=== PATIENT | male | born 1950 | race Caucasian/White ===

== ENCOUNTER 2018-07-10 08:52 | Day surgery (SDC) | payer MEDICARE ==
[~2018-07-10 08:52] MED LIST: ALPRAZolam 0.25 MG TAB PO PRN; ALPRAZolam 0.5 MG TAB PO PRN; ASPIRIN 325 MG TAB PO STA; ATORVASTATIN 80 MG TAB PO STA; NITROGLYCERIN SL TABS 0.4 MG TAB SUBLINGUAL PRN; SODIUM CHLORIDE 0.9% 1,000 ML in EMPTY BAG 1 BAG IV ONE
[2018-07-10] MEDS ORDERED: SODIUM CHLORIDE 0.9% 1,000 ML IV ONE (09:35)
[2018-07-10] MEDS ORDERED: fentaNYL (PF) 50 MCG/ML 2 ML AMP ONE (11:33)
[2018-07-10] MEDS ORDERED: MIDAZOLAM 2 MG/2 ML VIAL IV ONE (11:42)
[2018-07-10] MEDS ORDERED: fentaNYL (PF) 50 MCG/ML 2 ML AMP IV ONE (11:42)
[2018-07-10 12:27] LABS: O2 Sat Blood Gas 78.5 %
[2018-07-10 12:30] LABS: O2 Sat Blood Gas 76.2 %
[2018-07-10] MEDS ORDERED: IOPAMIDOL-370 100ML BTL INJ ONE (12:30)
[2018-07-10] MEDS ORDERED: IOPAMIDOL-370 150ML BTL INJ ONE (12:30)
[2018-07-10 12:32] LABS: O2 Sat Blood Gas 97.5 %
[2018-07-10] MEDS ORDERED: RX INFO: IV CONTRAST WAS GIVEN 1 EACH MISC MISCELLANE PRN (12:47)
--- NOTE | 2018-07-10 14:58 | P.GSCN ---
History of Present Illness Consult date: 07/10/18 Reason for Consult: Triple-vessel coronary artery disease, surgical recommendations Requesting physician: Tom Parrish History of present illness: This is a 68-year-old gentleman who recently began following with Dr. Padilla Perera on an outpatient basis. He has a previous medical history of newly diagnosed end-stage renal disease currently receiving hemodialysis, hypertension, hyperlipidemia, pulmonary embolism in April 2018 on chronic Eliquis, and previous tobacco dependence, quit smoking in January 2018, prior to that smoked 1 pack per day for 40+ years. He also states he has significant family history of coronary artery disease on his mother's side with several uncles diagnosed at less than 60 years old. Apparently he began seeing Dr. Padilla Perera and was told during office appointment that his blood pressure was very high and he should report to the emergency room. He was admitted in April 2018 to [facility] and treated for hypertension. While there he was diagnosed with end-stage renal disease and hemodialysis was initiated. Transthoracic echocardiogram was completed at that time demonstrating normal LV size with global hypokinesis of the left ventricle, moderate concentric left ventricular hypertrophy, decreased LV systolic function with EF 30-35%, mildly dilated right ventricle, mildly dilated atria, trace aortic regurgitation, moderate mitral regurgitation, moderate tricuspid regurgitation, and pulmonary hypertension with RVSP 69 mmHg. The patient was diagnosed with congestive heart failure, NYHA class III, AHA stage C by Dr. Parrish. He was in [facility] for approximately 1 week and discharged home on multiple new medications. He did remain compliant with follow-up with Dr. Parrish in the office, a stress test was completed 06/04/2018 demonstrating possible prior myocardial infarction raising the question of ischemic cardiomyopathy. He was recommended to undergo heart catheterization as an outpatient which was completed today and which demonstrated left main stenosis 40%, RCA stenosis 99%, circumflex stenosis 80%, mid LAD stenosis 100%, and diagonal branch 90% stenosis. Upon further inspection patient denies any symptoms of chest pain, shortness of breath, nausea, diaphoresis, syncope, PND, BOATENG, or any stroke like symptoms. Due to the nature of his disease Dr. Lopez from cardiothoracic surgery was consulted for myocardial revascularization recommendations. Review of Systems Review of systems was completed and was negative except as noted in the HPI. Past Medical History Past Medical History: Hypertension, Pulmonary Embolus (PE), Renal Disease, Thyroid Disorder Additional Past Medical History / Comment(s): HEMODIALYSIS MON-MON-MON AT [facility] # [phone]. HEMODIALYSIS CATHETER RIGHT CHEST., PATIENT STATES POSSIBLE PE APR 2018., SEE CARDIOLOGY H & P. History of Any Multi-Drug Resistant Organisms: None Reported Additional Past Surgical History / Comment(s): TEMPORARTY HEMODIALYSIS CATHETER (APR 2018) Past Anesthesia/Blood Transfusion Reactions: No Reported Reaction Past Psychological History: No Psychological Hx Reported Smoking Status: Former smoker Past Alcohol Use History: Occasional Additional Past Alcohol Use History / Comment(s): QUIT SMOKING 5 MONTHS AGO (FEB 2018), SMOKED 1 PPD, SMOKED 45 YEARS. Past Drug Use History: None Reported - Past Family History Mother Family Medical History: Coronary Artery Disease (CAD) Additional Family Medical History / Comment(s): Multiple family members on his mother's side with coronary artery disease including uncles diagnosed before the age of 60 Medications and Allergies Home Medications Medication Instructions Recorded Confirmed Type Apixaban [Eliquis] 1.25 mg PO BID 07/03/18 07/10/18 History Furosemide [Lasix] 80 mg PO BID 07/03/18 07/10/18 History Isosorbide Mononitrate ER [Imdur] 60 mg PO DAILY 07/03/18 07/10/18 History Levothyroxine Sodium [Synthroid] 50 mcg PO DAILY 07/03/18 07/10/18 History Metoprolol Tartrate [Lopressor] 12.5 mg PO BID 07/03/18 07/10/18 History Pravastatin Sodium [Pravachol] 20 mg PO HS 07/03/18 07/10/18 History Dara-Yandy (Supplement) 1 tab PO DAILY 07/03/18 History hydrALAZINE HCL [Apresoline] 50 mg PO BID 07/03/18 07/10/18 History Allergies Allergy/AdvReac Type Severity Reaction Status Date / Time No Known Allergies Allergy Verified 07/10/18 09:19 Surgical - Exam Vital Signs Pulse Resp BP Pulse Ox 57 L 18 154/78 100 07/10/18 09:22 07/10/18 09:22 07/10/18 09:22 07/10/18 09:22 - General well developed, well nourished, no distress, no pain - Eyes PERRL, normal ocular movement - ENT no hearing loss, poor snf - Neck no masses, no bruits, trachea midline - Respiratory Lungs sounds clear but diminished bilaterally. Respirations even, nonlabored. Currently on room air with oxygen saturation 100%. No chest wall deformities. - Cardiovascular S1, S2 present. Regular rate and rhythm, sinus rhythm on telemetry. Palpable peripheral pulses bilaterally. No edema present. No calf pain or tenderness noted. No varicosities noted to bilateral lower extremities. Negative Erasmo's test to left radial artery. Right anterior chest wall temporary hemodialysis cath present. - Abdomen Abdomen: soft, non tender, bowel sounds - Genitourinary Deferred - Rectum Deferred - Integumentary Skin appears slightly jaundiced. no rash, no growths - Neurologic normal coordination, normal sensation - Musculoskeletal normal posture - Psychiatric oriented to time, oriented to person, oriented to place, speech is normal, memory intact Results - Imaging Additional studies: Heart catheterization films reviewed. Assessment and Plan Assessment: 1. Severe triple-vessel coronary artery disease 2. Cardiomyopathy, chronic systolic heart failure, NYHA class III, AHA stage C with ejection fraction 30-35% 3. End-stage renal disease currently receiving hemodialysis 4. Hypertension 5. Hyperlipidemia 6. Previous tobacco dependence 7. Pulmonary embolism in April 2018, on Eliquis for anticoagulation Plan: The patient was seen and examined at the bedside in the extended stay unit. Charts as diagnostics reviewed. The case will be discussed in detail with Dr. Lopez. The usual perioperative course for open heart surgery was reviewed in detail with the patient and his , risks and benefits were discussed, all questions were answered. The patient was agreeable at this time to preoperative testing which has been ordered. We recommend maximizing medical therapy with aspirin, statin, beta gallo therapy. STS risk score will be computed once preoperative testing has been completed and discussed with the patient and his . Will continue to reinforce preoperative teaching. Medical management per cardiology. More recommendations to follow. Thank you Dr. Parrish for this consult. We look forward to working with you in the care of your patient. Time with Patient: Greater than 30
[2018-07-10 16:32] LABS: Anisocytosis Slight; Basophils % (A) 1 %; Eosinophils # (A) 0.3 k/uL (0-0.7); Eosinophils % (A) 5 %; HCT 36.4 % (39.0-53.0); HGB 11.4 gm/dL (13.0-17.5); Hypochromasia Slight; Lymphocytes # (A) 0.9 k/uL (1.0-4.8); Lymphocytes % (A) 18 %; MCH 30.5 pg (25.0-35.0); MCHC 31.4 g/dL (31.0-37.0); Macrocytosis Slight; Mean Platelet Volume 7.5; Monocytes # (A) 0.4 k/uL (0-1.0); Monocytes % (A) 8 %; Neutrophils # (A) 3.4 k/uL (1.3-7.7); Neutrophils % (A) 66 %; Platelet Count 214 k/uL (150-450); RBC 3.75 m/uL (4.30-5.90); RDW 16.6 % (11.5-15.5); WBC 5.1 k/uL (3.8-10.6)
--- NOTE | 2018-07-10 16:32 | CC ---
CARDIAC CATHETERIZATION REPORT This patient recently was admitted in the hospital with renal failure and cardiomyopathy and congestive cardiac failure. The patient subsequently was started on dialysis. Patient had a kidney biopsy done. The stress test was performed which showed evidence suggestive of ischemic cardiomyopathy with predominantly fixed perfusion defect in the anterior apical segment. In view of that, the patient was recommended to have a cardiac catheterization for definitive diagnosis. The patient had a evidence of some pulmonary hypertension prior to dialysis and so the right and left heart catheterization was performed. DESCRIPTION OF THE PROCEDURE: The right and left heart catheterization was . The right groin was prepped and draped in the usual manner and the right femoral artery was entered under ultrasound guidance and using micropuncture needle, subsequently right femoral vein was entered using ultrasound guidance and a #8 Ni[place] sheath was placed in. Initially right heart catheterization was performed and subsequently coronary angiography and left ventriculography was performed. Sheath was removed and good hemostasis was achieved with manual compression and Angio-Seal. HEMODYNAMICS: The mean right atrial pressure is 2 mmHg. Right ventricular systolic pressure is 60 and end-diastolic pressure is 4 mmHg. Pulmonary artery systolic pressure is 16 and end- diastolic pressure is 4-6 mmHg. Mean pulmonary capillary wedge pressure was only 4-6 mmHg. Cardiac output by thermodilution was 7.7. The saturation in the right atrium was 78. The pulmonary artery saturation was 76%. Femoral artery saturation was 97%. Cardiac output by Aime was 5.98 L. SELECTIVE CORONARY ANGIOGRAPHY: Left main coronary artery shows the distal 40% stenosis. LAD is totally occluded after the origin of the good-sized diagonal branch. The diagonal branch has ostial stenosis of 80-90 percent. Circumflex coronary artery is a good caliber blood vessel. There is an intermediate branch which has a 70% stenosis. The circumflex coronary artery then has a 70% stenosis and subsequently distally it is occluded with a faint filling of the distal branches is noted. The right coronary artery, mid right coronary artery has a 90% stenosis and it gives collaterals. There is a good filling of the LAD as well as the PLV branch of the circumflex coronary artery. Left ventriculography reveals mild anterior apical hypokinesia with ejection fraction of 45 to 50% FINAL IMPRESSION: This study reveals severe triple-vessel disease with a 40% stenosis of the distal left main. The LAD is totally occluded. First diagonal branch has 80 to 90% stenosis. Intermediate branch has 70% stenosis. Circumflex coronary artery has a 80% stenosis with subtotal occlusion in its distal portion. Right coronary artery is 90% stenosis. There is a good filling of the LAD as well as obtuse marginal branch. Left ventriculography reveals ejection fraction of 45-50 percent with anterior apical hypokinesia. RECOMMENDATIONS: We will obtain surgical consultation for coronary artery bypass surgery. BENJI / MAYRA: [id number] /
[2018-07-10 16:37] LABS: Prothrombin Time 10.4 sec (9.0-12.0)
[2018-07-10 16:38] LABS: Partial Thromboplastin Time 27.9 sec (22.0-30.0)
[2018-07-10 16:41] LABS: Albumin 3.4 g/dL (3.5-5.0); Potassium 5.4 mmol/L (3.5-5.1); Total Bilirubin 0.6 mg/dL (0.2-1.3); Total Protein 5.9 g/dL (6.3-8.2)
[2018-07-10] MEDS: FUROSEMIDE 80 MG TAB PO SCH (17:26)
[2018-07-10 17:33] VITALS: BMI 20.6
--- NOTE | 2018-07-10 18:57 | XR ---
EXAMINATION TYPE: XR chest 2V DATE OF EXAM: 07/10/2018 COMPARISON: NONE HISTORY: Hypertension TECHNIQUE: Frontal and lateral views of the chest are obtained. FINDINGS: Heart and mediastinum are normal. Lungs are clear. Diaphragm is normal. Bony thorax appear s normal. There is right central venous catheter with the tip in the superior vena cava. There is no pleural effusion. IMPRESSION: Normal chest. Normal heart.
[2018-07-10] MEDS ORDERED: PRAVASTATIN SODIUM 20 MG TAB PO SCH (21:00)
[2018-07-10] MEDS: hydrALAZINE HCL 50 MG TAB PO SCH (21:32)
[2018-07-10] MEDS: METOPROLOL TARTRATE 12.5 MG TAB PO SCH (21:32)
--- NOTE | 2018-07-10 21:38 | US ---
EXAMINATION TYPE: US carotid duplex BILAT DATE OF EXAM: 07/10/2018 COMPARISON: NONE CLINICAL HISTORY: Pre-Op Cardiac Surgery. Pre Op cardiac surgery EXAM MEASUREMENTS: RIGHT: Peak Systolic Velocity (PSV) cm/sec ----- Right CCA: 78.4 ----- Right ICA: 122.9 ----- Right ECA: 96.4 ICA/CCA ratio: 1.6 RIGHT: End Diastole cm/sec ----- Right CCA: 18.8 ----- Right ICA: 50.9 ----- Right ECA: 13.6 LEFT: Peak Systolic Velocity (PSV) cm/sec ----- Left CCA: 98.3 ----- Left ICA: 88.5 ----- Left ECA: 98.3 ICA/CCA ratio: 0.9 LEFT: End Diastole cm/sec ----- Left CCA: 27.4 ----- Left ICA: 29.4 ----- Left ECA: 19.5 VERTEBRALS (direction of flow): Right Vertebral: Antegrade Left Vertebral: Antegrade Rhythm: Normal No significant stenosis seen IMPRESSION: There is antegrade flow in the vertebral arteries. The images and measurements suggest c lose to 0% stenosis in both internal carotid arteries. Criteria for Assigning % of Stenosis / Diameter reduction (Estimation based on the indirect measurements of the internal carotid artery velocities (ICA PSV). 1. Normal (no stenosis)=ICA PSV < 125 cm/s: ratio < 2.0: ICA EDV<40 cm/s. 2. Less than 50% stenosis=ICA PSV < 125 cm/s: ratio < 2.0: ICA EDV<40 cm/s. 3. 50 to 69% stenosis=ICA PSV of 125 to 230 cm/s: ration 2.0 ? 4.0: ICA EDV 40-100 cm/s. 4. Greater than 70% stenosis to near occlusion= ICA PSV > 230 cm/s: ratio > 4.0: ICA EDV > 100 cm/s. 5. Near occlusion= ICA PSV velocities may be low or undetectable: variable ratio and ICA EDV. 6. Total occlusion=unable to detect flow.
[2018-07-11 01:16] LABS: Hepatitis A Antibody IgM Non-Reactive (Non-Reactive); Hepatitis B Core IgM Non-Reactive (Non-Reactive)
[2018-07-11] MEDS ORDERED: LEVOTHYROXINE 50 MCG TAB PO SCH (06:30)
[2018-07-11] MEDS: hydrALAZINE HCL 50 MG TAB PO SCH (08:58)
[2018-07-11] MEDS: FUROSEMIDE 80 MG TAB PO SCH ×2 (08:58→15:20)
[2018-07-11] MEDS: METOPROLOL TARTRATE 12.5 MG TAB PO SCH (08:58)
[2018-07-11] MEDS ORDERED: ISOSORBIDE MONONITRATE ER 60 MG TAB.ER.24H PO SCH (09:00)
[2018-07-11] MEDS ORDERED: APIXABAN 2.5 MG TABLET PO SCH ×2 (09:00→10:00)
[2018-07-11 09:07] VITALS: RESP 18
--- NOTE | 2018-07-11 11:27 | P.NPCON ---
History of Present Illness - Reason for Consult end stage renal disease - History of Present Illness Reason for consultation: End-stage renal disease History of present illness: Patient is a 68-year-old male seen in renal consultation for end-stage renal disease. He is maintained on hemodialysis on a Monday schedule. Permacath. Patient had a stress test done as an outpatient which was abnormal. He had a cardiac catheterization done yesterday which revealed triple-vessel disease. He is being followed now by cardiac thoracic surgery. Last hemodialysis was on Monday. He denies any chest pain or shortness of breath. No vomiting or diarrhea. Hemodynamically stable. No cough. No abdominal pain. No fever or chills. No active complaints at this time. 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 No treatment was warranted due to severe chronicity. Vital signs are stable. General: The patient appeared well nourished and normally developed. HEENT: Head exam is unremarkable. Neck is without jugular venous distension. LUNGS: Lungs are clear to auscultation and percussion. Breath sounds decreased. HEART: Rate and Rhythm are regular. First and second heart sounds normal. No murmurs, rubs or gallops. ABDOMEN: Abdominal exam reveals normal bowel sounds. Non-tender and non- distended. No evidence of peritonitis. EXTREMITITES: No clubbing, cyanosis, or edema. Past Medical History Past Medical History: Hypertension, Pulmonary Embolus (PE), Renal Disease, Thyroid Disorder Additional Past Medical History / Comment(s): HEMODIALYSIS MON-MON-MON AT [facility] # [phone]. HEMODIALYSIS CATHETER RIGHT CHEST., PATIENT STATES POSSIBLE PE APR 2018., SEE CARDIOLOGY H & P. History of Any Multi-Drug Resistant Organisms: None Reported Additional Past Surgical History / Comment(s): TEMPORARTY HEMODIALYSIS CATHETER (APR 2018) Past Anesthesia/Blood Transfusion Reactions: No Reported Reaction Past Psychological History: No Psychological Hx Reported Smoking Status: Former smoker Past Alcohol Use History: Occasional Additional Past Alcohol Use History / Comment(s): QUIT SMOKING 5 MONTHS AGO (FEB 2018), SMOKED 1 PPD, SMOKED 45 YEARS. Past Drug Use History: None Reported - Past Family History Mother Family Medical History: Coronary Artery Disease (CAD) Additional Family Medical History / Comment(s): Multiple family members on his mother's side with coronary artery disease including uncles diagnosed before the age of 60 Medications and Allergies Home Medications Medication Instructions Recorded Confirmed Type Isosorbide Mononitrate ER [Imdur] 60 mg PO DAILY 07/03/18 07/10/18 History Levothyroxine Sodium [Synthroid] 50 mcg PO DAILY 07/03/18 07/10/18 History Metoprolol Tartrate [Lopressor] 12.5 mg PO BID 07/03/18 07/10/18 History Dara-Yandy (Supplement) 1 tab PO DAILY 07/03/18 History hydrALAZINE HCL [Apresoline] 50 mg PO BID 07/03/18 07/10/18 History Apixaban [Eliquis] 2.5 mg PO BID #60 tab 07/11/18 Rx Nitroglycerin Sl Tabs [Nitrostat] 0.4 mg SUBLINGUAL Q5M PRN #25 tab 07/11/18 Rx Rosuvastatin Calcium [Crestor] 20 mg PO DAILY #30 tab 07/11/18 Rx Allergies Allergy/AdvReac Type Severity Reaction Status Date / Time No Known Allergies Allergy Verified 07/10/18 09:19 Physical Exam Vitals: Vital Signs Temp Pulse Resp BP BP Pulse Ox 07/11/18 09:07 98.2 F 65 18 160/85 98 07/11/18 04:00 98.0 F 69 16 132/82 96 07/11/18 00:00 98.1 F 65 16 140/78 97 07/10/18 19:56 97.1 F L 65 16 140/79 96 07/10/18 16:32 68 14 155/86 98 07/10/18 16:00 68 14 07/10/18 15:22 64 18 155/83 99 07/10/18 14:30 60 18 138/82 100 07/10/18 14:00 61 18 147/82 100 07/10/18 13:45 64 18 149/83 100 07/10/18 13:30 62 18 157/83 100 07/10/18 13:15 62 18 140/82 100 07/10/18 13:00 54 L 18 162/84 100 Intake and Output 07/10/18 07/11/18 07/11/18 22:59 06:59 14:59 Intake Total 240 800 Output Total 250 Balance -10 800 Intake: Intake, IV Titration 800 Amount Sodium Chloride 0.9% 1, 800 000 ml In Empty Bag 1 bag @ 100 mls/hr IV .Q10H ONE Rx#:[id number] Oral 240 Output: Urine 250 Other: Voiding Method Toilet Urinal Weight 66 kg Results - Lab Results Most recent lab results Calcium 9.0 mg/dL (8.4-10.2) 07/10/18 16:16 Magnesium 2.0 mg/dL (1.6-2.3) 07/10/18 16:16 07/10/18 16:20 07/10/18 16:16 Assessment and Plan Plan: Assessment: 1. End-stage renal disease maintained on hemodialysis on a Monday schedule via permacath. 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 He was also noted to have severe chronicity and kidney biopsy therefore no tr eatment was warranted. 2. Coronary artery disease status post cardiac catheterization which revealed severe triple-vessel disease. Being followed by cardial thoracic surgery. Potential CABG next Monday. 3. Mild hyperkalemia secondary to chronic kidney disease. 4. Hypertension with chronic kidney disease. Plan: Hemodialysis today. Stable to be discharged home from nephrology standpoint after dialysis today. He is to also follow-up with vascular surgery as an outpatient for AV fistula creation. Thank you for the consultation. I will continue to follow the patient with you during his hospital stay.
--- NOTE | 2018-07-11 11:41 | ECHOF ---
Referral Reason:assess LV, valves MEASUREMENTS -------- HEIGHT: 172.7 cm WEIGHT: 63.5 kg BP: RVIDd: 2.9 cm (< 3.3) IVSd: 1.0 cm (0.6 - 1.1) LVIDd: 5.6 cm (3.9 - 5.3) LVPWd: 1.0 cm (0.6 - 1.1) IVSs: 1.3 cm LVIDs: 4.7 cm LVPWs: 1.1 cm LAESV Index (A-L): 28.52 ml/m Ao Diam: 3.0 cm (2.0 - 3.7) AV Cusp: 2.0 cm (1.5 - 2.6) LA Diam: 3.6 cm (2.7 - 3.8) MV EXCURSION: 20.130 mm (> 18.000) MV EF SLOPE: 93 mm/s (70 - 150) EPSS: 0.5 cm MV E Alton: 0.60 m/s MV DecT: 291 ms MV A [place]: 0.78 m/s MV E/A Ratio: 0.78 RAP: 5.00 mmHg RVSP: 41.26 mmHg FINDINGS -------- Sinus rhythm. This was a technically good study. The left ventricular size is normal. Left ventricular wall thickness is normal. Overall left vent ricular systolic function is moderately impaired with, an EF between 35 - 40 %. The diastolic filli ng pattern is normal for the age of the patient 8.72. Anterior is hypokinetic Basal inferolateral hypokinesis. Distal Septal Hypokinesis. The right ventricle is normal in size and function. Normal LA size by volume 22+/-6 ml/m2. RA appears enlarged. Aortic valve is trileaflet and is mildly thickened. There is no evidence of aortic regurgitation. There is no evidence of aortic stenosis. The mitral valve leaflets are mildly thickened. Mild mitral regurgitation is present. Mild tricuspid regurgitation present. There is mild pulmonary hypertension. The right ventricular systolic pressure, as measured by Doppler, is 41.26mmHg. Trace/mild (physiologic) pulmonic regurgitation. The aortic root size is normal. Normal inferior vena cava with normal inspiratory collapse consistent with estimated right atrial pre ssure of 5 mmHg. There is no pericardial effusion. CONCLUSIONS -------- 1. Sinus rhythm. 2. This was a technically good study. 3. The left ventricular size is normal. 4. Left ventricular wall thickness is normal. 5. Overall left ventricular systolic function is moderately impaired with, an EF between 35 - 40 %. 6. The diastolic filling pattern is normal for the age of the patient 8.72 7. Anterior is hypokinetic 8. Basal inferolateral hypokinesis. 9. Distal Septal Hypokinesis. 10. Normal LA size by volume 22+/-6 ml/m2. 11. RA appears enlarged. 12. Aortic valve is trileaflet and is mildly thickened. 13. The mitral valve leaflets are mildly thickened. 14. Mild mitral regurgitation is present. 15. Mild tricuspid regurgitation present. 16. There is mild pulmonary hypertension. 17. The right ventricular systolic pressure, as measured by Doppler, is 41.26mmHg. 18. Trace/mild (physiologic) pulmonic regurgitation. 19. The aortic root size is normal. 20. There is no pericardial effusion. PRINTING MACHINE OPERATOR: Nelson Fay RDCS
--- NOTE | 2018-07-11 13:20 | P.PN ---
Subjective Progress Note Date: 07/11/18 Principal diagnosis: Severe triple-vessel coronary artery disease. Cardiomyopathy, chronic systolic heart failure, NYHA class III, AHA stage C with ejection fraction 30-35%. Prev ious medical history of end-stage renal disease currently receiving hemodialysis Monday/Monday/Monday, hypertension as well as pulmonary hypertension, hyperlipidemia, pulmonary embolism in April 2018 on chronic Eliquis, previous tobacco dependence, hypothyroid, family history of early coronary artery disease, and questionable history of atrial fibrillation by documentation from [facility] however patient denies history. Patient was seen and examined with Dr. Lopez, currently ambulating in the room in no acute distress. Denies any pain or shortness of breath. Remains in normal sinus rhythm, hemodynamically stable. All questions answered. Objective - Vital Signs Vital signs: Vital Signs Temp 98.1 F 07/11/18 11:28 Pulse 65 07/11/18 11:30 Resp 18 07/11/18 11:30 BP 133/79 07/11/18 11:28 Pulse Ox 98 07/11/18 11:28 Intake & Output 07/10/18 07/11/18 07/11/18 18:59 06:59 18:59 Intake Total 590 800 640 Output Total 250 325 Balance 590 550 315 Weight 66 kg 61.462 kg Intake: IV 350 400 Sodium Chloride 0.9% 1, 0 400 000 ml In Empty Bag 1 bag @ 100 mls/hr IV .Q10H ONE Rx#:[id number] Intake, IV Titration 800 Amount Sodium Chloride 0.9% 1, 800 000 ml In Empty Bag 1 bag @ 100 mls/hr IV .Q10H ONE Rx#:[id number] Oral 240 240 Output: Urine 250 325 Other: Voiding Method Toilet Urinal # Voids 1 - Constitutional General appearance: Present: cooperative, no acute distress - Respiratory Details: Lungs sounds diminished bilaterally. Respirations even, nonlabored. Currently on room air with oxygen saturation 98%. Able to achieve 2000 mL on his incentive spirometry. - Cardiovascular Details: S1, S2 present. Regular rate and rhythm, sinus rhythm on telemetry. Palpable peripheral pulses bilaterally. No edema present. No calf pain or tenderness noted. Right anterior chest wall temporary hemodialysis catheter present. - Gastrointestinal Gastrointestinal Comment(s): Abdomen soft, nontender, nondistended. Active bowel sounds present 4 quadrants. Tolerating diet. - Genitourinary Genitourinary Comment(s): Continues to void clear, yellow urine. - Integumentary Integumentary Comment(s): Skin is warm and dry with evidence of good perfusion. - Neurologic Neurologic: Present: CNII-XII intact - Musculoskeletal Musculoskeletal: Present: gait normal, strength equal bilaterally - Psychiatric Psychiatric: Present: A&O x's 3, appropriate affect, intact judgment & insight - Allied health notes Allied health notes reviewed: nursing - Labs CBC & Chem 7: 07/10/18 16:20 07/10/18 16:16 Labs: Abnormal Lab Results - Last 24 Hours (Table) 07/10/18 07/10/18 Range/Units 16:16 16:20 RBC 3.75 L (4.30-5.90) m/uL Hgb 11.4 L (13.0-17.5) gm/dL Hct 36.4 L (39.0-53.0) % RDW 16.6 H (11.5-15.5) % Lymphocytes # 0.9 L (1.0-4.8) k/uL Potassium 5.4 H (3.5-5.1) mmol/L BUN 42 H (9-20) mg/dL Creatinine 6.99 H (0.66-1.25) mg/dL Total Protein 5.9 L (6.3-8.2) g/dL Albumin 3.4 L (3.5-5.0) g/dL HDL Cholesterol 38 L (40-60) mg/dL Microbiology - Last 24 Hours (Table) 07/10/18 14:20 Nasal Screen MRSA/MSSA - Preliminary Nasal Swab - Imaging and Cardiology Chest x-ray: report reviewed, image reviewed Carotid Dopplers reviewed, no significant stenosis. Lower extremity vein mapping reviewed. Assessment and Plan Assessment: 1. Severe triple-vessel coronary artery disease 2. Cardiomyopathy, chronic systolic heart failure, NYHA class III, AHA stage C with ejection fraction 30-35% 3. End-stage renal disease currently receiving hemodialysis 4. Hypertension 5. Pulmonary hypertension 6. Hyperlipidemia 7. Previous tobacco dependence , awaiting pulmonary function test from Dr. Hong office 8. Pulmonary embolism in April 2018, on Eliquis for anticoagulation 9. Hypothyroid 10. Family history of premature coronary artery disease 11. Questionable history of atrial fibrillation by [facility], patient denies history Plan: 1. Continue statin, beta gallo therapy , Eliquis for anticoagulation. 2. We will obtain pulmonary function test from Dr. Hong office. 3. Continue to reinforce preoperative teaching. 4. We recommend coronary artery bypass graft surgery with bilateral mammary harvest and pulmonary vein isolation soon. Patient wishes to wait for 1-2 weeks until he knows if he will have insurance coverage. We discussed with the patient and his that this is not something that should wait for a long period of time. They stated they will call next Monday07/16/18 after talking with their insurance company, and we can schedule surgery. We instructed patient to come back to the ER if he has any chest pain or shortness of breath, or any other symptoms. He will need Eliquis stopped for 3 days prior to surgery and will need dialysis prior to surgery. 5. Encourage continued smoking cessation, encourage incentive spirometry use. 6. Continued medical management of other comorbid diagnoses per primary care services. 7. The patient may be discharged to home from our standpoint to return as an outpatient for surgery. Time with Patient: Greater than 30
--- NOTE | 2018-07-11 13:39 | PN ---
PROGRESS NOTE This patient underwent right and left heart catheterization yesterday. Patient was found to have a severe triple-vessel disease. Surgical consultation was obtained. Right heart catheterization showed normal pulmonary artery pressures. Patient is doing well. Patient's vital signs remains stable. First and second heart sounds are heard. Lungs are clear to auscultation and percussion. There is a small hematoma at the venous puncture site. Otherwise there is no evidence of . Right groin appears normal. The patient is going to get dialysis today and Surgery is going to re-evaluate the patient today. After that the patient will be discharged home. We will continue the patient on Eliquis 2.5 mg b.i.d., which he has been taking for possibility of pulmonary embolism. MMODL / IJN: [id number] /
[2018-07-11 15:24] VITALS: BP 100/62; PULSE 63; TEMP 98
[2018-07-11] MEDS ORDERED: ATORVASTATIN 20 MG TAB PO SCH (21:00)
== END 2018-07-11 15:30 | disposition home or self-care (01) ==
LOC: CATHCVL 08:52 → 3SCARD 12:31 → CATHCVL 07-11 15:30
PROVIDERS: ATTEND Internal Medicine Cardiovascular Disease
DX: I25.10 Atherosclerotic heart disease of native coronary artery without angina pectoris (principal); I13.2 Hypertensive heart and chronic kidney disease with heart failure and with stage 5 chronic kidney disease, or end stage renal disease; N18.6 End stage renal disease; I50.22 Chronic systolic (congestive) heart failure; I25.82 Chronic total occlusion of coronary artery; Z99.2 Dependence on renal dialysis; I42.0 Dilated cardiomyopathy; I08.1 Rheumatic disorders of both mitral and tricuspid valves; E87.5 Hyperkalemia; Z82.49 Family history of ischemic heart disease and other diseases of the circulatory system; I27.20 Pulmonary hypertension, unspecified; E07.9 Disorder of thyroid, unspecified; E78.5 Hyperlipidemia, unspecified; Z87.891 Personal history of nicotine dependence; Z86.711 Personal history of pulmonary embolism; Z79.01 Long term (current) use of anticoagulants; Z79.890 Hormone replacement therapy; Z79.899 Other long term (current) drug therapy
CPT/HCPCS: 93306; 93460; 76937; 80061; 80053; 80074; 85018; 84443; 82810; 83735; 85025; 85610; 85730; 87070; 83036; 71046; 93970; 93922; 93880; C1760; C1894 ×2; C1769 ×2; J2250; J3010; Q9967 ×2; 90935

== ENCOUNTER → 2018-08-21 | Outpatient (CLI) | payer MEDICARE, BC ==
[2018-08-21 09:39] LABS: Anisocytosis Slight; HCT 39.5 % (39.0-53.0); HGB 12.5 gm/dL (13.0-17.5); Hypochromasia Slight; MCH 31.8 pg (25.0-35.0); MCHC 31.7 g/dL (31.0-37.0); MCV 100.3 fL (80.0-100.0); Macrocytosis Slight; Mean Platelet Volume 6.7; Platelet Count 197 k/uL (150-450); RBC 3.94 m/uL (4.30-5.90); RDW 17.5 % (11.5-15.5); WBC 6.7 k/uL (3.8-10.6)
[2018-08-21 09:42] LABS: INR 0.9 (<1.2); Partial Thromboplastin Time 26.1 sec (22.0-30.0); Prothrombin Time 10.2 sec (9.0-12.0)
[2018-08-21 09:52] LABS: Appearance,Urine Clear (Clear); Bilirubin,Urine Negative (Negative); Blood,Urine Moderate (Negative); Color,Urine Yellow; Glucose,Urine (UA) Negative (Negative); Ketones,Urine Negative (Negative); Leukocyte Esterase,Urine Small (Negative); Mucus,Urine Rare /hpf; Nitrite,Urine Negative (Negative); Protein,Urine 3+ (Negative); RBC,Urine 21 /hpf (0-5); Specific Gravity,Urine 1.009 (1.001-1.035); Urobilinogen,Urine <2.0 mg/dL (<2.0); WBC,Urine 13 /hpf (0-5)
[2018-08-21 11:03] LABS: Calcium 9.2 mg/dL (8.4-10.2); Potassium 4.7 mmol/L (3.5-5.1); Total Bilirubin 0.6 mg/dL (0.2-1.3); Total Protein 6.8 g/dL (6.3-8.2)
== END | disposition home or self-care (01) ==
LOC: LABWHC1 08:39
PROVIDERS: ATTEND Surgery
DX: I25.10 Atherosclerotic heart disease of native coronary artery without angina pectoris (principal)
CPT/HCPCS: 36415; 80053; 81001; 85027; 85610; 85730; 87086

== ENCOUNTER 2018-08-23 08:00 | Inpatient (IN) | payer MEDICARE, BC ==
[2018-08-28] MEDS ORDERED: CLEVIDIPINE BUTYRATE 25 MG in EMPTY BAG 1 BAG IV ONE (05:00)
[2018-08-28] MEDS ORDERED: DEXTROSE 5% IN WATER 1,000 ML with POTASSIUM CHLORIDE 25 MEQ, SODIUM CHLORIDE 2.5MEQ/ML... IRRIGATION ONE ×6 (05:00)
[2018-08-28] MEDS ORDERED: PHENYLEPHRINE 10 MG/ML VIAL IV ONE (05:00)
[2018-08-28] MEDS ORDERED: HEPARIN SODIUM,PORCINE 5,000 UNIT in SODIUM CHLORIDE 0.9% 500 ML 500 ML IV ONE (05:00)
[2018-08-28] MEDS ORDERED: ceFAZolin 1,000 MG in SODIUM CHLORIDE 0.9% IRRIGATIO 1,000 ML IRRIGATION ONE (05:00)
[2018-08-28] MEDS ORDERED: NITROGLYCERIN-D5W PMX 25 MG/250 ML BTL IV ONE (05:00)
[2018-08-28] MEDS ORDERED: PROTAMINE SULFATE 10 MG/ML 25 ML VIAL IV ONE ×2 (05:00→08:04)
[2018-08-28] MEDS ORDERED: ATORVASTATIN 10 MG TAB PO ONE (05:00)
[2018-08-28] MEDS ORDERED: TRANEXAMIC ACID 2,000 MG in SODIUM CHLORIDE 0.9% 80 ML IV ONE (05:00)
[2018-08-28] MEDS ORDERED: INSULIN REGULAR 100 UNIT in SODIUM CHLORIDE 0.9% 100 ML IV ONE (05:00)
[2018-08-28] MEDS ORDERED: CHLORHEXIDINE GLUCONATE 15 ML CUP MUCOUS MEM ONE (05:00)
[2018-08-28] MEDS ORDERED: ceFAZolin IN SWFI 2 GM/20 ML SYRINGE IVP ONE (05:00)
[2018-08-28] MEDS ORDERED: ASPIRIN 325 MG TAB PO ONE (05:00)
[2018-08-28] MEDS ORDERED: VANCOMYCIN 1,000 MG VIAL MISCELLANE ONE (05:00)
[2018-08-28] MEDS ORDERED: MAGNESIUM SULFATE MG 500 MG/ML IV ONE (05:00)
[2018-08-28] MEDS ORDERED: HEPARIN SODIUM 1,000 UN/ML (10ML VL) IV ONE (05:00)
[2018-08-28] MEDS ORDERED: NOREPINEPHRINE 4 MG in SODIUM CHLORIDE 0.9% 250 ML IV ONE (05:00)
[2018-08-28] MEDS ORDERED: METOPROLOL TARTRATE 12.5 MG TAB PO ONE (05:00)
[2018-08-28] MEDS ORDERED: SODIUM CHLORIDE 0.9% 1,000 ML IV ONE (05:00)
[2018-08-28] MEDS ORDERED: SODIUM BICARB 8.4% 50 ML SYR (1 MEQ/ML) IV ONE (05:00)
[2018-08-28] MEDS ORDERED: NITROGLYCERIN-D5W PMX 50 MG in DEXTROSE/WATER 1 250ML.BAG IV ONE (05:00)
[2018-08-28] MEDS ORDERED: DEXTROSE 5% IN WATER 1,000 ML with POTASSIUM CHLORIDE 110 MEQ, MAGNESIUM SULFATE 16 MEQ... IV ONE ×5 (05:00)
[2018-08-28] MEDS ORDERED: PAPAVERINE 360 MG in SODIUM CHLORIDE 0.9% 90 ML IV ONE (05:00)
[2018-08-28] MEDS ORDERED: CALCIUM CHLORIDE 100 MG/ML 10 ML SYRINGE IV ONE (05:00)
[2018-08-28] MEDS ORDERED: ALBUMIN HUMAN 25% 50 ML IV ONE (05:00)
[2018-08-28] MEDS ORDERED: PROPOFOL 1,000 MG/100 ML VIAL IV ONE (05:00)
[2018-08-28] MEDS ORDERED: LACTATED RINGERS 1,000 ML IV ONE (05:00)
[2018-08-28] MEDS ORDERED: ceFAZolin 2,000 MG in SODIUM CHLORIDE 0.9% 30 ML IVPB ONE ×4 (05:00)
[2018-08-28] MEDS ORDERED: PROTAMINE SULFATE 250 MG in EMPTY BAG 1 BAG IV ONE (05:00)
[2018-08-28] MEDS ORDERED: PHENYLEPHRINE 40 MG in SODIUM CHLORIDE 0.9% 250 ML IV ONE (05:00)
[2018-08-28] MEDS ORDERED: LACTATED RINGERS 1,000 ML IV SCH (05:43)
[2018-08-28] MEDS ORDERED: MIDAZOLAM 2 MG/2 ML VIAL IV PRN (05:43)
[2018-08-28] MEDS ORDERED: SODIUM CHLORIDE 0.9% 500 ML 500 ML IV ONE (06:07)
[2018-08-28 06:18] LABS: Anisocytosis Slight; HCT 40.7 % (39.0-53.0); HGB 13.4 gm/dL (13.0-17.5); MCH 32.4 pg (25.0-35.0); MCHC 32.9 g/dL (31.0-37.0); MCV 98.3 fL (80.0-100.0); Macrocytosis Slight; Mean Platelet Volume 7.1; Platelet Count 224 k/uL (150-450); RBC 4.14 m/uL (4.30-5.90); RDW 18.6 % (11.5-15.5); WBC 7.5 k/uL (3.8-10.6)
[2018-08-28 06:25] LABS: Potassium 4.3 mmol/L (3.5-5.1)
[2018-08-28] MEDS ORDERED: ePHEDrine SULFATE/0.9% NACL/PF 50 MG/5 ML SYRINGE IV ONE (08:04)
[2018-08-28] MEDS ORDERED: SODIUM CHLORIDE 0.9% IRRIG 1,000 ML BTL IRRIGATION ONE (08:04)
[2018-08-28] MEDS ORDERED: SODIUM CHLORIDE 0.9% 250 ML BAG ONE (08:04)
[2018-08-28] MEDS ORDERED: HEPARIN SODIUM,PORCINE 10,000 UNIT/ML 1 ML VIAL ONE (08:04)
[2018-08-28] MEDS ORDERED: fentaNYL (PF) 50 MCG/ML 2 ML AMP ONE (08:04)
[2018-08-28] MEDS ORDERED: PROPOFOL 10 MG/ML 20 ML VIAL IV ONE (08:04)
[2018-08-28] MEDS ORDERED: GLYCOPYRROLATE 0.2 MG/ML 2 ML VIAL ONE (08:04)
[2018-08-28] MEDS ORDERED: VECURONIUM 10 MG VIAL IV ONE (08:04)
[2018-08-28] MEDS ORDERED: ceFAZolin 1,000 MG VIAL ONE (08:04)
[2018-08-28] MEDS ORDERED: ELECTROLYTE-R (PH 7.4) 1,000 ML IV.SOLN IV ONE (08:04)
[2018-08-28] MEDS ORDERED: PHENYLEPHRINE-0.9% NACL SYG 1 MG/10 ML SYRINGE ONE (08:04)
[2018-08-28] MEDS ORDERED: LIDOCAINE 2% SYG (PF) 100 MG/5 ML ONE (08:04)
[2018-08-28] MEDS ORDERED: MIDAZOLAM 2 MG/2 ML VIAL ONE (08:04)
[2018-08-28] MEDS ORDERED: CALCIUM CHLORIDE 100 MG/ML 10 ML SYRINGE ONE (08:04)
[2018-08-28] MEDS ORDERED: TRANEXAMIC ACID 1,000 MG/10 ML VIAL ONE (08:04)
[2018-08-28] MEDS ORDERED: fentaNYL (PF) 50 MCG/ML 50 ML VIAL ONE (08:04)
[2018-08-28] MEDS ORDERED: ESMOLOL 100 MG/10 ML VIAL ONE (08:04)
[2018-08-28] MEDS ORDERED: VASOPRESSIN 20 UNIT/ML 1 ML VIAL ONE (08:04)
[2018-08-28 09:19] LABS: ABG Base Excess 2.5 mmol/L; ABG HCO3 27 mmol/L (21-25); ABG Oxygen Saturation 97.6 % (94-97); ABG PCO2 40 mmHg (35-45); ABG PH 7.44 (7.35-7.45); ABG PO2 244 mmHg (83-108); ABG TCO2 28 mmol/L (19-24)
[2018-08-28] MEDS ORDERED: DESMOPRESSIN ACETATE 18 MCG in SODIUM CHLORIDE 0.9% 50 ML IVPB ONE (09:41)
[2018-08-28 11:13] LABS: ABG Base Excess 0.2 mmol/L; ABG HCO3 26 mmol/L (21-25); ABG Oxygen Saturation 97.8 % (94-97); ABG PCO2 44 mmHg (35-45); ABG PH 7.37 (7.35-7.45); ABG PO2 250 mmHg (83-108); ABG Sodium Whole Blood 137 mmol/L (135-146); ABG TCO2 27 mmol/L (19-24)
[2018-08-28 11:34] LABS: ABG Base Excess -1.7 mmol/L; ABG HCO3 23 mmol/L (21-25); ABG Oxygen Saturation 98.4 % (94-97); ABG PCO2 40 mmHg (35-45); ABG PH 7.37 (7.35-7.45); ABG PO2 390 mmHg (83-108); ABG Potassium Whole Blood 3.7 mmol/L (3.4-4.5); ABG Sodium Whole Blood 133 mmol/L (135-146); ABG TCO2 25 mmol/L (19-24)
[2018-08-28 12:09] LABS: ABG Base Excess -1.9 mmol/L; ABG HCO3 23 mmol/L (21-25); ABG PCO2 39 mmHg (35-45); ABG PH 7.38 (7.35-7.45); ABG PO2 310 mmHg (83-108); ABG Potassium Whole Blood 5.1 mmol/L (3.4-4.5); ABG Sodium Whole Blood 132 mmol/L (135-146); ABG TCO2 24 mmol/L (19-24)
[2018-08-28 12:34] LABS: ABG Base Excess -2.8 mmol/L; ABG HCO3 23 mmol/L (21-25); ABG PCO2 46 mmHg (35-45); ABG PH 7.31 (7.35-7.45); ABG PO2 295 mmHg (83-108); ABG Potassium Whole Blood 4.6 mmol/L (3.4-4.5); ABG Sodium Whole Blood 133 mmol/L (135-146); ABG TCO2 25 mmol/L (19-24)
[2018-08-28 13:22] LABS: ABG HCO3 21 mmol/L (21-25); ABG Oxygen Saturation 99.8 % (94-97); ABG PCO2 40 mmHg (35-45); ABG PH 7.32 (7.35-7.45); ABG PO2 327 mmHg (83-108); ABG Potassium Whole Blood 4.2 mmol/L (3.4-4.5); ABG Sodium Whole Blood 133 mmol/L (135-146); ABG TCO2 22 mmol/L (19-24)
[2018-08-28] MEDS ORDERED: ONDANSETRON 4 MG/2 ML VIAL IVP PRN (14:12)
[2018-08-28] MEDS ORDERED: DEXTROSE 5% IN WATER 100 ML with AMIODARONE 150 MG IV PRN (14:12)
[2018-08-28] MEDS ORDERED: CALCIUM GLUCONATE 2 GM in SODIUM CHLORIDE 0.9% 100 ML IVPB PRN (14:12)
[2018-08-28] MEDS ORDERED: NITROGLYCERIN-D5W PMX 50 MG in DEXTROSE/WATER 1 250ML.BAG IV SCH (14:12)
[2018-08-28] MEDS ORDERED: BENZOCAINE/MENTHOL LOZENG 1 EACH LOZENGE MUCOUS MEM PRN (14:12)
[2018-08-28] MEDS ORDERED: IPRATROPIUM-ALBUTEROL 3 ML NEB INHALATION PRN (14:12)
[2018-08-28] MEDS ORDERED: AMIODARONE 360 MG in DEXTROSE 5% IN WATER 200 ML IV PRN ×2 (14:12)
[2018-08-28] MEDS ORDERED: AMIODARONE 300 MG in DEXTROSE 5% IN WATER 250 ML IV PRN ×2 (14:12)
[2018-08-28] MEDS ORDERED: PROPOFOL 1,000 MG in EMPTY BAG 1 BAG IV SCH (14:12)
[2018-08-28 15:01] LABS: ABG Sodium Whole Blood 137 mmol/L (135-146)
[2018-08-28] MEDS: NOREPINEPHRINE 4 MG in SODIUM CHLORIDE 0.9% 250 ML IV SCH (15:35)
[2018-08-28] MEDS: SODIUM CHLORIDE 0.9% 150 ML with VASOPRESSIN 60 UNIT IV SCH ×2 (15:35)
[2018-08-28] MEDS: LACTATED RINGERS 1,000 ML IV SCH (15:35)
[2018-08-28] MEDS ORDERED: DEXTROSE 50% SYRINGE 50 ML IVP ONE (15:50)
[2018-08-28 16:08] LABS: Glucose,Whole Blood 67 mg/dL (75-99)
--- NOTE | 2018-08-28 16:11 | XR ---
EXAMINATION TYPE: XR chest 1V portable DATE OF EXAM: 08/28/2018 COMPARISON: Prior chest x-ray 07/10/2018 HISTORY: Postop cardiac surgery TECHNIQUE: Single frontal view of the chest is obtained. FINDINGS: Patient is post median sternotomy and atrial appendage clipping. Left jugular central veno us sheath and coaxial Dover-Kojo catheter are present, distal tip in the pulmonary artery. Right jugul ar central venous catheter shows the distal tip of the right atrium. Left-sided chest tube is in plac e. Endotracheal tube overlies the tracheal air column, gastric tube courses to the inferior extent of the exam and is not included is likely coiled in the stomach. Median sternal drain is in place. Righ t-sided chest tube is in place. No sizable pneumothorax. There is overlying artifact. Patchy basilar density likely reflects atelectasis. IMPRESSION: Satisfactory postoperative chest x-ray
[2018-08-28 16:12] LABS: Ionized Calcium 4.7 mg/dL (4.5-5.3)
[2018-08-28 16:19] LABS: ABG Base Excess -0.3 mmol/L; ABG HCO3 24 mmol/L (21-25); ABG Oxygen Saturation 98.9 % (94-97); ABG PCO2 42 mmHg (35-45); ABG PH 7.38 (7.35-7.45)
[2018-08-28 16:22] LABS: Albumin 2.1 g/dL (3.5-5.0); Calcium 8.8 mg/dL (8.4-10.2); Magnesium 2.3 mg/dL (1.6-2.3); Potassium 4.2 mmol/L (3.5-5.1); Total Bilirubin 0.4 mg/dL (0.2-1.3); Total Protein 3.8 g/dL (6.3-8.2)
[2018-08-28 16:28] LABS: ABG PO2 >420 mmHg (83-108)
[2018-08-28 16:30] LABS: Glucose,Whole Blood 135 mg/dL (75-99)
[2018-08-28 16:34] LABS: Anisocytosis Slight; Basophils % (A) 0 %; Eosinophils # (A) 0.1 k/uL (0-0.7); Eosinophils % (A) 1 %; HCT 25.8 % (39.0-53.0); Lymphocytes # (A) 0.8 k/uL (1.0-4.8); Lymphocytes % (A) 10 %; MCH 31.2 pg (25.0-35.0); MCHC 31.4 g/dL (31.0-37.0); MCV 99.4 fL (80.0-100.0); Macrocytosis Slight; Mean Platelet Volume 7.8; Monocytes # (A) 0.5 k/uL (0-1.0); Monocytes % (A) 6 %; Neutrophils # (A) 6.8 k/uL (1.3-7.7); Neutrophils % (A) 83 %; Platelet Count 142 k/uL (150-450); RDW 18.8 % (11.5-15.5); WBC 8.1 k/uL (3.8-10.6)
[2018-08-28 16:39] LABS: HGB 8.1 gm/dL (13.0-17.5); INR 1.2 (<1.2); Partial Thromboplastin Time 27.7 sec (22.0-30.0); Prothrombin Time 12.8 sec (9.0-12.0)
[2018-08-28] MEDS: ALBUMIN HUMAN 5% 250 ML in EMPTY BAG 1 BAG IVPB PRN ×3 (16:45→21:32)
[2018-08-28] MEDS: IPRATROPIUM-ALBUTEROL 3 ML NEB INHALATION SCH ×2 (17:14→19:54)
[2018-08-28 17:26] LABS: Glucose,Whole Blood 104 mg/dL (75-99)
[2018-08-28] MEDS: ceFAZolin IN SWFI 2 GM/20 ML SYRINGE IVP SCH ×2 (17:52→22:56)
[2018-08-28] MEDS: ACETAMINOPHEN IV (For NPO) 1,000 MG in EMPTY BAG 1 BAG IVPB SCH ×2 (18:15→22:56)
--- NOTE | 2018-08-28 18:18 | P.CNPUL ---
History of Present Illness Consult date: 08/28/18 Requesting physician: Ryley Lopez Reason for consult: other Chief complaint: Severe triple-vessel coronary artery disease History of present illness: This is a 68-year-old white male patient of Dr. Padilla Perera past medical history of hypertension, hyperlipidemia, previous history of pulmonary embolism on chronic anticoagulation, end-stage renal disease on hemodialysis, hypothyroidism, previous history of nicotine dependence, and patient carries a 10-snry-pyzk smoking history. Also positive for significant family history of coronary artery disease on his mother's side. Patient was recently hospitalized at [facility] acute exacerbation of congestive heart failure with systolic dysfunction, he had a stress test in May 2018 showing possible prior myocardial infarction and the possibility of ischemic cardiomyopathy. Cardiac catheterization showed left main stenosis of 40%, RCA of 99%, circumflex of 80% and mid LAD stenosis of 100% and diagonal branch of 90 % stenosis. This esophageal echocardiogram showed severely impaired LV systolic function with an EF of 30-35%, trace aortic regurgitation, moderate mitral regurgitation, moderate tricuspid regurgitation and pulmonary hypertension with a right-sided pressures of 69 mmHg. Patient was recommended myocardial revascularization, and today on 08/28/2018 patient underwent four-vessel coronary artery bypass grafting, with LAROSE to LAD, SVG to the OM1, PDA, and RCA. Patient is seen in the intensive care unit following her surgical procedure, sedated, intubated, currently on assist control mode of ventilation with a rate of 14, tidal vitamin 500, FiO2 of 100, and PEEP of 5, postop blood gases were ob tained, and showed pO2 of greater than 420, pCO2 of 42, and pH of 7.38, and FiO2 was dropped down to 40%. Current IV fluids include lactated Ringer's at a rate of 50, norepinephrine at 2 mics per minute, vasopressin at 0.03 units/min, nitroglycerin drip is at 5 mics/min, and propofol is currently at 10 mics per kilo per minute. Postop blood work showed a white blood cell count of 8.1, hemoglobin of 8.1, platelet count of 142, INR is 1.2, sodium of 138, potassium is 4.2, chloride is 105, CO2 is 25, BUN of 30, creatinine of 6.40. 2 mediastinal chest tubes connected to 1 pleural VAC, with 300 mL of sanguinous output, left chest tube with 250 mL of sanguinous output and right pleural chest tube with 400 mL of output. And his anuria, patient has a right upper chest subclavian hemodialysis catheter in place, his usual hemodialysis days are Monday and Monday. Patient has slightly hypothermic, he is rewarmed. Review of Systems All systems: negative Constitutional: Denies chills, Denies fever Eyes: denies blurred vision, denies pain Ears, nose, mouth and throat: Denies headache, Denies sore throat Cardiovascular: Reports chest pain, Denies shortness of breath Respiratory: Denies cough Gastrointestinal: Denies abdominal pain, Denies diarrhea, Denies nausea, Denies vomiting Musculoskeletal: Denies myalgias Integumentary: Denies pruritus, Denies rash Neurological: Denies numbness, Denies weakness Psychiatric: Denies anxiety, Denies depression Endocrine: Denies fatigue, Denies weight change Past Medical History Past Medical History: Hypertension, Pulmonary Embolus (PE), Renal Disease, Thyroid Disorder Additional Past Medical History / Comment(s): HEMODIALYSIS MON-MON-MON AT [facility] # [phone]. HEMODIALYSIS CATHETER RIGHT CHEST., PATIENT STATES POSSIBLE PE APR 2018. History of Any Multi-Drug Resistant Organisms: None Reported Past Surgical History: Heart Catheterization Additional Past Surgical History / Comment(s): TEMPORARY HEMODIALYSIS CATHETER (APR 2018) Past Anesthesia/Blood Transfusion Reactions: No Reported Reaction Past Psychological History: No Psychological Hx Reported Smoking Status: Former smoker Past Alcohol Use History: Occasional Additional Past Alcohol Use History / Comment(s): QUIT SMOKING 5 MONTHS AGO (DEC 2017), SMOKED 1 PPD, SMOKED 45 YEARS. Past Drug Use History: None Reported - Past Family History Mother Family Medical History: Coronary Artery Disease (CAD) Additional Family Medical History / Comment(s): Multiple family members on his mother's side with coronary artery disease including uncles diagnosed before the age of 60 Medications and Allergies Home Medications Medication Instructions Recorded Confirmed Type Isosorbide Mononitrate ER [Imdur] 60 mg PO DAILY 07/03/18 08/21/18 History Levothyroxine Sodium [Synthroid] 50 mcg PO DAILY 07/03/18 08/21/18 History Metoprolol Tartrate [Lopressor] 12.5 mg PO BID 07/03/18 08/21/18 History Dara-Yandy (Supplement) 1 tab PO DAILY 07/03/18 08/21/18 History hydrALAZINE HCL [Apresoline] 50 mg PO BID 07/03/18 08/21/18 History Apixaban [Eliquis] 2.5 mg PO BID #60 tab 07/11/18 08/27/18 Rx Nitroglycerin Sl Tabs [Nitrostat] 0.4 mg SUBLINGUAL Q5M PRN #25 tab 07/11/18 08/21/18 Rx Pravastatin Sodium [Pravachol] 20 mg PO DAILY 08/21/18 08/21/18 History Mupirocin 2% Oint [Bactroban 2% 1 applic NASAL BID 08/27/18 08/27/18 History Oint] Allergies Allergy/AdvReac Type Severity Reaction Status Date / Time atorvastatin [From Lipitor] AdvReac Unknown Verified 08/28/18 16:41 Physical Exam Vitals: Vital Signs Temp Pulse Pulse Resp BP BP Pulse Ox 08/28/18 17:23 68 08/28/18 17:16 71 08/28/18 17:00 71 14 86/56 100 08/28/18 16:45 73 14 100 08/28/18 16:30 67 14 100 08/28/18 16:15 75 14 100 08/28/18 16:00 63 14 99 08/28/18 15:45 65 14 100 08/28/18 15:37 18 100 08/28/18 06:07 97.9 F 59 L 17 139/62 98 Intake and Output 08/28/18 08/28/18 08/28/18 06:59 14:59 22:59 Intake Total 0 666 656.092 Output Total 2806 Balance 0 666 -2149.908 Intake: IV 0 33 654.5 Albumin Human 5% 250 ml 500 In Empty Bag 1 bag @ 250 mls/hr IVPB Q1HR PRN Rx#: [id number] Lactated Ringers 1,000 ml 150 @ 50 mls/hr IV .Q20H NICO Rx#:[id number] Nitroglycerin-D5w Pmx 50 4.5 mg In Dextrose/Water 1 250ml.bag @ 5 MCG/MIN 1.5 mls/hr IV .Q24H NICO Rx#: [id number] Intake, IV Titration 1.592 Amount Propofol 1,000 mg In 1.592 Empty Bag 1 bag @ Titrate IV .Q0M [facility] Rx#: [id number] Blood Product 633 Platelet Irr Pheresis 633 Acda Unit [id number] Output: Chest Tube Drainage 962 Chest Tube Left Lateral 240 Chest Chest Tube Mediastinal 270 Chest Tube Right Lateral 452 Chest Urine 44 Estimated Blood Loss 1800 Other: Weight 61.235 kg ABP, PAP, CO, CI - Last 8 Hours Arterial Blood Pressure 91/50 Arterial Blood Pressure 81/46 Arterial Blood Pressure 96/62 Arterial Blood Pressure 114/66 Arterial Blood Pressure 126/69 Arterial Blood Pressure 140/78 Pulmonary Artery Pressure 35/18 Pulmonary Artery Pressure 30/16 Pulmonary Artery Pressure 31/15 Pulmonary Artery Pressure 23/13 Pulmonary Artery Pressure 29/15 Pulmonary Artery Pressure 35/20 Cardiac Output 3.9 Cardiac Output 3.9 Cardiac Index 2.2 GENERAL EXAM: Sedated, intubated 68-year-old white male comfortable in no apparent distress. HEAD: Normocephalic/atraumatic. EYES: Normal reaction of pupils, equal size. Conjunctiva pink, sclera white. NOSE: Clear with pink turbinates. THROAT: No erythema or exudates. NECK: No masses, no JVD, no thyroid enlargement, no adenopathy. CHEST: No chest wall deformity. Symmetrical expansion. Mr. incisions clean dry and intact, 2 mediastinal 1 right pleural, 1 left pleural chest tubes with mo derate amount of sanguinous output in the Pleur-evac's, and no evidence of air leak, AV wires connected to an external pacemaker with AAI mode of 50 BPM, and intrinsic rhythm is sinus rhythm with a rate of 71 BPM LUNGS: Equal air entry with no crackles, wheeze, rhonchi or dullness. CVS: Regular rate and rhythm, normal S1 and S2, no gallops, no murmurs, no rubs ABDOMEN: Soft, nontender. No hepatosplenomegaly, normal bowel sounds, no guarding or rigidity. EXTREMITIES: No clubbing, no edema, no cyanosis, 2+ pulses and upper and lower extremities. Right leg ALEXEY drain with the small amount of serosanguineous output, ALEXEY drain is compressed and draining both legs are Rizwan wrapped MUSCULOSKELETAL: Muscle strength and tone normal. SPINE: No scoliosis or deformity SKIN: No rashes CENTRAL NERVOUS SYSTEM: Sedated. No focal deficits, tone is normal in all 4 extremities. Results - Laboratory Findings CBC and BMP: 08/28/18 15:45 08/28/18 15:45 ABG ABG pH 7.38 (7.35-7.45) 08/28/18 16:12 ABG pCO2 42 mmHg (35-45) 08/28/18 16:12 ABG pO2 >420 mmHg (83-108) H 08/28/18 16:12 ABG O2 Saturation 98.9 % (94-97) H 08/28/18 16:12 PT/INR, D-dimer PT 12.8 sec (9.0-12.0) H 08/28/18 15:45 INR 1.2 (<1.2) H 08/28/18 15:45 Abnormal lab findings: Abnormal Labs 08/21/18 08/28/18 08/28/18 08:55 06:05 06:05 RBC 4.14 L Hgb Hct RDW 18.6 H Plt Count Lymphocytes # PT INR ABG pH ABG pCO2 ABG pO2 ABG HCO3 ABG Total CO2 ABG O2 Saturation ABG Hematocrit ABG Sodium ABG Potassium ABG Ionized Calcium ABG Glucose ABG Lactic Acid Hemoglobin BUN 31 H Creatinine 7.53 H* Glucose POC Glucose (mg/dL) Alkaline Phosphatase Total Protein Albumin Arterial Blood Potassium Arterial Blood Glucose Crossmatch See Detail 08/28/18 08/28/18 08/28/18 09:20 11:13 11:35 RBC Hgb Hct RDW Plt Count Lymphocytes # PT INR ABG pH ABG pCO2 ABG pO2 244 H 250 H 390 H ABG HCO3 27 H 26 H ABG Total CO2 28 H 27 H 25 H ABG O2 Saturation 97.6 H 97.8 H 98.4 H ABG Hematocrit 27 L ABG Sodium 133 L ABG Potassium ABG Ionized Calcium 4.3 L 4.3 L 3.8 L ABG Glucose 139 H 137 H ABG Lactic Acid Hemoglobin 11.6 L 11.0 L 8.7 L BUN Creatinine Glucose POC Glucose (mg/dL) Alkaline Phosphatase Total Protein Albumin Arterial Blood Potassium Arterial Blood Glucose 139 H 137 H Crossmatch 08/28/18 08/28/18 08/28/18 12:09 12:34 13:48 RBC Hgb Hct RDW Plt Count Lymphocytes # PT INR ABG pH 7.31 L 7.32 L ABG pCO2 46 H ABG pO2 310 H 295 H 327 H ABG HCO3 ABG Total CO2 25 H ABG O2 Saturation 100.0 H 100.0 H 99.8 H ABG Hematocrit 25 L 25 L 24 L ABG Sodium 132 L 133 L 133 L ABG Potassium 5.1 H 4.6 H ABG Ionized Calcium 3.8 L 4.0 L 3.9 L ABG Glucose 212 H 225 H 205 H ABG Lactic Acid 2.3 H* 4.0 H* Hemoglobin 8.0 L 8.0 L 7.8 L BUN Creatinine Glucose POC Glucose (mg/dL) Alkaline Phosphatase Total Protein Albumin Arterial Blood Potassium 5.1 H 4.6 H Arterial Blood Glucose 212 H 225 H 205 H Crossmatch 08/28/18 08/28/18 08/28/18 15:45 15:45 15:45 RBC 2.60 L Hgb 8.1 L D Hct 25.8 L RDW 18.8 H Plt Count 142 L Lymphocytes # 0.8 L PT 12.8 H INR 1.2 H ABG pH ABG pCO2 ABG pO2 ABG HCO3 ABG Total CO2 ABG O2 Saturation ABG Hematocrit ABG Sodium ABG Potassium ABG Ionized Calcium ABG Glucose ABG Lactic Acid Hemoglobin BUN 30 H Creatinine 6.40 H Glucose 61 L POC Glucose (mg/dL) Alkaline Phosphatase 35 L Total Protein 3.8 L Albumin 2.1 L Arterial Blood Potassium Arterial Blood Glucose Crossmatch 08/28/18 08/28/18 08/28/18 15:48 16:12 16:18 RBC Hgb Hct RDW Plt Count Lymphocytes # PT INR ABG pH ABG pCO2 ABG pO2 >420 H ABG HCO3 ABG Total CO2 ABG O2 Saturation 98.9 H ABG Hematocrit ABG Sodium ABG Potassium ABG Ionized Calcium ABG Glucose ABG Lactic Acid Hemoglobin BUN Creatinine Glucose POC Glucose (mg/dL) 67 L 135 H Alkaline Phosphatase Total Protein Albumin Arterial Blood Potassium Arterial Blood Glucose Crossmatch 08/28/18 17:25 RBC Hgb Hct RDW Plt Count Lymphocytes # PT INR ABG pH ABG pCO2 ABG pO2 ABG HCO3 ABG Total CO2 ABG O2 Saturation ABG Hematocrit ABG Sodium ABG Potassium ABG Ionized Calcium ABG Glucose ABG Lactic Acid Hemoglobin BUN Creatinine Glucose POC Glucose (mg/dL) 104 H Alkaline Phosphatase Total Protein Albumin Arterial Blood Potassium Arterial Blood Glucose Crossmatch - Diagnostic Findings Chest x-ray: report reviewed, image reviewed Assessment and Plan Plan: Assessment: #1. Severe triple-vessel coronary artery disease, status post four-vessel coronary artery bypass grafting, with LAROSE to LAD, SVG to the OM1, and PDA and RCA, postop day 0 #2. Postop blood loss anemia, expected outcome of myocardial revascularization surgery #3. Routine ventilator management #4. End-stage renal disease on hemodialysis on Monday schedule #5. Ischemic cardiomyopathy with an EF of 30-35%, severe pulmonary hypertension with RSVP of 69 mmHg, moderate mitral and tricuspid regurgitation #6. Chronic congestive heart failure with systolic dysfunction #7. Recent history of a pulmonary embolism in April 2018 on Eliquis #8. Hypothyroidism #9. Hypertention #10. Hyperlipidemia #11. Former smoker, carries a 40+-pack-year smoking history #12. Family history of premature heart disease Plan: Close hemodynamic monitoring, vent adjustments have been made, FiO2 was decreased down to 40, blood gases and postop blood work as well as chest x-ray have been reviewed by Dr. Canas, patient was seen and examined by Dr. Canas. Remains on small amount of Levophed, and vasopressin. Cardiac output and index of 4.8 and 2.8 respectively. Nephrology is consulted. We'll proceed with weaning and possible extubation once the patient is awake, and passed a spontaneous breathing trials. Continue with nebulized bronchodilators, incentive spirometry to the bedside. The chest x-rays, daily blood work. We'll continue to closely follow with CT surgery. I performed a history & physical examination of the patient and discussed their management with my nurse practitioner, Rosi Blum. I reviewed the nurse practitioner's note and agree with the documented findings and plan of care. Lung sounds are positive for clear breaths sounds. The findings and the impression was discussed with the patient. I attest to the documentation by the nurse practitioner. Time with Patient: Greater than 30
[2018-08-28 18:22] LABS: Glucose,Whole Blood 122 mg/dL (75-99)
[2018-08-28 19:21] LABS: Anisocytosis Slight; Basophils % (A) 0 %; Eosinophils % (A) 0 %; HCT 21.7 % (39.0-53.0); Lymphocytes # (A) 0.6 k/uL (1.0-4.8); Lymphocytes % (A) 7 %; MCH 32.2 pg (25.0-35.0); MCHC 32.5 g/dL (31.0-37.0); MCV 99.3 fL (80.0-100.0); Macrocytosis Slight; Mean Platelet Volume 7.3; Monocytes # (A) 0.6 k/uL (0-1.0); Monocytes % (A) 6 %; Neutrophils # (A) 7.7 k/uL (1.3-7.7); Neutrophils % (A) 85 %; Platelet Count 141 k/uL (150-450); RBC 2.18 m/uL (4.30-5.90); RDW 18.8 % (11.5-15.5); WBC 9.1 k/uL (3.8-10.6)
[2018-08-28 19:32] LABS: Glucose,Whole Blood 159 mg/dL (75-99)
[2018-08-28 20:22] LABS: Glucose,Whole Blood 160 mg/dL (75-99)
[2018-08-28 20:25] LABS: ABG Base Excess -3.3 mmol/L; ABG HCO3 23 mmol/L (21-25); ABG Oxygen Saturation 98.4 % (94-97); ABG PCO2 43 mmHg (35-45); ABG PH 7.33 (7.35-7.45); ABG PO2 156 mmHg (83-108); ABG TCO2 24 mmol/L (19-24)
[2018-08-28] MEDS: HEPARIN SODIUM,PORCINE 5,000 UNIT/ML 1 ML VIAL SQ SCH ×2 (20:26→22:57)
[2018-08-28] MEDS ORDERED: INSULIN REGULAR 100 UNIT/ML VIAL IV ONE (20:53)
[2018-08-28] MEDS ORDERED: INSULIN REGULAR BOLUS (FROM DRIP BAG) IV PRN (21:00)
[2018-08-28] MEDS ORDERED: INSULIN REGULAR 100 UNIT in SODIUM CHLORIDE 0.9% 100 ML IV SCH (21:00)
[2018-08-28 21:10] LABS: Glucose,Whole Blood 165 mg/dL (75-99)
[2018-08-28 21:16] LABS: Anisocytosis Slight; Basophils % (A) 0 %; Eosinophils % (A) 0 %; HCT 23.1 % (39.0-53.0); HGB 7.1 gm/dL (13.0-17.5); Hypochromasia Slight; Lymphocytes # (A) 0.7 k/uL (1.0-4.8); Lymphocytes % (A) 7 %; MCH 30.8 pg (25.0-35.0); MCHC 30.8 g/dL (31.0-37.0); MCV 100.2 fL (80.0-100.0); Macrocytosis Moderate; Mean Platelet Volume 8.3; Monocytes # (A) 0.3 k/uL (0-1.0); Monocytes % (A) 3 %; Neutrophils # (A) 8.9 k/uL (1.3-7.7); Neutrophils % (A) 89 %; Platelet Count 179 k/uL (150-450); RDW 18.3 % (11.5-15.5); WBC 10.1 k/uL (3.8-10.6)
[2018-08-28 21:20] LABS: Ionized Calcium 4.6 mg/dL (4.5-5.3)
[2018-08-28] MEDS: CLEVIDIPINE BUTYRATE 25 MG in EMPTY BAG 1 BAG IV SCH (21:22)
[2018-08-28 21:26] LABS: Calcium 8.6 mg/dL (8.4-10.2); Potassium 4.3 mmol/L (3.5-5.1)
[2018-08-28 22:02] LABS: Glucose,Whole Blood 144 mg/dL (75-99)
[2018-08-29 04:09] LABS: Glucose,Whole Blood 129 mg/dL (75-99)
[2018-08-29 04:09] LABS: Glucose,Whole Blood 111 mg/dL (75-99)
[2018-08-29 04:09] LABS: Glucose,Whole Blood 116 mg/dL (75-99)
[2018-08-29 04:09] LABS: Glucose,Whole Blood 121 mg/dL (75-99)
[2018-08-29 04:10] LABS: Glucose,Whole Blood 127 mg/dL (75-99)
[2018-08-29 04:10] LABS: Glucose,Whole Blood 120 mg/dL (75-99)
[2018-08-29 04:55] LABS: Anisocytosis Slight; Basophils % (A) 0 %; Eosinophils % (A) 1 %; HCT 21.1 % (39.0-53.0); Hypochromasia Slight; Lymphocytes # (A) 0.8 k/uL (1.0-4.8); Lymphocytes % (A) 9 %; MCH 30.2 pg (25.0-35.0); MCHC 31.1 g/dL (31.0-37.0); MCV 96.9 fL (80.0-100.0); Macrocytosis Slight; Mean Platelet Volume 7.1; Monocytes # (A) 0.4 k/uL (0-1.0); Monocytes % (A) 5 %; Neutrophils # (A) 6.9 k/uL (1.3-7.7); Neutrophils % (A) 85 %; Platelet Count 133 k/uL (150-450); RBC 2.18 m/uL (4.30-5.90); RDW 18.7 % (11.5-15.5); WBC 8.1 k/uL (3.8-10.6)
[2018-08-29 05:18] LABS: Glucose,Whole Blood 114 mg/dL (75-99)
[2018-08-29 05:27] LABS: Ionized Calcium 4.4 mg/dL (4.5-5.3)
[2018-08-29 05:39] LABS: Albumin 2.9 g/dL (3.5-5.0); Calcium 8.3 mg/dL (8.4-10.2); Total Bilirubin 0.3 mg/dL (0.2-1.3); Total Protein 4.3 g/dL (6.3-8.2)
[2018-08-29] MEDS: LEVOTHYROXINE 50 MCG TAB PO SCH (06:22)
[2018-08-29 07:11] LABS: Glucose,Whole Blood 149 mg/dL (75-99)
--- NOTE | 2018-08-29 07:50 | OP ---
OPERATIVE REPORT DATE OF THE SURGERY: 08/28/2018. SURGEON: Dr. Ryley Lopez. DEGREASING SOLUTION RECLAIMER: 1. Brian Gutierrez. 2. Meche Sabillon. PREOPERATIVE DIAGNOSES: 1. Triple-vessel coronary artery disease with a totally occluded left anterior descending artery. 2. Moderate left ventricular dysfunction. 3. End-stage renal disease, on hemodialysis. 4. Hypertension. 5. Hyperlipidemia. 6. Paroxysmal atrial fibrillation. 7. History of recent pulmonary embolism. 8. Chronic obstructive pulmonary disease. POSTOPERATIVE DIAGNOSES: 1. Triple-vessel coronary artery disease with a totally occluded left anterior descending artery. 2. Moderate left ventricular dysfunction. 3. End-stage renal disease, on hemodialysis. 4. Hypertension. 5. Hyperlipidemia. 6. Paroxysmal atrial fibrillation. 7. History of recent pulmonary embolism. 8. Chronic obstructive pulmonary disease. PROCEDURE: 1. Quadruple coronary artery bypass grafting using the left internal mammary artery to the left anterior descending artery, reverse saphenous vein graft from the aorta to the first diagonal artery, reverse saphenous vein graft from the aorta to the obtuse marginal artery, reverse saphenous vein graft from the aorta to the right coronary artery. 2. Bilateral pulmonary vein isolation using the radiofrequency bipolar clamp. 3. Exclusion of the left atrial appendage with a 35 mm AtriClip. 4. Right-sided endoscopic vein harvesting. 5. Intraoperative transesophageal echocardiogram and epiaortic scanning. 6. Intraoperative graft flow measurements using the [employer] system. INDICATION FOR SURGERY: Patient is a 68-year-old gentleman who was found on screening to have moderate left ventricular dysfunction with mild mitral valve regurgitation. His stress test performed on 06/07/2018 shows a severe intensity defect in the inferoapical apical septal and interseptal area with no reperfusion. Patient underwent cardiac catheterization that showed a totally occluded collateralized left anterior descending artery, severe disease in the right coronary artery, proximal disease in the diagonal artery, moderate disease in the obtuse marginal artery and severe disease with recanalization of also smaller distal obtuse marginal artery. The patient is on hemodialysis via PermCath in his right IJ. Had a history of recent pulmonary embolism in April 2018 and has been on Eliquis. There was a notion of paroxysmal atrial fibrillation on one of his admissions. Patient will be brought in for coronary artery bypass grafting as well as modified pulmonary vein isolation and exclusion of his left atrial appendage. Eliquis has been held for 4 days at this point. The STS risk was discussed with him. He understood it and agreed to proceed. DESCRIPTION OF THE PROCEDURE: The patient in supine position. The left internal jugular Confluence-Kojo catheter was inserted as well as a right radial arterial line. The patient had normal PA pressure and a cardiac index of 3. Subsequently was brought to the operating room where general endotracheal anesthesia was induced uneventfully. He received 2 g of cefazolin intravenously. Hathaway catheter was inserted. The chest, abdomen, and both lower extremities were prepped and draped using ChloraPrep. Ioban was used to cover the skin. Transesophageal echocardiogram confirmed the preoperative finding of moderate left ventricular dysfunction with mild mitral valve regurgitation. Midline sternotomy was performed and the bone was relatively dense. The left hemisternum was elevated and left internal mammary artery was harvested in a somewhat skeletonized fashion. The patient was given 5000 units of heparin and the mammary artery was clipped distally and transected had excellent pulsatile flow in it and was around 2 mm in diameter. In the same setting, the right greater saphenous vein was harvested endoscopically from groin to above ankle level. The vein branches were tied. The vein appeared to be of good quality, slightly on the large side around 5 mm. The leg incisions were closed over a drain. Both lungs were hyperinflated and the right pleura also was opened. Both pleural cavity were drained with 19-[place] Eduardo drain. Mediastinal fat was transected between 2 ties and epiaortic scanning revealed some wall disease, but no protruding atheroma in the ascending aorta. Pericardium was opened in everted T-fashion. Pericardial cradle was created. Findings included an elongated aorta portion of the heart inferiorly and to the left side and soft. After systemic heparinization, after placement of respective pledgeted pursestring, aortic cannulation with a 21-[place] soft flow cannula, venous cannulation via the right atrial appendage was performed. Antegrade as well as retrograde cardioplegia catheter were placed. Cardioplegia bypass was initiated and with the heart empty and warm, we looked at the target, appeared that the LAD, the first diagonal artery, the inferior branching of the first obtuse marginal artery and the right coronary artery would be the site for bypass. The distal circumflex area was infarcted and there was a small obtuse marginal artery not deemed worth bypassing. The right coronary artery at the takeoff of the posterior descending artery was very soft with no disease whatsoever. We at this point, also proceeded at encircling the right-sided pulmonary vein and proceeded at 3 ablation using the AtriCure radiofrequency bipolar clamp on that side. The aorta was clamped and during aortic clamping myocardial protection was achieved. An initial dose of 800 mL of antegrade cold blood cardioplegia followed by 500 mL of retrograde cold blood cardioplegia. All subsequent doses were given retrograde at 15 minute interval. We completed the modified maze procedure by encircling the left-sided pulmonary vein and proceeded at radiofrequency ablation with a bipolar clamp of the left-sided vein x3. The left atrial appendage was excluded with a 35 mm AtriClip at this point. Attention was moved at performing the distal anastomosis. The first distal anastomosis was seen. Reverse saphenous vein graft and the inferior branching of the first obtuse marginal artery which was around 1.5 mm in diameter, thin-walled using Prolene 7-0 in continuous fashion. A second anastomosis was to the 1.5 mm thin-walled first diagonal artery, also using another segment of reverse saphenous vein graft. The third distal anastomosis was another segment of reverse saphenous vein graft and the 2 mm right coronary artery at the takeoff of the posterior descending artery using Prolene 7-0 in continuous fashion. The fourth and last distal anastomosis was seen. Left internal mammary artery and the mid aspect of the left anterior descending artery which was around 1.5 mm in diameter, mildly thickened, using Prolene 7-0 in continuous fashion. Rewarming was started as we punched out 3 buttons of the ascending aorta and performed the 3 proximal anastomosis of the 3 vein graft using Prolene 6.0 in a continuous fashion. Patient was given lidocaine. De-airing maneuver was done as we unclamped the aorta. All veins were de-aired before establishing flow in them. FloSeal was applied to all distal anastomosis. After period of reperfusion and with a preliminary graft measurement showing patent graft, we proceeded at weaning off cardioplegia bypass which did take place. However, with the use of vasopressors in view of vasodilatation expected in this hemodialysis patient. The cardiac index was 2.4. The echo had showed improved left ventricular function and trivial mitral valve regurgitation. Test was then full dose protamine was given. We had to give 6 units of platelets to help hemostasis. Decannulation followed. The arterial cannulation site required reinforcement with 2 pledgeted Prolene. The venous cannulation site was closed also with a running 4-0 Prolene. Two monopolar atrial pacing wires were affixed to the respective pursing of the right atrium. Two 19-[place] Eduardo drain were placed, one substernally, one in the posterior pericardium. Pericardial fat was approximated over the heart and the graft. Graft flow measurement was performed at this point. The flow into the vein graft to the RCA was 168 mL/minute, pulsatility index 1.4, diastolic filling of 74%. The flow into the vein going to the first obtuse marginal artery was 70 mL/minute, pulsatility index 1.5, diastolic filling of 61%. The flow into the vein going to the diagonal artery was 78 mL/minute, pulsatility index of 2,and diastolic filling of 83%. The flow into the mammary artery to the left anterior descending artery was also 80 mL/minute, pulsatility index of 1.7, diastolic filling of 80% all showing excellent functioning graft. After ensuring adequate hemostasis and hemodynamic and after correct sponge, instrument, and needle count, we proceeded at closing the sternum with 5 [id number] pionneer cable. The rest of the sutures were closed in layers. Skin glue was applied. The patient did not receive blood but received the 5 units of platelets as mentioned above. He received 800 mL of Cell Saver blood. He was transferred to the ICU on low-dose vasopressin and Levophed with a cardiac index of 2.4, heart rate of 72, PA pressure of 38/17. MMODL / IJN: [id number] / KUSH
[2018-08-29 07:59] LABS: HGB 6.6 gm/dL (13.0-17.5)
[2018-08-29 08:00] LABS: Glucose,Whole Blood 155 mg/dL (75-99)
--- NOTE | 2018-08-29 08:03 | XR ---
EXAMINATION TYPE: XR chest 1V portable DATE OF EXAM: 08/29/2018 CLINICAL HISTORY: Difficulty breathing progress study. Post open cardiac surgery. TECHNIQUE: Single AP portable upright view of the chest is obtained. COMPARISON: Chest x-ray from one day earlier FINDINGS: There is interval extubation with removal of endotracheal and orogastric tubes. There is s table right internal jugular large bore central venous catheter. There is stable left internal jugula r Fowler-Kojo catheter. There are persistent bilateral chest tubes and mediastinal drainage catheter. S ternal wires and mediastinal clips as well as cardiac closure device are all redemonstrated. Increasing bibasilar opacities are felt present. Findings more prominent in the right lung base. No p neumothorax is evident bilaterally. Cardiac silhouette size is stable and within normal limits. [place] us structures are intact. IMPRESSION: Interval extubation. Developing or worsening right greater than left bibasilar acute infi ltrate and/or atelectasis with probable small to tiny bilateral pleural effusions.
--- NOTE | 2018-08-29 08:04 | CONS ---
CONSULTATION CHIEF COMPLAINT: A 68-year-old white male, status post CABG surgery x4 with history of poor ejection fraction, 35%, 30% ejection fraction, status post bypass surgery, resting comfortably on the vent. Labs reviewed. Medications were reviewed. Consults reviewed. PAST MEDICAL HISTORY: Hypertension, pulmonary embolism, renal disease, thyroid disorder, end-stage renal disease, systolic heart failure. REVIEW OF SYSTEMS: He is on the vent. Unable to obtain. Medicines reviewed. ALLERGIES: LIPITOR. PHYSICAL EXAMINATION: VITAL SIGNS: Stable, afebrile. CARDIOVASCULAR: S1, S2. LUNGS: Clear. GI: Soft. HEMATOLOGY: Negative Homans. VASCULAR: Normal dorsalis pedis, posterior tibial and radial pulses. Hemoglobin 8.1, hematocrit 25.8, BUN 30, creatinine 6.4. ASSESSMENT: 1. Status post coronary artery bypass grafting surgery for triple-vessel disease. 2. Postoperative blood-loss anemia. 3. End-stage renal disease. 4. Ischemic cardiomyopathy. 5. Pulmonary hypertension, moderate. 6. Mitral and tricuspid regurgitation. 7. History of pulmonary embolism. 8. Hypothyroidism. 9. Hypertension. 10.Dyslipidemia. Continue home medications as tolerated once the patient wakes up. Continue with IV medicines as needed. Wean off vasopressors. Cardiac medicines as mentioned. Follow up as an outpatient. MMODL / IJN: [id number] /
[2018-08-29] MEDS: IPRATROPIUM-ALBUTEROL 3 ML NEB INHALATION SCH ×4 (08:05→20:25)
[2018-08-29 08:09] LABS: Anisocytosis Slight; Basophils % (A) 0 %; Eosinophils % (A) 0 %; Hypochromasia Slight; Lymphocytes # (A) 0.5 k/uL (1.0-4.8); Lymphocytes % (A) 5 %; MCH 31.4 pg (25.0-35.0); MCV 101.4 fL (80.0-100.0); Macrocytosis Moderate; Mean Platelet Volume 8.1; Monocytes # (A) 0.6 k/uL (0-1.0); Monocytes % (A) 6 %; Neutrophils # (A) 7.8 k/uL (1.3-7.7); Neutrophils % (A) 87 %; Platelet Count 135 k/uL (150-450); RBC 1.87 m/uL (4.30-5.90); RDW 18.8 % (11.5-15.5)
[2018-08-29 08:11] LABS: HCT 18.9 % (39.0-53.0); HGB 5.9 gm/dL (13.0-17.5)
[2018-08-29] MEDS: HEPARIN SODIUM,PORCINE 5,000 UNIT/ML 1 ML VIAL SQ SCH ×2 (08:14→16:08)
[2018-08-29] MEDS: HYDROcodone/APAP 5-325MG 1 EACH TAB PO PRN ×2 (08:15→12:43)
[2018-08-29] MEDS: ASPIRIN 325 MG TAB PO SCH (08:15)
[2018-08-29 08:33] LABS: Anisocytosis Slight; HCT 24.2 % (39.0-53.0); HGB 7.6 gm/dL (13.0-17.5); MCHC 31.5 g/dL (31.0-37.0); MCV 95.4 fL (80.0-100.0); Macrocytosis Slight; Mean Platelet Volume 7.2; Platelet Count 132 k/uL (150-450); RBC 2.54 m/uL (4.30-5.90); RDW 18.2 % (11.5-15.5); WBC 9.8 k/uL (3.8-10.6)
[2018-08-29] MEDS ORDERED: BISACODYL 10 MG SUPP RECTAL PRN (09:00)
[2018-08-29] MEDS ORDERED: PANTOPRAZOLE 40 MG/10 ML VIAL IVP SCH (09:00)
[2018-08-29] MEDS ORDERED: PRAVASTATIN SODIUM 20 MG TAB PO SCH (09:00)
[2018-08-29 09:02] LABS: Glucose,Whole Blood 141 mg/dL (75-99)
[2018-08-29] MEDS: ceFAZolin IN SWFI 2 GM/20 ML SYRINGE IVP SCH (09:02)
--- NOTE | 2018-08-29 09:20 | CONS ---
CONSULTATION Mr. Coppola is a 68-year-old male who underwent coronary bypass grafting yesterday. He is followed by Dr. Bert Parrish and in June underwent cardiac catheterization because of evidence of cardiomyopathy and abnormal myocardial perfusion imaging and was found to have severe triple-vessel coronary artery disease. He has history of end-stage renal disease on hemodialysis since May. He has a prior history of smoking. He is awake, alert, extubated, has some chest soreness. His breathing is stable. He is in sinus mechanism. He is on a low dose of Levophed. He has no malignant arrhythmia. His urine is scheduled to be evaluated for dialysis today. Hemodynamically; otherwise, he has been stable. His echocardiogram post catheterization showed ejection fraction of 40% to 45%. His coronary risk factors are remarkable for the history of hypertension and prior history of smoking and hyperlipidemia. He is non diabetic. MEDICATION: Prior to admission included Eliquis 2.5 mg twice a day, pravastatin 20 mg daily, hydralazine 50 mg twice a day, metoprolol tartrate 12.5 mg twice a day, levothyroxine, isosorbide mononitrate 60 mg daily. REVIEW OF SYSTEMS: RESPIRATORY SYSTEM: He had dyspnea on exertion, history of chronic obstructive lung disease. GI SYSTEM: No recent GI bleeding. No peptic ulcer disease. SYSTEM: He has a history of end-stage renal disease, on hemodialysis. NERVOUS SYSTEM: No history of seizure or stroke. PHYSICAL EXAMINATION: A 68-year-old male, alert, oriented, in no apparent distress. Blood pressure 101/40 with a heart rate in 70s. His PA pressure systolic is 45. HEAD: Normocephalic. EYES: Sclerae nonicteric. NECK: Good upstroke. No bruit. [place] noted in the left IJ. LUNGS: With mild decreased breath sounds at the bases. HEART: Regular rate and rhythm, S1, S2. No S3. No rub or gallop. ABDOMEN: Soft, nontender. Positive bowel sounds, no organomegaly. EXTREMITIES: No edema. LAB DATA: Revealed a potassium of 6.0, BUN and creatinine 35 and 7.28. Chest x-ray showed small effusion with no evidence of infiltrate. IMPRESSION: 1. Status post coronary artery bypass grafting, extubated, on low-dose vasopressors. 2. History of ischemic cardiomyopathy. 3. End-stage renal disease, on hemodialysis. 4. Prior history of hypertension. 5. History of hyperlipidemia. RECOMMENDATION: From the cardiac standpoint, I am hoping they will wean his pressors and be able to re- initiate treatment with the hydralazine and his beta gallo. Will continue on the statin at this point . He will undergo dialysis today and depending on his progress, further recommendation will be made. MMODL / IJN: [id number] /
[2018-08-29] MEDS ORDERED: DESMOPRESSIN ACETATE 18 MCG in SODIUM CHLORIDE 0.9% 50 ML IVPB ONE (09:30)
[2018-08-29] MEDS: METOPROLOL TARTRATE 12.5 MG TAB PO SCH ×2 (09:47→21:00)
[2018-08-29 10:00] LABS: INR 1.1 (<1.2); Partial Thromboplastin Time 29.5 sec (22.0-30.0); Prothrombin Time 11.6 sec (9.0-12.0)
[2018-08-29 10:07] LABS: Glucose,Whole Blood 116 mg/dL (75-99)
--- NOTE | 2018-08-29 10:28 | P.PN ---
Subjective Progress Note Date: 08/29/18 Principal diagnosis: triple-vessel coronary artery disease, status post four-vessel bypass surgery This is a 68-year-old white male patient of Dr. Padilla Perera past medical histo ry of hypertension, hyperlipidemia, previous history of pulmonary embolism on chronic anticoagulation, end-stage renal disease on hemodialysis, hypothyroidism, previous history of nicotine dependence, and patient carries a [id number] smoking history. Also positive for significant family history of coronary artery disease on his mother's side. Patient was recently hospitalized at the [facility] acute exacerbation of congestive heart failure with systolic dysfunction, he had a stress test in May 2018 showing possible prior myocardial infarction and the possibility of ischemic cardiomyopathy. Cardiac catheterization showed left main stenosis of 40%, RCA of 99%, circumflex of 80% and mid LAD stenosis of 100% and diagonal branch of 90% stenosis. This esophageal echocardiogram showed severely impaired LV systolic function with an EF of 30-35%, trace aortic regurgitation, moderate mitral regurgitation, moderate tricuspid regurgitation and pulmonary hypertension with a right-sided pressures of 69 mmHg. Patient was recommended myocardial revascularization, and today on 08/28/2018 patient underwent four- vessel coronary artery bypass grafting, with LAROSE to LAD, SVG to the OM1, PDA, and RCA. Patient is seen in the intensive care unit following her surgical procedure, sedated, intubated, currently on assist control mode of ventilation with a rate of 14, tidal vitamin 500, FiO2 of 100, and PEEP of 5, postop blood gases were obtained, and showed pO2 of greater than 420, pCO2 of 42, and pH of 7.38, and FiO2 was dropped down to 40%. Current IV fluids include lactated Ringer's at a rate of 50, norepinephrine at 2 mics per minute, vasopressin at 0.03 units/min, nitroglycerin drip is at 5 mics/min, and propofol is currently at 10 mics per kilo per minute. Postop blood work showed a white blood cell count of 8.1, hemoglobin of 8.1, platelet count of 142, INR is 1.2, sodium of 138, potassium is 4.2, chloride is 105, CO2 is 25, BUN of 30, creatinine of 6.40. 2 mediastinal chest tubes connected to 1 pleural VAC, with 300 mL of sanguinous output, left chest tube with 250 mL of sanguinous output and right pleural chest tube with 400 mL of output. And his anuria, patient has a right upper chest subclavian hemodialysis catheter in place, his usual hemodialysis days are Monday and Monday. Patient has slightly hypothermic, he is rewarmed. On 08/29/2016 patient seen in follow-up in intensive care unit, he is awake and alert, patient was extubated last night within 5 hours of OR exit time, at 2030 p.m. This morning he is awake and alert, currently on 4 L per nasal cannula, and his pulse ox is 96%, he is afebrile, hemodynamically patient is stable, BP is 105/48, PA pressure is 32/10, with CVP of 8, cardiac output and index are 6.5 and 3.7 respectively, patient is currently on lactated Ringer's at a rate of 50, levo fed is at 2 mics per minute, vasopressin at 0.03 units per minute, and insulin is at 3 units per hour. Patient has received 2 units of packed red blood cells overnight for postoperative anemia, he did receive 5 units of platelets Intra-Op, this morning his blood work has been reviewed, showed white blood cell count of 9.8, hemoglobin of 7.6, platelet count is 132, serum sodium is 136, potassium is 6.0, repeat potassium was 5.7, BUN is 35, creatinine is 7.28. Today's chest x-ray showed interval extubation, and developing or worsening right greater than left bibasilar acute infiltrate and/or atelectasis with probable small to tiny bilateral pleural effusions. Patient has a 2 mediastinal chest tubes, right and left pleural chest tubes in place, and there is still some increased drainage from the right pleural chest tube, there has been on a total of 900 mL of drainage in the right chest tube in the last 24 hours, 430 out of the mediastinal, and left chest tube is 330 mL of sanguinous output. Patient is anuria, he is on maintenance hemodialysis on an outpatient basis, nephrology has been consulted, and anticipate hemodialysis treatment today. Otherwise he is in no acute distress, he is awake and alert, he is following command, lung sounds are clear, diminished at the bases, his incentive spirometry effort is about 500 mL. Objective - Vital Signs Vital signs: Vital Signs Temp 35.2 F L 08/28/18 15:37 Pulse 70 08/29/18 10:00 Resp 10 L 08/29/18 10:00 BP 108/70 08/28/18 22:30 Pulse Ox 98 08/29/18 10:00 Intake & Output 08/28/18 08/29/18 08/29/18 18:59 06:59 18:59 Intake Total 1489.496 666.805 429.128 Output Total 2876 659 645 Balance -1386.504 7.805 -215.872 Weight 61.235 kg 64.4 kg Intake: IV 839.0 663.5 250.5 ACETAMINOPHEN IV (For NPO 100 ) 1,000 mg In Empty Bag 1 bag @ 400 mls/hr IVPB Q6HR NICO Rx#:[id number] Albumin Human 5% 250 ml 500 250 In Empty Bag 1 bag @ 250 mls/hr IVPB Q1HR PRN Rx#: [id number] CO/CI+Pressure Bag 156 49 Lactated Ringers 1,000 ml 200 250 200 @ 50 mls/hr IV .Q20H NICO Rx#:[id number] Nitroglycerin-D5w Pmx 50 6.0 7.5 1.5 mg In Dextrose/Water 1 250ml.bag @ 5 MCG/MIN 1.5 mls/hr IV .Q24H NICO Rx#: [id number] Intake, IV Titration 17.496 3.305 118.628 Amount Desmopressin Acetate 18 50 mcg In Sodium Chloride 0. 9% 50 ml @ 200 mls/hr IVPB ONCE ONE Rx#: [id number] Insulin Regular 100 unit 43.303 In Sodium Chloride 0.9% 100 ml @ Per Protocol IV .Q0M NICO Rx#:[id number] Nitroglycerin-D5w Pmx 50 25.325 mg In Dextrose/Water 1 250ml.bag @ 5 MCG/MIN 1.5 mls/hr IV .Q24H NICO Rx#: [id number] Norepinephrine 4 mg In 15.904 3.305 0 Sodium Chloride 0.9% 250 ml @ 0.05 MCG/KG/MIN 11. 665 mls/hr IV .[id number] NICO Rx#:[id number] Propofol 1,000 mg In 1.592 Empty Bag 1 bag @ Titrate IV .Q0M NICO Rx#: [id number] Oral 60 Blood Product 633 Platelet Irr Pheresis 633 Acda Unit [id number] Output: Chest Tube Drainage 1032 630 640 Chest Tube Left Lateral 240 90 20 Chest Chest Tube Mediastinal 320 110 100 Chest Tube Right Lateral 472 430 520 Chest Drainage 20 Right Calf 20 Urine 44 9 5 Estimated Blood Loss 1800 Other: Voiding Method Indwelling Catheter Indwelling Catheter ABP, PAP, CO, CI - Last Documented Arterial Blood Pressure 105/48 Pulmonary Artery Pressure 32/10 Cardiac Output 6.5 Cardiac Index 3.7 - Exam GENERAL EXAM: 68-year-old white male awake and alert, on 4 L of oxygen per nasal cannula comfortable in no apparent distress. HEAD: Normocephalic/atraumatic. EYES: Normal reaction of pupils, equal size. Conjunctiva pink, sclera white. NOSE: Clear with pink turbinates. THROAT: No erythema or exudates. NECK: No masses, no JVD, no thyroid enlargement, no adenopathy. CHEST: No chest wall deformity. Symmetrical expansion. Mr. incisions clean dry and intact, 2 mediastinal 1 right pleural, 1 left pleural chest tubes with moderate amount of sanguinous output in the Pleur-evac's, and no evidence of air leak, AV wires connected to an external pacemaker with AAI mode of 50 BPM, and intrinsic rhythm is sinus rhythm with a rate of 71 BPM LUNGS: Equal air entry with no crackles, wheeze, rhonchi or dullness. CVS: Regular rate and rhythm, normal S1 and S2, no gallops, no murmurs, no rubs ABDOMEN: Soft, nontender. No hepatosplenomegaly, normal bowel sounds, no guarding or rigidity. EXTREMITIES: No clubbing, no edema, no cyanosis, 2+ pulses and upper and lower extremities. Right leg ALEXEY drain with the small amount of serosanguineous output, ALEXEY drain is compressed and draining both legs are Rizwan wrapped MUSCULOSKELETAL: Muscle strength and tone normal. SPINE: No scoliosis or deformity SKIN: No rashes CENTRAL NERVOUS SYSTEM: Awake alert, oriented 3, No focal deficits, tone is normal in all 4 extremities. - Labs CBC & Chem 7: 08/29/18 08:00 08/29/18 09:25 Labs: Abnormal Lab Results - Last 24 Hours (Table) 08/21/18 08/28/18 08/28/18 Range/Units 08:55 09:20 11:13 RBC (4.30-5.90) m/uL Hgb (13.0-17.5) gm/dL Hct (39.0-53.0) % MCV (80.0-100.0) fL MCHC (31.0-37.0) g/dL RDW (11.5-15.5) % Plt Count (150-450) k/uL Neutrophils # (1.3-7.7) k/uL Lymphocytes # (1.0-4.8) k/uL PT (9.0-12.0) sec INR (<1.2) ABG pH (7.35-7.45) ABG pCO2 (35-45) mmHg ABG pO2 244 H 250 H (83-108) mmHg ABG HCO3 27 H 26 H (21-25) mmol/L ABG Total CO2 28 H 27 H (19-24) mmol/L ABG O2 Saturation 97.6 H 97.8 H (94-97) % ABG Hematocrit (34.0-46.0) % ABG Sodium (135-146) mmol/L ABG Potassium (3.4-4.5) mmol/L ABG Ionized Calcium 4.3 L 4.3 L (4.5-5.3) mg/dL ABG Glucose 139 H (75-99) mg/dL ABG Lactic Acid (0.5-1.6) mmol/L Hemoglobin 11.6 L 11.0 L (13.0-17.5) gm/dL Sodium (137-145) mmol/L Potassium (3.5-5.1) mmol/L Carbon Dioxide (22-30) mmol/L BUN (9-20) mg/dL Creatinine (0.66-1.25) mg/dL Glucose (74-99) mg/dL POC Glucose (mg/dL) (75-99) mg/dL Calcium (8.4-10.2) mg/dL Ionized Calcium Paulette (4.5-5.3) mg/dL ALT (21-72) U/L Alkaline Phosphatase (38-126) U/L Total Protein (6.3-8.2) g/dL Albumin (3.5-5.0) g/dL Arterial Blood Potassium (3.4-4.5) mmol/L Arterial Blood Glucose 139 H (75-99) mg/dL Crossmatch See Detail 08/28/18 08/28/18 08/28/18 Range/Units 11:35 12:09 12:34 RBC (4.30-5.90) m/uL Hgb (13.0-17.5) gm/dL Hct (39.0-53.0) % MCV (80.0-100.0) fL MCHC (31.0-37.0) g/dL RDW (11.5-15.5) % Plt Count (150-450) k/uL Neutrophils # (1.3-7.7) k/uL Lymphocytes # (1.0-4.8) k/uL PT (9.0-12.0) sec INR (<1.2) ABG pH 7.31 L (7.35-7.45) ABG pCO2 46 H (35-45) mmHg ABG pO2 390 H 310 H 295 H (83-108) mmHg ABG HCO3 (21-25) mmol/L ABG Total CO2 25 H 25 H (19-24) mmol/L ABG O2 Saturation 98.4 H 100.0 H 100.0 H (94-97) % ABG Hematocrit 27 L 25 L 25 L (34.0-46.0) % ABG Sodium 133 L 132 L 133 L (135-146) mmol/L ABG Potassium 5.1 H 4.6 H (3.4-4.5) mmol/L ABG Ionized Calcium 3.8 L 3.8 L 4.0 L (4.5-5.3) mg/dL ABG Glucose 137 H 212 H 225 H (75-99) mg/dL ABG Lactic Acid 2.3 H* (0.5-1.6) mmol/L Hemoglobin 8.7 L 8.0 L 8.0 L (13.0-17.5) gm/dL Sodium (137-145) mmol/L Potassium (3.5-5.1) mmol/L Carbon Dioxide (22-30) mmol/L BUN (9-20) mg/dL Creatinine (0.66-1.25) mg/dL Glucose (74-99) mg/dL POC Glucose (mg/dL) (75-99) mg/dL Calcium (8.4-10.2) mg/dL Ionized Calcium Paulette (4.5-5.3) mg/dL ALT (21-72) U/L Alkaline Phosphatase (38-126) U/L Total Protein (6.3-8.2) g/dL Albumin (3.5-5.0) g/dL Arterial Blood Potassium 5.1 H 4.6 H (3.4-4.5) mmol/L Arterial Blood Glucose 137 H 212 H 225 H (75-99) mg/dL Crossmatch 08/28/18 08/28/18 08/28/18 Range/Units 13:48 15:45 15:45 RBC 2.60 L (4.30-5.90) m/uL Hgb 8.1 L D (13.0-17.5) gm/dL Hct 25.8 L (39.0-53.0) % MCV (80.0-100.0) fL MCHC (31.0-37.0) g/dL RDW 18.8 H (11.5-15.5) % Plt Count 142 L (150-450) k/uL Neutrophils # (1.3-7.7) k/uL Lymphocytes # 0.8 L (1.0-4.8) k/uL PT (9.0-12.0) sec INR (<1.2) ABG pH 7.32 L (7.35-7.45) ABG pCO2 (35-45) mmHg ABG pO2 327 H (83-108) mmHg ABG HCO3 (21-25) mmol/L ABG Total CO2 (19-24) mmol/L ABG O2 Saturation 99.8 H (94-97) % ABG Hematocrit 24 L (34.0-46.0) % ABG Sodium 133 L (135-146) mmol/L ABG Potassium (3.4-4.5) mmol/L ABG Ionized Calcium 3.9 L (4.5-5.3) mg/dL ABG Glucose 205 H (75-99) mg/dL ABG Lactic Acid 4.0 H* (0.5-1.6) mmol/L Hemoglobin 7.8 L (13.0-17.5) gm/dL Sodium (137-145) mmol/L Potassium (3.5-5.1) mmol/L Carbon Dioxide (22-30) mmol/L BUN 30 H (9-20) mg/dL Creatinine 6.40 H (0.66-1.25) mg/dL Glucose 61 L (74-99) mg/dL POC Glucose (mg/dL) (75-99) mg/dL Calcium (8.4-10.2) mg/dL Ionized Calcium Paulette (4.5-5.3) mg/dL ALT (21-72) U/L Alkaline Phosphatase 35 L (38-126) U/L Total Protein 3.8 L (6.3-8.2) g/dL Albumin 2.1 L (3.5-5.0) g/dL Arterial Blood Potassium (3.4-4.5) mmol/L Arterial Blood Glucose 205 H (75-99) mg/dL Crossmatch 08/28/18 08/28/18 08/28/18 Range/Units 15:45 15:48 16:12 RBC (4.30-5.90) m/uL Hgb (13.0-17.5) gm/dL Hct (39.0-53.0) % MCV (80.0-100.0) fL MCHC (31.0-37.0) g/dL RDW (11.5-15.5) % Plt Count (150-450) k/uL Neutrophils # (1.3-7.7) k/uL Lymphocytes # (1.0-4.8) k/uL PT 12.8 H (9.0-12.0) sec INR 1.2 H (<1.2) ABG pH (7.35-7.45) ABG pCO2 (35-45) mmHg ABG pO2 >420 H (83-108) mmHg ABG HCO3 (21-25) mmol/L ABG Total CO2 (19-24) mmol/L ABG O2 Saturation 98.9 H (94-97) % ABG Hematocrit (34.0-46.0) % ABG Sodium (135-146) mmol/L ABG Potassium (3.4-4.5) mmol/L ABG Ionized Calcium (4.5-5.3) mg/dL ABG Glucose (75-99) mg/dL ABG Lactic Acid (0.5-1.6) mmol/L Hemoglobin (13.0-17.5) gm/dL Sodium (137-145) mmol/L Potassium (3.5-5.1) mmol/L Carbon Dioxide (22-30) mmol/L BUN (9-20) mg/dL Creatinine (0.66-1.25) mg/dL Glucose (74-99) mg/dL POC Glucose (mg/dL) 67 L (75-99) mg/dL Calcium (8.4-10.2) mg/dL Ionized Calcium Paulette (4.5-5.3) mg/dL ALT (21-72) U/L Alkaline Phosphatase (38-126) U/L Total Protein (6.3-8.2) g/dL Albumin (3.5-5.0) g/dL Arterial Blood Potassium (3.4-4.5) mmol/L Arterial Blood Glucose (75-99) mg/dL Crossmatch 08/28/18 08/28/18 08/28/18 Range/Units 16:18 17:25 18:18 RBC (4.30-5.90) m/uL Hgb (13.0-17.5) gm/dL Hct (39.0-53.0) % MCV (80.0-100.0) fL MCHC (31.0-37.0) g/dL RDW (11.5-15.5) % Plt Count (150-450) k/uL Neutrophils # (1.3-7.7) k/uL Lymphocytes # (1.0-4.8) k/uL PT (9.0-12.0) sec INR (<1.2) ABG pH (7.35-7.45) ABG pCO2 (35-45) mmHg ABG pO2 (83-108) mmHg ABG HCO3 (21-25) mmol/L ABG Total CO2 (19-24) mmol/L ABG O2 Saturation (94-97) % ABG Hematocrit (34.0-46.0) % ABG Sodium (135-146) mmol/L ABG Potassium (3.4-4.5) mmol/L ABG Ionized Calcium (4.5-5.3) mg/dL ABG Glucose (75-99) mg/dL ABG Lactic Acid (0.5-1.6) mmol/L Hemoglobin (13.0-17.5) gm/dL Sodium (137-145) mmol/L Potassium (3.5-5.1) mmol/L Carbon Dioxide (22-30) mmol/L BUN (9-20) mg/dL Creatinine (0.66-1.25) mg/dL Glucose (74-99) mg/dL POC Glucose (mg/dL) 135 H 104 H 122 H (75-99) mg/dL Calcium (8.4-10.2) mg/dL Ionized Calcium Paulette (4.5-5.3) mg/dL ALT (21-72) U/L Alkaline Phosphatase (38-126) U/L Total Protein (6.3-8.2) g/dL Albumin (3.5-5.0) g/dL Arterial Blood Potassium (3.4-4.5) mmol/L Arterial Blood Glucose (75-99) mg/dL Crossmatch 08/28/18 08/28/18 08/28/18 Range/Units 18:50 19:29 20:17 RBC 2.18 L (4.30-5.90) m/uL Hgb 7.0 L (13.0-17.5) gm/dL Hct 21.7 L (39.0-53.0) % MCV (80.0-100.0) fL MCHC (31.0-37.0) g/dL RDW 18.8 H (11.5-15.5) % Plt Count 141 L (150-450) k/uL Neutrophils # (1.3-7.7) k/uL Lymphocytes # 0.6 L (1.0-4.8) k/uL PT (9.0-12.0) sec INR (<1.2) ABG pH (7.35-7.45) ABG pCO2 (35-45) mmHg ABG pO2 (83-108) mmHg ABG HCO3 (21-25) mmol/L ABG Total CO2 (19-24) mmol/L ABG O2 Saturation (94-97) % ABG Hematocrit (34.0-46.0) % ABG Sodium (135-146) mmol/L ABG Potassium (3.4-4.5) mmol/L ABG Ionized Calcium (4.5-5.3) mg/dL ABG Glucose (75-99) mg/dL ABG Lactic Acid (0.5-1.6) mmol/L Hemoglobin (13.0-17.5) gm/dL Sodium (137-145) mmol/L Potassium (3.5-5.1) mmol/L Carbon Dioxide (22-30) mmol/L BUN (9-20) mg/dL Creatinine (0.66-1.25) mg/dL Glucose (74-99) mg/dL POC Glucose (mg/dL) 159 H 160 H (75-99) mg/dL Calcium (8.4-10.2) mg/dL Ionized Calcium Paulette (4.5-5.3) mg/dL ALT (21-72) U/L Alkaline Phosphatase (38-126) U/L Total Protein (6.3-8.2) g/dL Albumin (3.5-5.0) g/dL Arterial Blood Potassium (3.4-4.5) mmol/L Arterial Blood Glucose (75-99) mg/dL Crossmatch 08/28/18 08/28/18 08/28/18 Range/Units 20:23 21:04 21:04 RBC 2.30 L (4.30-5.90) m/uL Hgb 7.1 L (13.0-17.5) gm/dL Hct 23.1 L (39.0-53.0) % MCV 100.2 H (80.0-100.0) fL MCHC 30.8 L (31.0-37.0) g/dL RDW 18.3 H (11.5-15.5) % Plt Count (150-450) k/uL Neutrophils # 8.9 H (1.3-7.7) k/uL Lymphocytes # 0.7 L (1.0-4.8) k/uL PT (9.0-12.0) sec INR (<1.2) ABG pH 7.33 L (7.35-7.45) ABG pCO2 (35-45) mmHg ABG pO2 156 H (83-108) mmHg ABG HCO3 (21-25) mmol/L ABG Total CO2 (19-24) mmol/L ABG O2 Saturation 98.4 H (94-97) % ABG Hematocrit (34.0-46.0) % ABG Sodium (135-146) mmol/L ABG Potassium (3.4-4.5) mmol/L ABG Ionized Calcium (4.5-5.3) mg/dL ABG Glucose (75-99) mg/dL ABG Lactic Acid (0.5-1.6) mmol/L Hemoglobin (13.0-17.5) gm/dL Sodium (137-145) mmol/L Potassium (3.5-5.1) mmol/L Carbon Dioxide (22-30) mmol/L BUN 33 H (9-20) mg/dL Creatinine 7.00 H (0.66-1.25) mg/dL Glucose 143 H (74-99) mg/dL POC Glucose (mg/dL) (75-99) mg/dL Calcium (8.4-10.2) mg/dL Ionized Calcium Paulette (4.5-5.3) mg/dL ALT (21-72) U/L Alkaline Phosphatase (38-126) U/L Total Protein (6.3-8.2) g/dL Albumin (3.5-5.0) g/dL Arterial Blood Potassium (3.4-4.5) mmol/L Arterial Blood Glucose (75-99) mg/dL Crossmatch 08/28/18 08/28/18 08/28/18 Range/Units 21:06 21:58 23:08 RBC (4.30-5.90) m/uL Hgb (13.0-17.5) gm/dL Hct (39.0-53.0) % MCV (80.0-100.0) fL MCHC (31.0-37.0) g/dL RDW (11.5-15.5) % Plt Count (150-450) k/uL Neutrophils # (1.3-7.7) k/uL Lymphocytes # (1.0-4.8) k/uL PT (9.0-12.0) sec INR (<1.2) ABG pH (7.35-7.45) ABG pCO2 (35-45) mmHg ABG pO2 (83-108) mmHg ABG HCO3 (21-25) mmol/L ABG Total CO2 (19-24) mmol/L ABG O2 Saturation (94-97) % ABG Hematocrit (34.0-46.0) % ABG Sodium (135-146) mmol/L ABG Potassium (3.4-4.5) mmol/L ABG Ionized Calcium (4.5-5.3) mg/dL ABG Glucose (75-99) mg/dL ABG Lactic Acid (0.5-1.6) mmol/L Hemoglobin (13.0-17.5) gm/dL Sodium (137-145) mmol/L Potassium (3.5-5.1) mmol/L Carbon Dioxide (22-30) mmol/L BUN (9-20) mg/dL Creatinine (0.66-1.25) mg/dL Glucose (74-99) mg/dL POC Glucose (mg/dL) 165 H 144 H 116 H (75-99) mg/dL Calcium (8.4-10.2) mg/dL Ionized Calcium Paulette (4.5-5.3) mg/dL ALT (21-72) U/L Alkaline Phosphatase (38-126) U/L Total Protein (6.3-8.2) g/dL Albumin (3.5-5.0) g/dL Arterial Blood Potassium (3.4-4.5) mmol/L Arterial Blood Glucose (75-99) mg/dL Crossmatch 08/28/18 08/29/18 08/29/18 Range/Units 23:57 01:05 01:07 RBC 1.87 L (4.30-5.90) m/uL Hgb 5.9 L* (13.0-17.5) gm/dL Hct 18.9 L* (39.0-53.0) % MCV 101.4 H (80.0-100.0) fL MCHC (31.0-37.0) g/dL RDW 18.8 H (11.5-15.5) % Plt Count 135 L (150-450) k/uL Neutrophils # 7.8 H (1.3-7.7) k/uL Lymphocytes # 0.5 L (1.0-4.8) k/uL PT (9.0-12.0) sec INR (<1.2) ABG pH (7.35-7.45) ABG pCO2 (35-45) mmHg ABG pO2 (83-108) mmHg ABG HCO3 (21-25) mmol/L ABG Total CO2 (19-24) mmol/L ABG O2 Saturation (94-97) % ABG Hematocrit (34.0-46.0) % ABG Sodium (135-146) mmol/L ABG Potassium (3.4-4.5) mmol/L ABG Ionized Calcium (4.5-5.3) mg/dL ABG Glucose (75-99) mg/dL ABG Lactic Acid (0.5-1.6) mmol/L Hemoglobin (13.0-17.5) gm/dL Sodium (137-145) mmol/L Potassium (3.5-5.1) mmol/L Carbon Dioxide (22-30) mmol/L BUN (9-20) mg/dL Creatinine (0.66-1.25) mg/dL Glucose (74-99) mg/dL POC Glucose (mg/dL) 111 H 121 H (75-99) mg/dL Calcium (8.4-10.2) mg/dL Ionized Calcium Paulette (4.5-5.3) mg/dL ALT (21-72) U/L Alkaline Phosphatase (38-126) U/L Total Protein (6.3-8.2) g/dL Albumin (3.5-5.0) g/dL Arterial Blood Potassium (3.4-4.5) mmol/L Arterial Blood Glucose (75-99) mg/dL Crossmatch 08/29/18 08/29/18 08/29/18 Range/Units 02:03 03:05 04:06 RBC (4.30-5.90) m/uL Hgb (13.0-17.5) gm/dL Hct (39.0-53.0) % MCV (80.0-100.0) fL MCHC (31.0-37.0) g/dL RDW (11.5-15.5) % Plt Count (150-450) k/uL Neutrophils # (1.3-7.7) k/uL Lymphocytes # (1.0-4.8) k/uL PT (9.0-12.0) sec INR (<1.2) ABG pH (7.35-7.45) ABG pCO2 (35-45) mmHg ABG pO2 (83-108) mmHg ABG HCO3 (21-25) mmol/L ABG Total CO2 (19-24) mmol/L ABG O2 Saturation (94-97) % ABG Hematocrit (34.0-46.0) % ABG Sodium (135-146) mmol/L ABG Potassium (3.4-4.5) mmol/L ABG Ionized Calcium (4.5-5.3) mg/dL ABG Glucose (75-99) mg/dL ABG Lactic Acid (0.5-1.6) mmol/L Hemoglobin (13.0-17.5) gm/dL Sodium (137-145) mmol/L Potassium (3.5-5.1) mmol/L Carbon Dioxide (22-30) mmol/L BUN (9-20) mg/dL Creatinine (0.66-1.25) mg/dL Glucose (74-99) mg/dL POC Glucose (mg/dL) 129 H 127 H 120 H (75-99) mg/dL Calcium (8.4-10.2) mg/dL Ionized Calcium Paulette (4.5-5.3) mg/dL ALT (21-72) U/L Alkaline Phosphatase (38-126) U/L Total Protein (6.3-8.2) g/dL Albumin (3.5-5.0) g/dL Arterial Blood Potassium (3.4-4.5) mmol/L Arterial Blood Glucose (75-99) mg/dL Crossmatch 08/29/18 08/29/18 08/29/18 Range/Units 04:09 04:09 05:15 RBC 2.18 L (4.30-5.90) m/uL Hgb 6.6 L* (13.0-17.5) gm/dL Hct 21.1 L (39.0-53.0) % MCV (80.0-100.0) fL MCHC (31.0-37.0) g/dL RDW 18.7 H (11.5-15.5) % Plt Count 133 L (150-450) k/uL Neutrophils # (1.3-7.7) k/uL Lymphocytes # 0.8 L (1.0-4.8) k/uL PT (9.0-12.0) sec INR (<1.2) ABG pH (7.35-7.45) ABG pCO2 (35-45) mmHg ABG pO2 (83-108) mmHg ABG HCO3 (21-25) mmol/L ABG Total CO2 (19-24) mmol/L ABG O2 Saturation (94-97) % ABG Hematocrit (34.0-46.0) % ABG Sodium (135-146) mmol/L ABG Potassium (3.4-4.5) mmol/L ABG Ionized Calcium (4.5-5.3) mg/dL ABG Glucose (75-99) mg/dL ABG Lactic Acid (0.5-1.6) mmol/L Hemoglobin (13.0-17.5) gm/dL Sodium 136 L (137-145) mmol/L Potassium 6.0 H (3.5-5.1) mmol/L Carbon Dioxide 20 L (22-30) mmol/L BUN 35 H (9-20) mg/dL Creatinine 7.28 H* (0.66-1.25) mg/dL Glucose 103 H (74-99) mg/dL POC Glucose (mg/dL) 114 H (75-99) mg/dL Calcium 8.3 L (8.4-10.2) mg/dL Ionized Calcium Paulette 4.4 L (4.5-5.3) mg/dL ALT 14 L (21-72) U/L Alkaline Phosphatase 32 L (38-126) U/L Total Protein 4.3 L (6.3-8.2) g/dL Albumin 2.9 L (3.5-5.0) g/dL Arterial Blood Potassium (3.4-4.5) mmol/L Arterial Blood Glucose (75-99) mg/dL Crossmatch 08/29/18 08/29/18 08/29/18 Range/Units 06:51 07:58 08:00 RBC 2.54 L (4.30-5.90) m/uL Hgb 7.6 L (13.0-17.5) gm/dL Hct 24.2 L (39.0-53.0) % MCV (80.0-100.0) fL MCHC (31.0-37.0) g/dL RDW 18.2 H (11.5-15.5) % Plt Count 132 L (150-450) k/uL Neutrophils # (1.3-7.7) k/uL Lymphocytes # (1.0-4.8) k/uL PT (9.0-12.0) sec INR (<1.2) ABG pH (7.35-7.45) ABG pCO2 (35-45) mmHg ABG pO2 (83-108) mmHg ABG HCO3 (21-25) mmol/L ABG Total CO2 (19-24) mmol/L ABG O2 Saturation (94-97) % ABG Hematocrit (34.0-46.0) % ABG Sodium (135-146) mmol/L ABG Potassium (3.4-4.5) mmol/L ABG Ionized Calcium (4.5-5.3) mg/dL ABG Glucose (75-99) mg/dL ABG Lactic Acid (0.5-1.6) mmol/L Hemoglobin (13.0-17.5) gm/dL Sodium (137-145) mmol/L Potassium (3.5-5.1) mmol/L Carbon Dioxide (22-30) mmol/L BUN (9-20) mg/dL Creatinine (0.66-1.25) mg/dL Glucose (74-99) mg/dL POC Glucose (mg/dL) 149 H 155 H (75-99) mg/dL Calcium (8.4-10.2) mg/dL Ionized Calcium Paulette (4.5-5.3) mg/dL ALT (21-72) U/L Alkaline Phosphatase (38-126) U/L Total Protein (6.3-8.2) g/dL Albumin (3.5-5.0) g/dL Arterial Blood Potassium (3.4-4.5) mmol/L Arterial Blood Glucose (75-99) mg/dL Crossmatch 08/29/18 08/29/18 08/29/18 Range/Units 09:00 09:25 10:05 RBC (4.30-5.90) m/uL Hgb (13.0-17.5) gm/dL Hct (39.0-53.0) % MCV (80.0-100.0) fL MCHC (31.0-37.0) g/dL RDW (11.5-15.5) % Plt Count (150-450) k/uL Neutrophils # (1.3-7.7) k/uL Lymphocytes # (1.0-4.8) k/uL PT (9.0-12.0) sec INR (<1.2) ABG pH (7.35-7.45) ABG pCO2 (35-45) mmHg ABG pO2 (83-108) mmHg ABG HCO3 (21-25) mmol/L ABG Total CO2 (19-24) mmol/L ABG O2 Saturation (94-97) % ABG Hematocrit (34.0-46.0) % ABG Sodium (135-146) mmol/L ABG Potassium (3.4-4.5) mmol/L ABG Ionized Calcium (4.5-5.3) mg/dL ABG Glucose (75-99) mg/dL ABG Lactic Acid (0.5-1.6) mmol/L Hemoglobin (13.0-17.5) gm/dL Sodium (137-145) mmol/L Potassium 5.7 H (3.5-5.1) mmol/L Carbon Dioxide (22-30) mmol/L BUN (9-20) mg/dL Creatinine (0.66-1.25) mg/dL Glucose (74-99) mg/dL POC Glucose (mg/dL) 141 H 116 H (75-99) mg/dL Calcium (8.4-10.2) mg/dL Ionized Calcium Paulette (4.5-5.3) mg/dL ALT (21-72) U/L Alkaline Phosphatase (38-126) U/L Total Protein (6.3-8.2) g/dL Albumin (3.5-5.0) g/dL Arterial Blood Potassium (3.4-4.5) mmol/L Arterial Blood Glucose (75-99) mg/dL Crossmatch Assessment and Plan Plan: Assessment: #1. Severe triple-vessel coronary artery disease, status post four-vessel coronary artery bypass grafting, with LAROSE to LAD, SVG to the OM1, and PDA and RCA, postop day 1 #2. Postop blood loss anemia, expected outcome of myocardial revascularization surgery, requiring transfusion with 2 units of packed red blood cells, and 5 units of platelets #3. Routine ventilator management, he was successfully extubated on postop day 0, within 5 hours of OR exit time, at 2030 p.m. #4. End-stage renal disease on hemodialysis on Monday schedule #5. Ischemic cardiomyopathy with an EF of 30-35%, severe pulmonary hypertension with RSVP of 69 mmHg, moderate mitral and tricuspid regurgitation #6. Chronic congestive heart failure with systolic dysfunction #7. Recent history of a pulmonary embolism in April 2018 on Eliquis #8. Hypothyroidism #9. Hypertention #10. Hyperlipidemia #11. Former smoker, carries a 40+-pack-year smoking history #12. Family history of premature heart disease Plan: Continue close hemodynamic monitoring, he was successfully extubated last night, he is tolerating extubation quite well, today's chest x-ray has been reviewed, there is increased density at the right days, could be related to atelectasis, and small pleural effusions present bilaterally. Encourage deep breathing and coughing, maintain pain control, incentive spirometry use. Nephrology is consulted, and we anticipate hemodialysis treatment today. GI and DVT prophylaxis per CT surgery, transfusions per CT surgery, we'll continue to closely follow along with the surgery. I performed a history & physical examination of the patient and discussed their management with my nurse practitioner, Rosi Blum. I reviewed the nurse practitioner's note and agree with the documented findings and plan of care. Lung sounds are positive for clear breaths sounds. The findings and the impression was discussed with the patient. I attest to the documentation by the nurse practitioner. Time with Patient: Greater than 30
[2018-08-29 11:21] LABS: Glucose,Whole Blood 105 mg/dL (75-99)
[2018-08-29 11:58] LABS: Glucose,Whole Blood 120 mg/dL (75-99)
--- NOTE | 2018-08-29 12:10 | P.PN ---
Subjective Progress Note Date: 08/29/18 Principal diagnosis: Severe triple-vessel coronary artery disease, moderate left ventricular dysfunction, hypertension, paroxysmal atrial fibrillation, hyperlipidemia, chronic obstructive pulmonary disease with a preoperative FEV1 of 89% of predicted value, history of pulmonary embolism on chronic anticoagulation, end- stage renal disease on hemodialysis, thyroid disorder, previous history of nicotine dependence and significant family history of coronary artery disease on his mother's side. POD #1 quadruple coronary artery bypass grafting using the left internal mammary artery to left anterior ascending coronary artery, a reverse greater saphenous vein graft from aorta to the first diagonal coronary artery, a reverse greater saphenous vein graft from the aorta to the obtuse marginal coronary artery, reverse greater saphenous vein graft from the aorta to the right coronary artery. Bilateral pulmonary vein isolation using the radiofrequency bipolar clamp, exclusion of the left atrial appendage with a 35 mm Atriclip,, right sided endoscopic vein harvesting of the right greater saphenous vein, intraoperative transesophageal echocardiogram, epi-aortic scanning and graft flow measurement using the [employer] system. Postoperative acute blood loss anemia, an expected outcome due to cardiopulmonary bypass and hemodilution. Patient is laying in bed in the intensive care unit. He is in no acute distress. He was successfully extubated last evening at 20:42 PM which was within 6 hours after his open heart surgery. Oxygen saturations are 95% on 4 L nasal cannula. Achieving 500 mL on his incentive spirometry. Currently he denies any complaints of pain or shortness of breath. He is on vasopressin 0.03 units per minute and norepinephrine drip at 2 mcg/m. Left IJ cordis and [place] Kojo catheter in place with current cardiac output 6.5, cardiac index 3.7, PA pressures 46/13, CVP 9 mmHg. He is scheduled for hemodialysis today managed by nephrology. Objective - Vital Signs Vital signs: Vital Signs Temp 36.3 F L 08/29/18 10:57 Pulse 76 08/29/18 10:57 Resp 18 08/29/18 10:57 BP 122/85 08/29/18 10:57 Pulse Ox 94 L 08/29/18 10:57 Intake & Output 08/28/18 08/29/18 08/29/18 18:59 06:59 18:59 Intake Total 1489.496 666.805 636.128 Output Total 2876 659 645 Balance -1386.504 7.805 -8.872 Weight 61.235 kg 64.4 kg Intake: IV 839.0 663.5 250.5 ACETAMINOPHEN IV (For NPO 100 ) 1,000 mg In Empty Bag 1 bag @ 400 mls/hr IVPB Q6HR [facility] Rx#:[id number] Albumin Human 5% 250 ml 500 250 In Empty Bag 1 bag @ 250 mls/hr IVPB Q1HR PRN Rx#: [id number] CO/CI+Pressure Bag 156 49 Lactated Ringers 1,000 ml 200 250 200 @ 50 mls/hr IV .Q20H [facility] Rx#:[id number] Nitroglycerin-D5w Pmx 50 6.0 7.5 1.5 mg In Dextrose/Water 1 250ml.bag @ 5 MCG/MIN 1.5 mls/hr IV .Q24H [facility] Rx#: [id number] Intake, IV Titration 17.496 3.305 118.628 Amount Desmopressin Acetate 18 50 mcg In Sodium Chloride 0. 9% 50 ml @ 200 mls/hr IVPB ONCE ONE Rx#: [id number] Insulin Regular 100 unit 43.303 In Sodium Chloride 0.9% 100 ml @ Per Protocol IV .Q0M [facility] Rx#:[id number] Nitroglycerin-D5w Pmx 50 25.325 mg In Dextrose/Water 1 250ml.bag @ 5 MCG/MIN 1.5 mls/hr IV .Q24H [facility] Rx#: [id number] Norepinephrine 4 mg In 15.904 3.305 0 Sodium Chloride 0.9% 250 ml @ 0.05 MCG/KG/MIN 11. 665 mls/hr IV .[id number] [facility] Rx#:[id number] Propofol 1,000 mg In 1.592 Empty Bag 1 bag @ Titrate IV .Q0M [facility] Rx#: [id number] Oral 60 Blood Product 633 207 Platelet Irr Pheresis 633 Acda Unit [id number] Platelet Pheresis Acda1 207 Unit [id number] Output: Chest Tube Drainage 1032 630 640 Chest Tube Left Lateral 240 90 20 Chest Chest Tube Mediastinal 320 110 100 Chest Tube Right Lateral 472 430 520 Chest Drainage 20 Right Calf 20 Urine 44 9 5 Estimated Blood Loss 1800 Other: Voiding Method Indwelling Catheter Indwelling Catheter Indwelling Catheter ABP, PAP, CO, CI - Last Documented Arterial Blood Pressure 105/48 Pulmonary Artery Pressure 32/10 Cardiac Output 6.5 Cardiac Index 3.7 - Constitutional General appearance: Present: cooperative, no acute distress, thin - Respiratory Details: Lung sounds essentially clear to his bilateral upper lobes, diminished to his right lower base. Respirations are symmetrical and nonlabored. Oxygen saturation are 95% on 4 L nasal cannula. Achieving 500 mL on his incentive spirometry. Right and left pleural and mediastinal chest tubes remained to low continuous wall suction -20 cm H2O. No air leak is present. Right pleural chest tube with 510 mL output in the last 8 hours, 1540 mL output since surgery. Mediastinal chest tube with 190 mL output last 8 hours, 600 mL output since surgery. Left pleural chest tube with 130 mL output in the last 8 hours, 390 mL output since surgery. - Cardiovascular Details: Regular rhythm and rate. S1 and S2 present, negative for S3, gallop or murmur. Sternum is stable. Bedside telemetry showing normal sinus rhythm with global ST elevation heart rate 73. Left IJ Cordis in place with [place] catheter. Current cardiac output 6.5, cardiac index 3.7, PA pressures 46/13, CVP not 9 mmHg. No edema present. Heart hugger is in place and he is demonstrating appropriate use. Knee-high NATALIE hose and sequential compression devices in place to his bilateral lower extremities. Atrial epicardial pacemaker wires in place and connected to a backup pacemaker generator. - Gastrointestinal Gastrointestinal Comment(s): Abdomen is soft, nontender and nondistended. Hypoactive bowel sounds all 4 a bdominal quadrants. No guarding or rigidity. No organomegaly. Tolerating oral intake. - Genitourinary Genitourinary Comment(s): Hathaway catheter for accurate I&O. Remains anuric. Right upper anterior chest with hemodialysis catheter in place. Scheduled for hemodialysis today. - Integumentary Integumentary Comment(s): Skin is warm and dry. No clubbing or cyanosis is present. Midline sternal incision is clean, dry and approximated. No drainage or redness is present. Gauze dressing is clean, dry and in place. Right lower extremity EVH site clean, dry and approximated. No drainage or redness is present. Right lower extremity AELXEY drain in place draining thin serosanguineous drainage with 20 mL output since surgery. - Neurologic Neurologic: Present: CNII-XII intact - Musculoskeletal Musculoskeletal: Present: generalized weakness, strength equal bilaterally - Psychiatric Psychiatric: Present: A&O x's 3, appropriate affect, intact judgment & insight - Allied health notes Allied health notes reviewed: nursing - Labs CBC & Chem 7: 08/29/18 08:00 08/29/18 09:25 Labs: Abnormal Lab Results - Last 24 Hours (Table) 08/21/18 08/28/18 08/28/18 Range/Units 08:55 09:20 11:13 RBC (4.30-5.90) m/uL Hgb (13.0-17.5) gm/dL Hct (39.0-53.0) % MCV (80.0-100.0) fL MCHC (31.0-37.0) g/dL RDW (11.5-15.5) % Plt Count (150-450) k/uL Neutrophils # (1.3-7.7) k/uL Lymphocytes # (1.0-4.8) k/uL PT (9.0-12.0) sec INR (<1.2) ABG pH (7.35-7.45) ABG pCO2 (35-45) mmHg ABG pO2 244 H 250 H (83-108) mmHg ABG HCO3 27 H 26 H (21-25) mmol/L ABG Total CO2 28 H 27 H (19-24) mmol/L ABG O2 Saturation 97.6 H 97.8 H (94-97) % ABG Hematocrit (34.0-46.0) % ABG Sodium (135-146) mmol/L ABG Potassium (3.4-4.5) mmol/L ABG Ionized Calcium 4.3 L 4.3 L (4.5-5.3) mg/dL ABG Glucose 139 H (75-99) mg/dL ABG Lactic Acid (0.5-1.6) mmol/L Hemoglobin 11.6 L 11.0 L (13.0-17.5) gm/dL Sodium (137-145) mmol/L Potassium (3.5-5.1) mmol/L Carbon Dioxide (22-30) mmol/L BUN (9-20) mg/dL Creatinine (0.66-1.25) mg/dL Glucose (74-99) mg/dL POC Glucose (mg/dL) (75-99) mg/dL Calcium (8.4-10.2) mg/dL Ionized Calcium Paulette (4.5-5.3) mg/dL ALT (21-72) U/L Alkaline Phosphatase (38-126) U/L Total Protein (6.3-8.2) g/dL Albumin (3.5-5.0) g/dL Arterial Blood Potassium (3.4-4.5) mmol/L Arterial Blood Glucose 139 H (75-99) mg/dL Crossmatch See Detail 08/28/18 08/28/18 08/28/18 Range/Units 11:35 12:09 12:34 RBC (4.30-5.90) m/uL Hgb (13.0-17.5) gm/dL Hct (39.0-53.0) % MCV (80.0-100.0) fL MCHC (31.0-37.0) g/dL RDW (11.5-15.5) % Plt Count (150-450) k/uL Neutrophils # (1.3-7.7) k/uL Lymphocytes # (1.0-4.8) k/uL PT (9.0-12.0) sec INR (<1.2) ABG pH 7.31 L (7.35-7.45) ABG pCO2 46 H (35-45) mmHg ABG pO2 390 H 310 H 295 H (83-108) mmHg ABG HCO3 (21-25) mmol/L ABG Total CO2 25 H 25 H (19-24) mmol/L ABG O2 Saturation 98.4 H 100.0 H 100.0 H (94-97) % ABG Hematocrit 27 L 25 L 25 L (34.0-46.0) % ABG Sodium 133 L 132 L 133 L (135-146) mmol/L ABG Potassium 5.1 H 4.6 H (3.4-4.5) mmol/L ABG Ionized Calcium 3.8 L 3.8 L 4.0 L (4.5-5.3) mg/dL ABG Glucose 137 H 212 H 225 H (75-99) mg/dL ABG Lactic Acid 2.3 H* (0.5-1.6) mmol/L Hemoglobin 8.7 L 8.0 L 8.0 L (13.0-17.5) gm/dL Sodium (137-145) mmol/L Potassium (3.5-5.1) mmol/L Carbon Dioxide (22-30) mmol/L BUN (9-20) mg/dL Creatinine (0.66-1.25) mg/dL Glucose (74-99) mg/dL POC Glucose (mg/dL) (75-99) mg/dL Calcium (8.4-10.2) mg/dL Ionized Calcium Paulette (4.5-5.3) mg/dL ALT (21-72) U/L Alkaline Phosphatase (38-126) U/L Total Protein (6.3-8.2) g/dL Albumin (3.5-5.0) g/dL Arterial Blood Potassium 5.1 H 4.6 H (3.4-4.5) mmol/L Arterial Blood Glucose 137 H 212 H 225 H (75-99) mg/dL Crossmatch 08/28/18 08/28/18 08/28/18 Range/Units 13:48 15:45 15:45 RBC 2.60 L (4.30-5.90) m/uL Hgb 8.1 L D (13.0-17.5) gm/dL Hct 25.8 L (39.0-53.0) % MCV (80.0-100.0) fL MCHC (31.0-37.0) g/dL RDW 18.8 H (11.5-15.5) % Plt Count 142 L (150-450) k/uL Neutrophils # (1.3-7.7) k/uL Lymphocytes # 0.8 L (1.0-4.8) k/uL PT (9.0-12.0) sec INR (<1.2) ABG pH 7.32 L (7.35-7.45) ABG pCO2 (35-45) mmHg ABG pO2 327 H (83-108) mmHg ABG HCO3 (21-25) mmol/L ABG Total CO2 (19-24) mmol/L ABG O2 Saturation 99.8 H (94-97) % ABG Hematocrit 24 L (34.0-46.0) % ABG Sodium 133 L (135-146) mmol/L ABG Potassium (3.4-4.5) mmol/L ABG Ionized Calcium 3.9 L (4.5-5.3) mg/dL ABG Glucose 205 H (75-99) mg/dL ABG Lactic Acid 4.0 H* (0.5-1.6) mmol/L Hemoglobin 7.8 L (13.0-17.5) gm/dL Sodium (137-145) mmol/L Potassium (3.5-5.1) mmol/L Carbon Dioxide (22-30) mmol/L BUN 30 H (9-20) mg/dL Creatinine 6.40 H (0.66-1.25) mg/dL Glucose 61 L (74-99) mg/dL POC Glucose (mg/dL) (75-99) mg/dL Calcium (8.4-10.2) mg/dL Ionized Calcium Paulette (4.5-5.3) mg/dL ALT (21-72) U/L Alkaline Phosphatase 35 L (38-126) U/L Total Protein 3.8 L (6.3-8.2) g/dL Albumin 2.1 L (3.5-5.0) g/dL Arterial Blood Potassium (3.4-4.5) mmol/L Arterial Blood Glucose 205 H (75-99) mg/dL Crossmatch 08/28/18 08/28/18 08/28/18 Range/Units 15:45 15:48 16:12 RBC (4.30-5.90) m/uL Hgb (13.0-17.5) gm/dL Hct (39.0-53.0) % MCV (80.0-100.0) fL MCHC (31.0-37.0) g/dL RDW (11.5-15.5) % Plt Count (150-450) k/uL Neutrophils # (1.3-7.7) k/uL Lymphocytes # (1.0-4.8) k/uL PT 12.8 H (9.0-12.0) sec INR 1.2 H (<1.2) ABG pH (7.35-7.45) ABG pCO2 (35-45) mmHg ABG pO2 >420 H (83-108) mmHg ABG HCO3 (21-25) mmol/L ABG Total CO2 (19-24) mmol/L ABG O2 Saturation 98.9 H (94-97) % ABG Hematocrit (34.0-46.0) % ABG Sodium (135-146) mmol/L ABG Potassium (3.4-4.5) mmol/L ABG Ionized Calcium (4.5-5.3) mg/dL ABG Glucose (75-99) mg/dL ABG Lactic Acid (0.5-1.6) mmol/L Hemoglobin (13.0-17.5) gm/dL Sodium (137-145) mmol/L Potassium (3.5-5.1) mmol/L Carbon Dioxide (22-30) mmol/L BUN (9-20) mg/dL Creatinine (0.66-1.25) mg/dL Glucose (74-99) mg/dL POC Glucose (mg/dL) 67 L (75-99) mg/dL Calcium (8.4-10.2) mg/dL Ionized Calcium Paulette (4.5-5.3) mg/dL ALT (21-72) U/L Alkaline Phosphatase (38-126) U/L Total Protein (6.3-8.2) g/dL Albumin (3.5-5.0) g/dL Arterial Blood Potassium (3.4-4.5) mmol/L Arterial Blood Glucose (75-99) mg/dL Crossmatch 08/28/18 08/28/18 08/28/18 Range/Units 16:18 17:25 18:18 RBC (4.30-5.90) m/uL Hgb (13.0-17.5) gm/dL Hct (39.0-53.0) % MCV (80.0-100.0) fL MCHC (31.0-37.0) g/dL RDW (11.5-15.5) % Plt Count (150-450) k/uL Neutrophils # (1.3-7.7) k/uL Lymphocytes # (1.0-4.8) k/uL PT (9.0-12.0) sec INR (<1.2) ABG pH (7.35-7.45) ABG pCO2 (35-45) mmHg ABG pO2 (83-108) mmHg ABG HCO3 (21-25) mmol/L ABG Total CO2 (19-24) mmol/L ABG O2 Saturation (94-97) % ABG Hematocrit (34.0-46.0) % ABG Sodium (135-146) mmol/L ABG Potassium (3.4-4.5) mmol/L ABG Ionized Calcium (4.5-5.3) mg/dL ABG Glucose (75-99) mg/dL ABG Lactic Acid (0.5-1.6) mmol/L Hemoglobin (13.0-17.5) gm/dL Sodium (137-145) mmol/L Potassium (3.5-5.1) mmol/L Carbon Dioxide (22-30) mmol/L BUN (9-20) mg/dL Creatinine (0.66-1.25) mg/dL Glucose (74-99) mg/dL POC Glucose (mg/dL) 135 H 104 H 122 H (75-99) mg/dL Calcium (8.4-10.2) mg/dL Ionized Calcium Paulette (4.5-5.3) mg/dL ALT (21-72) U/L Alkaline Phosphatase (38-126) U/L Total Protein (6.3-8.2) g/dL Albumin (3.5-5.0) g/dL Arterial Blood Potassium (3.4-4.5) mmol/L Arterial Blood Glucose (75-99) mg/dL Crossmatch 08/28/18 08/28/18 08/28/18 Range/Units 18:50 19:29 20:17 RBC 2.18 L (4.30-5.90) m/uL Hgb 7.0 L (13.0-17.5) gm/dL Hct 21.7 L (39.0-53.0) % MCV (80.0-100.0) fL MCHC (31.0-37.0) g/dL RDW 18.8 H (11.5-15.5) % Plt Count 141 L (150-450) k/uL Neutrophils # (1.3-7.7) k/uL Lymphocytes # 0.6 L (1.0-4.8) k/uL PT (9.0-12.0) sec INR (<1.2) ABG pH (7.35-7.45) ABG pCO2 (35-45) mmHg ABG pO2 (83-108) mmHg ABG HCO3 (21-25) mmol/L ABG Total CO2 (19-24) mmol/L ABG O2 Saturation (94-97) % ABG Hematocrit (34.0-46.0) % ABG Sodium (135-146) mmol/L ABG Potassium (3.4-4.5) mmol/L ABG Ionized Calcium (4.5-5.3) mg/dL ABG Glucose (75-99) mg/dL ABG Lactic Acid (0.5-1.6) mmol/L Hemoglobin (13.0-17.5) gm/dL Sodium (137-145) mmol/L Potassium (3.5-5.1) mmol/L Carbon Dioxide (22-30) mmol/L BUN (9-20) mg/dL Creatinine (0.66-1.25) mg/dL Glucose (74-99) mg/dL POC Glucose (mg/dL) 159 H 160 H (75-99) mg/dL Calcium (8.4-10.2) mg/dL Ionized Calcium Paulette (4.5-5.3) mg/dL ALT (21-72) U/L Alkaline Phosphatase (38-126) U/L Total Protein (6.3-8.2) g/dL Albumin (3.5-5.0) g/dL Arterial Blood Potassium (3.4-4.5) mmol/L Arterial Blood Glucose (75-99) mg/dL Crossmatch 08/28/18 08/28/18 08/28/18 Range/Units 20:23 21:04 21:04 RBC 2.30 L (4.30-5.90) m/uL Hgb 7.1 L (13.0-17.5) gm/dL Hct 23.1 L (39.0-53.0) % MCV 100.2 H (80.0-100.0) fL MCHC 30.8 L (31.0-37.0) g/dL RDW 18.3 H (11.5-15.5) % Plt Count (150-450) k/uL Neutrophils # 8.9 H (1.3-7.7) k/uL Lymphocytes # 0.7 L (1.0-4.8) k/uL PT (9.0-12.0) sec INR (<1.2) ABG pH 7.33 L (7.35-7.45) ABG pCO2 (35-45) mmHg ABG pO2 156 H (83-108) mmHg ABG HCO3 (21-25) mmol/L ABG Total CO2 (19-24) mmol/L ABG O2 Saturation 98.4 H (94-97) % ABG Hematocrit (34.0-46.0) % ABG Sodium (135-146) mmol/L ABG Potassium (3.4-4.5) mmol/L ABG Ionized Calcium (4.5-5.3) mg/dL ABG Glucose (75-99) mg/dL ABG Lactic Acid (0.5-1.6) mmol/L Hemoglobin (13.0-17.5) gm/dL Sodium (137-145) mmol/L Potassium (3.5-5.1) mmol/L Carbon Dioxide (22-30) mmol/L BUN 33 H (9-20) mg/dL Creatinine 7.00 H (0.66-1.25) mg/dL Glucose 143 H (74-99) mg/dL POC Glucose (mg/dL) (75-99) mg/dL Calcium (8.4-10.2) mg/dL Ionized Calcium Paulette (4.5-5.3) mg/dL ALT (21-72) U/L Alkaline Phosphatase (38-126) U/L Total Protein (6.3-8.2) g/dL Albumin (3.5-5.0) g/dL Arterial Blood Potassium (3.4-4.5) mmol/L Arterial Blood Glucose (75-99) mg/dL Crossmatch 08/28/18 08/28/18 08/28/18 Range/Units 21:06 21:58 23:08 RBC (4.30-5.90) m/uL Hgb (13.0-17.5) gm/dL Hct (39.0-53.0) % MCV (80.0-100.0) fL MCHC (31.0-37.0) g/dL RDW (11.5-15.5) % Plt Count (150-450) k/uL Neutrophils # (1.3-7.7) k/uL Lymphocytes # (1.0-4.8) k/uL PT (9.0-12.0) sec INR (<1.2) ABG pH (7.35-7.45) ABG pCO2 (35-45) mmHg ABG pO2 (83-108) mmHg ABG HCO3 (21-25) mmol/L ABG Total CO2 (19-24) mmol/L ABG O2 Saturation (94-97) % ABG Hematocrit (34.0-46.0) % ABG Sodium (135-146) mmol/L ABG Potassium (3.4-4.5) mmol/L ABG Ionized Calcium (4.5-5.3) mg/dL ABG Glucose (75-99) mg/dL ABG Lactic Acid (0.5-1.6) mmol/L Hemoglobin (13.0-17.5) gm/dL Sodium (137-145) mmol/L Potassium (3.5-5.1) mmol/L Carbon Dioxide (22-30) mmol/L BUN (9-20) mg/dL Creatinine (0.66-1.25) mg/dL Glucose (74-99) mg/dL POC Glucose (mg/dL) 165 H 144 H 116 H (75-99) mg/dL Calcium (8.4-10.2) mg/dL Ionized Calcium Paulette (4.5-5.3) mg/dL ALT (21-72) U/L Alkaline Phosphatase (38-126) U/L Total Protein (6.3-8.2) g/dL Albumin (3.5-5.0) g/dL Arterial Blood Potassium (3.4-4.5) mmol/L Arterial Blood Glucose (75-99) mg/dL Crossmatch 08/28/18 08/29/18 08/29/18 Range/Units 23:57 01:05 01:07 RBC 1.87 L (4.30-5.90) m/uL Hgb 5.9 L* (13.0-17.5) gm/dL Hct 18.9 L* (39.0-53.0) % MCV 101.4 H (80.0-100.0) fL MCHC (31.0-37.0) g/dL RDW 18.8 H (11.5-15.5) % Plt Count 135 L (150-450) k/uL Neutrophils # 7.8 H (1.3-7.7) k/uL Lymphocytes # 0.5 L (1.0-4.8) k/uL PT (9.0-12.0) sec INR (<1.2) ABG pH (7.35-7.45) ABG pCO2 (35-45) mmHg ABG pO2 (83-108) mmHg ABG HCO3 (21-25) mmol/L ABG Total CO2 (19-24) mmol/L ABG O2 Saturation (94-97) % ABG Hematocrit (34.0-46.0) % ABG Sodium (135-146) mmol/L ABG Potassium (3.4-4.5) mmol/L ABG Ionized Calcium (4.5-5.3) mg/dL ABG Glucose (75-99) mg/dL ABG Lactic Acid (0.5-1.6) mmol/L Hemoglobin (13.0-17.5) gm/dL Sodium (137-145) mmol/L Potassium (3.5-5.1) mmol/L Carbon Dioxide (22-30) mmol/L BUN (9-20) mg/dL Creatinine (0.66-1.25) mg/dL Glucose (74-99) mg/dL POC Glucose (mg/dL) 111 H 121 H (75-99) mg/dL Calcium (8.4-10.2) mg/dL Ionized Calcium Paulette (4.5-5.3) mg/dL ALT (21-72) U/L Alkaline Phosphatase (38-126) U/L Total Protein (6.3-8.2) g/dL Albumin (3.5-5.0) g/dL Arterial Blood Potassium (3.4-4.5) mmol/L Arterial Blood Glucose (75-99) mg/dL Crossmatch 08/29/18 08/29/18 08/29/18 Range/Units 02:03 03:05 04:06 RBC (4.30-5.90) m/uL Hgb (13.0-17.5) gm/dL Hct (39.0-53.0) % MCV (80.0-100.0) fL MCHC (31.0-37.0) g/dL RDW (11.5-15.5) % Plt Count (150-450) k/uL Neutrophils # (1.3-7.7) k/uL Lymphocytes # (1.0-4.8) k/uL PT (9.0-12.0) sec INR (<1.2) ABG pH (7.35-7.45) ABG pCO2 (35-45) mmHg ABG pO2 (83-108) mmHg ABG HCO3 (21-25) mmol/L ABG Total CO2 (19-24) mmol/L ABG O2 Saturation (94-97) % ABG Hematocrit (34.0-46.0) % ABG Sodium (135-146) mmol/L ABG Potassium (3.4-4.5) mmol/L ABG Ionized Calcium (4.5-5.3) mg/dL ABG Glucose (75-99) mg/dL ABG Lactic Acid (0.5-1.6) mmol/L Hemoglobin (13.0-17.5) gm/dL Sodium (137-145) mmol/L Potassium (3.5-5.1) mmol/L Carbon Dioxide (22-30) mmol/L BUN (9-20) mg/dL Creatinine (0.66-1.25) mg/dL Glucose (74-99) mg/dL POC Glucose (mg/dL) 129 H 127 H 120 H (75-99) mg/dL Calcium (8.4-10.2) mg/dL Ionized Calcium Paulette (4.5-5.3) mg/dL ALT (21-72) U/L Alkaline Phosphatase (38-126) U/L Total Protein (6.3-8.2) g/dL Albumin (3.5-5.0) g/dL Arterial Blood Potassium (3.4-4.5) mmol/L Arterial Blood Glucose (75-99) mg/dL Crossmatch 08/29/18 08/29/18 08/29/18 Range/Units 04:09 04:09 05:15 RBC 2.18 L (4.30-5.90) m/uL Hgb 6.6 L* (13.0-17.5) gm/dL Hct 21.1 L (39.0-53.0) % MCV (80.0-100.0) fL MCHC (31.0-37.0) g/dL RDW 18.7 H (11.5-15.5) % Plt Count 133 L (150-450) k/uL Neutrophils # (1.3-7.7) k/uL Lymphocytes # 0.8 L (1.0-4.8) k/uL PT (9.0-12.0) sec INR (<1.2) ABG pH (7.35-7.45) ABG pCO2 (35-45) mmHg ABG pO2 (83-108) mmHg ABG HCO3 (21-25) mmol/L ABG Total CO2 (19-24) mmol/L ABG O2 Saturation (94-97) % ABG Hematocrit (34.0-46.0) % ABG Sodium (135-146) mmol/L ABG Potassium (3.4-4.5) mmol/L ABG Ionized Calcium (4.5-5.3) mg/dL ABG Glucose (75-99) mg/dL ABG Lactic Acid (0.5-1.6) mmol/L Hemoglobin (13.0-17.5) gm/dL Sodium 136 L (137-145) mmol/L Potassium 6.0 H (3.5-5.1) mmol/L Carbon Dioxide 20 L (22-30) mmol/L BUN 35 H (9-20) mg/dL Creatinine 7.28 H* (0.66-1.25) mg/dL Glucose 103 H (74-99) mg/dL POC Glucose (mg/dL) 114 H (75-99) mg/dL Calcium 8.3 L (8.4-10.2) mg/dL Ionized Calcium [place] 4.4 L (4.5-5.3) mg/dL ALT 14 L (21-72) U/L Alkaline Phosphatase 32 L (38-126) U/L Total Protein 4.3 L (6.3-8.2) g/dL Albumin 2.9 L (3.5-5.0) g/dL Arterial Blood Potassium (3.4-4.5) mmol/L Arterial Blood Glucose (75-99) mg/dL Crossmatch 08/29/18 08/29/18 08/29/18 Range/Units 06:51 07:58 08:00 RBC 2.54 L (4.30-5.90) m/uL Hgb 7.6 L (13.0-17.5) gm/dL Hct 24.2 L (39.0-53.0) % MCV (80.0-100.0) fL MCHC (31.0-37.0) g/dL RDW 18.2 H (11.5-15.5) % Plt Count 132 L (150-450) k/uL Neutrophils # (1.3-7.7) k/uL Lymphocytes # (1.0-4.8) k/uL PT (9.0-12.0) sec INR (<1.2) ABG pH (7.35-7.45) ABG pCO2 (35-45) mmHg ABG pO2 (83-108) mmHg ABG HCO3 (21-25) mmol/L ABG Total CO2 (19-24) mmol/L ABG O2 Saturation (94-97) % ABG Hematocrit (34.0-46.0) % ABG Sodium (135-146) mmol/L ABG Potassium (3.4-4.5) mmol/L ABG Ionized Calcium (4.5-5.3) mg/dL ABG Glucose (75-99) mg/dL ABG Lactic Acid (0.5-1.6) mmol/L Hemoglobin (13.0-17.5) gm/dL Sodium (137-145) mmol/L Potassium (3.5-5.1) mmol/L Carbon Dioxide (22-30) mmol/L BUN (9-20) mg/dL Creatinine (0.66-1.25) mg/dL Glucose (74-99) mg/dL POC Glucose (mg/dL) 149 H 155 H (75-99) mg/dL Calcium (8.4-10.2) mg/dL Ionized Calcium [place] (4.5-5.3) mg/dL ALT (21-72) U/L Alkaline Phosphatase (38-126) U/L Total Protein (6.3-8.2) g/dL Albumin (3.5-5.0) g/dL Arterial Blood Potassium (3.4-4.5) mmol/L Arterial Blood Glucose (75-99) mg/dL Crossmatch 08/29/18 08/29/18 08/29/18 Range/Units 09:00 09:25 10:05 RBC (4.30-5.90) m/uL Hgb (13.0-17.5) gm/dL Hct (39.0-53.0) % MCV (80.0-100.0) fL MCHC (31.0-37.0) g/dL RDW (11.5-15.5) % Plt Count (150-450) k/uL Neutrophils # (1.3-7.7) k/uL Lymphocytes # (1.0-4.8) k/uL PT (9.0-12.0) sec INR (<1.2) ABG pH (7.35-7.45) ABG pCO2 (35-45) mmHg ABG pO2 (83-108) mmHg ABG HCO3 (21-25) mmol/L ABG Total CO2 (19-24) mmol/L ABG O2 Saturation (94-97) % ABG Hematocrit (34.0-46.0) % ABG Sodium (135-146) mmol/L ABG Potassium (3.4-4.5) mmol/L ABG Ionized Calcium (4.5-5.3) mg/dL ABG Glucose (75-99) mg/dL ABG Lactic Acid (0.5-1.6) mmol/L Hemoglobin (13.0-17.5) gm/dL Sodium (137-145) mmol/L Potassium 5.7 H (3.5-5.1) mmol/L Carbon Dioxide (22-30) mmol/L BUN (9-20) mg/dL Creatinine (0.66-1.25) mg/dL Glucose (74-99) mg/dL POC Glucose (mg/dL) 141 H 116 H (75-99) mg/dL Calcium (8.4-10.2) mg/dL Ionized Calcium [place] (4.5-5.3) mg/dL ALT (21-72) U/L Alkaline Phosphatase (38-126) U/L Total Protein (6.3-8.2) g/dL Albumin (3.5-5.0) g/dL Arterial Blood Potassium (3.4-4.5) mmol/L Arterial Blood Glucose (75-99) mg/dL Crossmatch - Imaging and Cardiology Chest x-ray: report reviewed, image reviewed Assessment and Plan Assessment: 1. Triple-vessel coronary artery disease with a totally occluded left anterior descending coronary artery, status post coronary artery bypass grafting surgery 2. Moderate left ventricular dysfunction 3. End-stage renal disease, on hemodialysis 4. Hypertension 5. Hyperlipidemia 6. Paroxysmal atrial fibrillation, status post bilateral pulmonary vein isolation and left atrial appendage exclusion 7. History of recent pulmonary embolism, on chronic anticoagulation 8. Chronic obstructive pulmonary disease with a preoperative FEV1 89% of predicted value 9. Thyroid disorder 10. Previous history of nicotine dependence 11. Family history of coronary artery disease on his mother's side Plan: 1. Continue aspirin, statin, and beta gallo. Will increase beta gallo therapy as tolerated. 2. Discontinue nitroglycerin drip. 3. Wean O2 as tolerated. Encourage incentive spirometry use 10 times every hour while awake. 4. Will monitor daily labs, x-rays. Electrolyte replacement per protocol. Transfuse 1 unit of platelets and 1 unit of PRBCs with hemodialysis today. 5. Pain control with current medication regimen. 6. Insulin management per primary care service 7. Increase activity, ambulate as tolerated. PT/OT/cardiac rehab consulted. 8. Bronchodilators per pulmonology. 9. Plavix this a.m. 10. GI/DVT prophylaxis. 11. Wean vasopressin as tolerated and norepinephrine. 12. Hemodialysis management per nephrology recommendations. 13. Repeat chest x-ray at 3 PM today. 14. Keep right IJ cordis, [place] catheter, arterial line and chest tubes in place today. 15. More recommendations to follow based on patient's progress. Time with Patient: Greater than 30
[2018-08-29] MEDS: MIDODRINE 5 MG TAB PO SCH ×2 (12:44→17:18)
[2018-08-29 13:05] LABS: Glucose,Whole Blood 135 mg/dL (75-99)
[2018-08-29] MEDS ORDERED: DARBEPOETIN ALFA 60 MCG/0.3 ML SYRINGE SQ SCH (14:00)
[2018-08-29 14:09] LABS: Glucose,Whole Blood 121 mg/dL (75-99)
[2018-08-29 14:32] VITALS: BMI 21.6
[2018-08-29 15:22] LABS: Anisocytosis Slight; HCT 23.9 % (39.0-53.0); HGB 7.8 gm/dL (13.0-17.5); MCHC 32.7 g/dL (31.0-37.0); MCV 91.6 fL (80.0-100.0); Mean Platelet Volume 8.2; Platelet Count 125 k/uL (150-450); RBC 2.61 m/uL (4.30-5.90); RDW 18.1 % (11.5-15.5)
--- NOTE | 2018-08-29 15:41 | XR ---
EXAMINATION TYPE: XR chest 1V portable DATE OF EXAM: 08/29/2018 CLINICAL HISTORY: Difficulty breathing progress study. Post open cardiac surgery. TECHNIQUE: Single AP portable semiupright view of the chest is obtained. COMPARISON: Chest x-ray from earlier today and older studies. FINDINGS: There is stable left internal jugular Derby-Kojo catheter. There is stable right internal j ugular large bore central venous catheter. There is persistent left basilar chest tube and mediastina l drainage catheters as well as right basilar chest tube. Cardiac closure device is redemonstrated. S ternal wires and mediastinal clips are again seen. Cardiac silhouette size is stable and felt upper limits of normal. Bibasilar opacities remain present , right greater than left. Upper lungs remain clear without pneumothorax. Osseous structures are inta ct. IMPRESSION: Overall stable findings, persistent right greater than left bibasilar acute infiltrate and/or atelectasis and suspected small right pleural effusion all redemonstrated.
[2018-08-29 15:53] LABS: Glucose,Whole Blood 104 mg/dL (75-99)
[2018-08-29] MEDS: CLEVIDIPINE BUTYRATE 25 MG in EMPTY BAG 1 BAG IV SCH (16:07)
--- NOTE | 2018-08-29 16:07 | P.PN ---
Subjective Progress Note Date: 08/29/18 This is a 68-year-old gentleman status post CABG, postop day #1. Extubated last night, maintaining O2 sats in the mid 90s on 4 L nasal cannula. Incentive spirometer up to 500. Chest x-ray reporting persistent right greater than left bibasilar acute infiltrate and/or atelectasis with suspected small right pleural effusion. Received 2 units packed RBCs last night, hemoglobin 7.8. Currently maintained on lactated Ringer's, norepinephrine, vasopressin and insulin drips. Potassium 5.7. BUN 35, creatinine 7.28, receiving hemodialysis. Objective - Vital Signs Vital signs: Vital Signs Temp 96.4 F L 08/29/18 13:59 Pulse 70 08/29/18 14:00 Resp 16 08/29/18 14:00 BP 117/47 08/29/18 13:59 Pulse Ox 99 08/29/18 13:00 Intake & Output 08/28/18 08/29/18 08/29/18 18:59 06:59 18:59 Intake Total 1489.496 940.584 3443.174 Output Total 2876 659 780 Balance -1386.504 7.805 395.174 Weight 61.235 kg 64.4 kg 64.4 kg Intake: IV 839.0 663.5 460.5 ACETAMINOPHEN IV (For NPO 100 ) 1,000 mg In Empty Bag 1 bag @ 400 mls/hr IVPB Q6HR NICO Rx#:[id number] Albumin Human 5% 250 ml 500 250 In Empty Bag 1 bag @ 250 mls/hr IVPB Q1HR PRN Rx#: [id number] CO/CI+Pressure Bag 156 59 Lactated Ringers 1,000 ml 200 250 400 @ 50 mls/hr IV .Q20H NICO Rx#:[id number] Nitroglycerin-D5w Pmx 50 6.0 7.5 1.5 mg In Dextrose/Water 1 250ml.bag @ 5 MCG/MIN 1.5 mls/hr IV .Q24H NICO Rx#: [id number] Intake, IV Titration 17.496 3.305 147.674 Amount Desmopressin Acetate 18 50 mcg In Sodium Chloride 0. 9% 50 ml @ 200 mls/hr IVPB ONCE ONE Rx#: [id number] Insulin Regular 100 unit 43.303 In Sodium Chloride 0.9% 100 ml @ Per Protocol IV .Q0M NICO Rx#:[id number] Nitroglycerin-D5w Pmx 50 25.325 mg In Dextrose/Water 1 250ml.bag @ 5 MCG/MIN 1.5 mls/hr IV .Q24H NICO Rx#: [id number] Norepinephrine 4 mg In 15.904 3.305 29.046 Sodium Chloride 0.9% 250 ml @ 0.05 MCG/KG/MIN 11. 665 mls/hr IV .[id number] NICO Rx#:[id number] Propofol 1,000 mg In 1.592 Empty Bag 1 bag @ Titrate IV .Q0M NICO Rx#: [id number] Oral 150 Blood Product 633 417 Platelet Irr Pheresis 633 Acda Unit [id number] Platelet Pheresis Acda1 207 Unit [id number] Rc As-1 Unit 0 [id number] Output: Chest Tube Drainage 1032 630 770 Chest Tube Left Lateral 240 90 20 Chest Chest Tube Mediastinal 320 110 160 Chest Tube Right Lateral 472 430 590 Chest Drainage 20 Right Calf 20 Urine 44 9 10 Hemodialysis 0 Estimated Blood Loss 1800 Other: Voiding Method Indwelling Catheter Indwelling Catheter Indwelling Catheter ABP, PAP, CO, CI - Last Documented Arterial Blood Pressure 120/49 Pulmonary Artery Pressure 44/15 Cardiac Output 5.3 Cardiac Index 3.0 - Exam PHYSICAL EXAM: VITAL SIGNS: As above GENERAL: Sitting up in bed, no acute distress HEENT: Conjunctivae normal. eyes normal. Oral mucosa moist NECK: No JVD. No thyroid enlargement. No LNs CARDIOVASCULAR: S1, S2 muffled. No murmur. Connected to external pacemaker. RESPIRATION: Breath sounds diminished in the bases. No rhonchi or crackles. No bronchial breathing. Mediastinal, right and left pleural Chest tubes present with sanguineous drainage . ABDOMEN: Soft, nontender . No guarding. no masses palpable. No hepatosplenomegaly. Bowel sounds heard. LEGS: Bilateral legs Rizwan wrapped. right ALEXEY drain with serosanguineous drainage PSYCHIATRY: Alert and oriented -3, mood and affect normal. NERVOUS SYSTEM: Cranial N 2-12 grossly normal. Moves all 4 limbs. Diffuse weakness No focal deficits. Skin: no lesions, no rash - Labs CBC & Chem 7: 08/29/18 15:10 08/29/18 09:25 Labs: Abnormal Lab Results - Last 24 Hours (Table) 08/21/18 08/28/18 08/28/18 Range/Units 08:55 15:45 15:45 RBC 2.60 L (4.30-5.90) m/uL Hgb 8.1 L D (13.0-17.5) gm/dL Hct 25.8 L (39.0-53.0) % MCV (80.0-100.0) fL MCHC (31.0-37.0) g/dL RDW 18.8 H (11.5-15.5) % Plt Count 142 L (150-450) k/uL Neutrophils # (1.3-7.7) k/uL Lymphocytes # 0.8 L (1.0-4.8) k/uL PT (9.0-12.0) sec INR (<1.2) ABG pH (7.35-7.45) ABG pO2 (83-108) mmHg ABG O2 Saturation (94-97) % Sodium (137-145) mmol/L Potassium (3.5-5.1) mmol/L Carbon Dioxide (22-30) mmol/L BUN 30 H (9-20) mg/dL Creatinine 6.40 H (0.66-1.25) mg/dL Glucose 61 L (74-99) mg/dL POC Glucose (mg/dL) (75-99) mg/dL Calcium (8.4-10.2) mg/dL Ionized Calcium Paulette (4.5-5.3) mg/dL ALT (21-72) U/L Alkaline Phosphatase 35 L (38-126) U/L Total Protein 3.8 L (6.3-8.2) g/dL Albumin 2.1 L (3.5-5.0) g/dL Crossmatch See Detail 08/28/18 08/28/18 08/28/18 Range/Units 15:45 15:48 16:12 RBC (4.30-5.90) m/uL Hgb (13.0-17.5) gm/dL Hct (39.0-53.0) % MCV (80.0-100.0) fL MCHC (31.0-37.0) g/dL RDW (11.5-15.5) % Plt Count (150-450) k/uL Neutrophils # (1.3-7.7) k/uL Lymphocytes # (1.0-4.8) k/uL PT 12.8 H (9.0-12.0) sec INR 1.2 H (<1.2) ABG pH (7.35-7.45) ABG pO2 >420 H (83-108) mmHg ABG O2 Saturation 98.9 H (94-97) % Sodium (137-145) mmol/L Potassium (3.5-5.1) mmol/L Carbon Dioxide (22-30) mmol/L BUN (9-20) mg/dL Creatinine (0.66-1.25) mg/dL Glucose (74-99) mg/dL POC Glucose (mg/dL) 67 L (75-99) mg/dL Calcium (8.4-10.2) mg/dL Ionized Calcium Paulette (4.5-5.3) mg/dL ALT (21-72) U/L Alkaline Phosphatase (38-126) U/L Total Protein (6.3-8.2) g/dL Albumin (3.5-5.0) g/dL Crossmatch 08/28/18 08/28/18 08/28/18 Range/Units 16:18 17:25 18:18 RBC (4.30-5.90) m/uL Hgb (13.0-17.5) gm/dL Hct (39.0-53.0) % MCV (80.0-100.0) fL MCHC (31.0-37.0) g/dL RDW (11.5-15.5) % Plt Count (150-450) k/uL Neutrophils # (1.3-7.7) k/uL Lymphocytes # (1.0-4.8) k/uL PT (9.0-12.0) sec INR (<1.2) ABG pH (7.35-7.45) ABG pO2 (83-108) mmHg ABG O2 Saturation (94-97) % Sodium (137-145) mmol/L Potassium (3.5-5.1) mmol/L Carbon Dioxide (22-30) mmol/L BUN (9-20) mg/dL Creatinine (0.66-1.25) mg/dL Glucose (74-99) mg/dL POC Glucose (mg/dL) 135 H 104 H 122 H (75-99) mg/dL Calcium (8.4-10.2) mg/dL Ionized Calcium Paulette (4.5-5.3) mg/dL ALT (21-72) U/L Alkaline Phosphatase (38-126) U/L Total Protein (6.3-8.2) g/dL Albumin (3.5-5.0) g/dL Crossmatch 08/28/18 08/28/18 08/28/18 Range/Units 18:50 19:29 20:17 RBC 2.18 L (4.30-5.90) m/uL Hgb 7.0 L (13.0-17.5) gm/dL Hct 21.7 L (39.0-53.0) % MCV (80.0-100.0) fL MCHC (31.0-37.0) g/dL RDW 18.8 H (11.5-15.5) % Plt Count 141 L (150-450) k/uL Neutrophils # (1.3-7.7) k/uL Lymphocytes # 0.6 L (1.0-4.8) k/uL PT (9.0-12.0) sec INR (<1.2) ABG pH (7.35-7.45) ABG pO2 (83-108) mmHg ABG O2 Saturation (94-97) % Sodium (137-145) mmol/L Potassium (3.5-5.1) mmol/L Carbon Dioxide (22-30) mmol/L BUN (9-20) mg/dL Creatinine (0.66-1.25) mg/dL Glucose (74-99) mg/dL POC Glucose (mg/dL) 159 H 160 H (75-99) mg/dL Calcium (8.4-10.2) mg/dL Ionized Calcium Paulette (4.5-5.3) mg/dL ALT (21-72) U/L Alkaline Phosphatase (38-126) U/L Total Protein (6.3-8.2) g/dL Albumin (3.5-5.0) g/dL Crossmatch 08/28/18 08/28/18 08/28/18 Range/Units 20:23 21:04 21:04 RBC 2.30 L (4.30-5.90) m/uL Hgb 7.1 L (13.0-17.5) gm/dL Hct 23.1 L (39.0-53.0) % MCV 100.2 H (80.0-100.0) fL MCHC 30.8 L (31.0-37.0) g/dL RDW 18.3 H (11.5-15.5) % Plt Count (150-450) k/uL Neutrophils # 8.9 H (1.3-7.7) k/uL Lymphocytes # 0.7 L (1.0-4.8) k/uL PT (9.0-12.0) sec INR (<1.2) ABG pH 7.33 L (7.35-7.45) ABG pO2 156 H (83-108) mmHg ABG O2 Saturation 98.4 H (94-97) % Sodium (137-145) mmol/L Potassium (3.5-5.1) mmol/L Carbon Dioxide (22-30) mmol/L BUN 33 H (9-20) mg/dL Creatinine 7.00 H (0.66-1.25) mg/dL Glucose 143 H (74-99) mg/dL POC Glucose (mg/dL) (75-99) mg/dL Calcium (8.4-10.2) mg/dL Ionized Calcium Paulette (4.5-5.3) mg/dL ALT (21-72) U/L Alkaline Phosphatase (38-126) U/L Total Protein (6.3-8.2) g/dL Albumin (3.5-5.0) g/dL Crossmatch 08/28/18 08/28/18 08/28/18 Range/Units 21:06 21:58 23:08 RBC (4.30-5.90) m/uL Hgb (13.0-17.5) gm/dL Hct (39.0-53.0) % MCV (80.0-100.0) fL MCHC (31.0-37.0) g/dL RDW (11.5-15.5) % Plt Count (150-450) k/uL Neutrophils # (1.3-7.7) k/uL Lymphocytes # (1.0-4.8) k/uL PT (9.0-12.0) sec INR (<1.2) ABG pH (7.35-7.45) ABG pO2 (83-108) mmHg ABG O2 Saturation (94-97) % Sodium (137-145) mmol/L Potassium (3.5-5.1) mmol/L Carbon Dioxide (22-30) mmol/L BUN (9-20) mg/dL Creatinine (0.66-1.25) mg/dL Glucose (74-99) mg/dL POC Glucose (mg/dL) 165 H 144 H 116 H (75-99) mg/dL Calcium (8.4-10.2) mg/dL Ionized Calcium Paulette (4.5-5.3) mg/dL ALT (21-72) U/L Alkaline Phosphatase (38-126) U/L Total Protein (6.3-8.2) g/dL Albumin (3.5-5.0) g/dL Crossmatch 08/28/18 08/29/18 08/29/18 Range/Units 23:57 01:05 01:07 RBC 1.87 L (4.30-5.90) m/uL Hgb 5.9 L* (13.0-17.5) gm/dL Hct 18.9 L* (39.0-53.0) % MCV 101.4 H (80.0-100.0) fL MCHC (31.0-37.0) g/dL RDW 18.8 H (11.5-15.5) % Plt Count 135 L (150-450) k/uL Neutrophils # 7.8 H (1.3-7.7) k/uL Lymphocytes # 0.5 L (1.0-4.8) k/uL PT (9.0-12.0) sec INR (<1.2) ABG pH (7.35-7.45) ABG pO2 (83-108) mmHg ABG O2 Saturation (94-97) % Sodium (137-145) mmol/L Potassium (3.5-5.1) mmol/L Carbon Dioxide (22-30) mmol/L BUN (9-20) mg/dL Creatinine (0.66-1.25) mg/dL Glucose (74-99) mg/dL POC Glucose (mg/dL) 111 H 121 H (75-99) mg/dL Calcium (8.4-10.2) mg/dL Ionized Calcium [place] (4.5-5.3) mg/dL ALT (21-72) U/L Alkaline Phosphatase (38-126) U/L Total Protein (6.3-8.2) g/dL Albumin (3.5-5.0) g/dL Crossmatch 08/29/18 08/29/18 08/29/18 Range/Units 02:03 03:05 04:06 RBC (4.30-5.90) m/uL Hgb (13.0-17.5) gm/dL Hct (39.0-53.0) % MCV (80.0-100.0) fL MCHC (31.0-37.0) g/dL RDW (11.5-15.5) % Plt Count (150-450) k/uL Neutrophils # (1.3-7.7) k/uL Lymphocytes # (1.0-4.8) k/uL PT (9.0-12.0) sec INR (<1.2) ABG pH (7.35-7.45) ABG pO2 (83-108) mmHg ABG O2 Saturation (94-97) % Sodium (137-145) mmol/L Potassium (3.5-5.1) mmol/L Carbon Dioxide (22-30) mmol/L BUN (9-20) mg/dL Creatinine (0.66-1.25) mg/dL Glucose (74-99) mg/dL POC Glucose (mg/dL) 129 H 127 H 120 H (75-99) mg/dL Calcium (8.4-10.2) mg/dL Ionized Calcium Paulette (4.5-5.3) mg/dL ALT (21-72) U/L Alkaline Phosphatase (38-126) U/L Total Protein (6.3-8.2) g/dL Albumin (3.5-5.0) g/dL Crossmatch 08/29/18 08/29/18 08/29/18 Range/Units 04:09 04:09 05:15 RBC 2.18 L (4.30-5.90) m/uL Hgb 6.6 L* (13.0-17.5) gm/dL Hct 21.1 L (39.0-53.0) % MCV (80.0-100.0) fL MCHC (31.0-37.0) g/dL RDW 18.7 H (11.5-15.5) % Plt Count 133 L (150-450) k/uL Neutrophils # (1.3-7.7) k/uL Lymphocytes # 0.8 L (1.0-4.8) k/uL PT (9.0-12.0) sec INR (<1.2) ABG pH (7.35-7.45) ABG pO2 (83-108) mmHg ABG O2 Saturation (94-97) % Sodium 136 L (137-145) mmol/L Potassium 6.0 H (3.5-5.1) mmol/L Carbon Dioxide 20 L (22-30) mmol/L BUN 35 H (9-20) mg/dL Creatinine 7.28 H* (0.66-1.25) mg/dL Glucose 103 H (74-99) mg/dL POC Glucose (mg/dL) 114 H (75-99) mg/dL Calcium 8.3 L (8.4-10.2) mg/dL Ionized Calcium Paulette 4.4 L (4.5-5.3) mg/dL ALT 14 L (21-72) U/L Alkaline Phosphatase 32 L (38-126) U/L Total Protein 4.3 L (6.3-8.2) g/dL Albumin 2.9 L (3.5-5.0) g/dL Crossmatch 08/29/18 08/29/18 08/29/18 Range/Units 06:51 07:58 08:00 RBC 2.54 L (4.30-5.90) m/uL Hgb 7.6 L (13.0-17.5) gm/dL Hct 24.2 L (39.0-53.0) % MCV (80.0-100.0) fL MCHC (31.0-37.0) g/dL RDW 18.2 H (11.5-15.5) % Plt Count 132 L (150-450) k/uL Neutrophils # (1.3-7.7) k/uL Lymphocytes # (1.0-4.8) k/uL PT (9.0-12.0) sec INR (<1.2) ABG pH (7.35-7.45) ABG pO2 (83-108) mmHg ABG O2 Saturation (94-97) % Sodium (137-145) mmol/L Potassium (3.5-5.1) mmol/L Carbon Dioxide (22-30) mmol/L BUN (9-20) mg/dL Creatinine (0.66-1.25) mg/dL Glucose (74-99) mg/dL POC Glucose (mg/dL) 149 H 155 H (75-99) mg/dL Calcium (8.4-10.2) mg/dL Ionized Calcium Paulette (4.5-5.3) mg/dL ALT (21-72) U/L Alkaline Phosphatase (38-126) U/L Total Protein (6.3-8.2) g/dL Albumin (3.5-5.0) g/dL Crossmatch 08/29/18 08/29/18 08/29/18 Range/Units 09:00 09:25 10:05 RBC (4.30-5.90) m/uL Hgb (13.0-17.5) gm/dL Hct (39.0-53.0) % MCV (80.0-100.0) fL MCHC (31.0-37.0) g/dL RDW (11.5-15.5) % Plt Count (150-450) k/uL Neutrophils # (1.3-7.7) k/uL Lymphocytes # (1.0-4.8) k/uL PT (9.0-12.0) sec INR (<1.2) ABG pH (7.35-7.45) ABG pO2 (83-108) mmHg ABG O2 Saturation (94-97) % Sodium (137-145) mmol/L Potassium 5.7 H (3.5-5.1) mmol/L Carbon Dioxide (22-30) mmol/L BUN (9-20) mg/dL Creatinine (0.66-1.25) mg/dL Glucose (74-99) mg/dL POC Glucose (mg/dL) 141 H 116 H (75-99) mg/dL Calcium (8.4-10.2) mg/dL Ionized Calcium Paulette (4.5-5.3) mg/dL ALT (21-72) U/L Alkaline Phosphatase (38-126) U/L Total Protein (6.3-8.2) g/dL Albumin (3.5-5.0) g/dL Crossmatch 08/29/18 08/29/18 08/29/18 Range/Units 11:01 11:56 13:04 RBC (4.30-5.90) m/uL Hgb (13.0-17.5) gm/dL Hct (39.0-53.0) % MCV (80.0-100.0) fL MCHC (31.0-37.0) g/dL RDW (11.5-15.5) % Plt Count (150-450) k/uL Neutrophils # (1.3-7.7) k/uL Lymphocytes # (1.0-4.8) k/uL PT (9.0-12.0) sec INR (<1.2) ABG pH (7.35-7.45) ABG pO2 (83-108) mmHg ABG O2 Saturation (94-97) % Sodium (137-145) mmol/L Potassium (3.5-5.1) mmol/L Carbon Dioxide (22-30) mmol/L BUN (9-20) mg/dL Creatinine (0.66-1.25) mg/dL Glucose (74-99) mg/dL POC Glucose (mg/dL) 105 H 120 H 135 H (75-99) mg/dL Calcium (8.4-10.2) mg/dL Ionized Calcium Paulette (4.5-5.3) mg/dL ALT (21-72) U/L Alkaline Phosphatase (38-126) U/L Total Protein (6.3-8.2) g/dL Albumin (3.5-5.0) g/dL Crossmatch 08/29/18 08/29/18 Range/Units 14:07 15:10 RBC 2.61 L (4.30-5.90) m/uL Hgb 7.8 L (13.0-17.5) gm/dL Hct 23.9 L (39.0-53.0) % MCV (80.0-100.0) fL MCHC (31.0-37.0) g/dL RDW 18.1 H (11.5-15.5) % Plt Count 125 L (150-450) k/uL Neutrophils # (1.3-7.7) k/uL Lymphocytes # (1.0-4.8) k/uL PT (9.0-12.0) sec INR (<1.2) ABG pH (7.35-7.45) ABG pO2 (83-108) mmHg ABG O2 Saturation (94-97) % Sodium (137-145) mmol/L Potassium (3.5-5.1) mmol/L Carbon Dioxide (22-30) mmol/L BUN (9-20) mg/dL Creatinine (0.66-1.25) mg/dL Glucose (74-99) mg/dL POC Glucose (mg/dL) 121 H (75-99) mg/dL Calcium (8.4-10.2) mg/dL Ionized Calcium Paulette (4.5-5.3) mg/dL ALT (21-72) U/L Alkaline Phosphatase (38-126) U/L Total Protein (6.3-8.2) g/dL Albumin (3.5-5.0) g/dL Crossmatch Assessment and Plan Assessment: Triple vessel disease, status post CABG -Postoperative blood loss anemia, expected- with 2 units of packed RBCs and 5 un its of platelets -End-stage kidney disease -Ischemic cardiomyopathy, EF 30-35% -Moderate pulmonary hypertension -Mitral and tricuspid regurgitation -History of PE, April 2018 -Hypothyroidism -Hypertension -Dyslipidemia -Former nicotine abuse Plan: Continue on current medication regime ,monitoring and symptomatic treatment. Aggressive pulmonary toileting with incentive spirometer reinforced. Pain management as per primary. Currently undergoing hemodialysis as per nephrology. Close monitoring of Accu-Cheks, currently on insulin drip. Further recommendations to follow. The impression and plan of care has been dictated as directed. : I performed a history and examination of this patient, discussed the same with the dictator. I agree with the dictator's note ,documented as a scribe. Any additional findings or plans will be noted.
[2018-08-29] MEDS ORDERED: CALCIUM GLUCONATE 1 GM in SODIUM CHLORIDE 0.9% 100 ML IVPB ONE (16:30)
[2018-08-29] MEDS: LACTATED RINGERS 1,000 ML IV SCH (17:18)
[2018-08-29] MEDS: SODIUM CHLORIDE 0.9% 150 ML with VASOPRESSIN 60 UNIT IV SCH ×2 (17:19)
[2018-08-29] MEDS: NOREPINEPHRINE 4 MG in SODIUM CHLORIDE 0.9% 250 ML IV SCH (17:21)
[2018-08-29 18:08] LABS: Glucose,Whole Blood 139 mg/dL (75-99)
[2018-08-29 20:17] LABS: Glucose,Whole Blood 107 mg/dL (75-99)
[2018-08-29] MEDS: CLOPIDOGREL 75 MG TAB PO SCH (21:01)
[2018-08-29] MEDS: SENNOSIDES-DOCUSATE SODIUM 1 EACH TAB PO SCH (21:01)
[2018-08-29 22:04] LABS: Glucose,Whole Blood 112 mg/dL (75-99)
[2018-08-29 22:04] LABS: Glucose,Whole Blood 127 mg/dL (75-99)
--- NOTE | 2018-08-29 22:50 | CONS ---
CONSULTATION REASON FOR CONSULT: End-stage renal disease. HISTORY OF PRESENT ILLNESS: The patient is a 68-year-old male with end-stage renal disease, currently on hemodialysis on a Monday, Monday, Monday schedule. He was admitted to the hospital for coronary artery bypass surgery. The patient underwent 4-vessel bypass surgery on 08/28/2018. He is currently extubated, doing fairly well. He is maintained on about 2 mcg of Levophed. He has had increased output from his chest tube. The patient has received DDAVP. He has Ringers lactate running at about 60 mL an hour. Yesterday, potassium was 4. However, this morning potassium was noted to be 6. The patient will be dialyzed today. PAST MEDICAL HISTORY: Cardiomyopathy, coronary artery disease, ischemic cardiomyopathy with end-stage renal disease, CKD mineral bone disorder, anemia of chronic disease, history of PE maintained on anticoagulation. SOCIAL HISTORY: Positive for smoking. No history of drug abuse or alcohol abuse. MEDICATIONS: Prior to admission included Synthroid, Imdur, Lopressor, Eliquis, Pravachol. PHYSICAL EXAMINATION: Patient is currently comfortable, awake, alert, and oriented x3, not in any acute distress. Blood pressure has been on the lower side. This morning it was 107/44, heart rate 77 per minute. He is afebrile. Examination of the heart S1, S2. Examination of the lungs bilateral breath sounds are heard. ABDOMEN: Soft. Examination of lower extremities show bilateral extremities are wrapped. LAB: Show potassium 6.0 today, hemoglobin was 6.6. Patient has received packed RBC transfusions. ASSESSMENT: 1. End-stage renal disease, on hemodialysis on a Monday, Monday, Monday schedule. 2. Status post coronary artery bypass surgery. 3. Hyperkalemia. Improvement with dialysis today. 4. Anemia status post packed RBC transfusion and DDAVP. 5. Coronary artery disease, ischemic cardiomyopathy. PLAN: Hemodialysis today and we will re-evaluate for need for dialysis tomorrow depending on the labs and volume status. Maintain patient on Aranesp as well. Thank you for this consultation. We will continue to follow the patient with you during his hospitalization. MMODL / IJN: [id number] /
[2018-08-30] MEDS: HEPARIN SODIUM,PORCINE 5,000 UNIT/ML 1 ML VIAL SQ SCH ×3 (00:22→17:02)
[2018-08-30] MEDS: HYDROcodone/APAP 5-325MG 1 EACH TAB PO PRN (00:25)
[2018-08-30 00:30] LABS: Glucose,Whole Blood 105 mg/dL (75-99)
[2018-08-30 02:22] LABS: Glucose,Whole Blood 112 mg/dL (75-99)
[2018-08-30 04:09] LABS: Glucose,Whole Blood 115 mg/dL (75-99)
[2018-08-30 04:44] LABS: Ionized Calcium 4.3 mg/dL (4.5-5.3)
[2018-08-30 04:48] LABS: Anisocytosis Moderate; Basophils % (A) 0 %; Eosinophils # (A) 0.1 k/uL (0-0.7); Eosinophils % (A) 1 %; Lymphocytes # (A) 0.8 k/uL (1.0-4.8); Lymphocytes % (A) 11 %; MCH 31.4 pg (25.0-35.0); MCHC 33.9 g/dL (31.0-37.0); MCV 92.6 fL (80.0-100.0); Macrocytosis Slight; Mean Platelet Volume 7.7; Monocytes # (A) 0.5 k/uL (0-1.0); Monocytes % (A) 7 %; Neutrophils # (A) 5.8 k/uL (1.3-7.7); Neutrophils % (A) 79 %; Poikilocytosis Slight; RBC 2.14 m/uL (4.30-5.90); RDW 20.1 % (11.5-15.5); WBC 7.3 k/uL (3.8-10.6)
[2018-08-30 04:53] LABS: HCT 19.8 % (39.0-53.0); HGB 6.7 gm/dL (13.0-17.5)
[2018-08-30 04:54] LABS: Albumin 2.6 g/dL (3.5-5.0); Potassium 5.1 mmol/L (3.5-5.1); Total Bilirubin 0.4 mg/dL (0.2-1.3); Total Protein 4.2 g/dL (6.3-8.2)
[2018-08-30 05:29] LABS: Polychromasia Present
[2018-08-30 05:30] LABS: Anisocytosis (M) Present; Platelet Count 85 k/uL (150-450)
[2018-08-30 07:50] LABS: Glucose,Whole Blood 118 mg/dL (75-99)
[2018-08-30] MEDS: IPRATROPIUM-ALBUTEROL 3 ML NEB INHALATION SCH ×4 (07:52→20:27)
--- NOTE | 2018-08-30 08:08 | XR ---
EXAMINATION TYPE: XR chest 1V portable DATE OF EXAM: 08/30/2018 Comparison: 08/29/2018 Clinical History: 68-year-old male Post Operative Cardiac Surgery Findings: Median sternotomy wires and post-CABG clips the mediastinum. Mediastinal drain and bilateral chest tu bes remain in place. No appreciable pneumothorax. Right-sided double-lumen hemodialysis catheter with tips in the upper right atrium. Left IJ Mendon-Kojo catheter with tip in the distal right main pulmona ry artery. Heart upper limits of normal in size. Persistent right basilar opacity. Impression: Persistent right basilar opacity suggesting prominent atelectasis or consolidation.
[2018-08-30] MEDS: ASPIRIN 325 MG TAB PO SCH (08:10)
[2018-08-30] MEDS: PRAVASTATIN SODIUM 20 MG TAB PO SCH (08:10)
[2018-08-30] MEDS: METOPROLOL TARTRATE 12.5 MG TAB PO SCH ×2 (08:10→19:51)
[2018-08-30] MEDS: MIDODRINE 5 MG TAB PO SCH ×3 (08:10→17:02)
[2018-08-30] MEDS: LACTATED RINGERS 1,000 ML IV SCH (08:12)
[2018-08-30] MEDS: LEVOTHYROXINE 50 MCG TAB PO SCH (08:13)
[2018-08-30] MEDS: PANTOPRAZOLE 40 MG TABLET PO SCH (08:13)
--- NOTE | 2018-08-30 08:55 | P.PN ---
Subjective Progress Note Date: 08/30/18 Principal diagnosis: triple-vessel coronary artery disease, status post four-vessel bypass surgery This is a 68-year-old white male patient of Dr. Padilla Perera past medical histo ry of hypertension, hyperlipidemia, previous history of pulmonary embolism on chronic anticoagulation, end-stage renal disease on hemodialysis, hypothyroidism, previous history of nicotine dependence, and patient carries a [id number] smoking history. Also positive for significant family history of coronary artery disease on his mother's side. Patient was recently hospitalized at the [facility] acute exacerbation of congestive heart failure with systolic dysfunction, he had a stress test in May 2018 showing possible prior myocardial infarction and the possibility of ischemic cardiomyopathy. Cardiac catheterization showed left main stenosis of 40%, RCA of 99%, circumflex of 80% and mid LAD stenosis of 100% and diagonal branch of 90% stenosis. This esophageal echocardiogram showed severely impaired LV systolic function with an EF of 30-35%, trace aortic regurgitation, moderate mitral regurgitation, moderate tricuspid regurgitation and pulmonary hypertension with a right-sided pressures of 69 mmHg. Patient was recommended myocardial revascularization, and today on 08/28/2018 patient underwent four- vessel coronary artery bypass grafting, with LAROSE to LAD, SVG to the OM1, PDA, and RCA. Patient is seen in the intensive care unit following her surgical procedure, sedated, intubated, currently on assist control mode of ventilation with a rate of 14, tidal vitamin 500, FiO2 of 100, and PEEP of 5, postop blood gases were obtained, and showed pO2 of greater than 420, pCO2 of 42, and pH of 7.38, and FiO2 was dropped down to 40%. Current IV fluids include lactated Ringer's at a rate of 50, norepinephrine at 2 mics per minute, vasopressin at 0.03 units/min, nitroglycerin drip is at 5 mics/min, and propofol is currently at 10 mics per kilo per minute. Postop blood work showed a white blood cell count of 8.1, hemoglobin of 8.1, platelet count of 142, INR is 1.2, sodium of 138, potassium is 4.2, chloride is 105, CO2 is 25, BUN of 30, creatinine of 6.40. 2 mediastinal chest tubes connected to 1 pleural VAC, with 300 mL of sanguinous output, left chest tube with 250 mL of sanguinous output and right pleural chest tube with 400 mL of output. And his anuria, patient has a right upper chest subclavian hemodialysis catheter in place, his usual hemodialysis days are Monday and Monday. Patient has slightly hypothermic, he is rewarmed. On 08/29/2016 patient seen in follow-up in intensive care unit, he is awake and alert, patient was extubated last night within 5 hours of OR exit time, at 2030 p.m. This morning he is awake and alert, currently on 4 L per nasal cannula, and his pulse ox is 96%, he is afebrile, hemodynamically patient is stable, BP is 105/48, PA pressure is 32/10, with CVP of 8, cardiac output and index are 6.5 and 3.7 respectively, patient is currently on lactated Ringer's at a rate of 50, levo fed is at 2 mics per minute, vasopressin at 0.03 units per minute, and insulin is at 3 units per hour. Patient has received 2 units of packed red blood cells overnight for postoperative anemia, he did receive 5 units of platelets Intra-Op, this morning his blood work has been reviewed, showed white blood cell count of 9.8, hemoglobin of 7.6, platelet count is 132, serum sodium is 136, potassium is 6.0, repeat potassium was 5.7, BUN is 35, creatinine is 7.28. Today's chest x-ray showed interval extubation, and developing or worsening right greater than left bibasilar acute infiltrate and/or atelectasis with probable small to tiny bilateral pleural effusions. Patient has a 2 mediastinal chest tubes, right and left pleural chest tubes in place, and there is still some increased drainage from the right pleural chest tube, there has been on a total of 900 mL of drainage in the right chest tube in the last 24 hours, 430 out of the mediastinal, and left chest tube is 330 mL of sanguinous output. Patient is anuria, he is on maintenance hemodialysis on an outpatient basis, nephrology has been consulted, and anticipate hemodialysis treatment today. Otherwise he is in no acute distress, he is awake and alert, he is following command, lung sounds are clear, diminished at the bases, his incentive spirometry effort is about 500 mL. On 08/30/2018 patient seen in follow-up in the intensive care unit. He is awake and alert, oriented 3, he sitting up in the recliner, currently on 2 L of oxygen, with pulse ox of 99%, he is afebrile, hemodynamically patient is stable, blood pressure is 98/48, with a PA pressure of 37/12, CVP of 8, cardiac output and index of 6.3 and 3.6 respectively. IV lactated Ringer's a rate of 50 ML per hour, vasopressin at 0.01 units per minute, insulin drip is on hold, and he will has been on hold for close to 24 hours. His incentive spirometry effort is about 500 mL, he does have a effective cough, at times she is able to bring up some yellowish colored sputum. Denies any difficulty breathing, his pain is reasonably controlled, lung sounds are clear, sinus rhythm on the monitor with a rate of 79 BPM. he had hemodialysis yesterday, nephrology is following. Today's chest x-ray has been reviewed with Dr. Berger, and shows persistent right basilar opacity suggesting atelectasis or consolidation. His labs have been reviewed, and showed elevated blood cell count of 7.3, hemoglobin of 6.7, serum sodium is 131, potassium is 5.1, chloride is 97, B1 is 31, creatinine is 5.36. Patient still has mediastinal, left and right pleural chest tubes in place, and mediastinal chest tube had 320 mL, left pleural chest tube 20 mL and right lateral 672 mL of serosanguineous output in the last 24 hours. Objective - Vital Signs Vital signs: Vital Signs Temp 98.2 F 08/30/18 04:00 Pulse 75 08/30/18 08:05 Resp 14 08/30/18 07:00 BP 100/54 08/29/18 17:17 Pulse Ox 99 08/30/18 07:00 Intake & Output 08/29/18 08/30/18 08/30/18 18:59 06:59 18:59 Intake Total 1926.196 696.730 59 Output Total 860 172 120 Balance 1066.196 524.730 -61 Weight 64.4 kg 67.6 kg Intake: IV 670.5 581 59 CO/CI+Pressure Bag 69 81 9 Lactated Ringers 1,000 ml 600 500 50 @ 50 mls/hr IV .Q20H [facility] Rx#:[id number] Nitroglycerin-D5w Pmx 50 1.5 mg In Dextrose/Water 1 250ml.bag @ 5 MCG/MIN 1.5 mls/hr IV .Q24H [facility] Rx#: [id number] Intake, IV Titration 288.696 115.730 Amount Calcium Gluconate 1 gm In 100 Sodium Chloride 0.9% 100 ml @ 100 mls/hr IVPB ONCE ONE Rx#:[id number] Desmopressin Acetate 18 50 mcg In Sodium Chloride 0. 9% 50 ml @ 200 mls/hr IVPB ONCE ONE Rx#: [id number] Insulin Regular 100 unit 43.303 19.594 In Sodium Chloride 0.9% 100 ml @ Per Protocol IV .Q0M [facility] Rx#:[id number] Nitroglycerin-D5w Pmx 50 25.325 mg In Dextrose/Water 1 250ml.bag @ 5 MCG/MIN 1.5 mls/hr IV .Q24H [facility] Rx#: [id number] Norepinephrine 4 mg In 70.068 Sodium Chloride 0.9% 250 ml @ 0.05 MCG/KG/MIN 11. 665 mls/hr IV .[id number] [facility] Rx#:[id number] Propofol 1,000 mg In 96.136 Empty Bag 1 bag @ Titrate IV .Q0M [facility] Rx#: [id number] Oral 240 Blood Product 727 Platelet Pheresis Acda1 207 Unit [id number] Rc As-1 Unit 310 [id number] Output: Chest Tube Drainage 840 172 120 Chest Tube Left Lateral 20 0 30 Chest Chest Tube Mediastinal 200 120 60 Chest Tube Right Lateral 620 52 30 Chest Drainage 10 Right Calf 10 Urine 10 0 0 Hemodialysis 0 Other: Voiding Method Indwelling Catheter Indwelling Catheter Indwelling Catheter ABP, PAP, CO, CI - Last Documented Arterial Blood Pressure 98/48 Pulmonary Artery Pressure 37/12 Cardiac Output 6.3 Cardiac Index 3.6 - Exam GENERAL EXAM: 68-year-old white male awake and alert In the recliner, on 2 L of oxygen per nasal cannula comfortable in no apparent distress. HEAD: Normocephalic/atraumatic. EYES: Normal reaction of pupils, equal size. Conjunctiva pink, sclera white. NOSE: Clear with pink turbinates. THROAT: No erythema or exudates. NECK: No masses, no JVD, no thyroid enlargement, no adenopathy. CHEST: No chest wall deformity. Symmetrical expansion. Mr. incisions clean dry and intact, 2 mediastinal 1 right pleural, 1 left pleural chest tubes with moderate amount of sanguinous output in the Pleur-evac's, and no evidence of air leak, AV wires connected to an external pacemaker with AAI mode of 50 BPM, and intrinsic rhythm is sinus rhythm with a rate of 71 BPM LUNGS: Equal air entry with no crackles, wheeze, rhonchi or dullness. CVS: Regular rate and rhythm, normal S1 and S2, no gallops, no murmurs, no rubs ABDOMEN: Soft, nontender. No hepatosplenomegaly, normal bowel sounds, no guarding or rigidity. EXTREMITIES: No clubbing, no edema, no cyanosis, 2+ pulses and upper and lower extremities. Right leg ALEXEY drain with the small amount of serosanguineous output, ALEXEY drain is compressed and draining both legs are Rizwan wrapped MUSCULOSKELETAL: Muscle strength and tone normal. SPINE: No scoliosis or deformity SKIN: No rashes CENTRAL NERVOUS SYSTEM: Awake alert, oriented 3, No focal deficits, tone is normal in all 4 extremities. - Labs CBC & Chem 7: 08/30/18 04:10 08/30/18 04:10 Labs: Abnormal Lab Results - Last 24 Hours (Table) 08/21/18 08/29/18 08/29/18 Range/Units 08:55 09:00 09:25 RBC (4.30-5.90) m/uL Hgb (13.0-17.5) gm/dL Hct (39.0-53.0) % RDW (11.5-15.5) % Plt Count (150-450) k/uL Lymphocytes # (1.0-4.8) k/uL Sodium (137-145) mmol/L Potassium 5.7 H (3.5-5.1) mmol/L Chloride (98-107) mmol/L BUN (9-20) mg/dL Creatinine (0.66-1.25) mg/dL Glucose (74-99) mg/dL POC Glucose (mg/dL) 141 H (75-99) mg/dL Calcium (8.4-10.2) mg/dL Ionized Calcium Paulette (4.5-5.3) mg/dL ALT (21-72) U/L Total Protein (6.3-8.2) g/dL Albumin (3.5-5.0) g/dL Crossmatch See Detail 08/29/18 08/29/18 08/29/18 Range/Units 10:05 11:01 11:56 RBC (4.30-5.90) m/uL Hgb (13.0-17.5) gm/dL Hct (39.0-53.0) % RDW (11.5-15.5) % Plt Count (150-450) k/uL Lymphocytes # (1.0-4.8) k/uL Sodium (137-145) mmol/L Potassium (3.5-5.1) mmol/L Chloride (98-107) mmol/L BUN (9-20) mg/dL Creatinine (0.66-1.25) mg/dL Glucose (74-99) mg/dL POC Glucose (mg/dL) 116 H 105 H 120 H (75-99) mg/dL Calcium (8.4-10.2) mg/dL Ionized Calcium Paulette (4.5-5.3) mg/dL ALT (21-72) U/L Total Protein (6.3-8.2) g/dL Albumin (3.5-5.0) g/dL Crossmatch 08/29/18 08/29/18 08/29/18 Range/Units 13:04 14:07 15:10 RBC 2.61 L (4.30-5.90) m/uL Hgb 7.8 L (13.0-17.5) gm/dL Hct 23.9 L (39.0-53.0) % RDW 18.1 H (11.5-15.5) % Plt Count 125 L (150-450) k/uL Lymphocytes # (1.0-4.8) k/uL Sodium (137-145) mmol/L Potassium (3.5-5.1) mmol/L Chloride (98-107) mmol/L BUN (9-20) mg/dL Creatinine (0.66-1.25) mg/dL Glucose (74-99) mg/dL POC Glucose (mg/dL) 135 H 121 H (75-99) mg/dL Calcium (8.4-10.2) mg/dL Ionized Calcium Paulette (4.5-5.3) mg/dL ALT (21-72) U/L Total Protein (6.3-8.2) g/dL Albumin (3.5-5.0) g/dL Crossmatch 08/29/18 08/29/18 08/29/18 Range/Units 15:52 18:07 20:16 RBC (4.30-5.90) m/uL Hgb (13.0-17.5) gm/dL Hct (39.0-53.0) % RDW (11.5-15.5) % Plt Count (150-450) k/uL Lymphocytes # (1.0-4.8) k/uL Sodium (137-145) mmol/L Potassium (3.5-5.1) mmol/L Chloride (98-107) mmol/L BUN (9-20) mg/dL Creatinine (0.66-1.25) mg/dL Glucose (74-99) mg/dL POC Glucose (mg/dL) 104 H 139 H 107 H (75-99) mg/dL Calcium (8.4-10.2) mg/dL Ionized Calcium Paulette (4.5-5.3) mg/dL ALT (21-72) U/L Total Protein (6.3-8.2) g/dL Albumin (3.5-5.0) g/dL Crossmatch 08/29/18 08/29/18 08/30/18 Range/Units 20:58 22:02 00:28 RBC (4.30-5.90) m/uL Hgb (13.0-17.5) gm/dL Hct (39.0-53.0) % RDW (11.5-15.5) % Plt Count (150-450) k/uL Lymphocytes # (1.0-4.8) k/uL Sodium (137-145) mmol/L Potassium (3.5-5.1) mmol/L Chloride (98-107) mmol/L BUN (9-20) mg/dL Creatinine (0.66-1.25) mg/dL Glucose (74-99) mg/dL POC Glucose (mg/dL) 112 H 127 H 105 H (75-99) mg/dL Calcium (8.4-10.2) mg/dL Ionized Calcium Paulette (4.5-5.3) mg/dL ALT (21-72) U/L Total Protein (6.3-8.2) g/dL Albumin (3.5-5.0) g/dL Crossmatch 08/30/18 08/30/18 08/30/18 Range/Units 02:20 04:05 04:10 RBC 2.14 L (4.30-5.90) m/uL Hgb 6.7 L* (13.0-17.5) gm/dL Hct 19.8 L* (39.0-53.0) % RDW 20.1 H (11.5-15.5) % Plt Count 85 L (150-450) k/uL Lymphocytes # 0.8 L (1.0-4.8) k/uL Sodium (137-145) mmol/L Potassium (3.5-5.1) mmol/L Chloride (98-107) mmol/L BUN (9-20) mg/dL Creatinine (0.66-1.25) mg/dL Glucose (74-99) mg/dL POC Glucose (mg/dL) 112 H 115 H (75-99) mg/dL Calcium (8.4-10.2) mg/dL Ionized Calcium Paulette (4.5-5.3) mg/dL ALT (21-72) U/L Total Protein (6.3-8.2) g/dL Albumin (3.5-5.0) g/dL Crossmatch 08/30/18 08/30/18 Range/Units 04:10 07:48 RBC (4.30-5.90) m/uL Hgb (13.0-17.5) gm/dL Hct (39.0-53.0) % RDW (11.5-15.5) % Plt Count (150-450) k/uL Lymphocytes # (1.0-4.8) k/uL Sodium 131 L (137-145) mmol/L Potassium (3.5-5.1) mmol/L Chloride 97 L (98-107) mmol/L BUN 31 H (9-20) mg/dL Creatinine 5.36 H (0.66-1.25) mg/dL Glucose 100 H (74-99) mg/dL POC Glucose (mg/dL) 118 H (75-99) mg/dL Calcium 8.0 L (8.4-10.2) mg/dL Ionized Calcium Paulette 4.3 L (4.5-5.3) mg/dL ALT 17 L (21-72) U/L Total Protein 4.2 L (6.3-8.2) g/dL Albumin 2.6 L (3.5-5.0) g/dL Crossmatch Assessment and Plan Plan: Assessment: #1. Severe triple-vessel coronary artery disease, status post four-vessel coronary artery bypass grafting, with LAROSE to LAD, SVG to the OM1, and PDA and RCA, postop day 2 #2. Postop blood loss anemia, expected outcome of myocardial revascularization surgery, requiring transfusion with 2 units of packed red blood cells, and 5 u nits of platelets #3. Routine ventilator management, he was successfully extubated on postop day 0, within 5 hours of OR exit time, at 2030 p.m. #4. End-stage renal disease on hemodialysis on Monday schedule #5. Ischemic cardiomyopathy with an EF of 30-35%, severe pulmonary hypertension with RSVP of 69 mmHg, moderate mitral and tricuspid regurgitation #6. Chronic congestive heart failure with systolic dysfunction #7. Recent history of a pulmonary embolism in April 2018 on Eliquis #8. Hypothyroidism #9. Hypertention #10. Hyperlipidemia #11. Former smoker, carries a 40+-pack-year smoking history #12. Family history of premature heart disease Plan: Continue encouraging deep breathing and coughing, patient otherwise is doing well, weaning FiO2, today's chest x-ray has been reviewed with Dr. Servin, and shows prominent atelectasis, right base. Hemodynamically stable, on small amount of vasopressin,levophed has been weaned off. Continue with pain control, will await further recommendations from nephrology and CT surgery, we'll continue to follow. I performed a history & physical examination of the patient and discussed their management with my nurse practitioner, Rosi Blum. I reviewed the nurse practitioner's note and agree with the documented findings and plan of care. Lung sounds are positive for clear breaths sounds. The findings and the impression was discussed with the patient. I attest to the documentation by the nurse practitioner. Time with Patient: Less than 30
--- NOTE | 2018-08-30 09:35 | P.PN ---
Subjective Patient is seen in follow-up for end-stage renal disease. He is maintained on hemodialysis on a Monday schedule. Patient underwent CABG on August 28. Currently sitting up in chair. Denies chest pain or shortness of breath. Yesterday his dialysis treatment was cut short due to pain. Hemoglobin today is 6.7. No active bleeding noted. Vital signs are stable. General: The patient appeared well nourished and normally developed. HEENT: Head exam is unremarkable. Neck is without jugular venous distension. LUNGS: Breath sounds decreased. HEART: Rate and Rhythm are regular. First and second heart sounds normal. No murmurs, rubs or gallops. Chest tubes present. ABDOMEN: Abdominal exam reveals normal bowel sounds. Non-tender and non- distended. No evidence of peritonitis. EXTREMITITES: No clubbing, cyanosis, or edema. Objective - Vital Signs Vital signs: Vital Signs Temp 98.2 F 08/30/18 04:00 Pulse 75 08/30/18 09:00 Resp 22 08/30/18 09:00 BP 100/54 08/29/18 17:17 Pulse Ox 97 08/30/18 09:00 Intake & Output 08/29/18 08/30/18 08/30/18 18:59 06:59 18:59 Intake Total 1926.196 696.730 218 Output Total 860 172 152 Balance 1066.196 524.730 66 Weight 64.4 kg 67.6 kg Intake: IV 670.5 581 118 CO/CI+Pressure Bag 69 81 18 Lactated Ringers 1,000 ml 600 500 100 @ 20 mls/hr IV .Q24H [facility] Rx#:[id number] Nitroglycerin-D5w Pmx 50 1.5 mg In Dextrose/Water 1 250ml.bag @ 5 MCG/MIN 1.5 mls/hr IV .Q24H [facility] Rx#: [id number] Intake, IV Titration 288.696 115.730 Amount Calcium Gluconate 1 gm In 100 Sodium Chloride 0.9% 100 ml @ 100 mls/hr IVPB ONCE ONE Rx#:[id number] Desmopressin Acetate 18 50 mcg In Sodium Chloride 0. 9% 50 ml @ 200 mls/hr IVPB ONCE ONE Rx#: [id number] Insulin Regular 100 unit 43.303 19.594 In Sodium Chloride 0.9% 100 ml @ Per Protocol IV .Q0M [facility] Rx#:[id number] Nitroglycerin-D5w Pmx 50 25.325 mg In Dextrose/Water 1 250ml.bag @ 5 MCG/MIN 1.5 mls/hr IV .Q24H [facility] Rx#: [id number] Norepinephrine 4 mg In 70.068 Sodium Chloride 0.9% 250 ml @ 0.05 MCG/KG/MIN 11. 665 mls/hr IV .[id number] [facility] Rx#:[id number] Propofol 1,000 mg In 96.136 Empty Bag 1 bag @ Titrate IV .Q0M [facility] Rx#: [id number] Oral 240 100 Blood Product 727 Platelet Pheresis Acda1 207 Unit [id number] Rc As-1 Unit 310 [id number] Output: Chest Tube Drainage 840 172 140 Chest Tube Left Lateral 20 0 30 Chest Chest Tube Mediastinal 200 120 80 Chest Tube Right Lateral 620 52 30 Chest Drainage 10 Right Calf 10 Urine 10 0 12 Hemodialysis 0 Other: Voiding Method Indwelling Catheter Indwelling Catheter Indwelling Catheter ABP, PAP, CO, CI - Last Documented Arterial Blood Pressure 103/47 Pulmonary Artery Pressure 37/12 Cardiac Output 6.3 Cardiac Index 3.6 - Labs CBC & Chem 7: 08/30/18 04:10 08/30/18 04:10 Labs: Abnormal Lab Results - Last 24 Hours (Table) 08/21/18 08/29/18 08/29/18 Range/Units 08:55 09:25 10:05 RBC (4.30-5.90) m/uL Hgb (13.0-17.5) gm/dL Hct (39.0-53.0) % RDW (11.5-15.5) % Plt Count (150-450) k/uL Lymphocytes # (1.0-4.8) k/uL Sodium (137-145) mmol/L Potassium 5.7 H (3.5-5.1) mmol/L Chloride (98-107) mmol/L BUN (9-20) mg/dL Creatinine (0.66-1.25) mg/dL Glucose (74-99) mg/dL POC Glucose (mg/dL) 116 H (75-99) mg/dL Calcium (8.4-10.2) mg/dL Ionized Calcium Paulette (4.5-5.3) mg/dL ALT (21-72) U/L Total Protein (6.3-8.2) g/dL Albumin (3.5-5.0) g/dL Crossmatch See Detail 08/29/18 08/29/18 08/29/18 Range/Units 11:01 11:56 13:04 RBC (4.30-5.90) m/uL Hgb (13.0-17.5) gm/dL Hct (39.0-53.0) % RDW (11.5-15.5) % Plt Count (150-450) k/uL Lymphocytes # (1.0-4.8) k/uL Sodium (137-145) mmol/L Potassium (3.5-5.1) mmol/L Chloride (98-107) mmol/L BUN (9-20) mg/dL Creatinine (0.66-1.25) mg/dL Glucose (74-99) mg/dL POC Glucose (mg/dL) 105 H 120 H 135 H (75-99) mg/dL Calcium (8.4-10.2) mg/dL Ionized Calcium Paulette (4.5-5.3) mg/dL ALT (21-72) U/L Total Protein (6.3-8.2) g/dL Albumin (3.5-5.0) g/dL Crossmatch 08/29/18 08/29/18 08/29/18 Range/Units 14:07 15:10 15:52 RBC 2.61 L (4.30-5.90) m/uL Hgb 7.8 L (13.0-17.5) gm/dL Hct 23.9 L (39.0-53.0) % RDW 18.1 H (11.5-15.5) % Plt Count 125 L (150-450) k/uL Lymphocytes # (1.0-4.8) k/uL Sodium (137-145) mmol/L Potassium (3.5-5.1) mmol/L Chloride (98-107) mmol/L BUN (9-20) mg/dL Creatinine (0.66-1.25) mg/dL Glucose (74-99) mg/dL POC Glucose (mg/dL) 121 H 104 H (75-99) mg/dL Calcium (8.4-10.2) mg/dL Ionized Calcium Paulette (4.5-5.3) mg/dL ALT (21-72) U/L Total Protein (6.3-8.2) g/dL Albumin (3.5-5.0) g/dL Crossmatch 08/29/18 08/29/18 08/29/18 Range/Units 18:07 20:16 20:58 RBC (4.30-5.90) m/uL Hgb (13.0-17.5) gm/dL Hct (39.0-53.0) % RDW (11.5-15.5) % Plt Count (150-450) k/uL Lymphocytes # (1.0-4.8) k/uL Sodium (137-145) mmol/L Potassium (3.5-5.1) mmol/L Chloride (98-107) mmol/L BUN (9-20) mg/dL Creatinine (0.66-1.25) mg/dL Glucose (74-99) mg/dL POC Glucose (mg/dL) 139 H 107 H 112 H (75-99) mg/dL Calcium (8.4-10.2) mg/dL Ionized Calcium Paulette (4.5-5.3) mg/dL ALT (21-72) U/L Total Protein (6.3-8.2) g/dL Albumin (3.5-5.0) g/dL Crossmatch 08/29/18 08/30/18 08/30/18 Range/Units 22:02 00:28 02:20 RBC (4.30-5.90) m/uL Hgb (13.0-17.5) gm/dL Hct (39.0-53.0) % RDW (11.5-15.5) % Plt Count (150-450) k/uL Lymphocytes # (1.0-4.8) k/uL Sodium (137-145) mmol/L Potassium (3.5-5.1) mmol/L Chloride (98-107) mmol/L BUN (9-20) mg/dL Creatinine (0.66-1.25) mg/dL Glucose (74-99) mg/dL POC Glucose (mg/dL) 127 H 105 H 112 H (75-99) mg/dL Calcium (8.4-10.2) mg/dL Ionized Calcium Paulette (4.5-5.3) mg/dL ALT (21-72) U/L Total Protein (6.3-8.2) g/dL Albumin (3.5-5.0) g/dL Crossmatch 08/30/18 08/30/18 08/30/18 Range/Units 04:05 04:10 04:10 RBC 2.14 L (4.30-5.90) m/uL Hgb 6.7 L* (13.0-17.5) gm/dL Hct 19.8 L* (39.0-53.0) % RDW 20.1 H (11.5-15.5) % Plt Count 85 L (150-450) k/uL Lymphocytes # 0.8 L (1.0-4.8) k/uL Sodium 131 L (137-145) mmol/L Potassium (3.5-5.1) mmol/L Chloride 97 L (98-107) mmol/L BUN 31 H (9-20) mg/dL Creatinine 5.36 H (0.66-1.25) mg/dL Glucose 100 H (74-99) mg/dL POC Glucose (mg/dL) 115 H (75-99) mg/dL Calcium 8.0 L (8.4-10.2) mg/dL Ionized Calcium Paulette 4.3 L (4.5-5.3) mg/dL ALT 17 L (21-72) U/L Total Protein 4.2 L (6.3-8.2) g/dL Albumin 2.6 L (3.5-5.0) g/dL Crossmatch 08/30/18 Range/Units 07:48 RBC (4.30-5.90) m/uL Hgb (13.0-17.5) gm/dL Hct (39.0-53.0) % RDW (11.5-15.5) % Plt Count (150-450) k/uL Lymphocytes # (1.0-4.8) k/uL Sodium (137-145) mmol/L Potassium (3.5-5.1) mmol/L Chloride (98-107) mmol/L BUN (9-20) mg/dL Creatinine (0.66-1.25) mg/dL Glucose (74-99) mg/dL POC Glucose (mg/dL) 118 H (75-99) mg/dL Calcium (8.4-10.2) mg/dL Ionized Calcium Paulette (4.5-5.3) mg/dL ALT (21-72) U/L Total Protein (6.3-8.2) g/dL Albumin (3.5-5.0) g/dL Crossmatch Assessment and Plan Plan: Assessment: 1. End-stage renal disease maintained on hemodialysis on a Monday schedule. 2. Hyponatremia secondary to chronic kidney disease. 3. Coronary artery disease status post CABG on August 28. 4. Acute blood loss anemia scheduled to receive blood transfusion today. Also on Aranesp. 5. Hyperkalemia secondary to chronic kidney disease. Improved postdialysis. Plan: 2 hour hemodialysis treatment today. Patient received 1 unit of blood transfusion with dialysis. Full dialysis treatment tomorrow per his outpatient schedule.
--- NOTE | 2018-08-30 10:03 | PN ---
PROGRESS NOTE Mr. Coppola is a 68-year-old male who underwent coronary artery bypass grafting yesterday, has a history of end-stage renal disease. He is feeling better today. He is sitting up in the chair. Hemodynamically, he is stable. He has some chest soreness, but no significant change in his breathing. He is in sinus mechanism. He denies any dizziness or palpitation. He denies any nausea. He has been evaluated by Dr. Pop regarding his end-stage renal disease and underwent dialysis yesterday. He continues to be at this time on aspirin once a day, Plavix 75 mg daily, metoprolol tartrate 12.5 mg twice a day. PHYSICAL EXAMINATION: Blood pressure 113/50 with the heart rate in the 70s. LUNGS: With mild decrease in breath sounds, no wheezes. HEART: Regular rate and rhythm. S1, S2. No S3. No rub appreciated. ABDOMEN: Soft, nontender. EXTREMITIES: Mild edema noted. Chest x-ray revealed evidence of pleural effusion on the right side. IMPRESSION: 1. Status post coronary artery bypass grafting. 2. End-stage renal disease. 3. Hyperlipidemia. 4. History of hypertension. 5. History of ischemic cardiomyopathy. RECOMMENDATION: I will re-initiate treatment with his statin. Will continue to follow his blood pressure and if it is stable, I will re-initiate hydralazine treatment. We will follow his blood pressure and depending on his progress, further recommendation will be made. MMODL / IJN: [id number] /
[2018-08-30 10:38] LABS: Glucose,Whole Blood 114 mg/dL (75-99)
--- NOTE | 2018-08-30 10:42 | P.PN ---
Subjective Progress Note Date: 08/30/18 This is a 68-year-old gentleman status post CABG, postop day #1. Extubated last night, maintaining O2 sats in the mid 90s on 4 L nasal cannula. Incentive spirometer up to 500. Chest x-ray reporting persistent right greater than left bibasilar acute infiltrate and/or atelectasis with suspected small right pleural effusion. Received 2 units packed RBCs last night, hemoglobin 7.8. Currently maintained on lactated Ringer's, norepinephrine, vasopressin and insulin drips. Potassium 5.7. BUN 35, creatinine 7.28, receiving hemodialysis. 08/30/2018 sitting up in chair, alert and oriented 3, maintaining O2 sats in the high 90s on 2 L nasal cannula. Minimal productive cough with occasional clear to yellow sputum. Incentive spirometer up to 500. Chest x-ray reporting persistent right basilar opacity , atelectasis/consolidation .Pain controlled.Hemoglobin 6.7, one unit of packed RBCs with dialysis ordered. Scheduled for hemodialysis again today, as he did not complete his full treatment yesterday secondary to pain.Telemetry sinus rhythm. Levophed weaned off yesterday. Vasopressin drip recently weaned off this morning. Maintained on insulin drip, blood sugars controlled. Objective - Vital Signs Vital signs: Vital Signs Temp 98.2 F 08/30/18 04:00 Pulse 75 08/30/18 09:00 Resp 22 08/30/18 09:00 BP 100/54 08/29/18 17:17 Pulse Ox 97 08/30/18 09:00 Intake & Output 08/29/18 08/30/18 08/30/18 18:59 06:59 18:59 Intake Total 1926.196 696.730 218 Output Total 860 172 152 Balance 1066.196 524.730 66 Weight 64.4 kg 67.6 kg Intake: IV 670.5 581 118 CO/CI+Pressure Bag 69 81 18 Lactated Ringers 1,000 ml 600 500 100 @ 20 mls/hr IV .Q24H [facility] Rx#:[id number] Nitroglycerin-D5w Pmx 50 1.5 mg In Dextrose/Water 1 250ml.bag @ 5 MCG/MIN 1.5 mls/hr IV .Q24H [facility] Rx#: [id number] Intake, IV Titration 288.696 115.730 Amount Calcium Gluconate 1 gm In 100 Sodium Chloride 0.9% 100 ml @ 100 mls/hr IVPB ONCE ONE Rx#:[id number] Desmopressin Acetate 18 50 mcg In Sodium Chloride 0. 9% 50 ml @ 200 mls/hr IVPB ONCE ONE Rx#: [id number] Insulin Regular 100 unit 43.303 19.594 In Sodium Chloride 0.9% 100 ml @ Per Protocol IV .Q0M [facility] Rx#:[id number] Nitroglycerin-D5w Pmx 50 25.325 mg In Dextrose/Water 1 250ml.bag @ 5 MCG/MIN 1.5 mls/hr IV .Q24H [facility] Rx#: [id number] Norepinephrine 4 mg In 70.068 Sodium Chloride 0.9% 250 ml @ 0.05 MCG/KG/MIN 11. 665 mls/hr IV .[id number] [facility] Rx#:[id number] Propofol 1,000 mg In 96.136 Empty Bag 1 bag @ Titrate IV .Q0M [facility] Rx#: [id number] Oral 240 100 Blood Product 727 Platelet Pheresis Acda1 207 Unit [id number] Rc As-1 Unit 310 [id number] Output: Chest Tube Drainage 840 172 140 Chest Tube Left Lateral 20 0 30 Chest Chest Tube Mediastinal 200 120 80 Chest Tube Right Lateral 620 52 30 Chest Drainage 10 Right Calf 10 Urine 10 0 12 Hemodialysis 0 Other: Voiding Method Indwelling Catheter Indwelling Catheter Indwelling Catheter ABP, PAP, CO, CI - Last Documented Arterial Blood Pressure 103/47 Pulmonary Artery Pressure 37/12 Cardiac Output 6.3 Cardiac Index 3.6 - Exam PHYSICAL EXAM: VITAL SIGNS: As above GENERAL: Sitting up in chair, no acute distress HEENT: Conjunctivae normal. eyes normal. Oral mucosa moist NECK: No JVD. No thyroid enlargement. No LNs CARDIOVASCULAR: S1, S2 muffled. No murmur. RESPIRATION: Breath sounds diminished in the bases. No rhonchi or crackles. No bronchial breathing. Chest tubes present. ABDOMEN: Soft, nontender . No guarding. no masses palpable. Bowel sounds heard. LEGS: Bilateral legs Rizwan wrapped. right ALEXEY drain with serosanguineous drainage PSYCHIATRY: Alert and oriented -3, mood and affect normal. NERVOUS SYSTEM: Cranial N 2-12 grossly normal. Moves all 4 limbs. Diffuse weakness No focal deficits. Skin: no lesions, no rash - Labs CBC & Chem 7: 08/30/18 04:10 08/30/18 04:10 Labs: Abnormal Lab Results - Last 24 Hours (Table) 08/21/18 08/29/18 08/29/18 Range/Units 08:55 11:01 11:56 RBC (4.30-5.90) m/uL Hgb (13.0-17.5) gm/dL Hct (39.0-53.0) % RDW (11.5-15.5) % Plt Count (150-450) k/uL Lymphocytes # (1.0-4.8) k/uL Sodium (137-145) mmol/L Chloride (98-107) mmol/L BUN (9-20) mg/dL Creatinine (0.66-1.25) mg/dL Glucose (74-99) mg/dL POC Glucose (mg/dL) 105 H 120 H (75-99) mg/dL Calcium (8.4-10.2) mg/dL Ionized Calcium Paulette (4.5-5.3) mg/dL ALT (21-72) U/L Total Protein (6.3-8.2) g/dL Albumin (3.5-5.0) g/dL Crossmatch See Detail 08/29/18 08/29/18 08/29/18 Range/Units 13:04 14:07 15:10 RBC 2.61 L (4.30-5.90) m/uL Hgb 7.8 L (13.0-17.5) gm/dL Hct 23.9 L (39.0-53.0) % RDW 18.1 H (11.5-15.5) % Plt Count 125 L (150-450) k/uL Lymphocytes # (1.0-4.8) k/uL Sodium (137-145) mmol/L Chloride (98-107) mmol/L BUN (9-20) mg/dL Creatinine (0.66-1.25) mg/dL Glucose (74-99) mg/dL POC Glucose (mg/dL) 135 H 121 H (75-99) mg/dL Calcium (8.4-10.2) mg/dL Ionized Calcium Paulette (4.5-5.3) mg/dL ALT (21-72) U/L Total Protein (6.3-8.2) g/dL Albumin (3.5-5.0) g/dL Crossmatch 08/29/18 08/29/18 08/29/18 Range/Units 15:52 18:07 20:16 RBC (4.30-5.90) m/uL Hgb (13.0-17.5) gm/dL Hct (39.0-53.0) % RDW (11.5-15.5) % Plt Count (150-450) k/uL Lymphocytes # (1.0-4.8) k/uL Sodium (137-145) mmol/L Chloride (98-107) mmol/L BUN (9-20) mg/dL Creatinine (0.66-1.25) mg/dL Glucose (74-99) mg/dL POC Glucose (mg/dL) 104 H 139 H 107 H (75-99) mg/dL Calcium (8.4-10.2) mg/dL Ionized Calcium Paulette (4.5-5.3) mg/dL ALT (21-72) U/L Total Protein (6.3-8.2) g/dL Albumin (3.5-5.0) g/dL Crossmatch 08/29/18 08/29/18 08/30/18 Range/Units 20:58 22:02 00:28 RBC (4.30-5.90) m/uL Hgb (13.0-17.5) gm/dL Hct (39.0-53.0) % RDW (11.5-15.5) % Plt Count (150-450) k/uL Lymphocytes # (1.0-4.8) k/uL Sodium (137-145) mmol/L Chloride (98-107) mmol/L BUN (9-20) mg/dL Creatinine (0.66-1.25) mg/dL Glucose (74-99) mg/dL POC Glucose (mg/dL) 112 H 127 H 105 H (75-99) mg/dL Calcium (8.4-10.2) mg/dL Ionized Calcium Paulette (4.5-5.3) mg/dL ALT (21-72) U/L Total Protein (6.3-8.2) g/dL Albumin (3.5-5.0) g/dL Crossmatch 08/30/18 08/30/18 08/30/18 Range/Units 02:20 04:05 04:10 RBC 2.14 L (4.30-5.90) m/uL Hgb 6.7 L* (13.0-17.5) gm/dL Hct 19.8 L* (39.0-53.0) % RDW 20.1 H (11.5-15.5) % Plt Count 85 L (150-450) k/uL Lymphocytes # 0.8 L (1.0-4.8) k/uL Sodium (137-145) mmol/L Chloride (98-107) mmol/L BUN (9-20) mg/dL Creatinine (0.66-1.25) mg/dL Glucose (74-99) mg/dL POC Glucose (mg/dL) 112 H 115 H (75-99) mg/dL Calcium (8.4-10.2) mg/dL Ionized Calcium Paulette (4.5-5.3) mg/dL ALT (21-72) U/L Total Protein (6.3-8.2) g/dL Albumin (3.5-5.0) g/dL Crossmatch 08/30/18 08/30/18 Range/Units 04:10 07:48 RBC (4.30-5.90) m/uL Hgb (13.0-17.5) gm/dL Hct (39.0-53.0) % RDW (11.5-15.5) % Plt Count (150-450) k/uL Lymphocytes # (1.0-4.8) k/uL Sodium 131 L (137-145) mmol/L Chloride 97 L (98-107) mmol/L BUN 31 H (9-20) mg/dL Creatinine 5.36 H (0.66-1.25) mg/dL Glucose 100 H (74-99) mg/dL POC Glucose (mg/dL) 118 H (75-99) mg/dL Calcium 8.0 L (8.4-10.2) mg/dL Ionized Calcium Paulette 4.3 L (4.5-5.3) mg/dL ALT 17 L (21-72) U/L Total Protein 4.2 L (6.3-8.2) g/dL Albumin 2.6 L (3.5-5.0) g/dL Crossmatch Assessment and Plan Assessment: Triple vessel coronary artery disease, status post CABG -Postoperative blood loss anemia, expected- with 2 units of packed RBCs and 5 units of platelets -End-stage kidney disease, maintained on hemodialysis,M-W-F -Ischemic cardiomyopathy, EF 30-35% -Moderate pulmonary hypertension -Mitral and tricuspid regurgitation -History of PE, April 2018 -Hypothyroidism -Hypertension -Dyslipidemia -Former nicotine abuse -Hyponatremia secondary to CKD -Hyperkalemia secondary to CKD -Right bibasilar atelectasis Plan: Continue on current medication regime ,monitoring and symptomatic treatment. Aggressive pulmonary toileting with incentive spirometer reinforced. Pain management. Hemodialysis as per nephrology. Follow closely with cardiothoracic surgery. Further recommendations to follow. The impression and plan of care has been dictated as directed. : I performed a history and examination of this patient, discussed the same with the dictator. I agree with the dictator's note ,documented as a scribe. Any additional findings or plans will be noted.
[2018-08-30 12:16] LABS: Glucose,Whole Blood 100 mg/dL (75-99)
--- NOTE | 2018-08-30 15:13 | P.PN ---
Subjective Progress Note Date: 08/30/18 Principal diagnosis: Severe triple-vessel coronary artery disease, moderate left ventricular dysfunction, hypertension, paroxysmal atrial fibrillation, hyperlipidemia, chronic obstructive pulmonary disease with a preoperative FEV1 of 89% of predicted value, history of pulmonary embolism on chronic anticoagulation, end- stage renal disease on hemodialysis, thyroid disorder, previous history of nicotine dependence and significant family history of coronary artery disease on his mother's side. POD #2 quadruple coronary artery bypass grafting using the left internal mammary artery to left anterior ascending coronary artery, a reverse greater saphenous vein graft from aorta to the first diagonal coronary artery, a reverse greater saphenous vein graft from the aorta to the obtuse marginal coronary artery, a reverse greater saphenous vein graft from the aorta to the right coronary artery. Bilateral pulmonary vein isolation using the radiofrequency bipolar clamp, exclusion of the left atrial appendage with a 35 mm Atriclip,, right sided endoscopic vein harvesting of the right greater saphenous vein, intraoperative transesophageal echocardiogram, epi-aortic scanning and graft flow measurement using the Audigence system. Postoperative acute blood loss anemia, an expected outcome due to cardiopulmonary bypass and hemodilution. The patient is sitting up to the bedside chair in the intensive care unit. He is in no acute distress. He denies any complaints of pain or shortness of breath at this time. Oxygen saturations are 95% on 2 L nasal cannula. Achieving 500 mL on his incentive spirometry. He is on vasopressin 0.01 units per minute. Left IJ cordis and [place]-Kojo catheter in place with current cardiac output 6.3, cardiac index 3.6, PA pressures 38/14, CVP 8 mmHg. He is scheduled for hemodialysis today managed by nephrology. Hemodialysis was completed yesterday with no fluid removed. Objective - Vital Signs Vital signs: Vital Signs Temp 97.6 F 08/30/18 12:39 Pulse 76 08/30/18 13:00 Resp 23 08/30/18 13:00 BP 99/55 08/30/18 12:39 Pulse Ox 95 08/30/18 13:00 Intake & Output 08/29/18 08/30/18 08/30/18 18:59 06:59 18:59 Intake Total 1926.196 696.730 732 Output Total 860 172 652 Balance 1066.196 524.730 80 Weight 64.4 kg 67.6 kg Intake: IV 670.5 581 322 CO/CI+Pressure Bag 69 81 42 Lactated Ringers 1,000 ml 600 500 280 @ 20 mls/hr IV .Q24H [facility] Rx#:[id number] Nitroglycerin-D5w Pmx 50 1.5 mg In Dextrose/Water 1 250ml.bag @ 5 MCG/MIN 1.5 mls/hr IV .Q24H [facility] Rx#: [id number] Intake, IV Titration 288.696 115.730 Amount Calcium Gluconate 1 gm In 100 Sodium Chloride 0.9% 100 ml @ 100 mls/hr IVPB ONCE ONE Rx#:[id number] Desmopressin Acetate 18 50 mcg In Sodium Chloride 0. 9% 50 ml @ 200 mls/hr IVPB ONCE ONE Rx#: [id number] Insulin Regular 100 unit 43.303 19.594 In Sodium Chloride 0.9% 100 ml @ Per Protocol IV .Q0M [facility] Rx#:[id number] Nitroglycerin-D5w Pmx 50 25.325 mg In Dextrose/Water 1 250ml.bag @ 5 MCG/MIN 1.5 mls/hr IV .Q24H [facility] Rx#: [id number] Norepinephrine 4 mg In 70.068 Sodium Chloride 0.9% 250 ml @ 0.05 MCG/KG/MIN 11. 665 mls/hr IV .[id number] [facility] Rx#:[id number] Propofol 1,000 mg In 96.136 Empty Bag 1 bag @ Titrate IV .Q0M [facility] Rx#: [id number] Oral 240 100 Blood Product 727 310 Platelet Pheresis Acda1 207 Unit [id number] Rc As-1 Unit 310 [id number] Rc As-1 Unit 310 [id number] Output: Chest Tube Drainage 840 172 140 Chest Tube Left Lateral 20 0 30 Chest Chest Tube Mediastinal 200 120 80 Chest Tube Right Lateral 620 52 30 Chest Drainage 10 Right Calf 10 Urine 10 0 12 Hemodialysis 0 500 Other: Voiding Method Indwelling Catheter Indwelling Catheter Indwelling Catheter ABP, PAP, CO, CI - Last Documented Arterial Blood Pressure 93/42 Pulmonary Artery Pressure 34/11 Cardiac Output 6.3 Cardiac Index 3.6 - Constitutional General appearance: Present: cooperative, no acute distress, thin - Respiratory Details: Lung sounds essentially clear to his bilateral upper lobes, diminished to his bilateral bases. Respirations are symmetrical and nonlabored. Oxygen saturation are 95% on 2 L nasal cannula. He is achieving 500 mL on his incentive spirometry. Right and left pleural and mediastinal chest tubes in place to low continuous wall suction -20 cm H2O. No air leaks present. Draining thin serosanguineous drainage. Left pleural chest tube with 50 mL output in the last 24 hours. Mediastinal chest tube with 70 mL output in the last 8 hours, 350 mL output in the last 24 hours. Right pleural chest tube with 35 mL output in the last 8 hours, 170 mL output in the last 24 hours. - Cardiovascular Details: Regular rhythm and rate. S1 and S2 present, negative for S3, gallop or murmur. Sternum is stable. Bedside telemetry showing normal sinus rhythm heart rate 73. Atrial epicardial pacemaker wires in place and grounded. Heart hugger is in place and he is demonstrating appropriate use. Knee-high NATALIE hose and sequential compression devices in place to his bilateral lower extremities. No edema present. Left IJ Cordis with [place]-Kojo catheter in place. Current cardiac output 6.3, cardiac index 3.6, PA pressures 38/14, CVP 8 mmHg. - Gastrointestinal Gastrointestinal Comment(s): Abdomen is soft, nontender and nondistended. Hypoactive bowel sounds all 4 abdominal quadrants. No guarding or rigidity. No organomegaly. Tolerating oral intake. - Genitourinary Genitourinary Comment(s): Anuric, hemodialysis port in place to his right anterior chest. Hemodialysis yesterday with 0 fluid removed. Hemodialysis scheduled for today. - Integumentary Integumentary Comment(s): Skin is warm and dry. No clubbing or cyanosis is present. Midline sternal incision is clean, dry and approximated. No redness or drainage is present. Exofin and dressing is clean and intact. Right lower extremity EVH site clean, dry and approximated. No drainage or redness is present. Right lower extremity ALEXEY drain in place draining thin serosanguineous drainage with 10 mL output since surgery. - Neurologic Neurologic: Present: CNII-XII intact - Musculoskeletal Musculoskeletal: Present: gait normal, generalized weakness, strength equal bilaterally - Psychiatric Psychiatric: Present: A&O x's 3, appropriate affect, intact judgment & insight - Allied health notes Allied health notes reviewed: nursing - Labs CBC & Chem 7: 08/30/18 04:10 08/30/18 04:10 Labs: Abnormal Lab Results - Last 24 Hours (Table) 08/21/18 08/29/18 08/29/18 Range/Units 08:55 15:10 15:52 RBC 2.61 L (4.30-5.90) m/uL Hgb 7.8 L (13.0-17.5) gm/dL Hct 23.9 L (39.0-53.0) % RDW 18.1 H (11.5-15.5) % Plt Count 125 L (150-450) k/uL Lymphocytes # (1.0-4.8) k/uL Sodium (137-145) mmol/L Chloride (98-107) mmol/L BUN (9-20) mg/dL Creatinine (0.66-1.25) mg/dL Glucose (74-99) mg/dL POC Glucose (mg/dL) 104 H (75-99) mg/dL Calcium (8.4-10.2) mg/dL Ionized Calcium Paulette (4.5-5.3) mg/dL ALT (21-72) U/L Total Protein (6.3-8.2) g/dL Albumin (3.5-5.0) g/dL Crossmatch See Detail 08/29/18 08/29/18 08/29/18 Range/Units 18:07 20:16 20:58 RBC (4.30-5.90) m/uL Hgb (13.0-17.5) gm/dL Hct (39.0-53.0) % RDW (11.5-15.5) % Plt Count (150-450) k/uL Lymphocytes # (1.0-4.8) k/uL Sodium (137-145) mmol/L Chloride (98-107) mmol/L BUN (9-20) mg/dL Creatinine (0.66-1.25) mg/dL Glucose (74-99) mg/dL POC Glucose (mg/dL) 139 H 107 H 112 H (75-99) mg/dL Calcium (8.4-10.2) mg/dL Ionized Calcium Paulette (4.5-5.3) mg/dL ALT (21-72) U/L Total Protein (6.3-8.2) g/dL Albumin (3.5-5.0) g/dL Crossmatch 08/29/18 08/30/18 08/30/18 Range/Units 22:02 00:28 02:20 RBC (4.30-5.90) m/uL Hgb (13.0-17.5) gm/dL Hct (39.0-53.0) % RDW (11.5-15.5) % Plt Count (150-450) k/uL Lymphocytes # (1.0-4.8) k/uL Sodium (137-145) mmol/L Chloride (98-107) mmol/L BUN (9-20) mg/dL Creatinine (0.66-1.25) mg/dL Glucose (74-99) mg/dL POC Glucose (mg/dL) 127 H 105 H 112 H (75-99) mg/dL Calcium (8.4-10.2) mg/dL Ionized Calcium Paulette (4.5-5.3) mg/dL ALT (21-72) U/L Total Protein (6.3-8.2) g/dL Albumin (3.5-5.0) g/dL Crossmatch 08/30/18 08/30/18 08/30/18 Range/Units 04:05 04:10 04:10 RBC 2.14 L (4.30-5.90) m/uL Hgb 6.7 L* (13.0-17.5) gm/dL Hct 19.8 L* (39.0-53.0) % RDW 20.1 H (11.5-15.5) % Plt Count 85 L (150-450) k/uL Lymphocytes # 0.8 L (1.0-4.8) k/uL Sodium 131 L (137-145) mmol/L Chloride 97 L (98-107) mmol/L BUN 31 H (9-20) mg/dL Creatinine 5.36 H (0.66-1.25) mg/dL Glucose 100 H (74-99) mg/dL POC Glucose (mg/dL) 115 H (75-99) mg/dL Calcium 8.0 L (8.4-10.2) mg/dL Ionized Calcium Paulette 4.3 L (4.5-5.3) mg/dL ALT 17 L (21-72) U/L Total Protein 4.2 L (6.3-8.2) g/dL Albumin 2.6 L (3.5-5.0) g/dL Crossmatch 08/30/18 08/30/18 08/30/18 Range/Units 07:48 10:36 12:15 RBC (4.30-5.90) m/uL Hgb (13.0-17.5) gm/dL Hct (39.0-53.0) % RDW (11.5-15.5) % Plt Count (150-450) k/uL Lymphocytes # (1.0-4.8) k/uL Sodium (137-145) mmol/L Chloride (98-107) mmol/L BUN (9-20) mg/dL Creatinine (0.66-1.25) mg/dL Glucose (74-99) mg/dL POC Glucose (mg/dL) 118 H 114 H 100 H (75-99) mg/dL Calcium (8.4-10.2) mg/dL Ionized Calcium Paulette (4.5-5.3) mg/dL ALT (21-72) U/L Total Protein (6.3-8.2) g/dL Albumin (3.5-5.0) g/dL Crossmatch - Imaging and Cardiology Chest x-ray: report reviewed, image reviewed Assessment and Plan Assessment: 1. Triple-vessel coronary artery disease with a totally occluded left anterior descending coronary artery, status post coronary artery bypass grafting surgery 2. Moderate left ventricular dysfunction 3. End-stage renal disease, on hemodialysis 4. Hypertension 5. Hyperlipidemia 6. Paroxysmal atrial fibrillation, status post bilateral pulmonary vein isolation and left atrial appendage exclusion 7. History of recent pulmonary embolism, on chronic anticoagulation 8. Chronic obstructive pulmonary disease with a preoperative FEV1 89% of predicted value 9. Thyroid disorder 10. Previous history of nicotine dependence 11. Family history of coronary artery disease on his mother's side 12. Postoperative acute blood loss anemia, an expected outcome Plan: 1. Continue aspirin, statin, and beta gallo. Will increase beta gallo therapy as tolerated. 2. Continue Midodrine 5 mg by mouth 3 times a day. Wean vasopressin and off. 3. Wean O2 as tolerated. Encourage incentive spirometry use 10 times every hour while awake. 4. Will monitor daily labs, x-rays. Electrolyte replacement per protocol. Transfuse 1 unit of platelets and 1 unit of PRBCs with hemodialysis today. 5. Pain control with current medication regimen. 6. Insulin management per primary care service 7. Increase activity, ambulate as tolerated. PT/OT/cardiac rehab consulted. 8. Bronchodilators per pulmonology. 9. Discontinue [place]-Kojo catheter, keep left IJ Cordis in place to continuous CVP monitoring.. 10. GI/DVT prophylaxis. 11. Hemodialysis management per nephrology recommendations. 12. Discontinue Hathaway catheter and right lower extremity ALEXEY drain. 13. Remove left pleural and mediastinal chest tubes. Keep right pleural chest tube in place to low continuous wall suction -20 cm H2O. 14. Ground atrial epicardial pacemaker wire. 15. More recommendations to follow based on patient's progress. Left pleural and mediastinal chest tubes removed without incident. 4 x 4 gauze dressing, Vaseline impregnated tonsil dressing to cover and secured with tape. Time with Patient: Greater than 30
[2018-08-30 15:26] LABS: Glucose,Whole Blood 102 mg/dL (75-99)
[2018-08-30 16:59] LABS: Glucose,Whole Blood 99 mg/dL (75-99)
[2018-08-30] MEDS: SODIUM CHLORIDE 0.9% 150 ML with VASOPRESSIN 60 UNIT IV SCH ×2 (17:02)
[2018-08-30] MEDS: INSULIN ASPART (NovoLOG) 100 UNIT/ML VIAL SQ SCH ×2 (17:03→21:22)
[2018-08-30] MEDS: NOREPINEPHRINE 4 MG in SODIUM CHLORIDE 0.9% 250 ML IV SCH (17:05)
[2018-08-30] MEDS: CLOPIDOGREL 75 MG TAB PO SCH (19:51)
[2018-08-30] MEDS: SENNOSIDES-DOCUSATE SODIUM 1 EACH TAB PO SCH (19:51)
[2018-08-30 21:00] LABS: Glucose,Whole Blood 109 mg/dL (75-99)
[2018-08-31] MEDS: HEPARIN SODIUM,PORCINE 5,000 UNIT/ML 1 ML VIAL SQ SCH ×4 (00:04→23:12)
[2018-08-31] MEDS: LACTATED RINGERS 1,000 ML IV SCH (04:39)
[2018-08-31 06:56] LABS: Anisocytosis Slight; Basophils % (A) 1 %; Eosinophils # (A) 0.2 k/uL (0-0.7); Eosinophils % (A) 3 %; HGB 7.3 gm/dL (13.0-17.5); Lymphocytes # (A) 0.5 k/uL (1.0-4.8); Lymphocytes % (A) 9 %; MCH 29.9 pg (25.0-35.0); MCHC 31.8 g/dL (31.0-37.0); Macrocytosis Slight; Mean Platelet Volume 7.8; Monocytes # (A) 0.3 k/uL (0-1.0); Monocytes % (A) 5 %; Neutrophils # (A) 4.6 k/uL (1.3-7.7); Neutrophils % (A) 80 %; RBC 2.45 m/uL (4.30-5.90); RDW 18.1 % (11.5-15.5); WBC 5.8 k/uL (3.8-10.6)
[2018-08-31] MEDS: INSULIN ASPART (NovoLOG) 100 UNIT/ML VIAL SQ SCH ×4 (07:05→21:08)
[2018-08-31 07:06] LABS: Glucose,Whole Blood 75 mg/dL (75-99)
[2018-08-31 07:06] LABS: Platelet Count 85 k/uL (150-450)
[2018-08-31] MEDS: PANTOPRAZOLE 40 MG TABLET PO SCH (07:07)
[2018-08-31] MEDS: MIDODRINE 5 MG TAB PO SCH ×3 (07:07→16:50)
[2018-08-31] MEDS: LEVOTHYROXINE 50 MCG TAB PO SCH (07:07)
[2018-08-31 07:15] LABS: Ionized Calcium 4.2 mg/dL (4.5-5.3)
[2018-08-31 07:29] LABS: Albumin 2.7 g/dL (3.5-5.0); Magnesium 2.1 mg/dL (1.6-2.3); Potassium 4.4 mmol/L (3.5-5.1); Total Bilirubin 0.5 mg/dL (0.2-1.3); Total Protein 4.5 g/dL (6.3-8.2)
--- NOTE | 2018-08-31 07:56 | PN ---
PROGRESS NOTE DATE OF SERVICE: August 31, 2018 This is a very pleasant 68-year-old male who is postop day #3, status post 4-vessel bypass grafting. He had a LAROSE to LAD bypass, SVG bypass to the OM 1, PDA, and right coronary artery. He had routine postoperative ventilator management and was successfully extubated within the 6-hour window. The patient is doing relatively well. He is currently just on 2 L nasal cannula. He is getting lactated Ringer's at 30 mL an hour. His chest x-ray shows some bibasilar atelectasis and small effusions. He does have a history of end-stage renal disease, is on hemodialysis Monday, Monday, Monday. The catheter has been placed. He has got a history of ischemic cardiomyopathy with ejection fraction of 30% to 35%. and severe pulmonary hypertension. In addition, he has history of chronic congestive heart failure, pulmonary embolism, hypothyroidism, hypertension, hyperlipidemia, and previous history of significant tobacco abuse for 40+ years. Again, currently the patient is doing relatively well. He had been previously on a number of drips including vasopressin, Levophed, and other medications, but they have all been weaned off. He has no particular complaints today. Sitting at the bedside. Temperature 98.7, heart rate 79, respiratory rate 18, blood pressure 92/55 and 2 L saturation 93%. CVP is 4 cm in water. He appears in no acute distress. No respiratory distress. HEENT: Examination is grossly unremarkable. Mucous membranes are moist. Nasal O2 noted. NECK: Supple. Full range of motion. No adenopathy, thyromegaly or neck vein distention. CARDIOVASCULAR: Examination reveals regular rhythm and rate. Heart rate in mid 70s. S1, S2 normal. No murmur. LUNGS: Reveal diminished breath sounds at the bases. A few scattered rhonchi noted. No wheezes. ABDOMEN: Soft. Bowel sounds are heard. EXTREMITIES: Are intact. No cyanosis, clubbing, or edema. SKIN: Without rash. NEUROLOGIC: Examination is brief but nonfocal. Labs are reviewed. White count 5.8, hemoglobin 7.3, hematocrit 23.0, platelet count 85,000. The rest of the labs are currently pending. Ionized calcium is a bit low at 4.2. Microbiologic studies are negative or pending. Chest x-ray shows some postsurgical changes including some basilar atelectasis. His hemodialysis catheter is noted. He has got small effusions. Medications are reviewed. ASSESSMENT: 1. Postoperative day #3, status post 4-vessel bypass grafting for severe triple-vessel coronary artery disease. 2. Postoperative anemia, status post 2 units of PRBCs and 5 units of platelets. 3. Routine postoperative ventilator management with successful extubation within the 6- hour window. 4. End-stage renal disease, currently on Monday, Monday, Monday hemodialysis. 5. Ischemic cardiomyopathy with ejection fraction of 30% to 35%. 6. Severe pulmonary hypertension with a right ventricular systolic pressure of 69 mmHg. 7. Moderate mitral and tricuspid regurgitation. 8. Chronic congestive heart failure with systolic dysfunction. 9. Recent pulmonary embolism in April 2018. 10.Hypothyroidism. 11.Hypertension. 12.Hyperlipidemia. 13.Forty pack-year history of tobacco use. 14.Family history of premature heart disease. PLAN: The patient is doing well. The drips have been weaned. He is on LR 30 mL an hour. His O2 is at 2 L by nasal cannula. Chest x-ray showing some bibasilar atelectasis. Overall, the patient is doing well, moving in a positive direction. We will continue to follow. Encourage deep breathing, coughing, clearing of secretions and hourly use of incentive spirometry. MMODL / IJN: [id number] /
[2018-08-31] MEDS: ASPIRIN 325 MG TAB PO SCH (08:03)
[2018-08-31] MEDS: PRAVASTATIN SODIUM 20 MG TAB PO SCH (08:03)
[2018-08-31] MEDS: IPRATROPIUM-ALBUTEROL 3 ML NEB INHALATION SCH ×4 (08:06→20:14)
[2018-08-31] MEDS: HYDROcodone/APAP 5-325MG 1 EACH TAB PO PRN ×2 (08:15→12:29)
--- NOTE | 2018-08-31 08:27 | XR ---
EXAMINATION TYPE: XR chest 1V portable DATE OF EXAM: 08/31/2018 COMPARISON: 08/30/2018 HISTORY: Post cardiac surgery. Follow up exam. TECHNIQUE: Single frontal view of the chest is obtained. FINDINGS: Bibasilar opacities are similar to the prior. Post CABG changes are seen of the chest. Angélica l-lumen large-bore catheter terminates in the right atrium. [place]-Kojo catheter has been removed in th e interim. Left thoracostomy tube has also been removed in the interim with no residual pneumothorax seen. Right thoracostomy tube is unchanged. Mediastinal drain has been removed. Cardia mediastinal si lhouette is again mildly enlarged. IMPRESSION: Interval removal of multiple lines and tubes as described above with similar-appearing b ibasilar opacities that may represent atelectasis or pneumonia.
--- NOTE | 2018-08-31 08:53 | PN ---
PROGRESS NOTE Mr. Coppola is a 68-year-old male who has end-stage renal disease status post coronary artery bypass grafting. He is sitting up in the chair. Today he is feeling well. His chest soreness is better. He denies any chest pain. No dizziness. No palpitation. He denies any nausea. He is scheduled to undergo dialysis today. Hemodynamically, he has been stable. He continued be on aspirin once a day, Plavix 75 mg daily, insulin, metoprolol tartrate 12.5 mg twice a day, pravastatin 40 mg daily. PHYSICAL EXAMINATION: Blood pressure running in the 100s with the heart rate in the 70s. LUNGS: With few crackles at the bases. HEART: Regular rate and rhythm. S1, S2. No S3. No rub. ABDOMEN: Soft, nontender. EXTREMITIES: No significant edema. LAB DATA: Lab data revealed BUN and creatinine of 38 and 5.3, potassium 4.4, hemoglobin 7.3. IMPRESSION: 1. Status post coronary artery bypass grafting. 2. Ischemic cardiomyopathy. 3. End-stage renal disease, on hemodialysis. 4. Hypertension. 5. Hyperlipidemia. RECOMMENDATION: We will continue present therapy, follow his blood pressure and depending on the trend, hydralazine will be re-initiated to his regimen. MMODL / IJN: [id number] /
[2018-08-31] MEDS: METOPROLOL TARTRATE 12.5 MG TAB PO SCH (09:43)
[2018-08-31 11:43] LABS: Glucose,Whole Blood 95 mg/dL (75-99)
--- NOTE | 2018-08-31 11:45 | P.PN ---
Subjective Progress Note Date: 08/31/18 This is a 68-year-old gentleman status post CABG, postop day #1. Extubated last night, maintaining O2 sats in the mid 90s on 4 L nasal cannula. Incentive spirometer up to 500. Chest x-ray reporting persistent right greater than left bibasilar acute infiltrate and/or atelectasis with suspected small right pleural effusion. Received 2 units packed RBCs last night, hemoglobin 7.8. Currently maintained on lactated Ringer's, norepinephrine, vasopressin and insulin drips. Potassium 5.7. BUN 35, creatinine 7.28, receiving hemodialysis. 08/30/2018 sitting up in chair, alert and oriented 3, maintaining O2 sats in the high 90s on 2 L nasal cannula. Minimal productive cough with occasional clear to yellow sputum. Incentive spirometer up to 500. Chest x-ray reporting persistent right basilar opacity , atelectasis/consolidation .Pain controlled.Hemoglobin 6.7, one unit of packed RBCs with dialysis ordered. Scheduled for hemodialysis again today, as he did not complete his full treatment yesterday secondary to pain.Telemetry sinus rhythm. Levophed weaned off yesterday. Vasopressin drip recently weaned off this morning. Maintained on insulin drip, blood sugars controlled. 08/31/2018 continues to do well. All drips have been weaned off, Blood sugars controlled on sliding scale. Currently up in chair, earlier ambulating with in room, tolerating exertion well. Mediastinal and left pleural chest tubes discontinued yesterday. Right pleural chest tube, Cordis scheduled to be disco ntinued today. Yesterday receive 1 unit of packed RBCs, current hemoglobin 7.3. Incentive spirometer increased up to 750, from 500 MLS yesterday.hemodialysis scheduled for today .Cardiothoracic surgery discussing moving patient out of ICU to telemetry unit. Objective - Vital Signs Vital signs: Vital Signs Temp 98.7 F 08/31/18 04:00 Pulse 72 08/31/18 08:15 Resp 18 08/31/18 07:00 BP 92/55 08/31/18 07:00 Pulse Ox 93 L 08/31/18 07:00 Intake & Output 08/30/18 08/31/18 08/31/18 18:59 06:59 18:59 Intake Total 1288 486 59 Output Total 662 110 6 Balance 626 376 53 Weight 67.8 kg Intake: IV 528 386 59 CO/CI+Pressure Bag 78 66 9 Lactated Ringers 1,000 ml 450 320 50 @ 20 mls/hr IV .Q24H [facility] Rx#:[id number] Oral 450 100 Blood Product 310 Rc As-1 Unit 310 [id number] Output: Chest Tube Drainage 150 110 6 Chest Tube Left Lateral 30 Chest Chest Tube Mediastinal 80 Chest Tube Right Lateral 40 110 6 Chest Urine 12 0 0 Hemodialysis 500 Other: Voiding Method Indwelling Catheter Indwelling Catheter Indwelling Catheter ABP, PAP, CO, CI - Last Documented Arterial Blood Pressure 101/50 Pulmonary Artery Pressure 34/11 Cardiac Output 6.3 Cardiac Index 3.6 - Exam PHYSICAL EXAM: VITAL SIGNS: As above GENERAL: Sitting up in chair, no acute distress HEENT: Conjunctivae normal. eyes normal. Oral mucosa moist NECK: No JVD. No thyroid enlargement. No LNs CARDIOVASCULAR: S1, S2 muffled. No murmur. RESPIRATION: Breath sounds diminished in the bases. No rhonchi or crackles. Pleural Chest tube present. ABDOMEN: Soft, nontender . No guarding. no masses palpable. Bowel sounds heard. LEGS: Bilateral legs Rizwan wrapped. Sequentials on PSYCHIATRY: Alert and oriented -3, mood and affect normal. NERVOUS SYSTEM: Cranial N 2-12 grossly normal. Moves all 4 limbs. Diffuse weakness No focal deficits. Skin: no lesions, no rash - Labs CBC & Chem 7: 08/31/18 06:39 08/31/18 06:39 Labs: Abnormal Lab Results - Last 24 Hours (Table) 08/21/18 08/30/18 08/30/18 Range/Units 08:55 10:36 12:15 RBC (4.30-5.90) m/uL Hgb (13.0-17.5) gm/dL Hct (39.0-53.0) % RDW (11.5-15.5) % Plt Count (150-450) k/uL Lymphocytes # (1.0-4.8) k/uL Sodium (137-145) mmol/L Chloride (98-107) mmol/L BUN (9-20) mg/dL Creatinine (0.66-1.25) mg/dL POC Glucose (mg/dL) 114 H 100 H (75-99) mg/dL Calcium (8.4-10.2) mg/dL Ionized Calcium Paulette (4.5-5.3) mg/dL ALT (21-72) U/L Total Protein (6.3-8.2) g/dL Albumin (3.5-5.0) g/dL Crossmatch See Detail 08/30/18 08/30/18 08/31/18 Range/Units 15:24 20:58 06:39 RBC 2.45 L (4.30-5.90) m/uL Hgb 7.3 L (13.0-17.5) gm/dL Hct 23.0 L (39.0-53.0) % RDW 18.1 H (11.5-15.5) % Plt Count 85 L (150-450) k/uL Lymphocytes # 0.5 L (1.0-4.8) k/uL Sodium (137-145) mmol/L Chloride (98-107) mmol/L BUN (9-20) mg/dL Creatinine (0.66-1.25) mg/dL POC Glucose (mg/dL) 102 H 109 H (75-99) mg/dL Calcium (8.4-10.2) mg/dL Ionized Calcium Paulette (4.5-5.3) mg/dL ALT (21-72) U/L Total Protein (6.3-8.2) g/dL Albumin (3.5-5.0) g/dL Crossmatch 08/31/18 Range/Units 06:39 RBC (4.30-5.90) m/uL Hgb (13.0-17.5) gm/dL Hct (39.0-53.0) % RDW (11.5-15.5) % Plt Count (150-450) k/uL Lymphocytes # (1.0-4.8) k/uL Sodium 131 L (137-145) mmol/L Chloride 97 L (98-107) mmol/L BUN 38 H (9-20) mg/dL Creatinine 5.34 H (0.66-1.25) mg/dL POC Glucose (mg/dL) (75-99) mg/dL Calcium 8.0 L (8.4-10.2) mg/dL Ionized Calcium Paulette 4.2 L (4.5-5.3) mg/dL ALT 10 L (21-72) U/L Total Protein 4.5 L (6.3-8.2) g/dL Albumin 2.7 L (3.5-5.0) g/dL Crossmatch Assessment and Plan Assessment: Triple vessel coronary artery disease, status post CABG -Postoperative blood loss anemia, expected- with 2 units of packed RBCs and 5 units of platelets -End-stage kidney disease, maintained on hemodialysis,M-W-F -Ischemic cardiomyopathy, EF 30-35% -Moderate pulmonary hypertension -Mitral and tricuspid regurgitation -History of PE, April 2018 -Hypothyroidism -Hypertension -Dyslipidemia -Former nicotine abuse -Hyponatremia secondary to CKD -Hyperkalemia secondary to CKD -Right bibasilar atelectasis Plan: Continue on current medication regime ,monitoring and symptomatic treatment. Increase ambulation as tolerated .continue with aggressive pulmonary toileting- incentive spirometer reinforced. Hemodialysis pending for today. potential transfer out of ICU as per cardiothoracic surgery to telemetry. Further recommendations to follow.Thank you Dr. Lopez for allowing us to p articipate in the care of this pleasant gentleman. The impression and plan of care has been dictated as directed. : I performed a history and examination of this patient, discussed the same with the dictator. I agree with the dictator's note ,documented as a scribe. Any additional findings or plans will be noted.
[2018-08-31] MEDS ORDERED: METOPROLOL TARTRATE 12.5 MG TAB PO STA (12:30)
--- NOTE | 2018-08-31 12:36 | P.PN ---
Subjective Patient is seen in follow-up for end-stage renal disease. He is maintained on hemodialysis on a Monday schedule. Patient underwent CABG on August 28. Denies chest pain or shortness of breath. Patient had an extra hemodialysis treatment yesterday and also received blood transfusion. Hemoglobin 7.3 today. No active bleeding noted. Vital signs are stable. General: The patient appeared well nourished and normally developed. HEENT: Head exam is unremarkable. Neck is without jugular venous distension. LUNGS: Breath sounds decreased. HEART: Rate and Rhythm are regular. First and second heart sounds normal. No murmurs, rubs or gallops. Chest tubes present. ABDOMEN: Abdominal exam reveals normal bowel sounds. Non-tender and non- distended. No evidence of peritonitis. EXTREMITITES: No clubbing, cyanosis, or edema. Objective - Vital Signs Vital signs: Vital Signs Temp 97.9 F 08/31/18 08:00 Pulse 75 08/31/18 11:56 Resp 21 08/31/18 11:00 BP 118/71 08/31/18 11:00 Pulse Ox 94 L 08/31/18 11:00 Intake & Output 08/30/18 08/31/18 08/31/18 18:59 06:59 18:59 Intake Total 1288 486 208 Output Total 662 110 16 Balance 626 376 192 Weight 67.8 kg Intake: IV 528 386 108 CO/CI+Pressure Bag 78 66 18 Lactated Ringers 1,000 ml 450 320 90 @ 20 mls/hr IV .Q24H [facility] Rx#:[id number] Oral 450 100 100 Blood Product 310 Rc As-1 Unit 310 [id number] Output: Chest Tube Drainage 150 110 16 Chest Tube Left Lateral 30 Chest Chest Tube Mediastinal 80 Chest Tube Right Lateral 40 110 16 Chest Urine 12 0 0 Hemodialysis 500 Other: Voiding Method Indwelling Catheter Indwelling Catheter Indwelling Catheter ABP, PAP, CO, CI - Last Documented Arterial Blood Pressure 101/50 Pulmonary Artery Pressure 34/11 Cardiac Output 6.3 Cardiac Index 3.6 - Labs CBC & Chem 7: 08/31/18 06:39 08/31/18 06:39 Labs: Abnormal Lab Results - Last 24 Hours (Table) 08/21/18 08/30/18 08/30/18 Range/Units 08:55 15:24 20:58 RBC (4.30-5.90) m/uL Hgb (13.0-17.5) gm/dL Hct (39.0-53.0) % RDW (11.5-15.5) % Plt Count (150-450) k/uL Lymphocytes # (1.0-4.8) k/uL Sodium (137-145) mmol/L Chloride (98-107) mmol/L BUN (9-20) mg/dL Creatinine (0.66-1.25) mg/dL POC Glucose (mg/dL) 102 H 109 H (75-99) mg/dL Calcium (8.4-10.2) mg/dL Ionized Calcium Paulette (4.5-5.3) mg/dL ALT (21-72) U/L Total Protein (6.3-8.2) g/dL Albumin (3.5-5.0) g/dL Crossmatch See Detail 08/31/18 08/31/18 Range/Units 06:39 06:39 RBC 2.45 L (4.30-5.90) m/uL Hgb 7.3 L (13.0-17.5) gm/dL Hct 23.0 L (39.0-53.0) % RDW 18.1 H (11.5-15.5) % Plt Count 85 L (150-450) k/uL Lymphocytes # 0.5 L (1.0-4.8) k/uL Sodium 131 L (137-145) mmol/L Chloride 97 L (98-107) mmol/L BUN 38 H (9-20) mg/dL Creatinine 5.34 H (0.66-1.25) mg/dL POC Glucose (mg/dL) (75-99) mg/dL Calcium 8.0 L (8.4-10.2) mg/dL Ionized Calcium Paulette 4.2 L (4.5-5.3) mg/dL ALT 10 L (21-72) U/L Total Protein 4.5 L (6.3-8.2) g/dL Albumin 2.7 L (3.5-5.0) g/dL Crossmatch Assessment and Plan Plan: Assessment: 1. End-stage renal disease maintained on hemodialysis on a Monday schedule. 2. Hyponatremia secondary to chronic kidney disease. 3. Coronary artery disease status post CABG on August 28. 4. Acute blood loss anemia s/p blood transfusion 08/30. Also on Aranesp. 5. Hyperkalemia secondary to chronic kidney disease. Improved postdialysis. Plan: Hemodialysis today. Will try for 1 L UF.
--- NOTE | 2018-08-31 12:45 | P.PN ---
Subjective Progress Note Date: 08/31/18 Principal diagnosis: Severe triple-vessel coronary artery disease, moderate left ventricular dysfunction, hypertension, paroxysmal atrial fibrillation, hyperlipidemia, chronic obstructive pulmonary disease with a preoperative FEV1 of 89% of predicted value, history of pulmonary embolism on chronic anticoagulation, end- stage renal disease on hemodialysis, thyroid disorder, previous history of nicotine dependence and significant family history of coronary artery disease on his mother's side. POD #3 quadruple coronary artery bypass grafting using the left internal mammary artery to left anterior ascending coronary artery, a reverse greater saphenous vein graft from aorta to the first diagonal coronary artery, a reverse greater saphenous vein graft from the aorta to the obtuse marginal coronary artery, a reverse greater saphenous vein graft from the aorta to the right coronary artery. Bilateral pulmonary vein isolation using the radiofrequency bipolar clamp, exclusion of the left atrial appendage with a 35 mm Atriclip,, right sided endoscopic vein harvesting of the right greater saphenous vein, intraoperative transesophageal echocardiogram, epi-aortic scanning and graft flow measurement using the [employer] system. Postoperative acute blood loss anemia, an expected outcome due to cardiopulmonary bypass and hemodilution. The patient is sitting up to the bedside chair in the intensive care unit, in no acute distress. He denies any complaints of pain or shortness of breath at this time. Oxygen saturations are 94% on 2 L nasal cannula. Poor effort on his in centive spirometry and is achieving 500 mL. He is scheduled for hemodialysis again today managed by nephrology. Hemodialysis was completed yesterday with no 500 mL of fluid removed. He reports he ambulated in the intensive care unit hallway twice yesterday with minimal assistance from physical therapy and from nursing staff. Objective - Vital Signs Vital signs: Vital Signs Temp 97.9 F 08/31/18 08:00 Pulse 75 08/31/18 11:56 Resp 21 08/31/18 11:00 BP 118/71 08/31/18 11:00 Pulse Ox 94 L 08/31/18 11:00 Intake & Output 08/30/18 08/31/18 08/31/18 18:59 06:59 18:59 Intake Total 1288 486 208 Output Total 662 110 16 Balance 626 376 192 Weight 67.8 kg Intake: IV 528 386 108 CO/CI+Pressure Bag 78 66 18 Lactated Ringers 1,000 ml 450 320 90 @ 20 mls/hr IV .Q24H [facility] Rx#:[id number] Oral 450 100 100 Blood Product 310 Rc As-1 Unit 310 [id number] Output: Chest Tube Drainage 150 110 16 Chest Tube Left Lateral 30 Chest Chest Tube Mediastinal 80 Chest Tube Right Lateral 40 110 16 Chest Urine 12 0 0 Hemodialysis 500 Other: Voiding Method Indwelling Catheter Indwelling Catheter Indwelling Catheter ABP, PAP, CO, CI - Last Documented Arterial Blood Pressure 101/50 Pulmonary Artery Pressure 34/11 Cardiac Output 6.3 Cardiac Index 3.6 - Constitutional General appearance: Present: cooperative, no acute distress, thin - Respiratory Details: Lung sounds essentially clear throughout, diminished to his bilateral bases, right greater than left. Respirations are symmetrical and nonlabored. Oxygen saturation are 94% on 2 L nasal cannula. Achieving 500 mL on his incentive spirometry. Right pleural chest tube remains in place to low continuous wall s uction -20 cm H2O. No air leak is present. Draining thin serosanguineous drainage. 10 mL output in the last 8 hours, 150 mL output in the last 24 hours. - Cardiovascular Details: Regular rhythm and rate. S1 and S2 present, negative for S3, gallop or murmur. Sternum is stable. Bedside telemetry showing normal sinus rhythm heart rate 86. Heart hugger is in place and he is demonstrating appropriate use. Atrial epicardial pacemaker wire in place and grounded. Knee-high NATALIE hose and sequential compression devices in place to his bilateral lower extremities. Left IJ Cordis in place to continuous CVP monitoring, current CVP pressure 9 mmHg. - Gastrointestinal Gastrointestinal Comment(s): Abdomen is soft, nontender and nondistended. Active bowel sounds all 4 abdominal quadrants. No guarding or rigidity. No organomegaly. Tolerating oral intake. Passing flatus. - Genitourinary Genitourinary Comment(s): Anuric, hemodialysis Monday and Monday. Dialysis port in place to his right anterior chest. Hemodialysis yesterday with 500 mL of fluid removed. - Integumentary Integumentary Comment(s): Skin is warm and dry. No clubbing or cyanosis is present. Midline sternal incision is clean, dry and approximated. No drainage or redness is present. Eyes dressing is clean, dry and intact. Right lower extremity EVH site clean, dry and approximated. No drainage or redness is present. - Neurologic Neurologic: Present: CNII-XII intact - Musculoskeletal Musculoskeletal: Present: gait normal, generalized weakness, strength equal heidi aterally - Psychiatric Psychiatric: Present: A&O x's 3, appropriate affect, intact judgment & insight - Allied health notes Allied health notes reviewed: nursing - Labs CBC & Chem 7: 08/31/18 06:39 08/31/18 06:39 Labs: Abnormal Lab Results - Last 24 Hours (Table) 08/21/18 08/30/18 08/30/18 Range/Units 08:55 15:24 20:58 RBC (4.30-5.90) m/uL Hgb (13.0-17.5) gm/dL Hct (39.0-53.0) % RDW (11.5-15.5) % Plt Count (150-450) k/uL Lymphocytes # (1.0-4.8) k/uL Sodium (137-145) mmol/L Chloride (98-107) mmol/L BUN (9-20) mg/dL Creatinine (0.66-1.25) mg/dL POC Glucose (mg/dL) 102 H 109 H (75-99) mg/dL Calcium (8.4-10.2) mg/dL Ionized Calcium Paulette (4.5-5.3) mg/dL ALT (21-72) U/L Total Protein (6.3-8.2) g/dL Albumin (3.5-5.0) g/dL Crossmatch See Detail 08/31/18 08/31/18 Range/Units 06:39 06:39 RBC 2.45 L (4.30-5.90) m/uL Hgb 7.3 L (13.0-17.5) gm/dL Hct 23.0 L (39.0-53.0) % RDW 18.1 H (11.5-15.5) % Plt Count 85 L (150-450) k/uL Lymphocytes # 0.5 L (1.0-4.8) k/uL Sodium 131 L (137-145) mmol/L Chloride 97 L (98-107) mmol/L BUN 38 H (9-20) mg/dL Creatinine 5.34 H (0.66-1.25) mg/dL POC Glucose (mg/dL) (75-99) mg/dL Calcium 8.0 L (8.4-10.2) mg/dL Ionized Calcium Paulette 4.2 L (4.5-5.3) mg/dL ALT 10 L (21-72) U/L Total Protein 4.5 L (6.3-8.2) g/dL Albumin 2.7 L (3.5-5.0) g/dL Crossmatch - Imaging and Cardiology Chest x-ray: report reviewed, image reviewed Assessment and Plan Assessment: 1. Triple-vessel coronary artery disease with a totally occluded left anterior descending coronary artery, status post coronary artery bypass grafting surgery 2. Moderate left ventricular dysfunction 3. End-stage renal disease, on hemodialysis 4. Hypertension 5. Hyperlipidemia 6. Paroxysmal atrial fibrillation, status post bilateral pulmonary vein isolation and left atrial appendage exclusion 7. History of recent pulmonary embolism, on chronic anticoagulation 8. Chronic obstructive pulmonary disease with a preoperative FEV1 89% of predicted value 9. Thyroid disorder 10. Previous history of nicotine dependence 11. Family history of coronary artery disease on his mother's side 12. Postoperative acute blood loss anemia, an expected outcome Plan: 1. Continue aspirin, statin, and beta gallo. Will increase metoprolol tartrate 25 mg by mouth twice a day. 2. Continue Midodrine 5 mg by mouth 3 times a day. 3. Wean O2 as tolerated. Encourage incentive spirometry use 10 times every hour while awake. 4. Will monitor daily labs, x-rays. Electrolyte replacement per protocol. 5. Pain control with current medication regimen. 6. Insulin management per primary care service 7. Increase activity, ambulate as tolerated. PT/OT/cardiac rehab consulted. 8. Bronchodilators per pulmonology. 9. Discontinue left IJ Cordis. 10. GI/DVT prophylaxis. 11. Hemodialysis management per nephrology recommendations. He is scheduled for another dialysis treatment today. Per nephrology will get back on his Monday schedule starting 09/03/2018. 12. Discontinue right pleural chest tube. 13. Remove atrial epicardial pacemaker wires. Atrial epicardial pacemaker wires removed this morning at 10 AM. He will be on bedrest for 1 hour post pacemaker wire removal. 14. Discharge planning in place. 15. More recommendations to follow based on patient's progress. Time with Patient: Greater than 30
[2018-08-31 16:49] LABS: Glucose,Whole Blood 93 mg/dL (75-99)
[2018-08-31 21:01] LABS: Glucose,Whole Blood 100 mg/dL (75-99)
[2018-08-31] MEDS: CLOPIDOGREL 75 MG TAB PO SCH (21:08)
[2018-08-31] MEDS: SENNOSIDES-DOCUSATE SODIUM 1 EACH TAB PO SCH (21:08)
[2018-08-31] MEDS: METOPROLOL TARTRATE 25 MG TAB PO SCH (21:08)
[2018-09-01 05:34] LABS: Glucose,Whole Blood 87 mg/dL (75-99)
[2018-09-01] MEDS: INSULIN ASPART (NovoLOG) 100 UNIT/ML VIAL SQ SCH ×4 (05:56→21:16)
--- NOTE | 2018-09-01 06:38 | XR ---
EXAMINATION TYPE: XR chest 2V DATE OF EXAM: 09/01/2018 HISTORY: Postoperative CABG. REFERENCE: Previous study dated 08/31/2018. FINDINGS: There has been a midline sternotomy. There is a large-bore, double-lumen catheter in place via a right internal jugular approach. Its tip is in the superior vena cava. There is a complex pattern of airspace disease present bilaterally likely a combination of atelectasi s and consolidation. There are bilateral effusions. Heart size upper limits of normal. IMPRESSION: EVOLVING AIRSPACE DISEASE PRESENT BILATERALLY EITHER REPRESENTING ATELECTASIS OR PNEUMONIA WITH SMALL , CONCOMITANT EFFUSIONS.
[2018-09-01] MEDS: LEVOTHYROXINE 50 MCG TAB PO SCH (06:43)
[2018-09-01] MEDS: MIDODRINE 5 MG TAB PO SCH ×3 (06:43→17:51)
[2018-09-01] MEDS: PANTOPRAZOLE 40 MG TABLET PO SCH (06:43)
[2018-09-01 07:36] LABS: Anisocytosis Slight; HCT 23.2 % (39.0-53.0); HGB 7.3 gm/dL (13.0-17.5); MCH 30.5 pg (25.0-35.0); MCHC 31.7 g/dL (31.0-37.0); MCV 96.3 fL (80.0-100.0); Macrocytosis Slight; Mean Platelet Volume 7.3; RDW 18.5 % (11.5-15.5); WBC 4.6 k/uL (3.8-10.6)
[2018-09-01 07:52] LABS: Albumin 2.6 g/dL (3.5-5.0); Potassium 4.1 mmol/L (3.5-5.1); Total Bilirubin 0.6 mg/dL (0.2-1.3); Total Protein 4.6 g/dL (6.3-8.2)
[2018-09-01 08:11] LABS: Platelet Count 88 k/uL (150-450)
[2018-09-01] MEDS: IPRATROPIUM-ALBUTEROL 3 ML NEB INHALATION SCH ×4 (08:34→19:31)
[2018-09-01] MEDS: HEPARIN SODIUM,PORCINE 5,000 UNIT/ML 1 ML VIAL SQ SCH ×2 (09:14→17:51)
[2018-09-01] MEDS: PRAVASTATIN SODIUM 20 MG TAB PO SCH (09:14)
[2018-09-01] MEDS: ASPIRIN 325 MG TAB PO SCH (09:14)
[2018-09-01] MEDS: METOPROLOL TARTRATE 25 MG TAB PO SCH ×2 (09:14→20:01)
--- NOTE | 2018-09-01 10:20 | P.PN ---
Subjective Progress Note Date: 09/01/18 Principal diagnosis: Severe triple-vessel coronary artery disease, moderate left ventricular dysfunction, hypertension, paroxysmal atrial fibrillation, hyperlipidemia, chronic obstructive pulmonary disease with a preoperative FEV1 of 89% of predicted value, history of pulmonary embolism on chronic anticoagulation, end- stage renal disease on hemodialysis, thyroid disorder, previous history of nicotine dependence and significant family history of coronary artery disease on his mother's side. POD #4 quadruple coronary artery bypass grafting using the left internal mammary artery to left anterior ascending coronary artery, a reverse greater saphenous vein graft from aorta to the first diagonal coronary artery, a reverse greater saphenous vein graft from the aorta to the obtuse marginal coronary artery, a reverse greater saphenous vein graft from the aorta to the right coronary artery. Bilateral pulmonary vein isolation using the radiofrequency bipolar clamp, exclusion of the left atrial appendage with a 35 mm Atriclip,, right sided endoscopic vein harvesting of the right greater saphenous vein, intraoperative transesophageal echocardiogram, epi-aortic scanning and graft flow measurement using the [employer] system. Postoperative acute blood loss anemia, an expected outcome due to cardiopulmonary bypass and hemodilution. The patient is laying in bed on the 3 S. cardiac stepdown unit, he is in no acute distress. Denies any complaints of pain or shortness of breath at this time. Oxygen saturations are 96% on 2 L nasal cannula. Continues to have poor effort on his incentive spirometry and is achieving 500 mL. Hemodialysis was completed yesterday with 1000 mL of fluid removed, he is scheduled for hemodialysis again for Monday. He reports he is ambulating in the hallway with minimal assistance from physical therapy and from nursing staff. Objective - Vital Signs Vital signs: Vital Signs Temp 98.3 F 09/01/18 08:00 Pulse 66 09/01/18 08:45 Resp 20 09/01/18 08:00 BP 103/62 09/01/18 04:00 Pulse Ox 96 09/01/18 08:37 Intake & Output 08/31/18 09/01/18 09/01/18 18:59 06:59 18:59 Intake Total 308 120 Output Total 1016 Balance -708 120 Weight 65.8 kg Intake: IV 108 CO/CI+Pressure Bag 18 Lactated Ringers 1,000 ml 90 @ 20 mls/hr IV .Q24H COUNT INCLUDES THE [facility] Rx#:[id number] Oral 200 120 Output: Chest Tube Drainage 16 Chest Tube Right Lateral 16 Chest Urine 0 Other 1000 Other: Voiding Method Indwelling Catheter Indwelling Catheter # Voids 1 ABP, PAP, CO, CI - Last Documented Arterial Blood Pressure 101/50 Pulmonary Artery Pressure 34/11 Cardiac Output 6.3 Cardiac Index 3.6 - Constitutional General appearance: Present: cooperative, no acute distress, thin - Respiratory Details: Lungs sounds essentially clear to his bilateral upper lobe, diminished to his bilateral bases. Respirations are symmetrical and nonlabored. Oxygen saturation are 95% on 2 L nasal cannula. Achieving 500 mL on his incentive spirometry. - Cardiovascular Details: Regular rhythm and rate. S1 and S2 present, negative for S3, gallop or murmur. Sternum is stable. Remote telemetry showing normal sinus rhythm heart rate 66. Heart hugger is in place and he is demonstrating appropriate use. Knee-high NATALIE hose and sequential compression devices in place to his bilateral lower extremities. - Gastrointestinal Gastrointestinal Comment(s): Abdomen is soft, nontender and nondistended. Active bowel sounds to all 4 abdominal quadrants. No guarding or rigidity. No organomegaly. Tolerating oral intake. Passing flatus. - Genitourinary Genitourinary Comment(s): Hemodialysis scheduled for Monday and Monday. Marginal urine output, voiding clear lorie urine. Right anterior chest dialysis catheter in place with dressing clean and dry. - Integumentary Integumentary Comment(s): Skin is warm and dry. No clubbing or cyanosis is present. Midline sternal incision is clean, dry and approximated. No drainage or redness is present. Eyes dressing is clean, dry and intact. Right lower extremity EVH site clean, dry and approximated. No drainage or redness is present. - Neurologic Neurologic: Present: CNII-XII intact - Musculoskeletal Musculoskeletal: Present: gait normal, strength equal bilaterally - Psychiatric Psychiatric: Present: A&O x's 3, appropriate affect, intact judgment & insight - Allied health notes Allied health notes reviewed: nursing - Labs CBC & Chem 7: 09/01/18 06:35 09/01/18 06:35 Labs: Abnormal Lab Results - Last 24 Hours (Table) 08/31/18 09/01/18 09/01/18 Range/Units 20:59 06:35 06:35 RBC 2.40 L (4.30-5.90) m/uL Hgb 7.3 L (13.0-17.5) gm/dL Hct 23.2 L (39.0-53.0) % RDW 18.5 H (11.5-15.5) % Plt Count 88 L (150-450) k/uL Sodium 133 L (137-145) mmol/L BUN 26 H (9-20) mg/dL Creatinine 4.04 H (0.66-1.25) mg/dL Glucose 72 L (74-99) mg/dL POC Glucose (mg/dL) 100 H (75-99) mg/dL Calcium 8.0 L (8.4-10.2) mg/dL ALT 11 L (21-72) U/L Total Protein 4.6 L (6.3-8.2) g/dL Albumin 2.6 L (3.5-5.0) g/dL - Imaging and Cardiology Chest x-ray: report reviewed, image reviewed Assessment and Plan Assessment: 1. Triple-vessel coronary artery disease with a totally occluded left anterior descending coronary artery, status post coronary artery bypass grafting surgery 2. Moderate left ventricular dysfunction 3. End-stage renal disease, on hemodialysis 4. Hypertension 5. Hyperlipidemia 6. Paroxysmal atrial fibrillation, status post bilateral pulmonary vein isolation and left atrial appendage exclusion 7. History of recent pulmonary embolism, on chronic anticoagulation 8. Chronic obstructive pulmonary disease with a preoperative FEV1 89% of predicted value 9. Thyroid disorder 10. Previous history of nicotine dependence 11. Family history of coronary artery disease on his mother's side 12. Postoperative acute blood loss anemia, an expected outcome Plan: 1. Continue aspirin, statin, and beta gallo. Will increase beta gallo as tolerated. 2. Continue Midodrine 5 mg by mouth 3 times a day. 3. Encourage incentive spirometry use 10 times every hour while awake. 4. Will monitor daily labs, x-rays. 5. Pain control with current medication regimen. 6. Insulin management per primary care service 7. Increase activity, ambulate as tolerated. PT/OT/cardiac rehab following. 8. Bronchodilators per pulmonology. 9. Hemodialysis management per nephrology recommendations. Per nephrology will get back on his Monday schedule starting 09/03/2018. 10. GI/DVT prophylaxis. 11. Discharge planning in place, and this part discharged home on Monday with home health care. 12. More recommendations to follow based on patient's progress. Time with Patient: Greater than 30
--- NOTE | 2018-09-01 11:11 | P.PN ---
Subjective Patient is seen in follow-up for end-stage renal disease. He is maintained on hemodialysis on a Monday schedule. Patient underwent CABG on August 28. Denies chest pain or shortness of breath. Tolerated hemodialysis was yesterday. He has been ambulating. No active complaints at this time. Vital signs are stable. General: The patient appeared well nourished and normally developed. HEENT: Head exam is unremarkable. Neck is without jugular venous distension. LUNGS: Breath sounds decreased. HEART: Rate and Rhythm are regular. First and second heart sounds normal. No murmurs, rubs or gallops. Chest tubes present. ABDOMEN: Abdominal exam reveals normal bowel sounds. Non-tender and non- distended. No evidence of peritonitis. EXTREMITITES: No clubbing, cyanosis, or edema. Objective - Vital Signs Vital signs: Vital Signs Temp 98.3 F 09/01/18 08:00 Pulse 66 09/01/18 08:45 Resp 20 09/01/18 08:00 BP 103/62 09/01/18 04:00 Pulse Ox 96 09/01/18 08:37 Intake & Output 08/31/18 09/01/18 09/01/18 18:59 06:59 18:59 Intake Total 308 120 Output Total 1016 Balance -708 120 Weight 65.8 kg Intake: IV 108 CO/CI+Pressure Bag 18 Lactated Ringers 1,000 ml 90 @ 20 mls/hr IV .Q24H [facility] Rx#:[id number] Oral 200 120 Output: Chest Tube Drainage 16 Chest Tube Right Lateral 16 Chest Urine 0 Other 1000 Other: Voiding Method Indwelling Catheter Indwelling Catheter # Voids 1 ABP, PAP, CO, CI - Last Documented Arterial Blood Pressure 101/50 Pulmonary Artery Pressure 34/11 Cardiac Output 6.3 Cardiac Index 3.6 - Labs CBC & Chem 7: 09/01/18 06:35 09/01/18 06:35 Labs: Abnormal Lab Results - Last 24 Hours (Table) 08/31/18 09/01/18 09/01/18 Range/Units 20:59 06:35 06:35 RBC 2.40 L (4.30-5.90) m/uL Hgb 7.3 L (13.0-17.5) gm/dL Hct 23.2 L (39.0-53.0) % RDW 18.5 H (11.5-15.5) % Plt Count 88 L (150-450) k/uL Sodium 133 L (137-145) mmol/L BUN 26 H (9-20) mg/dL Creatinine 4.04 H (0.66-1.25) mg/dL Glucose 72 L (74-99) mg/dL POC Glucose (mg/dL) 100 H (75-99) mg/dL Calcium 8.0 L (8.4-10.2) mg/dL ALT 11 L (21-72) U/L Total Protein 4.6 L (6.3-8.2) g/dL Albumin 2.6 L (3.5-5.0) g/dL Assessment and Plan Plan: Assessment: 1. End-stage renal disease maintained on hemodialysis on a Monday schedule. 2. Hyponatremia secondary to chronic kidney disease. 3. Coronary artery disease status post CABG on August 28. 4. Acute blood loss anemia s/p blood transfusion 08/30. Also on Aranesp. 5. Hyperkalemia secondary to chronic kidney disease. Improved postdialysis. Plan: Hemodialysis on Monday. Continue to work with physical therapy.
[2018-09-01 11:55] LABS: Glucose,Whole Blood 80 mg/dL (75-99)
--- NOTE | 2018-09-01 12:29 | P.PN ---
Subjective Progress Note Date: 09/01/18 Principal diagnosis: Severe triple-vessel coronary artery disease with moderate left ventricular dysfunction, status post coronary artery by pass grafting 4. Postoperative day #4. Patient is seen today the 2017 in follow-up on the selective care unit. He is awake and alert in no acute distress. Currently resting quite comfortably in bed. 18 in good O2 saturations in the 90s on 2 L/m per nasal cannula. He is afebrile. Hemodynamically stable. White count 4.6. Hemoglobin 7.3. Platelet count 88,000. Creatinine 4.04. He is continued on DuoNeb inhalations. Working with the incentive spirometer pulling 500 ML's. Objective - Vital Signs Vital signs: Vital Signs Temp 98.3 F 09/01/18 11:45 Pulse 64 09/01/18 12:19 Resp 20 09/01/18 11:45 BP 106/68 09/01/18 11:45 Pulse Ox 90 L 09/01/18 11:45 Intake & Output 08/31/18 09/01/18 09/01/18 18:59 06:59 18:59 Intake Total 308 120 Output Total 1016 Balance -708 120 Weight 65.8 kg Intake: IV 108 CO/CI+Pressure Bag 18 Lactated Ringers 1,000 ml 90 @ 20 mls/hr IV .Q24H [facility] Rx#:[id number] Oral 200 120 Output: Chest Tube Drainage 16 Chest Tube Right Lateral 16 Chest Urine 0 Other 1000 Other: Voiding Method Indwelling Catheter Indwelling Catheter # Voids 1 ABP, PAP, CO, CI - Last Documented Arterial Blood Pressure 101/50 Pulmonary Artery Pressure 34/11 Cardiac Output 6.3 Cardiac Index 3.6 - Exam GENERAL EXAM: Alert, active, comfortable in no apparent distress. HEAD: Normocephalic. EYES: Normal reaction of pupils, equal size. NOSE: Clear with pink turbinates. THROAT: No erythema or exudates. NECK: No masses, no JVD. CHEST: No chest wall deformity. Sternum stable. Dressing dry and intact. Heart Hugger in place. LUNGS: Equal air entry with crackles in the bilateral posterior bases, diminished. CVS: S1 and S2 normal with no audible murmur, regular rhythm. ABDOMEN: No hepatosplenomegaly, normal bowel sounds, no guarding or rigidity. SPINE: No scoliosis or deformity SKIN: No rashes CENTRAL NERVOUS SYSTEM: No focal deficits, tone is normal in all 4 extremities. EXTREMITIES: NATALIE hose on. There is no peripheral edema. No clubbing, no cyanosis. Peripheral pulses are intact. - Labs CBC & Chem 7: 09/01/18 06:35 09/01/18 06:35 Labs: Abnormal Lab Results - Last 24 Hours (Table) 08/31/18 09/01/18 09/01/18 Range/Units 20:59 06:35 06:35 RBC 2.40 L (4.30-5.90) m/uL Hgb 7.3 L (13.0-17.5) gm/dL Hct 23.2 L (39.0-53.0) % RDW 18.5 H (11.5-15.5) % Plt Count 88 L (150-450) k/uL Sodium 133 L (137-145) mmol/L BUN 26 H (9-20) mg/dL Creatinine 4.04 H (0.66-1.25) mg/dL Glucose 72 L (74-99) mg/dL POC Glucose (mg/dL) 100 H (75-99) mg/dL Calcium 8.0 L (8.4-10.2) mg/dL ALT 11 L (21-72) U/L Total Protein 4.6 L (6.3-8.2) g/dL Albumin 2.6 L (3.5-5.0) g/dL Assessment and Plan Assessment: Impression: #1 Severe triple-vessel coronary artery disease status post coronary artery bypass grafting. #2 Moderately impaired left ventricular systolic function. #3 End stage renal disease, on hemodialysis. #4 History of hypertension. #5 Hyperlipidemia. #6 Paroxysmal atrial fibrillation. #7 History of pulmonary emboli, on anticoagulation. #8 Chronic obstructive pulmonary disease, currently inactive and stable. #9 Hypothyroidism. #10 Remote history of chronic tobacco dependence. Plan: The patient was seen and evaluated by Dr. Canas. Chest x-ray and labs reviewed. Will continue the current treatment plan. Continue to encourage increased use the incentive spirometer and cough and deep breathing exercises. Increase his activity as tolerated. Hemodialysis per nephrology. We'll continue to follow. I, the cosigning physician, performed a history & physical examination of the patient. Lungs sounds crackles in posterior bases, scattered rhonchi. Maintaining good O2 saturations in the 90s on 2 L/m per nasal cannula. I discussed the assessment and plan of care with my nurse practitioner, Yuko Ruiz. I attest to the above note as dictated by her.
--- NOTE | 2018-09-01 14:53 | PN ---
PROGRESS NOTE Mr. Coppola is a 68-year-old male status post coronary artery bypass grafting, end-stage renal disease on hemodialysis. He is feeling better today. He is feeling stronger. He denies any symptoms of chest pain. He has been ambulating. He denies any dizziness or palpitation. He continues to be in sinus mechanism. He continues to be at this time on aspirin once a day, Plavix 75 mg daily, metoprolol tartrate 25 mg twice a day and pravastatin 40 mg daily. PHYSICAL EXAMINATION: Blood pressure 106/60 with a heart rate in the 60s. LUNGS: With a few crackles at the bases. HEART: Regular rate and rhythm S1, S2. No S3. No rub appreciated. ABDOMEN: Soft, nontender. No organomegaly. EXTREMITIES: No edema. LAB DATA: BUN and creatinine 26 and 4.04, potassium 4.1, hemoglobin of 7.3. IMPRESSION: 1. Status post bypass grafting stable. 2. Ischemic cardiomyopathy. 3. End-stage renal disease. 4. Hyperlipidemia. RECOMMENDATION: We will continue present therapy and depending on the trend of his blood pressure, further recommendations will be made. The patient has underwent dialysis yesterday and he will be scheduled to undergo repeat dialysis on Monday. MMODL / IJN: [id number] /
[2018-09-01 17:00] LABS: Glucose,Whole Blood 92 mg/dL (75-99)
--- NOTE | 2018-09-01 19:21 | PN ---
PROGRESS NOTE SUBJECTIVE: 68-year-old white male, status post CABG surgery, end-stage renal failure, continues to do well. Remains on 2 L oxygen. CARDIOVASCULAR: S1, S2. LUNGS clear. HEMATOLOGY negative Homans. ASSESSMENT: 1. Status post coronary artery bypass grafting. 2. End-stage renal disease/. 3. Systolic heart failure. 4. Coronary artery disease. Continue current treatments. Expect discharge home in the next couple days. MMODL / IJN: [id number] /
[2018-09-01] MEDS: CLOPIDOGREL 75 MG TAB PO SCH (20:01)
[2018-09-01] MEDS: SENNOSIDES-DOCUSATE SODIUM 1 EACH TAB PO SCH (20:01)
[2018-09-01 21:01] LABS: Glucose,Whole Blood 113 mg/dL (75-99)
[2018-09-02] MEDS: HEPARIN SODIUM,PORCINE 5,000 UNIT/ML 1 ML VIAL SQ SCH ×4 (00:19→23:06)
[2018-09-02 02:37] LABS: Glucose,Whole Blood 95 mg/dL (75-99)
[2018-09-02 06:23] LABS: Glucose,Whole Blood 90 mg/dL (75-99)
[2018-09-02] MEDS: LEVOTHYROXINE 50 MCG TAB PO SCH (06:40)
[2018-09-02] MEDS: PANTOPRAZOLE 40 MG TABLET PO SCH (06:40)
[2018-09-02] MEDS: MIDODRINE 5 MG TAB PO SCH ×3 (06:40→16:50)
[2018-09-02] MEDS: INSULIN ASPART (NovoLOG) 100 UNIT/ML VIAL SQ SCH (06:48)
--- NOTE | 2018-09-02 06:59 | XR ---
EXAMINATION TYPE: XR chest 1V portable DATE OF EXAM: 09/02/2018 HISTORY: Postoperative CABG. REFERENCE: Previous study dated 09/01/2018. FINDINGS: There is been a midline sternotomy. There is a large-bore, double-lumen catheter in place v ia a right internal jugular approach. Its tip is in the right atrium. There is a complex evolving pattern of airspace disease on the right. There is some platelike atelect asis on the left. There is worsening left basilar airspace disease. The heart isn't enlarged. There i s a questionable air-fluid level within the collection on the right. IMPRESSION: 1. CARDIOMEGALY. 2. BIBASILAR AIRSPACE DISEASE. 3. BILATERAL EFFUSIONS. 4. QUESTIONABLE AIR-FLUID LEVEL IN THE RIGHT MAY WARRANT A CT SCAN OF THE CHEST.
[2018-09-02 07:20] LABS: Calcium 7.7 mg/dL (8.4-10.2); Potassium 4.4 mmol/L (3.5-5.1)
[2018-09-02 07:38] LABS: Anisocytosis Slight; HCT 21.3 % (39.0-53.0); MCH 31.7 pg (25.0-35.0); MCHC 32.9 g/dL (31.0-37.0); MCV 96.2 fL (80.0-100.0); Macrocytosis Slight; Mean Platelet Volume 7.8; RBC 2.21 m/uL (4.30-5.90); WBC 6.5 k/uL (3.8-10.6)
[2018-09-02 08:06] LABS: Platelet Count 96 k/uL (150-450)
[2018-09-02] MEDS: IPRATROPIUM-ALBUTEROL 3 ML NEB INHALATION SCH ×4 (08:09→21:05)
[2018-09-02] MEDS: METOPROLOL TARTRATE 25 MG TAB PO SCH ×2 (08:10→20:40)
[2018-09-02] MEDS: ASPIRIN 325 MG TAB PO SCH (08:11)
[2018-09-02] MEDS: PRAVASTATIN SODIUM 20 MG TAB PO SCH (08:11)
--- NOTE | 2018-09-02 09:42 | P.PN ---
Subjective Progress Note Date: 09/02/18 Principal diagnosis: Severe triple-vessel coronary artery disease, moderate left ventricular dysfunction, hypertension, paroxysmal atrial fibrillation, hyperlipidemia, chronic obstructive pulmonary disease with a preoperative FEV1 of 89% of predicted value, history of pulmonary embolism on chronic anticoagulation, end- stage renal disease on hemodialysis, thyroid disorder, previous history of nicotine dependence and significant family history of coronary artery disease on his mother's side. POD #5 quadruple coronary artery bypass grafting using the left internal mammary artery to left anterior ascending coronary artery, a reverse greater saphenous vein graft from aorta to the first diagonal coronary artery, a reverse greater saphenous vein graft from the aorta to the obtuse marginal coronary artery, a reverse greater saphenous vein graft from the aorta to the right coronary artery. Bilateral pulmonary vein isolation using the radiofrequency bipolar clamp, exclusion of the left atrial appendage with a 35 mm Atriclip,, right sided endoscopic vein harvesting of the right greater saphenous vein, intraoperative transesophageal echocardiogram, epi-aortic scanning and graft flow measurement using the [employer] system. Postoperative acute blood loss anemia, an expected outcome due to cardiopulmonary bypass and hemodilution. The patient is laying in bed on the 3 S. cardiac stepdown unit, he is in no acute distress. Denies any complaints of pain or shortness of breath at this time. Oxygen saturations are 94% on 2 L nasal cannula. His oxygen saturations on room air were 87%. Achieving 1000 mL on his incentive spirometry. He reports he ambulated in the 3 S. cardiac stepdown unit yesterday 2-3 times with minimal assistance. He also reports that he had his first postoperative shower. Scheduled for hemodialysis Monday. Complaining of constipation. Objective - Vital Signs Vital signs: Vital Signs Temp 98.6 F 09/02/18 08:00 Pulse 74 09/02/18 08:22 Resp 20 09/02/18 08:00 BP 122/87 09/02/18 08:00 Pulse Ox 97 09/02/18 08:12 Intake & Output 09/01/18 09/02/18 09/02/18 18:59 06:59 18:59 Intake Total 720 620 Balance 720 620 Weight 65.9 kg Intake: Oral 720 Blood Product 620 Rc As-3 Unit 310 [id number] Rc Pheresis As-3 Unit 310 [id number] Other: # Voids 1 1 ABP, PAP, CO, CI - Last Documented Arterial Blood Pressure 101/50 Pulmonary Artery Pressure 34/11 Cardiac Output 6.3 Cardiac Index 3.6 - Constitutional General appearance: Present: cooperative, no acute distress, thin - Respiratory Details: Lungs sounds essentially clear to his bilateral upper lobes, few scattered crackles to his bilateral bases. Respirations are symmetrical and nonlabored. Oxygen saturation are 94% on 2 L nasal cannula. Achieving 1000 mL on his incentive spirometry. - Cardiovascular Details: Regular rhythm and rate. S1 and S2 present, negative for S3, gallop or murmur. Sternum is stable. Remote telemetry showing normal sinus rhythm heart rate 83. +1 edema to his bilateral lower extremities. Knee-high NATALIE hose and sequential compression devices in place to his bilateral lower extremities. Heart hugger is in place and he is demonstrating appropriate use. - Gastrointestinal Gastrointestinal Comment(s): Abdomen is soft, nontender and nondistended. Active bowel sounds all 4 abdominal quadrants. No guarding or rigidity. No organomegaly. Tolerating oral intake. - Genitourinary Genitourinary Comment(s): Voiding clear lorie urine. Hemodialysis port in place to his right anterior chest. - Integumentary Integumentary Comment(s): Skin is warm and dry. No clubbing or cyanosis is present. Midline sternal incision is clean, dry and approximated. Exofin dressing is clean and dry. No drainage or redness present. Right lower extremity EVH site clean, dry and approximated. No drainage or redness present. - Neurologic Neurologic: Present: CNII-XII intact - Musculoskeletal Musculoskeletal: Present: gait normal, strength equal bilaterally - Psychiatric Psychiatric: Present: A&O x's 3, appropriate affect, intact judgment & insight - Allied health notes Allied health notes reviewed: nursing - Labs CBC & Chem 7: 09/02/18 06:12 09/02/18 06:12 Labs: Abnormal Lab Results - Last 24 Hours (Table) 08/21/18 09/01/18 09/02/18 Range/Units 08:55 21:00 06:12 RBC 2.21 L (4.30-5.90) m/uL Hgb 7.0 L (13.0-17.5) gm/dL Hct 21.3 L (39.0-53.0) % RDW 19.0 H (11.5-15.5) % Plt Count 96 L (150-450) k/uL Sodium (137-145) mmol/L BUN (9-20) mg/dL Creatinine (0.66-1.25) mg/dL POC Glucose (mg/dL) 113 H (75-99) mg/dL Calcium (8.4-10.2) mg/dL Crossmatch See Detail 09/02/18 Range/Units 06:12 RBC (4.30-5.90) m/uL Hgb (13.0-17.5) gm/dL Hct (39.0-53.0) % RDW (11.5-15.5) % Plt Count (150-450) k/uL Sodium 134 L (137-145) mmol/L BUN 46 H (9-20) mg/dL Creatinine 6.20 H (0.66-1.25) mg/dL POC Glucose (mg/dL) (75-99) mg/dL Calcium 7.7 L (8.4-10.2) mg/dL Crossmatch - Imaging and Cardiology Chest x-ray: report reviewed, image reviewed Assessment and Plan Assessment: 1. Triple-vessel coronary artery disease with a totally occluded left anterior descending coronary artery, status post coronary artery bypass grafting surgery 2. Moderate left ventricular dysfunction 3. End-stage renal disease, on hemodialysis 4. Hypertension 5. Hyperlipidemia 6. Paroxysmal atrial fibrillation, status post bilateral pulmonary vein isolation and left atrial appendage exclusion 7. History of recent pulmonary embolism, on chronic anticoagulation 8. Chronic obstructive pulmonary disease with a preoperative FEV1 89% of predicted value 9. Thyroid disorder 10. Previous history of nicotine dependence 11. Family history of coronary artery disease on his mother's side 12. Postoperative acute blood loss anemia, an expected outcome Plan: 1. Continue aspirin, statin, and beta gallo. Will increase beta gallo as tolerated. 2. Continue Midodrine 5 mg by mouth 3 times a day. 3. Wean oxygen as tolerated. Encourage incentive spirometry use 10 times every hour while awake. 4. Will monitor daily labs, x-rays. 5. Pain control with current medication regimen. 6. Insulin management per primary care service 7. Increase activity, ambulate as tolerated. PT/OT/cardiac rehab following. Encourage ambulation in the hallway on 3 S. 8. Bronchodilators per pulmonology. 9. Hemodialysis management per nephrology recommendations. Per nephrology will get back on his Monday schedule starting 09/03/2018. 10. GI/DVT prophylaxis. 11. Discharge planning in place, and this part discharged home on Monday with home health care. 12. More recommendations to follow based on patient's progress. Time with Patient: Greater than 30
--- NOTE | 2018-09-02 10:01 | P.PN ---
Subjective Patient is seen in follow-up for end-stage renal disease. He is maintained on hemodialysis on a Monday schedule. Patient underwent CABG on August 28. Denies chest pain or shortness of breath. He has been ambulating. No active complaints at this time. Hemoglobin 7.0 today. No active bleeding. Vital signs are stable. General: The patient appeared well nourished and normally developed. HEENT: Head exam is unremarkable. Neck is without jugular venous distension. LUNGS: Breath sounds decreased. HEART: Rate and Rhythm are regular. First and second heart sounds normal. No murmurs, rubs or gallops. Chest tubes present. ABDOMEN: Abdominal exam reveals normal bowel sounds. Non-tender and non- distended. No evidence of peritonitis. EXTREMITITES: No clubbing, cyanosis, or edema. Objective - Vital Signs Vital signs: Vital Signs Temp 98.6 F 09/02/18 08:00 Pulse 74 09/02/18 08:22 Resp 20 09/02/18 08:00 BP 122/87 09/02/18 08:00 Pulse Ox 97 09/02/18 08:12 Intake & Output 09/01/18 09/02/18 09/02/18 18:59 06:59 18:59 Intake Total 720 620 Balance 720 620 Weight 65.9 kg Intake: Oral 720 Blood Product 620 Rc As-3 Unit 310 [id number] Rc Pheresis As-3 Unit 310 [id number] Other: # Voids 1 1 ABP, PAP, CO, CI - Last Documented Arterial Blood Pressure 101/50 Pulmonary Artery Pressure 34/11 Cardiac Output 6.3 Cardiac Index 3.6 - Labs CBC & Chem 7: 09/02/18 06:12 09/02/18 06:12 Labs: Abnormal Lab Results - Last 24 Hours (Table) 08/21/18 09/01/18 09/02/18 Range/Units 08:55 21:00 06:12 RBC 2.21 L (4.30-5.90) m/uL Hgb 7.0 L (13.0-17.5) gm/dL Hct 21.3 L (39.0-53.0) % RDW 19.0 H (11.5-15.5) % Plt Count 96 L (150-450) k/uL Sodium (137-145) mmol/L BUN (9-20) mg/dL Creatinine (0.66-1.25) mg/dL POC Glucose (mg/dL) 113 H (75-99) mg/dL Calcium (8.4-10.2) mg/dL Crossmatch See Detail 09/02/18 Range/Units 06:12 RBC (4.30-5.90) m/uL Hgb (13.0-17.5) gm/dL Hct (39.0-53.0) % RDW (11.5-15.5) % Plt Count (150-450) k/uL Sodium 134 L (137-145) mmol/L BUN 46 H (9-20) mg/dL Creatinine 6.20 H (0.66-1.25) mg/dL POC Glucose (mg/dL) (75-99) mg/dL Calcium 7.7 L (8.4-10.2) mg/dL Crossmatch Assessment and Plan Plan: Assessment: 1. End-stage renal disease maintained on hemodialysis on a Monday schedule. 2. Hyponatremia secondary to chronic kidney disease. Stable. 3. Coronary artery disease status post CABG on August 28. 4. Acute blood loss anemia s/p blood transfusion 08/30. Also on Aranesp. No active bleeding. 5. Hyperkalemia secondary to chronic kidney disease. Improved postdialysis. Plan: Hemodialysis on Monday. Continue to work with physical therapy. Monitor hemoglobin.
--- NOTE | 2018-09-02 10:44 | PN ---
PROGRESS NOTE Mr. Coppola is a 68-year-old male status post coronary artery bypass grafting, history of end-stage renal disease, history of ischemic cardiomyopathy. He is feeling well today. He is ambulating. His breathing is better. He denies any symptoms of chest pain. He denies any dizziness or palpitation. He denies any nausea. He continues to be on aspirin once a day, Plavix 75 mg daily, pravastatin 40 mg daily, metoprolol tartrate 25 mg twice a day and insulin. PHYSICAL EXAMINATION: Blood pressure 122/87 with a heart rate in the 70s. LUNGS: Mild decrease in breath sounds at the bases. HEART: Regular rate and rhythm, S1, S2. No S3. No rub appreciated. ABDOMEN: Soft, nontender. EXTREMITIES: No edema. LAB DATA: Lab data revealed hemoglobin of 7. BUN and creatinine 46 and 6.2. IMPRESSION: 1. Status post coronary artery bypass grafting, stable. 2. End-stage renal disease, on hemodialysis, scheduled for dialysis tomorrow. 3. Ischemic cardiomyopathy. 4. Hyperlipidemia. 5. Diabetes mellitus. RECOMMENDATION: We will continue present therapy. Continue increasing his level of activity and depending on his status and his blood pressure, further adjustment of his medical regimen will be made. MMODL / IJN: [id number] /
--- NOTE | 2018-09-02 13:24 | P.PN ---
Subjective Progress Note Date: 09/02/18 Principal diagnosis: triple-vessel coronary artery disease, status post four-vessel bypass surgery This is a 68-year-old white male patient of Dr. Padilla Perera past medical histo ry of hypertension, hyperlipidemia, previous history of pulmonary embolism on chronic anticoagulation, end-stage renal disease on hemodialysis, hypothyroidism, previous history of nicotine dependence, and patient carries a 97-yrdf-ptus smoking history. Also positive for significant family history of coronary artery disease on his mother's side. Patient was recently hospitalized at the [facility] acute exacerbation of congestive heart failure with systolic dysfunction, he had a stress test in May 2018 showing possible prior myocardial infarction and the possibility of ischemic cardiomyopathy. Cardiac catheterization showed left main stenosis of 40%, RCA of 99%, circumflex of 80% and mid LAD stenosis of 100% and diagonal branch of 90% stenosis. This esophageal echocardiogram showed severely impaired LV systolic function with an EF of 30-35%, trace aortic regurgitation, moderate mitral regurgitation, moderate tricuspid regurgitation and pulmonary hypertension with a right-sided pressures of 69 mmHg. Patient was recommended myocardial revascularization, and today on 08/28/2018 patient underwent four- vessel coronary artery bypass grafting, with LAROSE to LAD, SVG to the OM1, PDA, and RCA. Patient is seen in the intensive care unit following her surgical procedure, sedated, intubated, currently on assist control mode of ventilation with a rate of 14, tidal vitamin 500, FiO2 of 100, and PEEP of 5, postop blood gases were obtained, and showed pO2 of greater than 420, pCO2 of 42, and pH of 7.38, and FiO2 was dropped down to 40%. Current IV fluids include lactated Ringer's at a rate of 50, norepinephrine at 2 mics per minute, vasopressin at 0.03 units/min, nitroglycerin drip is at 5 mics/min, and propofol is currently at 10 mics per kilo per minute. Postop blood work showed a white blood cell count of 8.1, hemoglobin of 8.1, platelet count of 142, INR is 1.2, sodium of 138, potassium is 4.2, chloride is 105, CO2 is 25, BUN of 30, creatinine of 6.40. 2 mediastinal chest tubes connected to 1 pleural VAC, with 300 mL of sanguinous output, left chest tube with 250 mL of sanguinous output and right pleural chest tube with 400 mL of output. And his anuria, patient has a right upper chest subclavian hemodialysis catheter in place, his usual hemodialysis days are Monday and Monday. Patient has slightly hypothermic, he is rewarmed. On 08/29/2016 patient seen in follow-up in intensive care unit, he is awake and alert, patient was extubated last night within 5 hours of OR exit time, at 2030 p.m. This morning he is awake and alert, currently on 4 L per nasal cannula, and his pulse ox is 96%, he is afebrile, hemodynamically patient is stable, BP is 105/48, PA pressure is 32/10, with CVP of 8, cardiac output and index are 6.5 and 3.7 respectively, patient is currently on lactated Ringer's at a rate of 50, levo fed is at 2 mics per minute, vasopressin at 0.03 units per minute, and insulin is at 3 units per hour. Patient has received 2 units of packed red blood cells overnight for postoperative anemia, he did receive 5 units of platelets Intra-Op, this morning his blood work has been reviewed, showed white blood cell count of 9.8, hemoglobin of 7.6, platelet count is 132, serum sodium is 136, potassium is 6.0, repeat potassium was 5.7, BUN is 35, creatinine is 7.28. Today's chest x-ray showed interval extubation, and developing or worsening right greater than left bibasilar acute infiltrate and/or atelectasis with probable small to tiny bilateral pleural effusions. Patient has a 2 mediastinal chest tubes, right and left pleural chest tubes in place, and there is still some increased drainage from the right pleural chest tube, there has been on a total of 900 mL of drainage in the right chest tube in the last 24 hours, 430 out of the mediastinal, and left chest tube is 330 mL of sanguinous output. Patient is anuria, he is on maintenance hemodialysis on an outpatient basis, nephrology has been consulted, and anticipate hemodialysis treatment today. Otherwise he is in no acute distress, he is awake and alert, he is following command, lung sounds are clear, diminished at the bases, his incentive spirometry effort is about 500 mL. On 08/30/2018 patient seen in follow-up in the intensive care unit. He is awake and alert, oriented 3, he sitting up in the recliner, currently on 2 L of oxygen, with pulse ox of 99%, he is afebrile, hemodynamically patient is stable, blood pressure is 98/48, with a PA pressure of 37/12, CVP of 8, cardiac output and index of 6.3 and 3.6 respectively. IV lactated Ringer's a rate of 50 ML per hour, vasopressin at 0.01 units per minute, insulin drip is on hold, and he will has been on hold for close to 24 hours. His incentive spirometry effort is about 500 mL, he does have a effective cough, at times she is able to bring up some yellowish colored sputum. Denies any difficulty breathing, his pain is reasonably controlled, lung sounds are clear, sinus rhythm on the monitor with a rate of 79 BPM. he had hemodialysis yesterday, nephrology is following. Today's chest x-ray has been reviewed with Dr. Berger, and shows persistent right basilar opacity suggesting atelectasis or consolidation. His labs have been reviewed, and showed elevated blood cell count of 7.3, hemoglobin of 6.7, serum sodium is 131, potassium is 5.1, chloride is 97, B1 is 31, creatinine is 5.36. Patient still has mediastinal, left and right pleural chest tubes in place, and mediastinal chest tube had 320 mL, left pleural chest tube 20 mL and right lateral 672 mL of serosanguineous output in the last 24 hours. On 09/02/2018 patient is seen in follow-up on selective care unit. He sitting up in the recliner, in no acute distress, currently just on 1 L per nasal cannula, socks is 90%, afebrile, hemodynamically stable, lung sounds are clear, no complaints of pain, shortness of breath. All chest tubes Have been discontinued, wires discontinued, patient is working in his incentive spirometer. Achieving 1000 ML on his INRs. He is tolerating ambulation, he had his first postoperative shower. He is scheduled for his hemodialysis on Monday. Today's labs have been reviewed, showed a white blood cell count of 6.5, hemoglobin is 7.0, sodium of 134, distress electrodes were within normal limits, B1 is 46 creatinine is 6.20, nephrology is following, today's chest x-ray has been reviewed with Dr. Canas. And shows bibasilar airspace disease likely related to atelectasis, and small bilateral pleural effusions. Patient needs a quite aggressive pulmonary toileting, and possibly chest physiotherapy Objective - Vital Signs Vital signs: Vital Signs Temp 97.5 F L 09/02/18 12:00 Pulse 76 09/02/18 12:19 Resp 20 09/02/18 12:00 BP 125/78 09/02/18 12:00 Pulse Ox 90 L 09/02/18 12:00 Intake & Output 09/01/18 09/02/18 09/02/18 18:59 06:59 18:59 Intake Total 720 1060 Balance 720 1060 Weight 65.9 kg Intake: Oral 720 440 Blood Product 620 Rc As-3 Unit 310 [id number] Rc Pheresis As-3 Unit 310 [id number] Other: # Voids 1 1 ABP, PAP, CO, CI - Last Documented Arterial Blood Pressure 101/50 Pulmonary Artery Pressure 34/11 Cardiac Output 6.3 Cardiac Index 3.6 - Exam GENERAL EXAM: 68-year-old white male awake and alert In the recliner, on 2 L of oxygen per nasal cannula comfortable in no apparent distress. HEAD: Normocephalic/atraumatic. EYES: Normal reaction of pupils, equal size. Conjunctiva pink, sclera white. NOSE: Clear with pink turbinates. THROAT: No erythema or exudates. NECK: No masses, no JVD, no thyroid enlargement, no adenopathy. CHEST: No chest wall deformity. Symmetrical expansion. Mr. incisions clean dry and intact, interval removal of the chest tubes and AV wires LUNGS: Equal air entry with no crackles, wheeze, rhonchi or dullness. CVS: Regular rate and rhythm, normal S1 and S2, no gallops, no murmurs, no rubs ABDOMEN: Soft, nontender. No hepatosplenomegaly, normal bowel sounds, no guarding or rigidity. EXTREMITIES: No clubbing, no edema, no cyanosis, 2+ pulses and upper and lower extremities. MUSCULOSKELETAL: Muscle strength and tone normal. SPINE: No scoliosis or deformity SKIN: No rashes CENTRAL NERVOUS SYSTEM: Awake alert, oriented 3, No focal deficits, tone is normal in all 4 extremities. - Labs CBC & Chem 7: 09/02/18 06:12 09/02/18 06:12 Labs: Abnormal Lab Results - Last 24 Hours (Table) 08/21/18 09/01/18 09/02/18 Range/Units 08:55 21:00 06:12 RBC 2.21 L (4.30-5.90) m/uL Hgb 7.0 L (13.0-17.5) gm/dL Hct 21.3 L (39.0-53.0) % RDW 19.0 H (11.5-15.5) % Plt Count 96 L (150-450) k/uL Sodium (137-145) mmol/L BUN (9-20) mg/dL Creatinine (0.66-1.25) mg/dL POC Glucose (mg/dL) 113 H (75-99) mg/dL Calcium (8.4-10.2) mg/dL Crossmatch See Detail 09/02/18 Range/Units 06:12 RBC (4.30-5.90) m/uL Hgb (13.0-17.5) gm/dL Hct (39.0-53.0) % RDW (11.5-15.5) % Plt Count (150-450) k/uL Sodium 134 L (137-145) mmol/L BUN 46 H (9-20) mg/dL Creatinine 6.20 H (0.66-1.25) mg/dL POC Glucose (mg/dL) (75-99) mg/dL Calcium 7.7 L (8.4-10.2) mg/dL Crossmatch Assessment and Plan Plan: Assessment: #1. Severe triple-vessel coronary artery disease, status post four-vessel coronary artery bypass grafting, with LAROSE to LAD, SVG to the OM1, and PDA and RCA, postop day 5 #2. Postop blood loss anemia, expected outcome of myocardial revascularization surgery, requiring transfusion with 2 units of packed red blood cells, and 5 units of platelets #3. Routine ventilator management, he was successfully extubated on postop day 0, within 5 hours of OR exit time, at 2030 p.m. #4. End-stage renal disease on hemodialysis on Monday schedule #5. Ischemic cardiomyopathy with an EF of 30-35%, severe pulmonary hypertension with RSVP of 69 mmHg, moderate mitral and tricuspid regurgitation #6. Chronic congestive heart failure with systolic dysfunction #7. Recent history of a pulmonary embolism in April 2018 on Eliquis #8. Hypothyroidism #9. Hypertention #10. Hyperlipidemia #11. Former smoker, carries a 40+-pack-year smoking history #12. Family history of premature heart disease #13. Atelectasis and small pleural effusions seen on a chest x-ray Plan: A chest x-ray has been reviewed with Dr. Canas, and there is bilateral atelectasis, and small pleural effusions, patient needs aggressive chest physiotherapy, deep breathing and coughing, pulmonary toileting, will add Mucinex CPT. We'll continue to follow, chronic the patient is stable, denies any acute complaints. I performed a history & physical examination of the patient and discussed their management with my nurse practitioner, Rosi Blum. I reviewed the nurse practitioner's note and agree with the documented findings and plan of care. Lung sounds are positive for clear breaths sounds. The findings and the impression was discussed with the patient. I attest to the documentation by the nurse practitioner. Time with Patient: Less than 30
[2018-09-02] MEDS: CLOPIDOGREL 75 MG TAB PO SCH (20:38)
[2018-09-02] MEDS: SENNOSIDES-DOCUSATE SODIUM 1 EACH TAB PO SCH (20:38)
[2018-09-02] MEDS: guaiFENesin 600 MG TABLET.ER PO SCH (20:38)
--- NOTE | 2018-09-02 23:02 | PN ---
PROGRESS NOTE SUBJECTIVE: 68-year-old white male, status post CABG. We are going to stop her Accu-Cheks since her glucoses has been stable. He has been up ambulating. Possible discharge home in the next 24 to 48 hours as he is greatly improved. BENJI / MAYRA: [id number] /
[2018-09-03 05:22] VITALS: RESP 18
[2018-09-03] MEDS: PANTOPRAZOLE 40 MG TABLET PO SCH (06:13)
[2018-09-03] MEDS: MIDODRINE 5 MG TAB PO SCH ×2 (06:13→10:44)
[2018-09-03] MEDS: LEVOTHYROXINE 50 MCG TAB PO SCH (06:13)
[2018-09-03 06:50] LABS: Anisocytosis Slight; Hypochromasia Slight; MCH 31.6 pg (25.0-35.0); MCV 95.7 fL (80.0-100.0); Macrocytosis Slight; Mean Platelet Volume 7.8; Platelet Count 111 k/uL (150-450); RDW 18.3 % (11.5-15.5)
[2018-09-03 07:22] LABS: Albumin 2.4 g/dL (3.5-5.0); Calcium 7.7 mg/dL (8.4-10.2); Potassium 4.4 mmol/L (3.5-5.1); Total Bilirubin 0.5 mg/dL (0.2-1.3); Total Protein 4.4 g/dL (6.3-8.2)
[2018-09-03] MEDS: IPRATROPIUM-ALBUTEROL 3 ML NEB INHALATION SCH ×3 (08:23→16:27)
--- NOTE | 2018-09-03 08:27 | XR ---
EXAMINATION TYPE: XR chest 1V portable DATE OF EXAM: 09/03/2018 COMPARISON: 09/02/2018 INDICATION: Post cardiac surgery TECHNIQUE: Frontal and lateral views of the chest are obtained. FINDINGS: The heart size is normal. The pulmonary vasculature is normal. There is a band of opacification over the right lower lung field. Some minimal right pleural effusion is likely present. Small left pleural effusion is present. Linear opacities in the left lower lobe l ikely some plate atelectasis. Sternotomy wires are present from prior CABG. Double-lumen catheter is present on the right with the tips in the region of the proximal right atrium, unchanged in position. No pneumothorax is evident.. IMPRESSION: 1. Right lower lobe opacification. Fluid within the minor fissure and atelectasis should be considere d. Pneumonia could be considered. 2. Small left and minimal right pleural effusions present. 3. Plate atelectasis left midlung
[2018-09-03] MEDS ORDERED: MAGNESIUM HYDROXIDE 2,400 MG/10 ML CUP PO PRN (08:30)
[2018-09-03] MEDS: guaiFENesin 600 MG TABLET.ER PO SCH (08:31)
[2018-09-03] MEDS: ASPIRIN 325 MG TAB PO SCH (08:31)
[2018-09-03] MEDS: HEPARIN SODIUM,PORCINE 5,000 UNIT/ML 1 ML VIAL SQ SCH ×2 (08:32→16:59)
[2018-09-03] MEDS: METOPROLOL TARTRATE 25 MG TAB PO SCH (08:32)
[2018-09-03] MEDS: PRAVASTATIN SODIUM 20 MG TAB PO SCH (08:32)
--- NOTE | 2018-09-03 10:09 | PN ---
PROGRESS NOTE Mr. Coppola is a 68-year-old male with end-stage renal disease, status post coronary artery bypass grafting. he is doing well this morning. He has been ambulating. He is feeling stronger. He is scheduled to undergo dialysis today. He denies any dizziness, palpitation. He denies any nausea. He continues to be in sinus mechanism. He continues to be on aspirin once a day, Plavix 75 mg daily, metoprolol tartrate 25 mg twice a day and pravastatin 40 mg daily. PHYSICAL EXAMINATION: Blood pressure 132/88 with a heart rate in the 80s. LUNGS: No wheezes. HEART: Regular rate and rhythm. S1, S2. No S3. No rub. ABDOMEN: Soft, nontender. EXTREMITIES: 1+ edema on the right side. LAB DATA: Revealed BUN and creatinine 58 and 7.84, potassium 4.4, hemoglobin of 7. IMPRESSION: 1. Status post coronary artery bypass grafting, stable. 2. Ischemic cardiomyopathy. 3. End-stage renal disease. 4. Hyperlipidemia. 5. Diabetes mellitus. RECOMMENDATION: I will re-initiate treatment with the hydralazine 25 mg twice a day. I will continue rest of his medical regimen. I am hopeful that he should be able to be discharged home soon and follow up as an outpatient. MMODL / IJN: [id number] /
--- NOTE | 2018-09-03 10:13 | P.PN ---
Subjective Progress Note Date: 09/03/18 Principal diagnosis: Severe triple vessel coronary artery disease with totally occluded left anterior descending artery, moderate left ventricular dysfunction, hypertension, paroxy smal atrial fibrillation, hyperlipidemia, chronic obstructive pulmonary disease with a preoperative FEV1 89% of predicted, recent history of pulmonary embolism on chronic anticoagulation, end-stage renal disease on hemodialysis, hypothyroid, previous tobacco dependence, and significant family history of coronary artery disease on his mother's side. POD #6 quadruple coronary artery bypass grafting using the left internal mammary artery to the left anterior descending coronary artery, reverse greater saphenous vein graft from the aorta to the first diagonal coronary artery, reverse greater saphenous vein graft from the aorta to the obtuse marginal coronary artery, reverse greater saphenous vein graft from the aorta to the right coronary artery. Bilateral pulmonary vein isolation using radiofrequency bipolar clamp, exclusion of the left atrial appendage with 35 mm AtriClip, right sided endoscopic greater saphenous vein harvesting from the groin to above the ankle level, intraoperative transesophageal echocardiogram, epi-aortic scanningand graft flow measurement using the [employer] system. Postoperative acute blood loss anemia, an expected outcome secondary to cardiopulmonary bypass pump and hemodilution. the patient's currently sitting up in bed in no acute distress. States post surgical pain is well controlled on current medication regimen, denies shortness of breath. He has been ambulating in the hallway. He anticipates dialysis today. No new complaints. Objective - Vital Signs Vital signs: Vital Signs Temp 98.2 F 09/03/18 08:00 Pulse 80 09/03/18 08:37 Resp 18 09/03/18 08:00 BP 132/88 09/03/18 08:00 Pulse Ox 81 L 09/03/18 08:25 Intake & Output 09/02/18 09/03/18 09/03/18 18:59 06:59 18:59 Intake Total 1390 250 370 Output Total 50 Balance 1390 200 370 Weight 65.7 kg Intake: IV 10 10 Invasive Line 5 10 10 Oral 770 240 360 Blood Product 620 Rc As-3 Unit 310 [id number] Rc Pheresis As-3 Unit 310 [id number] Output: Urine 50 Other: Voiding Method Indwelling Catheter # Voids 2 1 ABP, PAP, CO, CI - Last Documented Arterial Blood Pressure 101/50 Pulmonary Artery Pressure 34/11 Cardiac Output 6.3 Cardiac Index 3.6 - Constitutional General appearance: Present: cooperative, no acute distress - Respiratory Details: Lungs sounds diminished in the bases bilaterally. Respirations even, nonlabored. Able to achieve 500-750 mL on his incentive spirometry. Currently on room air with oxygen saturation 91%. Strong cough. - Cardiovascular Details: S1, S2 present. Regular rate and rhythm, sinus rhythm on telemetry. Sternum stable. Palpable peripheral pulses bilaterally. No edema present. No calf pain or tenderness noted. Heart hugger in place with patient demonstrating appropriate use. Antiembolism stockings, SCDs present. Right anterior chest wall temporary dialysis catheter present. - Gastrointestinal Gastrointestinal Comment(s): Abdomen soft, nontender, nondistended. Active bowel sounds 4 quadrants. Tolerating diet. No bowel movement since surgery. - Genitourinary Genitourinary Comment(s): Continues to void clear, yellow urine. - Integumentary Integumentary Comment(s): Skin is warm and dry with evidence of good perfusion. Anterior chest incision well approximated and covered with dry intact dressing. Right lower extremity EVH site well approximated. - Neurologic Neurologic: Present: CNII-XII intact - Musculoskeletal Musculoskeletal: Present: gait normal, strength equal bilaterally - Psychiatric Psychiatric: Present: A&O x's 3, appropriate affect, intact judgment & insight - Allied health notes Allied health notes reviewed: nursing - Labs CBC & Chem 7: 09/03/18 05:51 09/03/18 05:51 Labs: Abnormal Lab Results - Last 24 Hours (Table) 09/03/18 09/03/18 Range/Units 05:51 05:51 RBC 2.20 L (4.30-5.90) m/uL Hgb 7.0 L (13.0-17.5) gm/dL Hct 21.0 L (39.0-53.0) % RDW 18.3 H (11.5-15.5) % Plt Count 111 L (150-450) k/uL Sodium 134 L (137-145) mmol/L BUN 58 H (9-20) mg/dL Creatinine 7.84 H* (0.66-1.25) mg/dL Calcium 7.7 L (8.4-10.2) mg/dL ALT 13 L (21-72) U/L Total Protein 4.4 L (6.3-8.2) g/dL Albumin 2.4 L (3.5-5.0) g/dL - Imaging and Cardiology Chest x-ray: report reviewed, image reviewed Assessment and Plan Assessment: 1. Severe triple-vessel coronary artery disease, status post coronary artery bypass surgery 2. Moderate left ventricular dysfunction 3. Paroxysmal atrial fibrillation, status post bilateral pulmonary vein isolation and exclusion of the left atrial appendage 4. Hypertension 5. Hyperlipidemia 6. End-stage renal disease on hemodialysis Monday, Monday, Monday 7. Previous tobacco dependence 8. COPD with preoperative FEV1 89% of predicted 9. Recent history of pulmonary embolism on chronic Eliquis for anticoagulation 10. Hypothyroid 11. Significant family history of coronary artery disease 12. Postoperative acute blood loss anemia, status post transfusion Plan: 1. Continue aspirin, statin, Plavix, beta gallo therapy. Will increase beta gallo therapy as tolerated. 2. Continue Midodrine. Patient will receive dialysis today. Continue Aranesp per nephrology. No transfusion today. 3. Encourage incentive spirometry use 10 times every hour while awake. Bronchodilators per pulmonology. 4. Encourage continued smoking cessation. 5. Increase activity, ambulate in hallway. PT/OT/cardiac rehab following. 6. Pain control with current medication regimen. 7. GI/DVT prophylaxis. 8. Milk of magnesia given today, if no movement by noon we will give suppository. 9. Discharge planning in progress. Anticipate discharge to home with home care later today versus tomorrow morning. 10. More recommendations to follow. Time with Patient: Greater than 30
--- NOTE | 2018-09-03 10:25 | P.PN ---
Subjective Patient is seen in follow-up for end-stage renal disease. He is maintained on hemodialysis on a Monday schedule. Patient underwent CABG on August 28. Denies chest pain or shortness of breath. He has been ambulating. No active complaints at this time. Hemoglobin stable at 7.0 today. No active bleeding. Vital signs are stable. General: The patient appeared well nourished and normally developed. HEENT: Head exam is unremarkable. Neck is without jugular venous distension. LUNGS: Breath sounds decreased. HEART: Rate and Rhythm are regular. First and second heart sounds normal. No murmurs, rubs or gallops. Chest tubes present. ABDOMEN: Abdominal exam reveals normal bowel sounds. Non-tender and non- distended. No evidence of peritonitis. EXTREMITITES: No clubbing, cyanosis, or edema. Objective - Vital Signs Vital signs: Vital Signs Temp 98.2 F 09/03/18 08:00 Pulse 80 09/03/18 08:37 Resp 18 09/03/18 08:00 BP 132/88 09/03/18 08:00 Pulse Ox 81 L 09/03/18 08:25 Intake & Output 09/02/18 09/03/18 09/03/18 18:59 06:59 18:59 Intake Total 1390 250 370 Output Total 50 Balance 1390 200 370 Weight 65.7 kg Intake: IV 10 10 Invasive Line 5 10 10 Oral 770 240 360 Blood Product 620 Rc As-3 Unit 310 [id number] Rc Pheresis As-3 Unit 310 [id number] Output: Urine 50 Other: Voiding Method Indwelling Catheter # Voids 2 1 ABP, PAP, CO, CI - Last Documented Arterial Blood Pressure 101/50 Pulmonary Artery Pressure 34/11 Cardiac Output 6.3 Cardiac Index 3.6 - Labs CBC & Chem 7: 09/03/18 05:51 09/03/18 05:51 Labs: Abnormal Lab Results - Last 24 Hours (Table) 09/03/18 09/03/18 Range/Units 05:51 05:51 RBC 2.20 L (4.30-5.90) m/uL Hgb 7.0 L (13.0-17.5) gm/dL Hct 21.0 L (39.0-53.0) % RDW 18.3 H (11.5-15.5) % Plt Count 111 L (150-450) k/uL Sodium 134 L (137-145) mmol/L BUN 58 H (9-20) mg/dL Creatinine 7.84 H* (0.66-1.25) mg/dL Calcium 7.7 L (8.4-10.2) mg/dL ALT 13 L (21-72) U/L Total Protein 4.4 L (6.3-8.2) g/dL Albumin 2.4 L (3.5-5.0) g/dL Assessment and Plan Plan: Assessment: 1. End-stage renal disease maintained on hemodialysis on a Monday schedule. 2. Hyponatremia secondary to chronic kidney disease. Stable. 3. Coronary artery disease status post CABG on August 28. 4. Acute blood loss anemia s/p blood transfusion 08/30. Also on Aranesp. No active bleeding. 5. Hyperkalemia secondary to chronic kidney disease. Improved postdialysis. Plan: Hemodialysis today. Continue to work with physical therapy. Monitor hemoglobin. Stable to be discharged home from nephrology standpoint.
--- NOTE | 2018-09-03 14:19 | P.PN ---
Subjective Progress Note Date: 09/03/18 This is a 68-year-old gentleman status post CABG, postop day #1. Extubated last night, maintaining O2 sats in the mid 90s on 4 L nasal cannula. Incentive spirometer up to 500. Chest x-ray reporting persistent right greater than left bibasilar acute infiltrate and/or atelectasis with suspected small right pleural effusion. Received 2 units packed RBCs last night, hemoglobin 7.8. Currently maintained on lactated Ringer's, norepinephrine, vasopressin and insulin drips. Potassium 5.7. BUN 35, creatinine 7.28, receiving hemodialysis. 08/30/2018 sitting up in chair, alert and oriented 3, maintaining O2 sats in the high 90s on 2 L nasal cannula. Minimal productive cough with occasional clear to yellow sputum. Incentive spirometer up to 500. Chest x-ray reporting persistent right basilar opacity , atelectasis/consolidation .Pain controlled.Hemoglobin 6.7, one unit of packed RBCs with dialysis ordered. Scheduled for hemodialysis again today, as he did not complete his full treatment yesterday secondary to pain.Telemetry sinus rhythm. Levophed weaned off yesterday. Vasopressin drip recently weaned off this morning. Maintained on insulin drip, blood sugars controlled. 08/31/2018 continues to do well. All drips have been weaned off, Blood sugars controlled on sliding scale. Currently up in chair, earlier ambulating with in room, tolerating exertion well. Mediastinal and left pleural chest tubes discontinued yesterday. Right pleural chest tube, Cordis scheduled to be disco ntinued today. Yesterday receive 1 unit of packed RBCs, current hemoglobin 7.3. Incentive spirometer increased up to 750, from 500 MLS yesterday.hemodialysis scheduled for today .Cardiothoracic surgery discussing moving patient out of ICU to telemetry unit. 09/03/2018 ambulating, tolerating exertion well. Hemoglobin 7, no active bleeding. Pain controlled. Incentive spirometer up to 750. Hydralazine resumed as per cardiology.maintaining O2 sats of 94% on room air. Objective - Vital Signs Vital signs: Vital Signs Temp 98.2 F 09/03/18 08:00 Pulse 80 09/03/18 08:37 Resp 18 09/03/18 08:00 BP 132/88 09/03/18 08:00 Pulse Ox 81 L 09/03/18 08:25 Intake & Output 09/02/18 09/03/18 09/03/18 18:59 06:59 18:59 Intake Total 1390 250 360 Output Total 50 Balance 1390 200 360 Weight 65.7 kg Intake: IV 10 Invasive Line 5 10 Oral 770 240 360 Blood Product 620 Rc As-3 Unit 310 [id number] Rc Pheresis As-3 Unit 310 [id number] Output: Urine 50 Other: Voiding Method Indwelling Catheter # Voids 2 1 ABP, PAP, CO, CI - Last Documented Arterial Blood Pressure 101/50 Pulmonary Artery Pressure 34/11 Cardiac Output 6.3 Cardiac Index 3.6 - Labs CBC & Chem 7: 09/03/18 05:51 09/03/18 05:51 Labs: Abnormal Lab Results - Last 24 Hours (Table) 09/03/18 09/03/18 Range/Units 05:51 05:51 RBC 2.20 L (4.30-5.90) m/uL Hgb 7.0 L (13.0-17.5) gm/dL Hct 21.0 L (39.0-53.0) % RDW 18.3 H (11.5-15.5) % Plt Count 111 L (150-450) k/uL Sodium 134 L (137-145) mmol/L BUN 58 H (9-20) mg/dL Creatinine 7.84 H* (0.66-1.25) mg/dL Calcium 7.7 L (8.4-10.2) mg/dL ALT 13 L (21-72) U/L Total Protein 4.4 L (6.3-8.2) g/dL Albumin 2.4 L (3.5-5.0) g/dL Assessment and Plan Assessment: Triple vessel coronary artery disease, status post CABG -Postoperative blood loss anemia, expected- with 2 units of packed RBCs and 5 units of platelets -End-stage kidney disease, maintained on hemodialysis,M-W-F -Ischemic cardiomyopathy, EF 30-35% -Moderate pulmonary hypertension -Mitral and tricuspid regurgitation -History of PE, April 2018 -Hypothyroidism -Hypertension -Dyslipidemia -Former nicotine abuse -Hyponatremia secondary to CKD -Hyperkalemia secondary to CKD, resolved -Right bibasilar atelectasis -Paroxysmal atrial fibrillation Plan: Continue on current medication regime , beta gallo, statin, aspirin, Plavix ,Midodrin, monitoring and symptomatic treatment. PT/increase activity as tolerated .Aggressive pulmonary toileting- incentive spirometer reinforced. Continue nebulized bronchodilators. Hemodialysis today. Discharge planning in progress for either today or in a.m. as per cardiothoracic surgery .Thank you Dr. Lopez for allowing us to participate in the care of this pleasant gentleman. The impression and plan of care has been dictated as directed. : I performed a history and examination of this patient, discussed the same with the dictator. I agree with the dictator's note ,documented as a scribe. Any additional findings or plans will be noted.
--- NOTE | 2018-09-03 16:30 | P.PN ---
Subjective Progress Note Date: 09/03/18 Principal diagnosis: triple-vessel coronary artery disease, status post four-vessel bypass surgery This is a 68-year-old white male patient of Dr. Padilla Perera past medical histo ry of hypertension, hyperlipidemia, previous history of pulmonary embolism on chronic anticoagulation, end-stage renal disease on hemodialysis, hypothyroidism, previous history of nicotine dependence, and patient carries a 14-ydap-cmlr smoking history. Also positive for significant family history of coronary artery disease on his mother's side. Patient was recently hospitalized at the [facility] acute exacerbation of congestive heart failure with systolic dysfunction, he had a stress test in May 2018 showing possible prior myocardial infarction and the possibility of ischemic cardiomyopathy. Cardiac catheterization showed left main stenosis of 40%, RCA of 99%, circumflex of 80% and mid LAD stenosis of 100% and diagonal branch of 90% stenosis. This esophageal echocardiogram showed severely impaired LV systolic function with an EF of 30-35%, trace aortic regurgitation, moderate mitral regurgitation, moderate tricuspid regurgitation and pulmonary hypertension with a right-sided pressures of 69 mmHg. Patient was recommended myocardial revascularization, and today on 08/28/2018 patient underwent four- vessel coronary artery bypass grafting, with LAROSE to LAD, SVG to the OM1, PDA, and RCA. Patient is seen in the intensive care unit following her surgical procedure, sedated, intubated, currently on assist control mode of ventilation with a rate of 14, tidal vitamin 500, FiO2 of 100, and PEEP of 5, postop blood gases were obtained, and showed pO2 of greater than 420, pCO2 of 42, and pH of 7.38, and FiO2 was dropped down to 40%. Current IV fluids include lactated Ringer's at a rate of 50, norepinephrine at 2 mics per minute, vasopressin at 0.03 units/min, nitroglycerin drip is at 5 mics/min, and propofol is currently at 10 mics per kilo per minute. Postop blood work showed a white blood cell count of 8.1, hemoglobin of 8.1, platelet count of 142, INR is 1.2, sodium of 138, potassium is 4.2, chloride is 105, CO2 is 25, BUN of 30, creatinine of 6.40. 2 mediastinal chest tubes connected to 1 pleural VAC, with 300 mL of sanguinous output, left chest tube with 250 mL of sanguinous output and right pleural chest tube with 400 mL of output. And his anuria, patient has a right upper chest subclavian hemodialysis catheter in place, his usual hemodialysis days are Monday and Monday. Patient has slightly hypothermic, he is rewarmed. On 08/29/2016 patient seen in follow-up in intensive care unit, he is awake and alert, patient was extubated last night within 5 hours of OR exit time, at 2030 p.m. This morning he is awake and alert, currently on 4 L per nasal cannula, and his pulse ox is 96%, he is afebrile, hemodynamically patient is stable, BP is 105/48, PA pressure is 32/10, with CVP of 8, cardiac output and index are 6.5 and 3.7 respectively, patient is currently on lactated Ringer's at a rate of 50, levo fed is at 2 mics per minute, vasopressin at 0.03 units per minute, and insulin is at 3 units per hour. Patient has received 2 units of packed red blood cells overnight for postoperative anemia, he did receive 5 units of platelets Intra-Op, this morning his blood work has been reviewed, showed white blood cell count of 9.8, hemoglobin of 7.6, platelet count is 132, serum sodium is 136, potassium is 6.0, repeat potassium was 5.7, BUN is 35, creatinine is 7.28. Today's chest x-ray showed interval extubation, and developing or worsening right greater than left bibasilar acute infiltrate and/or atelectasis with probable small to tiny bilateral pleural effusions. Patient has a 2 mediastinal chest tubes, right and left pleural chest tubes in place, and there is still some increased drainage from the right pleural chest tube, there has been on a total of 900 mL of drainage in the right chest tube in the last 24 hours, 430 out of the mediastinal, and left chest tube is 330 mL of sanguinous output. Patient is anuria, he is on maintenance hemodialysis on an outpatient basis, nephrology has been consulted, and anticipate hemodialysis treatment today. Otherwise he is in no acute distress, he is awake and alert, he is following command, lung sounds are clear, diminished at the bases, his incentive spirometry effort is about 500 mL. On 08/30/2018 patient seen in follow-up in the intensive care unit. He is awake and alert, oriented 3, he sitting up in the recliner, currently on 2 L of oxygen, with pulse ox of 99%, he is afebrile, hemodynamically patient is stable, blood pressure is 98/48, with a PA pressure of 37/12, CVP of 8, cardiac output and index of 6.3 and 3.6 respectively. IV lactated Ringer's a rate of 50 ML per hour, vasopressin at 0.01 units per minute, insulin drip is on hold, and he will has been on hold for close to 24 hours. His incentive spirometry effort is about 500 mL, he does have a effective cough, at times she is able to bring up some yellowish colored sputum. Denies any difficulty breathing, his pain is reasonably controlled, lung sounds are clear, sinus rhythm on the monitor with a rate of 79 BPM. he had hemodialysis yesterday, nephrology is following. Today's chest x-ray has been reviewed with Dr. Berger, and shows persistent right basilar opacity suggesting atelectasis or consolidation. His labs have been reviewed, and showed elevated blood cell count of 7.3, hemoglobin of 6.7, serum sodium is 131, potassium is 5.1, chloride is 97, B1 is 31, creatinine is 5.36. Patient still has mediastinal, left and right pleural chest tubes in place, and mediastinal chest tube had 320 mL, left pleural chest tube 20 mL and right lateral 672 mL of serosanguineous output in the last 24 hours. On 09/02/2018 patient is seen in follow-up on selective care unit. He sitting up in the recliner, in no acute distress, currently just on 1 L per nasal cannula, socks is 90%, afebrile, hemodynamically stable, lung sounds are clear, no complaints of pain, shortness of breath. All chest tubes Have been discontinued, wires discontinued, patient is working in his incentive spirometer. Achieving 1000 ML on his INRs. He is tolerating ambulation, he had his first postoperative shower. He is scheduled for his hemodialysis on Monday. Today's labs have been reviewed, showed a white blood cell count of 6.5, hemoglobin is 7.0, sodium of 134, distress electrodes were within normal limits, B1 is 46 creatinine is 6.20, nephrology is following, today's chest x-ray has been reviewed with Dr. Canas. And shows bibasilar airspace disease likely related to atelectasis, and small bilateral pleural effusions. Patient needs a quite aggressive pulmonary toileting, and possibly chest physiotherapy On 09/03/2018 patient seen in follow-up on selective care unit, he is awake and alert, he is 7 a hemodialysis treatment done, he is on room air socks of 94%, hemodynamically stable, afebrile, all chest tubes and wires have been removed, lung sounds are clear, diminished at the bases, patient is working on his incentive spotted, achieving 7 52,000 ML today. No specific complaints, doing very well, today's chest x-ray has been reviewed, and shows right lower lobe opacification, and fluid within the minor fissure and atelectasis, small left and minimal right pleural effusions and plate atelectasis at the left mid lung. Clinically stable, this is postoperative day 6 status post four-vessel bypass grafting, he is doing well, on today's labs have been reviewed, showed a white blood cell count is 7.0, hemoglobin is 7.0, serum sodium was 134, the rest of electrolytes were within normal limits, BUN is 58 creatinine 7.84. Patient is being discharged home today following his hemodialysis treatment, will need follow-up in the outpatient setting with Dr. Canas in 7-10 days. Objective - Vital Signs Vital signs: Vital Signs Temp 98.4 F 09/03/18 10:45 Pulse 82 09/03/18 10:45 Resp 18 09/03/18 12:00 BP 129/86 09/03/18 10:45 Pulse Ox 94 L 09/03/18 10:45 Intake & Output 09/02/18 09/03/18 09/03/18 18:59 06:59 18:59 Intake Total 1390 250 602 Output Total 50 Balance 1390 200 602 Weight 65.7 kg Intake: IV 10 20 Invasive Line 5 10 20 Oral 770 240 582 Blood Product 620 Rc As-3 Unit 310 [id number] Rc Pheresis As-3 Unit 310 [id number] Output: Urine 50 Other: Voiding Method Indwelling Catheter # Voids 2 1 # Bowel Movements 1 ABP, PAP, CO, CI - Last Documented Arterial Blood Pressure 101/50 Pulmonary Artery Pressure 34/11 Cardiac Output 6.3 Cardiac Index 3.6 - Exam GENERAL EXAM: 68-year-old white male awake and alert In the recliner, on room air comfortable in no apparent distress. HEAD: Normocephalic/atraumatic. EYES: Normal reaction of pupils, equal size. Conjunctiva pink, sclera white. NOSE: Clear with pink turbinates. THROAT: No erythema or exudates. NECK: No masses, no JVD, no thyroid enlargement, no adenopathy. CHEST: No chest wall deformity. Symmetrical expansion. Mr. incisions clean dry and intact, interval removal of the chest tubes and AV wires LUNGS: Equal air entry with no crackles, wheeze, rhonchi or dullness. CVS: Regular rate and rhythm, normal S1 and S2, no gallops, no murmurs, no rubs ABDOMEN: Soft, nontender. No hepatosplenomegaly, normal bowel sounds, no guarding or rigidity. EXTREMITIES: No clubbing, no edema, no cyanosis, 2+ pulses and upper and lower extremities. MUSCULOSKELETAL: Muscle strength and tone normal. SPINE: No scoliosis or deformity SKIN: No rashes CENTRAL NERVOUS SYSTEM: Awake alert, oriented 3, No focal deficits, tone is normal in all 4 extremities. - Labs CBC & Chem 7: 09/03/18 05:51 09/03/18 05:51 Labs: Abnormal Lab Results - Last 24 Hours (Table) 09/03/18 09/03/18 Range/Units 05:51 05:51 RBC 2.20 L (4.30-5.90) m/uL Hgb 7.0 L (13.0-17.5) gm/dL Hct 21.0 L (39.0-53.0) % RDW 18.3 H (11.5-15.5) % Plt Count 111 L (150-450) k/uL Sodium 134 L (137-145) mmol/L BUN 58 H (9-20) mg/dL Creatinine 7.84 H* (0.66-1.25) mg/dL Calcium 7.7 L (8.4-10.2) mg/dL ALT 13 L (21-72) U/L Total Protein 4.4 L (6.3-8.2) g/dL Albumin 2.4 L (3.5-5.0) g/dL Assessment and Plan Plan: Assessment: #1. Severe triple-vessel coronary artery disease, status post four-vessel coronary artery bypass grafting, with LAROSE to LAD, SVG to the OM1, and PDA and RCA, postop day 6 #2. Postop blood loss anemia, expected outcome of myocardial revascularization surgery, requiring transfusion with 2 units of packed red blood cells, and 5 units of platelets #3. Routine ventilator management, he was successfully extubated on postop day 0, within 5 hours of OR exit time, at 2030 p.m. #4. End-stage renal disease on hemodialysis on Monday schedule #5. Ischemic cardiomyopathy with an EF of 30-35%, severe pulmonary hypertension with RSVP of 69 mmHg, moderate mitral and tricuspid regurgitation #6. Chronic congestive heart failure with systolic dysfunction #7. Recent history of a pulmonary embolism in April 2018 on Eliquis #8. Hypothyroidism #9. Hypertention #10. Hyperlipidemia #11. Former smoker, carries a 40+-pack-year smoking history #12. Family history of premature heart disease #13. Atelectasis and small pleural effusions seen on a chest x-ray Plan: Patient is doing well, stable, maintaining good oxygenation on room air, no complaints of shortness of breath, today's chest x-ray has been reviewed, shows small bilateral pleural effusions, atelectasis. Patient is completing hemodialysis treatment today, and following hemodialysis will be discharged home, will need outpatient follow-up with Dr. Canas in the 7-10 days. I performed a history & physical examination of the patient and discussed their management with my nurse practitioner, Rosi Blum. I reviewed the nurse practitioner's note and agree with the documented findings and plan of care. Lung sounds are positive for clear breaths sounds. The findings and the impression was discussed with the patient. I attest to the documentation by the nurse practitioner. Time with Patient: Less than 30
[2018-09-03 16:49] VITALS: BP 146/92; PULSE 68; TEMP 98
[2018-09-03] MEDS ORDERED: hydrALAZINE HCL 25 MG TAB PO SCH (21:00)
--- NOTE | 2018-09-04 06:24 | P.DS ---
Providers Date of admission: 08/28/18 05:28 Expected date of discharge: 09/03/18 Attending physician: Ryley Lopez Consults: 08/28/18 14:12 Consult Physician Routine Consulting Provider: Benja Canas Consult Reason/Comments: Statement Services Representative Consult: post cardiac surgery Do you want consulting provider notified?: Yes Consult Physician Routine Consulting Provider: Padilla Perera Consult Reason/Comments: Medical Management Do you want consulting provider notified?: Yes Consult Physician Routine Consulting Provider: Tom Parrish Consult Reason/Comments: Patient Safety Manager Consult: post cardiac surgery Do you want consulting provider notified?: Yes Consult Physician Routine Consulting Provider: Autumn Pop Consult Reason/Comments: Hemodialysis management Do you want consulting provider notified?: Yes Primary care physician: Padilla Perera [facility] Course: FINAL DIAGNOSIS: 1. Severe triple-vessel coronary artery disease with totally occluded left anterior descending artery 2. Moderate left ventricular dysfunction 3. Hypertension 4. Paroxysmal atrial fibrillation 5. Hyperlipidemia 6. End-stage renal disease on hemodialysis Mondays, Monday, Monday 7. Previous tobacco dependence 8. COPD with preoperative FEV1 89% of predicted 9. Recent history of questionable pulmonary embolism on chronic Eliquis for anticoagulation 10. Hypothyroid 11. Significant family history of coronary artery disease 12. Postoperative acute blood loss anemia, status post transfusion PRINCIPAL PROCEDURE: 1. Quadruple coronary artery bypass grafting using the left internal mammary artery to the left anterior descending coronary artery, reverse greater saphenous vein graft from the aorta to the first diagonal coronary artery, reverse greater saphenous vein graft from the aorta to the obtuse marginal coronary artery, reverse greater saphenous vein graft from the aorta to the right coronary artery 2. Bilateral pulmonary vein isolation using radiofrequency bipolar clamp 3. Exclusion of the left atrial appendage with 35 mm AtriClip 4. Right-sided endoscopic greater saphenous vein harvesting from the groin to above the knee level 5. Intraoperative transesophageal echocardiogram 6. Epi-aortic scanning 7. Graft flow measurements using the [employer] system HISTORY OF PRESENT ILLNESS: This is a 68-year-old gentleman who recently began following with Dr. Padilla Perera on an outpatient basis. Back in April he was told at an office appointment with his primary care physician that his blood pressure was very high and he should report to the emergency room. He was admitted to [facility] and was treated for hypertension. While there he was diagnosed with end-stage renal disease and hemodialysis was initiated. While admitted he was followed by cardiology, a transthoracic echocardiogram was completed demonstrating normal LV size with global hypokinesis of the left ventricle, decreased LV systolic function with EF 30- 35%, and signs of congestive heart failure diagnosed as NYHA class III, AHA stage C by Dr. Parrish. He remained admitted at [facility] for approximately 1 week and was discharged home on multiple new medications. He did remain compliant with follow-up and saw Dr. Parrish in the office, a stress test was completed demonstrating possible prior myocardial infarction raising the question of ischemic cardiomyopathy. He was recommended to undergo heart catheterization as an outpatient which demonstrated left main stenosis 40%, RCA stenosis 99%, circumflex stenosis 80%, mid LAD stenosis 100%, and diagonal branch 90% stenosis. He denied any symptomatology at that time. Consultation was placed for Dr. Lopez from cardiothoracic surgery. He was recommended to undergo coronary artery bypass graft surgery. The usual perioperative course was discussed in detail with the patient and his family, all risks and benefits were explained, all questions were answered, and consent was obtained to proceed with surgery, however the patient wished to wait to investigate insurance options for coverage. The patient was discharged to home on maximal medical therapy to return as an outpatient for surgery. HOSPITAL COURSE: The patient was brought to the hospital on 08/28/2018, taken to the preoperative area, prepared in the usual fashion, and subsequently taken to the operating room where Dr. Lopez performed quadruple coronary artery bypass grafting using the left internal mammary artery to the left anterior descending coronary artery, reverse greater saphenous vein graft from the aorta to the first diagonal coronary artery, reverse greater saphenous vein graft from the aorta to the obtuse marginal coronary artery, reverse greater saphenous vein graft from the aorta to the right coronary artery, bilateral pulmonary vein isolation using radiofrequency bipolar clamp, exclusion of the left atrial appendage with 35 mm AtriClip, right-sided endoscopic greater saphenous vein harvesting from the groin to above the knee level, intraoperative transesophageal echocardiogram, epi-aortic scanning, and graft flow measurements using the [employer] system. Upon completion of surgery the patient was transferred to the cardiovascular intensive care unit where he was recovered, monitored hemodynamically, and where he progressed to cardiac rehabilitation phase 1. He was extubated, all lines, tubes, and drips were discontinued when appropriate, and he was transferred to [facility] cardiac stepdown unit for further monitoring and rehabilitation. He did experience acute blood loss anemia requiring transfusion. His oxygen was titrated down, he continued to work with physical and occupational therapy, he was tolerating oral diet, his pain was controlled, and he was ready to be discharged to home with [facility] care on postoperative day #6. He received written and verbal instruction regarding his medications, activity restrictions, signs and symptoms requiring physician noti fication, and follow-up appointments. COMPLICATIONS: The patient experienced postoperative acute blood loss anemia which was treated accordingly. Patient Condition at Discharge: Stable Plan - Discharge Summary Discharge Rx Participant: No New Discharge Prescriptions: New hydrALAZINE HCL [Apresoline] 25 mg PO BID #60 tab Aspirin 325 mg PO DAILY #30 tab Metoprolol Tartrate [Lopressor] 25 mg PO BID #60 tab guaiFENesin [Mucinex] 1,200 mg PO Q12HR #14 tablet.er Clopidogrel [Plavix] 75 mg PO HS #30 tab Pantoprazole [Protonix] 40 mg PO AC-BRKFST #30 tablet.dr Geller-Docusate Sodium [Senokot-S] 2 each PO HS PRN tab PRN Reason: Constipation Acetaminophen Tab [Tylenol Tab] 1,000 mg PO Q6HR PRN #120 tablet PRN Reason: Pain Continue Levothyroxine Sodium [Synthroid] 50 mcg PO DAILY Dara-Yandy (Supplement) 1 tab PO DAILY Changed Pravastatin Sodium [Pravachol] 40 mg PO DAILY #60 tab Discontinued Metoprolol Tartrate [Lopressor] 12.5 mg PO BID hydrALAZINE HCL [Apresoline] 50 mg PO BID Isosorbide Mononitrate ER [Imdur] 60 mg PO DAILY Apixaban [Eliquis] 2.5 mg PO BID #60 tab Nitroglycerin Sl Tabs [Nitrostat] 0.4 mg SUBLINGUAL Q5M PRN #25 tab PRN Reason: Chest Pain Mupirocin 2% Oint [Bactroban 2% Oint] 1 applic NASAL BID Discharge Medication List Levothyroxine Sodium [Synthroid] 50 mcg PO DAILY 07/03/18 [History] Dara-Yandy (Supplement) 1 tab PO DAILY 07/03/18 [History] Acetaminophen Tab [Tylenol Tab] 1,000 mg PO Q6HR PRN #120 tablet 09/03/18 [Rx] Aspirin 325 mg PO DAILY #30 tab 09/03/18 [Rx] Clopidogrel [Plavix] 75 mg PO HS #30 tab 09/03/18 [Rx] Metoprolol Tartrate [Lopressor] 25 mg PO BID #60 tab 09/03/18 [Rx] Pantoprazole [Protonix] 40 mg PO AC-BRKFST #30 tablet.dr 09/03/18 [Rx] Pravastatin Sodium [Pravachol] 40 mg PO DAILY #60 tab 09/03/18 [Rx] Sennosides-Docusate Sodium [Senokot-S] 2 each PO HS PRN tab 09/03/18 [Rx] guaiFENesin [Mucinex] 1,200 mg PO Q12HR #14 tablet.er 09/03/18 [Rx] hydrALAZINE HCL [Apresoline] 25 mg PO BID #60 tab 09/03/18 [Rx] Follow up Appointment(s)/Referral(s): Lily Farnsworth NPC [Nurse Practitioner] - 09/07/18 11:15 am Autumn Pop MD [STAFF PHYSICIAN] - As Needed (per needs based on dialysis) Ryley Lopez MD [STAFF PHYSICIAN] - 10/12/18 10:45 am Padilla Perera MD [Primary Care Provider] - 09/20/18 10:15 am Benja Canas DO [Doctor of Osteopathic Medicine] - 09/14/18 1:30 pm [facility], [NON-STAFF] - 1-2 Days Tom Parrish MD [STAFF PHYSICIAN] - 09/18/18 3:30 pm Ambulatory/Diagnostic Orders: Complete Blood Count w/diff [LAB.AMB] Time Frame: 3 Days, Location: None Selected Comprehensive Metabolic Panel [LAB.AMB] Time Frame: 3 Days, Location: None Selected Patient Instructions/Handouts: Sternal Precautions (GEN), CABG (Coronary Artery Bypass Graft) (DC) Activity/Diet/Wound Care/Special Instructions: DISCHARGE INSTRUCTIONS: 1. No driving for 4 weeks, or until physician gives their ok. 2. The patient should sleep in their own bed, no medical bed needed. 3. Stairs are not an issue. If the bedroom is upstairs, it is advised that the patient go up at night and down in the morning for the first week. Go slowly, using handrail and take 1 step at a time. 4. NATALIE hose are to be worn for 30 days or until physician discontinues. 5. Heart hugger is to be worn 100% of the time until physician discontinues.(except when showering) 6. No lifting, pushing, or pulling more than 10 pounds for 12 weeks. The physician will advise of any restriction changes. 7. The patient is expected to continue the prescribed walking program. 8. Continue pain control per as needed orders. 9. Continue with incentive spirometry and splinting/heart hugger until otherwise directed by the physician. 10. Must shower daily using liquid antibacterial soap and a separate white washcloth for each individual incision. 11. Routine sternal incision care. No powders, lotions, ointments on incisions. 12. Please call surgeon/POWER MANAGER for temp greater than 101 F or purulent drainage from incisions. 13. All prescriptions given by surgeon for 30 days. Refills need to be filled through hygiene assistant/primary care physician. 14. A Red armband has been placed on the patient. It should be worn for 30 days post surgery and will be removed by the cardiac surgeons. If an ER visit is necessary, please make sure the number on the Red armband is called. HOME HEALTH SERVICES TO PROVIDE: RN SKILLED HOME CARE SERVICES FOR POST-OP SURGICAL PATIENTS WITH THE FOLLOWING: Coronary Artery Bypass Surgery (CABG), Mitral Valve Replacement/Repair ( MVR), Aortic Valve Replacement/Repair (AVR) RN TO CONTINUE EDUCATION FROM ``ROAD TO A HEALTH HEART PATIENT EDUCATION MANUAL (GIVEN TO PATIENT IN THE HOSPITAL) MEDICATION RECONCILIATION WITH EDUCATION NEEDED ON FIRST HOME VISIT EMPHASIZE IMPORTANCE OF WEARING BREAST SUPPORT/HEART HUGGER ENCOURAGE USE OF INCENTIVE SPIROMETER 10 X EVERY HOUR WHILE AWAKE ENCOURAGE UTILIZATION OF LOWER EXTREMITY COMPRESSION STOCKINGS/NATALIE HOSE and ELEVATE LEGS ABOVE LEVEL OF HEART WHILE AT REST. ENCOURAGE AMBULATION 3-5x/day INCREASING TOLERATES, WHILE AVOID EXTREMES IN TEMPERATURE FREQUENCY: RN TO OPEN THE PATIENT WITHIN 24 HOURS OF DISCHARGE FROM THE HOSPITAL WITH TELEHEALTH INSTALLED AT [facility], RN TO VISIT 2-3 X A WEEK FOR 4 WEEKS ESTABLISHED BY PATIENT NEEDS. LABORATORY: CBC, CMP TO BE DRAWN ON THE THIRD DAY HOME, (RAN STAT) FAX RESULTS TO [phone]. TELEHEALTH PARAMETERS: WEIGHT: NOTIFY MD OF WEIGHT GAIN OF 2 LBS IN 24 HOURS OR 5 LBS IN ONE WEEK HR: NOTIFY MD OF HR <55 BPM OR HR>100 BPM BP: NOTIFY MD IF BP <90/55 OR BP>140/100 O2 SAT: NOTIFY MD IF PO2<93% ON ROOM AIR SEND TELEHEALTH REPORT TO CLOTHING EXAMINER AND CARDIOVASCULAR SURGEON THE FIRST WEEK OF CARE AND THEN BI-WEEKLY. PLEASE ADDITIONALLY COMMUNICATE ANY ABNORMALS AND NEW FINDINGS TO THE SURGEONS OFFICE. Discharge Disposition: HOME WITH HOME HEALTH SERVICES
== END 2018-09-03 17:30 | disposition home health service (06) | DRG 235 ==
LOC: 2ORMAIN 08-28 05:28 → EDSTATUS 08-28 08:00 → 2SICU 08-28 15:43 → 3SCARD 09-01 00:30
PROVIDERS: ADMIT Surgery; ATTEND Surgery
PROC: 5A1221Z Performance of Cardiac Output, Continuous (ICD-10-PCS; 2018-08-28)
PROC: 02L70CK Occlusion of Left Atrial Appendage with Extraluminal Device, Open Approach (ICD-10-PCS; 2018-08-28)
PROC: B24BZZ4 Ultrasonography of Heart with Aorta, Transesophageal (ICD-10-PCS; 2018-08-28)
PROC: 30243R1 Transfusion of Nonautologous Platelets into Central Vein, Percutaneous Approach (ICD-10-PCS; 2018-08-28)
PROC: 021209W Bypass Coronary Artery, Three Arteries from Aorta with Autologous Venous Tissue, Open Approach (ICD-10-PCS; principal; 2018-08-28 08:00)
PROC: 02100Z9 Bypass Coronary Artery, One Artery from Left Internal Mammary, Open Approach (ICD-10-PCS; 2018-08-28 08:00)
PROC: 06BP4ZZ Excision of Right Saphenous Vein, Percutaneous Endoscopic Approach (ICD-10-PCS; 2018-08-28 08:00)
PROC: 30243N1 Transfusion of Nonautologous Red Blood Cells into Central Vein, Percutaneous Approach (ICD-10-PCS; 2018-08-29)
PROC: 5A1D70Z Performance of Urinary Filtration, Intermittent, Less than 6 Hours Per Day (ICD-10-PCS; 2018-08-29)
DX: I25.10 Atherosclerotic heart disease of native coronary artery without angina pectoris (principal); N18.6 End stage renal disease; D62 Acute posthemorrhagic anemia; E87.1 Hypo-osmolality and hyponatremia; I13.2 Hypertensive heart and chronic kidney disease with heart failure and with stage 5 chronic kidney disease, or end stage renal disease; I50.22 Chronic systolic (congestive) heart failure; J98.11 Atelectasis; D63.8 Anemia in other chronic diseases classified elsewhere; E03.9 Hypothyroidism, unspecified; E11.22 Type 2 diabetes mellitus with diabetic chronic kidney disease; E78.5 Hyperlipidemia, unspecified; E87.5 Hyperkalemia; I08.1 Rheumatic disorders of both mitral and tricuspid valves; I25.2 Old myocardial infarction; I25.5 Ischemic cardiomyopathy; I25.82 Chronic total occlusion of coronary artery; I27.20 Pulmonary hypertension, unspecified; I48.0 Paroxysmal atrial fibrillation; J44.9 Chronic obstructive pulmonary disease, unspecified; K59.00 Constipation, unspecified; E83.89 Other disorders of mineral metabolism; Z79.01 Long term (current) use of anticoagulants; Z79.890 Hormone replacement therapy; Z79.899 Other long term (current) drug therapy; Z99.2 Dependence on renal dialysis; Z86.711 Personal history of pulmonary embolism; Z87.891 Personal history of nicotine dependence; Z88.8 Allergy status to other drugs, medicaments and biological substances; Z82.49 Family history of ischemic heart disease and other diseases of the circulatory system
CPT/HCPCS: 71045; 71046; 80048; 80053; 82330; 82565; 82805; 83735; 84132; 84520; 85025; 85027; 85384; 85520; 85610; 85730; 86850; 86891; 86900; 86901; 86920; 90935; 94002; 94640; 94667; 94668; 94760

== ENCOUNTER → 2018-12-11 | Day surgery (SDC) | payer MEDICARE, BC ==
[2018-12-05 13:42] VITALS: BMI 21.2
[~2018-12-11] MED LIST changes: -ALPRAZolam 0.25 MG TAB PO PRN; -ALPRAZolam 0.5 MG TAB PO PRN; -ASPIRIN 325 MG TAB PO STA; -ATORVASTATIN 80 MG TAB PO STA; +DEXAMETHASONE SOD PHOSPHATE 10 MG/ML 1 ML VIAL IV ONE; +HEPARIN SODIUM IRRIGATION ONE; +HEPARIN SODIUM,PORCINE 5,000 UNIT/ML 1 ML VIAL ONE; +HYDROmorphone 0.5 MG/0.5 ML SYRINGE IVP PRN; +KETAMINE 10 MG/ML 20 ML VIAL ONE; +LACTATED RINGERS 1,000 ML IV SCH; +LIDOCAINE 1% 20 ML VIAL (10MG/ML) FOR IV START INTRADERMA ONE; +LIDOCAINE 1% INJ 10MG/ML (20 ML MDV) IV ONE; +LIDOCAINE 2% INJ 20 MG/ML (20 ML MDV) ONE; +MIDAZOLAM 2 MG/2 ML VIAL IV PRN; +MIDAZOLAM 2 MG/2 ML VIAL ONE; -NITROGLYCERIN SL TABS 0.4 MG TAB SUBLINGUAL PRN; +ONDANSETRON 4 MG/2 ML VIAL IVP ONE; +PROPOFOL 10 MG/ML 20 ML VIAL IV ONE; +ROPIVACAINE 5 MG/ML 30 ML VIAL ONE; +SODIUM CHLORIDE 0.9% 1,000 ML IV ONE; -SODIUM CHLORIDE 0.9% 1,000 ML in EMPTY BAG 1 BAG IV ONE; +SODIUM CHLORIDE 0.9% IRRIGATION ONE; +ceFAZolin 2 GM, BACITRACIN 100,000 UNIT in SODIUM CHLORIDE 0.9% 500 ML 500 ML IRRIGATION ONE; +fentaNYL (PF) 50 MCG/ML 2 ML AMP ONE
[2018-12-11 06:52] LABS: Anisocytosis Slight; HGB 13.6 gm/dL (13.0-17.5); MCH 32.6 pg (25.0-35.0); MCHC 32.3 g/dL (31.0-37.0); MCV 100.8 fL (80.0-100.0); Macrocytosis Slight; Mean Platelet Volume 7.4; Platelet Count 196 k/uL (150-450); RBC 4.17 m/uL (4.30-5.90); WBC 6.8 k/uL (3.8-10.6)
--- NOTE | 2018-12-11 07:03 | P.GSHP ---
History of Present Illness H&P Date: 12/11/18 Chief Complaint: ESRD 68 year old gentleman with recent history of acute renal failure who was treated with hemodialysis via a right sided tunneled catheter presents to the hospital for creation of a left upper extremity fistula. He underwent vein mapping which demonstrated cephalic vein measuring 3.5 mm at the forearm and wrist and 6.5 mm at the upper arm. We will create a Duong fistula in the operating room today. - Review of Systems All systems: negative (what is mentioned in HPI past medical history) Past Medical History Past Medical History: Coronary Artery Disease (CAD), Dialysis, Hyperlipidemia, Hypertension, Renal Disease, Thyroid Disorder Additional Past Medical History / Comment(s): HEMODIALYSIS MON-MON-MON AT [facility] # [phone]. , kidney failure History of Any Multi-Drug Resistant Organisms: None Reported Past Surgical History: Coronary Bypass/CABG, Heart Catheterization Additional Past Surgical History / Comment(s): HEMODIALYSIS CATHETER RIGHT CHEST. quad. bypass August 2018, Past Anesthesia/Blood Transfusion Reactions: No Reported Reaction Smoking Status: Former smoker - Past Family History Mother Family Medical History: Coronary Artery Disease (CAD) Additional Family Medical History / Comment(s): Multiple family members on his mother's side with coronary artery disease Medications and Allergies Home Medications Medication Instructions Recorded Confirmed Type Levothyroxine Sodium [Synthroid] 50 mcg PO DAILY 07/03/18 12/11/18 History Dara-Yandy (Supplement) 1 tab PO DAILY 07/03/18 12/11/18 History Aspirin 325 mg PO DAILY #30 tab 09/03/18 12/11/18 Rx Clopidogrel [Plavix] 75 mg PO HS #30 tab 09/03/18 12/11/18 Rx Metoprolol Tartrate [Lopressor] 25 mg PO BID #60 tab 09/03/18 12/11/18 Rx Pravastatin Sodium [Pravachol] 20 mg PO BID 12/05/18 12/11/18 History hydrALAZINE HCL [Apresoline] 25 mg PO TID 12/05/18 12/11/18 History Allergies Allergy/AdvReac Type Severity Reaction Status Date / Time atorvastatin [From Lipitor] AdvReac muscle Verified 12/11/18 06:20 spasms Surgical - Exam Palpable radial pulse bilaterally. - General well developed, well nourished, no distress - Eyes PERRL, normal ocular movement - ENT normal mucosa - Neck no masses, no bruits - Respiratory normal expansion, clear to auscultation - Cardiovascular Rhythm: regular - Abdomen Abdomen: no distended - Integumentary no rash, no growths - Neurologic normal coordination - Psychiatric oriented to time, oriented to person, oriented to place Results - Labs 12/11/18 06:43 Abnormal Lab Results - Last 24 Hours (Table) 12/11/18 Range/Units 06:43 RBC 4.17 L (4.30-5.90) m/uL MCV 100.8 H (80.0-100.0) fL RDW 17.0 H (11.5-15.5) % Assessment and Plan Assessment: 1. End-stage renal disease on hemodialysis Plan: To the OR today for creation of left upper extremity Duong fistula.
[2018-12-11 07:12] LABS: Potassium 4.3 mmol/L (3.5-5.1)
[2018-12-11 07:22] VITALS: TEMP 97.6
--- NOTE | 2018-12-11 07:56 | P.ANPRN ---
Procedure Note - Anesthesia - Nerve Block Performed Left Infraclavicular Single Time Out Performed: Yes Date of Procedure: 12/11/18 Procedure Start Time: 07:00 Procedure Stop Time: 07:05 Location of Patient Procedure: PreOp Indication: Acute Post-Operative Pain, Dx/Pain Location (Left arm pain), Requested by Surgeon Sedation Type: Sedate with meaningful contact maintained Preparation: Sterile Prep Position: Supine Catheter: None Needle Types: Pajunk Needle Gauge: 21 Ultrasound used to visualize needle placement: Yes Ultrasound used to observe medication spread: Yes Injectate: Other (see comment) (10ml 0.5% Ropivacaine + 10ml 2% Lidocaine) Adjunct: Epinephrine (see comment for dilution ratio) (1:200,000) Blood Aspirated: No Pain Paresthesia on Injection Noted: No Resistance on Injection: Normal Image Stored and Saved: Yes Events: Uneventful and Well Tolerated
[2018-12-11 08:51] VITALS: RESP 16
--- NOTE | 2018-12-11 09:30 | P.OP ---
Description of Procedure: Preoperative diagnosis: End-stage renal disease on hemodialysis Postoperative diagnosis: Same Procedure: Left upper extremity radiocephalic Duong fistula Surgeon: Ginny Anesthesia: Regional block with sedation Estimated blood loss: 5 mL Complications: None Condition: Stable Disposition: Audible bruit within the cephalic vein Indication: 68-year-old gentleman with history of coronary artery disease status post coronary artery bypass grafting 3 months prior. At that time he developed acute renal failure which has progressed to chronic renal failure and end-stage renal disease. He has a tunneled hemodialysis catheter in the right chest which he has been using for hemodialysis. He underwent vein mapping which demonstrated good size cephalic vein extending to the wrist which measured 3 mm at the wrist up to 6 mm at the elbow. Because of this he presents today for creation of left upper extremity Duong fistula. Operative narrative: After written informed consent was obtained the patient all risks benefits and competitions were described the patient is brought to the operative suite and laid in a supine position with his left arm outstretched on an armboard. The area of the left arm was prepped and draped in usual sterile fashion after appropriate anesthetic was performed per the anesthesiologist. Timeout was performed in normal fashion antibiotics were administered prior to incision. A vertical incision was then created just lateral to the radial artery proximal to the wrist with a 10 blade scalpel. Dissection was then carried down to the radial artery with electrocautery and Metzenbaum scissors. The radial artery was dissected free in a circumferential manner and controlled with vessel loops at the proximal and distal aspect. Attention was then placed to the cephalic vein which was dissected free with Metzenbaum scissors in a circumferential manner. The distal aspect was then suture ligated with 4-0 silk suture. Patient was administered 2000 units of heparin and the artery was then controlled with vascular clamps at the proximal and distal aspects. Serial dilation was then performed at the cephalic vein up to 3 mm. The vein was then spatulated and brought over to the radial artery. Arteriotomy was then created with 11 blade scalpel and extended with Pott Hurley scissors. An end-to-side anastomosis was then created with 7-0 Prolene suture in a running fashion. Prior last sutures being in placed control was released from the vein revealing good backbleeding as well as the proximal artery revealing a good pulsatile blood flow into the vein. All control was then released and the suture was secured. There is a good palpable thrill at the anastomosis with good Doppler signal of a bruit distal to the anastomotic area in the cephalic vein. Patient still had good palpable radial pulse distal to the anastomosis. The area was copiously irrigated with antibiotic solution. The incision was then closed in a multilayer fashion the skin was cleansed and dressed with glue. Patient tolerated procedure well and was sent to PACU for recovery.
[2018-12-11 09:32] VITALS: BP 138/84; PULSE 57
== END | disposition home or self-care (01) ==
LOC: OR 05:51
PROVIDERS: ATTEND Surgery
DX: I13.2 Hypertensive heart and chronic kidney disease with heart failure and with stage 5 chronic kidney disease, or end stage renal disease (principal); N18.6 End stage renal disease; N17.9 Acute kidney failure, unspecified; I50.20 Unspecified systolic (congestive) heart failure; I25.10 Atherosclerotic heart disease of native coronary artery without angina pectoris; E78.5 Hyperlipidemia, unspecified; E07.9 Disorder of thyroid, unspecified; Z79.890 Hormone replacement therapy; Z79.82 Long term (current) use of aspirin; Z79.899 Other long term (current) drug therapy; Z79.02 Long term (current) use of antithrombotics/antiplatelets; Z88.8 Allergy status to other drugs, medicaments and biological substances; Z87.891 Personal history of nicotine dependence; Z99.2 Dependence on renal dialysis; Z95.1 Presence of aortocoronary bypass graft; Z82.49 Family history of ischemic heart disease and other diseases of the circulatory system
CPT/HCPCS: 36821; 64415; 80051; 82565; 84520; 85027; J2001 ×2; J2250; J1644 ×2; J1100; J0690; J2405; J3010; J2795; J2704; 64413

== ENCOUNTER → 2020-07-21 | Outpatient (CLI) | payer MEDICARE, BC ==
--- NOTE | 2020-07-21 09:05 | CT ---
EXAMINATION TYPE: CT chest w con DATE OF EXAM: 07/21/2020 COMPARISON: None HISTORY: Lung nodule right lower lung CT DLP: 249.2 mGycm Automated exposure control for dose reduction was used. CONTRAST: CT scan of the chest is performed with IV Contrast, patient injected with 100 mL of Isovue 300. FINDINGS: LUNGS: Bilateral pleural effusions noted right greater than left with associated compressive atelecta sis. Loculated fluid collection is seen within the right minor fissure measuring 5.5 cm x 2.5 cm. Add itional loculated effusion is seen within the right upper lobe posteriorly measuring approximately 4. 6 x 2.7 cm. No evidence for pulmonary nodule or mass. MEDIASTINUM: There are no greater than 1 cm hilar or mediastinal lymph nodes. There is evidence of ca rdiomegaly without evidence for overt failure. The thoracic aorta is ectatic however nonaneurysmal. I do not UPPER ABDOMEN: No significant abnormality appreciated. OTHER: No additional significant abnormality is seen. IMPRESSION: 1. Bilateral pleural effusions with areas of loculation noted. 2. Right basilar atelectasis and/or infiltrate.
== END | disposition home or self-care (01) ==
LOC: RADCTMAIN 07-17 15:46
PROVIDERS: ATTEND Internal Medicine
DX: J90 Pleural effusion, not elsewhere classified (principal); J98.11 Atelectasis
CPT/HCPCS: 71260; Q9967

== ENCOUNTER 2022-12-26 12:33 | Emergency (ER) | payer MEDICARE, BC ==
--- NOTE | 2022-12-26 12:43 | ED ---
General Adult HPI - General Stated complaint: Possible Stroke Time Seen by Provider: 12/26/22 12:34 Source: patient, EMS, RN notes reviewed, old records reviewed Limitations: altered mental status - History of Present Illness Initial comments: 72-year-old male presenting with suspected stroke. The history is obtained from the paramedics who state that at 1200 the patient became somewhat altered and [place] d left-sided weakness. Upon paramedics arrival he was confused, hemiplegic on the left with rightward gaze. Patient is able to answer very simple questions, denies headache. Denies pain complaints. He is on hemodialysis and apparently receives hemodialysis this morning. No reported anticoagulation. - Related Data Home Medications Medication Instructions Recorded Confirmed Levothyroxine Sodium [Synthroid] 50 mcg PO DAILY 07/03/18 12/26/22 Pravastatin Sodium [Pravachol] 20 mg PO DAILY 12/05/18 12/26/22 Metoprolol Succinate (ER) [Toprol 25 mg PO DAILY 12/26/22 12/26/22 Xl] Sacubitril/Valsartan [Entresto 24 1 tab PO BID 12/26/22 12/26/22 mg-26 mg Tablet] Sildenafil [Revatio] 20 mg PO TID 12/26/22 12/26/22 hydrALAZINE HCL [Apresoline] 50 mg PO BID 12/26/22 12/26/22 Allergies Allergy/AdvReac Type Severity Reaction Status Date / Time atorvastatin [From Lipitor] AdvReac muscle Verified 12/26/22 12:47 spasms Review of Systems ROS Statement: Those systems with pertinent positive or pertinent negative responses have been documented in the HPI. ROS Other: All systems not noted in ROS Statement are negative. Past Medical History Past Medical History: Coronary Artery Disease (CAD), Dialysis, Hyperlipidemia, Hypertension, Renal Disease, Thyroid Disorder Additional Past Medical History / Comment(s): HEMODIALYSIS MON-WED-MON AT [facility] # [phone]. , kidney failure History of Any Multi-Drug Resistant Organisms: None Reported Past Surgical History: Coronary Bypass/CABG, Heart Catheterization Additional Past Surgical History / Comment(s): HEMODIALYSIS CATHETER RIGHT CHEST. quad. bypass August 2018, Past Anesthesia/Blood Transfusion Reactions: No Reported Reaction Past Psychological History: No Psychological Hx Reported Past Alcohol Use History: Occasional Additional Past Alcohol Use History / Comment(s): QUIT SMOKING-FEB 2018, SMOKED 1 PPD, SMOKED 45 YEARS. Past Drug Use History: None Reported - Past Family History Mother Family Medical History: Coronary Artery Disease (CAD) Additional Family Medical History / Comment(s): Multiple family members on his mother's side with coronary artery disease General Exam General appearance: lethargic Head exam: Present: atraumatic, normocephalic Eye exam: Present: other (Right-sided gaze) Neck exam: Present: normal inspection. Absent: tenderness, meningismus Respiratory exam: Present: normal lung sounds bilaterally. Absent: respiratory distress Cardiovascular Exam: Present: regular rate, normal rhythm GI/Abdominal exam: Present: soft. Absent: distended, tenderness Extremities exam: Present: normal inspection, normal capillary refill Neurological exam: Present: motor sensory deficit (Complete left-sided paralysis, decreased level consciousness, rightward gaze. NIH 20). Absent: alert, oriented X3 Skin exam: Present: warm, dry, intact Course Vital Signs 12/26/22 12/26/22 12/26/22 12:36 12:45 12:50 Temperature 97.4 F L Pulse Rate 69 65 Respiratory 16 18 18 Rate Blood Pressure 126/72 130/76 105/80 O2 Sat by Pulse 99 96 97 Oximetry 12/26/22 13:05 Temperature Pulse Rate 61 Respiratory 18 Rate Blood Pressure 103/70 O2 Sat by Pulse 99 Oximetry - Reevaluation(s) Reevaluation #1: 12/26/22 12:[address] reviewed, small intracranial hemorrhage on CT without contrast Reevaluation #2: 12/26/22 13:20 Is discussed with the stroke interventionalist. Dr. Belle, he is currently reviewing images and will advise. Reevaluation #3: 12/26/22 13:41 Transfer team at [facility] does request that the blood pressure be maintained above 140-160, norepinephrine is added for blood pressure support. Medical Decision Making - Medical Decision Making Was pt. sent in by a medical professional or institution (, [facility]IM[facility], C IRON WORKER, urgent care, hospital, or skilled nursing...) When possible be specific @ -No Did you speak to anyone other than the patient for history (EMS, parent, family, police, friend...)? What history was obtained from this source @ -[She obtained from the family and paramedics Did you review nursing and triage notes (agree or disagree)? Why? @ -I reviewed and agree with nursing and triage notes Were old charts reviewed (outside hosp., previous admission, EMS record, old EKG, old radiological studies, urgent care reports/EKG's, skilled nursing records)? Report findings @ -No old charts were reviewed Differential Diagnosis (chest pain, altered mental status, abdominal pain women, abdominal pain men, vaginal bleeding, weakness, fever, dyspnea, syncope, headache, dizziness, GI bleed, back pain, seizure, CVA, palpatations, mental health, musculoskeletal)? @ Differential CVA Ischemic stroke, hemorrhagic stroke, brain tumor, atypical migraine, Wernicke's encephalopathy, seizure, multiple sclerosis, meningitis, encephalitis, hypoglycemia, Guillain-Urena, electrolytes disturbance, myasthenia gravis.... This is not meant to be an all-inclusive list EKG interpreted by me (3pts min.). @ -Sinus rhythm with frequent PVC, rate 65, NJ interval 159 over QRS duration 114, QTC 472, no ST segment elevation. X-rays interpreted by me (1pt min.). @ Rotated exam, single view, no pneumothorax, no focal pneumonia CT interpreted by me (1pt min.). @ -CT brain showing MCA sign and small intraperitoneal hemorrhage U/S interpreted by me (1pt. min.). @ -None done What testing was considered but not performed or refused? (CT, X-rays, U/S, labs)? Why? @ -None What meds were considered but not given or refused? Why? @ -None Did you discuss the management of the patient with other professionals (professionals i.e. , PA, C IRON WORKER, lab, RT, psych nurse, social insurance specialist, immigration lawyer, teacher, county health officer, director of casework department)? Give summary @ Case discussed with Dr. Belle. Was smoking cessation discussed for >3mins.? @ -No Was critical care preformed (if so, how long)? @ -Yes, 35 minutes Were there social determinants of health that impacted care today? How? (Homelessness, low income, unemployed, alcoholism, drug addiction, transportation, low edu. Level, literacy, decrease access to med. care, assisted, rehab)? @ -No Was there de-escalation of care discussed even if they declined (Discuss DNR or withdrawal of care, Hospice)? DNR status @ -No What co-morbidities impacted this encounter? (DM, HTN, Smoking, COPD, CAD, Cancer, CVA, ARF, Chemo, Hep., AIDS, mental health diagnosis, sleep apnea, morbid obesity)? @ -Coronary artery disease, end-stage renal disease Was patient admitted / discharged? Hospital course, mention meds given and route, prescriptions, significant lab abnormalities, going to OR and other pertinent info. @ 72-year-old male presenting with stroke symptoms, Karyn plegic on the left with rightward gaze. Initial NIH of 20. Initial blood pressure 126 systolic. Patient is not on any anticoagulation. He was a code alteplase activation but CT without contrast shows small intraperitoneal hemorrhage. Therefore he is not a candidate for TPA. He has an MCA occlusion on CT angiogram and is a candidate for intervention. He is transferred immediately from the emergency department [facility]. This is according to through the neuro team at [facility]. Undiagnosed new problem with uncertain prognosis? @ -No Drug Therapy requiring intensive monitoring for toxicity (Heparin, Nitro, Insulin, Cardizem)? @ -No Were any procedures done? @ -No Diagnosis/symptom? @ -Acute CVA, intracranial hemorrhage Acute, or Chronic, or Acute on Chronic? @acute Uncomplicated (without systemic symptoms) or Complicated (systemic symptoms)? @ -complicated Side effects of treatment? @ -No Exacerbation, Progression, or Severe Exacerbation? @ -No Poses a threat to life or bodily function? How? (Chest pain, USA, MA, pneumonia, PE, COPD, DKA, ARF, appy, cholecystitis, CVA, Diverticulitis, Homicidal, Suicidal, threat to staff... and all critical care pts) @ -Yes, CVA - Lab Data Result diagrams: 12/26/22 12:52 12/26/22 12:52 Lab Results 12/26/22 12/26/22 12/26/22 Range/Units 12:49 12:52 12:52 WBC 4.9 (3.8-10.6) k/uL RBC 3.05 L (4.30-5.90) m/uL Hgb 10.5 L (13.0-17.5) gm/dL Hct 31.9 L (39.0-53.0) % MCV 104.5 H (80.0-100.0) fL MCH 34.3 (25.0-35.0) pg MCHC 32.8 (31.0-37.0) g/dL RDW 15.2 (11.5-15.5) % Plt Count 142 L (150-450) k/uL MPV 8.3 Neutrophils % 61 % Lymphocytes % 24 % Monocytes % 9 % Eosinophils % 3 % Basophils % 1 % Neutrophils # 2.9 (1.3-7.7) k/uL Lymphocytes # 1.2 (1.0-4.8) k/uL Monocytes # 0.5 (0-1.0) k/uL Eosinophils # 0.2 (0-0.7) k/uL Basophils # 0.0 (0-0.2) k/uL Macrocytosis Moderate PT 10.8 (9.0-12.0) sec INR 1.0 (<1.2) APTT 28.6 (22.0-30.0) sec Sodium (137-145) mmol/L Potassium (3.5-5.1) mmol/L Chloride (98-107) mmol/L Carbon Dioxide (22-30) mmol/L Anion Gap mmol/L BUN (9-20) mg/dL Creatinine (0.66-1.25) mg/dL Est GFR (CKD-EPI)AfAm (>60 ml/min/1.73 sqM) Est GFR (CKD-EPI)NonAf (>60 ml/min/1.73 sqM) Glucose (74-99) mg/dL POC Glucose (mg/dL) 113 H (70-110) mg/dL POC Glu Cellular Phone Repairer ID Stefan, Shauna Calcium (8.4-10.2) mg/dL Total Bilirubin (0.2-1.3) mg/dL AST (17-59) U/L ALT (4-49) U/L Alkaline Phosphatase (38-126) U/L Creatine Kinase (55-170) U/L Troponin I (0.000-0.034) ng/mL Total Protein (6.3-8.2) g/dL Albumin (3.5-5.0) g/dL 12/26/22 12/26/22 Range/Units 12:52 12:52 WBC (3.8-10.6) k/uL RBC (4.30-5.90) m/uL Hgb (13.0-17.5) gm/dL Hct (39.0-53.0) % MCV (80.0-100.0) fL MCH (25.0-35.0) pg MCHC (31.0-37.0) g/dL RDW (11.5-15.5) % Plt Count (150-450) k/uL MPV Neutrophils % % Lymphocytes % % Monocytes % % Eosinophils % % Basophils % % Neutrophils # (1.3-7.7) k/uL Lymphocytes # (1.0-4.8) k/uL Monocytes # (0-1.0) k/uL Eosinophils # (0-0.7) k/uL Basophils # (0-0.2) k/uL Macrocytosis PT (9.0-12.0) sec INR (<1.2) APTT (22.0-30.0) sec Sodium 135 L (137-145) mmol/L Potassium 4.4 (3.5-5.1) mmol/L Chloride 95 L (98-107) mmol/L Carbon Dioxide 31 H (22-30) mmol/L Anion Gap 9 mmol/L BUN 18 (9-20) mg/dL Creatinine 5.36 H (0.66-1.25) mg/dL Est GFR (CKD-EPI)AfAm 11 (>60 ml/min/1.73 sqM) Est GFR (CKD-EPI)NonAf 10 (>60 ml/min/1.73 sqM) Glucose 102 H (74-99) mg/dL POC Glucose (mg/dL) (70-110) mg/dL POC Glu Cellular Phone Repairer ID Calcium 8.1 L (8.4-10.2) mg/dL Total Bilirubin 0.7 (0.2-1.3) mg/dL AST 22 (17-59) U/L ALT 15 (4-49) U/L Alkaline Phosphatase 77 (38-126) U/L Creatine Kinase 51 L (55-170) U/L Troponin I <0.012 (0.000-0.034) ng/mL Total Protein 6.2 L (6.3-8.2) g/dL Albumin 3.4 L (3.5-5.0) g/dL Critical Care Time Critical Care Time: Yes Total Critical Care Time: 35 Disposition Clinical Impression: Cerebrovascular accident (CVA), Intracranial hemorrhage Disposition: OTHER INSTITUTION NOT DEFINED Condition: Serious Is patient prescribed a controlled substance at d/c from ED?: No Referrals: Padilla Perera MD [Primary Care Provider] - 1-2 days Time of Disposition: 13:30 - Out of Hospital Transfer - Req. Specs Out of Hospital Transfer - Requested Specifics: Other Emergency Center (Tr ansferred to Frederic Moya)
[2022-12-26 12:51] VITALS: RESP 18
[2022-12-26 12:51] LABS: Glucose,Whole Blood 113 mg/dL (70-110)
--- NOTE | 2022-12-26 12:58 | CT ---
EXAMINATION TYPE: CT brain wo con for TPA CT DLP: 2239.2 mGycm, Automated exposure control for dose reduction was used. DATE OF EXAM: 12/26/2022 12:47 PM COMPARISON: None. CLINICAL INDICATION:Male, 72 years old with history of Neuro deficit, acute, stroke suspected, left s rio deficit TECHNIQUE: Brain: Multiple axial CT images of the brain were obtained without IV contrast. Coronal and sagittal reformats reviewed. FINDINGS: Brain: Extra-axial spaces: No abnormal extra-axial fluid collections. Ventricular system: Within normal limits Cerebral parenchyma: Cerebral atrophy. Hyperdense right MCA sign (series 201, image 19). Hyperdense 5 mm focus within the left occipital/temporal lobe region (series 21, image 24). The cassidy-white juncti on is well differentiated. Scattered hypoattenuating areas are seen within the white matter. Cerebellum: Unremarkable. Mass effect: No evidence of midline shift. Intracranial vasculature: Atherosclerotic calcifications of the intracranial vessels. Soft tissues: Normal. Calvarium/osseous structures: No depressed skull fracture. Paranasal sinuses and mastoid air cells: The mastoid air cells are clear. Mild mucosal thickening of the ethmoid sinuses. Visualized orbits: Bilateral aphakia IMPRESSION: 1. Hyperdense right MCA sign concerning for occlusion of the right MCA. 2. Hyperdense 5 mm focus within the left occipital/temporal lobe region consistent with intraparench ymal hemorrhage. 3. Nonspecific white matter changes likely related to chronic small vessel ischemic disease. Findings discussed with Dr. Renteria at 12:53 PM on 12/26/2022.
[2022-12-26] MEDS ORDERED: SODIUM CHLORIDE 0.9% 1,000 ML IV SCH (13:00)
[2022-12-26 13:02] LABS: Basophils % (A) 1 %; Eosinophils # (A) 0.2 k/uL (0-0.7); Eosinophils % (A) 3 %; HCT 31.9 % (39.0-53.0); HGB 10.5 gm/dL (13.0-17.5); Lymphocytes # (A) 1.2 k/uL (1.0-4.8); Lymphocytes % (A) 24 %; MCH 34.3 pg (25.0-35.0); MCHC 32.8 g/dL (31.0-37.0); MCV 104.5 fL (80.0-100.0); Macrocytosis Moderate; Mean Platelet Volume 8.3; Monocytes # (A) 0.5 k/uL (0-1.0); Monocytes % (A) 9 %; Neutrophils # (A) 2.9 k/uL (1.3-7.7); Neutrophils % (A) 61 %; Platelet Count 142 k/uL (150-450); RBC 3.05 m/uL (4.30-5.90); RDW 15.2 % (11.5-15.5); WBC 4.9 k/uL (3.8-10.6)
[2022-12-26 13:12] LABS: Partial Thromboplastin Time 28.6 sec (22.0-30.0); Prothrombin Time 10.8 sec (9.0-12.0)
[2022-12-26 13:16] LABS: ALT 15 U/L (4-49); AST 22 U/L (17-59); African American GFR (CKD) 11 (>60 ml/min/1.73 sqM); Albumin 3.4 g/dL (3.5-5.0); Alkaline Phosphatase 77 U/L (38-126); Anion Gap 9 mmol/L; Blood Urea Nitrogen 18 mg/dL (9-20); Calcium 8.1 mg/dL (8.4-10.2); Carbon Dioxide 31 mmol/L (22-30); Chloride 95 mmol/L (98-107); Creatine Kinase 51 U/L (55-170); Glucose 102 mg/dL (74-99); Non-African American GFR(CKD) 10 (>60 ml/min/1.73 sqM); Potassium 4.4 mmol/L (3.5-5.1); Sodium 135 mmol/L (137-145); Total Bilirubin 0.7 mg/dL (0.2-1.3); Total Protein 6.2 g/dL (6.3-8.2)
--- NOTE | 2022-12-26 13:19 | CT ---
EXAMINATION TYPE: CT angio head neck CT DLP: 391.1 mGycm, Automated exposure control for dose reduction was used. DATE OF EXAM: 12/26/2022 1:00 PM COMPARISON: CT brain on 1122. CLINICAL INDICATION:Male, 72 years old with history of Neuro deficit, acute, stroke suspected; PHH, L eft sided neuro deficits. TECHNIQUE: Axially acquired helical CT angiogram of the head and neck was obtained with contrast util izing 65 cc of Isovue-370 administered intravenously. Axial images are supplemented with 3D reconstru ctions which were post-processed at an independent workstation. NASCET criteria used. FINDINGS: CTA HEAD: No evidence of acute mass effect, or midline shift. The ventricles, sulci, and cisterns are unremarka ble. Known 5 mm focus of intraparenchymal hemorrhage in the left occipital/temporal lobe is better ap preciated on earlier noncontrast CT. There is abrupt cut off of the M1 segment of the right MCA at its origin with the JULIANA. (series 406, i mage 30). This corresponds to a hyperdense right MCA sign a noncontrast CT brain of the same date. Th e visualized portions of the internal carotid arteries, left middle cerebral arteries, left anterior cerebral artery, and posterior cerebral arteries are patent. The remaining left anterior cerebral art emre is opacified. Paucity of enhancing vasculature within the right MCA distribution. The basilar and vertebral arteries are patent. CTA NECK: Right Carotid System: The common carotid artery and external carotid artery are patent. Mild atherosclerotic lack at the ca rotid bulb with less than 50% stenosis at the origin of the internal carotid artery. The carotid bifu rcation demonstrates no evidence of hemodynamically significant stenosis. The remaining portions of t he internal carotid artery demonstrate normal size without significant narrowing. Left Carotid System: The common carotid artery and external carotid artery are patent. Mild atherosclerotic lack at the ca rotid bulb with less than 50% stenosis at the origin of the internal carotid artery. The remaining po rtions of the internal carotid artery demonstrate normal size without significant narrowing. Vertebral arteries are patent without evidence hemodynamically significant stenosis. There is a three-vessel aortic arch. The origins of the great vessels are patent. No evidence of hemo dynamically significant stenosis. Median sternotomy wires. Centrilobular emphysematous changes. IMPRESSION: 1. Occlusion of the right MCA M1 segment at its origin with paucity of enhancing vessels within the right MCA distribution. This extends to the origin of the right anterior cerebral artery which is opa cified. 2. Less than 50% stenosis at the origin of the internal carotid arteries bilaterally secondary to ca lcified and noncalcified plaque. 3. No evidence of intracranial aneurysm. Findings discussed with Dr. Renteria at 12:53 PM on 12/26/2022.
[2022-12-26] MEDS ORDERED: NOREPINEPHRINE 4 MG in SODIUM CHLORIDE 0.9% 250 ML IV ONE (13:38)
--- NOTE | 2022-12-26 13:40 | XR ---
EXAMINATION TYPE: XR chest 1V portable DATE OF EXAM: 12/26/2022 1:31 PM COMPARISON: Chest radiographs from 09/03/2018 TECHNIQUE: XR chest 1V portable Portable AP radiograph of the chest. CLINICAL INDICATION:Male, 72 years old with history of CVA; FINDINGS: Patient is rotated which limits evaluation. Lungs/Pleura: There is no evidence of pleural effusion, focal consolidation, or pneumothorax. Linear scarring within the right lower lung. Accentuation of left lung opacities due to rotation. Pulmonary vascularity: Prominent demonstrated. Heart/mediastinum: Cardiomediastinal silhouette is enlarged and stable. Post CABG changes. Left atri al occlusion device. Musculoskeletal: No acute osseous pathology. Midline sternotomy wires are noted and stable. IMPRESSION: Cardiomegaly with prominence of the central pulmonary vasculature. No focal consolidation.
[2022-12-26] MEDS ORDERED: SODIUM CHLORIDE 0.9% 500 ML 500 ML IV ONE (13:50)
[2022-12-26 14:22] VITALS: BP 116/75; PULSE 67; TEMP 97.9
== END 2022-12-26 14:12 | disposition other institution (70) ==
LOC: EC 12:33
DX: I62.9 Nontraumatic intracranial hemorrhage, unspecified (principal); I25.10 Atherosclerotic heart disease of native coronary artery without angina pectoris; I12.0 Hypertensive chronic kidney disease with stage 5 chronic kidney disease or end stage renal disease; N18.6 End stage renal disease; E78.5 Hyperlipidemia, unspecified; E07.9 Disorder of thyroid, unspecified; Z88.8 Allergy status to other drugs, medicaments and biological substances; Z87.891 Personal history of nicotine dependence; Z99.2 Dependence on renal dialysis; Z79.890 Hormone replacement therapy; Z79.899 Other long term (current) drug therapy
CPT/HCPCS: 36415; 93005; 80053; 82550; 84484; 85025; 85610; 85730; 71045; 70496; 70450; 70498; 99291; 96374; 96361; Q9967

== ENCOUNTER 2023-02-20 12:51 | Emergency (ER) | payer MEDICARE, BC ==
[2023-02-20 13:18] VITALS: TEMP 98.4
[2023-02-20 13:44] LABS: Basophils # (A) 0.1 k/uL (0-0.2); Basophils % (A) 1 %; Eosinophils # (A) 0.2 k/uL (0-0.7); Eosinophils % (A) 4 %; HGB 10.9 gm/dL (13.0-17.5); Lymphocytes % (A) 19 %; MCH 34.2 pg (25.0-35.0); MCHC 34.2 g/dL (31.0-37.0); MCV 100.1 fL (80.0-100.0); Macrocytosis Slight; Mean Platelet Volume 7.9; Monocytes # (A) 0.4 k/uL (0-1.0); Monocytes % (A) 7 %; Neutrophils # (A) 3.5 k/uL (1.3-7.7); Neutrophils % (A) 67 %; Platelet Count 157 k/uL (150-450); RDW 13.8 % (11.5-15.5); WBC 5.2 k/uL (3.8-10.6)
--- NOTE | 2023-02-20 13:47 | ED ---
General Adult HPI - General Chief complaint: Altered Mental Status Stated complaint: headaches/possible uti Time Seen by Provider: 02/20/23 13:10 Source: patient, RN notes reviewed, old records reviewed Mode of arrival: ambulatory Limitations: no limitations - History of Present Illness Initial comments: 72-year-old male with CVA approximately one month ago requiring thrombectomy. Patient had been seen for acute mental status changes with neural deficits on December 26. He had both ischemic and hemorrhagic stroke at that time. He was transferred to [facility] in [place] where he received intervention. He had gone to rehab and continue to receive hemodialysis for his end-stage renal disease. He's had headache after dialysis for some time which was more significant today. He has had some residual left-sided weakness with the stroke. - Related Data Home Medications Medication Instructions Recorded Confirmed Levothyroxine Sodium [Synthroid] 50 mcg PO DAILY 07/03/18 12/26/22 Pravastatin Sodium [Pravachol] 20 mg PO DAILY 12/05/18 12/26/22 Metoprolol Succinate (ER) [Toprol 25 mg PO DAILY 12/26/22 12/26/22 Xl] Sacubitril/Valsartan [Entresto 24 1 tab PO BID 12/26/22 12/26/22 mg-26 mg Tablet] Sildenafil [Revatio] 20 mg PO TID 12/26/22 12/26/22 hydrALAZINE HCL [Apresoline] 50 mg PO BID 12/26/22 12/26/22 Allergies Allergy/AdvReac Type Severity Reaction Status Date / Time atorvastatin [From Lipitor] AdvReac muscle Verified 02/20/23 13:06 spasms Review of Systems ROS Statement: Those systems with pertinent positive or pertinent negative responses have been documented in the HPI. ROS Other: All systems not noted in ROS Statement are negative. Past Medical History Past Medical History: Coronary Artery Disease (CAD), Dialysis, Hyperlipidemia, Hypertension, Renal Disease, Thyroid Disorder Additional Past Medical History / Comment(s): HEMODIALYSIS MON-WED-MON AT [facility] # [phone]. , kidney failure History of Any Multi-Drug Resistant Organisms: None Reported Past Surgical History: Coronary Bypass/CABG, Heart Catheterization Additional Past Surgical History / Comment(s): HEMODIALYSIS CATHETER RIGHT CHEST. quad. bypass August 2018, Past Anesthesia/Blood Transfusion Reactions: No Reported Reaction Past Psychological History: No Psychological Hx Reported Smoking Status: Never smoker Past Alcohol Use History: Rare Past Drug Use History: None Reported - Past Family History Mother Family Medical History: Coronary Artery Disease (CAD) Additional Family Medical History / Comment(s): Multiple family members on his mother's side with coronary artery disease General Exam Limitations: no limitations General appearance: alert, in no apparent distress Head exam: Present: atraumatic, normocephalic Eye exam: Present: normal appearance, PERRL ENT exam: Present: normal exam Neck exam: Present: normal inspection. Absent: tenderness, meningismus Respiratory exam: Present: normal lung sounds bilaterally. Absent: respiratory distress, wheezes Cardiovascular Exam: Present: regular rate, normal rhythm GI/Abdominal exam: Present: soft. Absent: distended Extremities exam: Present: normal inspection, normal capillary refill Neurological exam: Present: alert, oriented X3, CN II-XII intact, motor sensory deficit (Left arm drift NIH of 1), other (Speech is clear, no facial asymmetry) Psychiatric exam: Present: normal affect, normal mood Skin exam: Present: warm, dry, intact. Absent: cyanosis, diaphoretic Course Vital Signs 02/20/23 13:02 Temperature 98.4 F Pulse Rate 64 Respiratory 18 Rate Blood Pressure 144/86 O2 Sat by Pulse 98 Oximetry - Reevaluation(s) Reevaluation #1: 02/20/23 15:07 Patient eager for discharge. Medical Decision Making - Medical Decision Making Was pt. sent in by a medical professional or institution (, PA, GRINDER [employer]LE [employer], urgent care, hospital, or intermediate...) When possible be specific @ -No Did you speak to anyone other than the patient for history (EMS, parent, family, police, friend...)? What history was obtained from this source @ -[Patient's daughter Did you review nursing and triage notes (agree or disagree)? Why? @ -I reviewed and agree with nursing and triage notes Were old charts reviewed (outside hosp., previous admission, EMS record, old EKG, old radiological studies, urgent care reports/EKG's, intermediate records)? Report findings @ -No old charts were reviewed Differential Diagnosis (chest pain, altered mental status, abdominal pain women, abdominal pain men, vaginal bleeding, weakness, fever, dyspnea, syncope, headache, dizziness, GI bleed, back pain, seizure, CVA, palpatations, mental health, musculoskeletal)? @ -[Differential Headache: Migraine, tension, cluster, carbon monoxide, central venous thrombosis, pension karma temporal arteritis, acute closure glaucoma, intercranial hemorrhage, mastoiditis, sinusitis, head injury, this is not meant to be an all-inclusive list. EKG interpreted by me (3pts min.). @ Sinus rhythm incomplete right bundle-branch block, left anterior fascicular block no ST segment elevation, ventricular rate is 63, CO interval 152, QS duration 113, QTC 467 artifact in V3. X-rays interpreted by me (1pt min.). @ -None done CT interpreted by me (1pt min.). @ -CT showing prior CVA without intracranial hemorrhage, no new acute or subacute infarct. U/S interpreted by me (1pt. min.). @ -None done What testing was considered but not performed or refused? (CT, X-rays, U/S, labs)? Why? @ -None What meds were considered but not given or refused? Why? @ -None Did you discuss the management of the patient with other professionals (professionals i.e. , PA, GR[employer], lab, RT, psych nurse, director social service, welding machine operator helper gas, teacher, information assurance officer, telephonic case manager)? Give summary @ -No Was smoking cessation discussed for >3mins.? @ -No Was critical care preformed (if so, how long)? @ -No Were there social determinants of health that impacted care today? How? (Homelessness, low income, unemployed, alcoholism, drug addiction, transportation, low edu. Level, literacy, decrease access to med. care, senior living, rehab)? @ -No Was there de-escalation of care discussed even if they declined (Discuss DNR or withdrawal of care, Hospice)? DNR status @ -No What co-morbidities impacted this encounter? (DM, HTN, Smoking, COPD, CAD, Cancer, CVA, ARF, Chemo, Hep., AIDS, mental health diagnosis, sleep apnea, morbid obesity)? @ -End-stage renal disease, intracranial hemorrhage, ischemic stroke Was patient admitted / discharged? Hospital course, mention meds given and route, prescriptions, significant lab abnormalities, going to OR and other pertinent info. @ 72-year-old male with headache after hemodialysis recent intracranial hemorrhage and ischemic stroke requiring thrombectomy. Patient well-appearing stable vitals. He has a slight left upper extremity drift with no other focal neurologic findings. Head CT is repeated which is negative for intracranial hemorrhage, shows previous CVA without acute CVA. Labs are baseline. Undiagnosed new problem with uncertain prognosis? @ -No Drug Therapy requiring intensive monitoring for toxicity (Heparin, Nitro, Insulin, Cardizem)? @ -No Were any procedures done? @ -No Diagnosis/symptom? @ -[Headache Acute, or Chronic, or Acute on Chronic? @ -[Acute Uncomplicated (without systemic symptoms) or Complicated (systemic symptoms)? @ -default Side effects of treatment? @ -No Exacerbation, Progression, or Severe Exacerbation? @ -No Poses a threat to life or bodily function? How? (Chest pain, USA, [place], pneumonia, PE, COPD, DKA, ARF, appy, cholecystitis, CVA, Diverticulitis, Homicidal, Suicidal, threat to staff... and all critical care pts) @ -[Low risk at this time - Lab Data Result diagrams: 02/20/23 13:25 02/20/23 13:25 Lab Results 02/20/23 02/20/23 02/20/23 Range/Units 13:25 13:25 13:25 WBC 5.2 (3.8-10.6) k/uL RBC 3.20 L (4.30-5.90) m/uL Hgb 10.9 L (13.0-17.5) gm/dL Hct 32.0 L (39.0-53.0) % MCV 100.1 H (80.0-100.0) fL MCH 34.2 (25.0-35.0) pg MCHC 34.2 (31.0-37.0) g/dL RDW 13.8 (11.5-15.5) % Plt Count 157 (150-450) k/uL MPV 7.9 Neutrophils % 67 % Lymphocytes % 19 % Monocytes % 7 % Eosinophils % 4 % Basophils % 1 % Neutrophils # 3.5 (1.3-7.7) k/uL Lymphocytes # 1.0 (1.0-4.8) k/uL Monocytes # 0.4 (0-1.0) k/uL Eosinophils # 0.2 (0-0.7) k/uL Basophils # 0.1 (0-0.2) k/uL Macrocytosis Slight PT 10.9 (10.0-12.5) sec INR 1.0 (<1.2) APTT 28.9 (22.0-30.0) sec Sodium 138 (137-145) mmol/L Potassium 3.8 (3.5-5.1) mmol/L Chloride 95 L (98-107) mmol/L Carbon Dioxide 33 H (22-30) mmol/L Anion Gap 10 mmol/L BUN 17 (9-20) mg/dL Creatinine 4.59 H (0.66-1.25) mg/dL Est GFR (CKD-EPI)AfAm 14 (>60 ml/min/1.73 sqM) Est GFR (CKD-EPI)NonAf 12 (>60 ml/min/1.73 sqM) Glucose 106 H (74-99) mg/dL Calcium 8.9 (8.4-10.2) mg/dL Total Bilirubin 0.7 (0.2-1.3) mg/dL AST 21 (17-59) U/L ALT 13 (4-49) U/L Alkaline Phosphatase 69 (38-126) U/L Total Protein 7.0 (6.3-8.2) g/dL Albumin 3.9 (3.5-5.0) g/dL Disposition Clinical Impression: Headache Disposition: HOME SELF-CARE Condition: Fair Instructions (If sedation given, give patient instructions): General Headache (ED) Is patient prescribed a controlled substance at d/c from ED?: No Referrals: Padilla Perera MD [Primary Care Provider] - 1-2 days Time of Disposition: 15:10
--- NOTE | 2023-02-20 13:47 | CT ---
EXAMINATION TYPE: CT brain wo con CT DLP: 1094.9 mGycm, Automated exposure control for dose reduction was used. DATE OF EXAM: 02/20/2023 1:41 PM COMPARISON: 12/26/2022. CLINICAL INDICATION:Male, 72 years old with history of Altered mental status, TECHNIQUE: Brain: Axial CT images of the brain were obtained with coronal and sagittal reformats created and rev iewed. Contrast used: None. Oral contrast used: None. FINDINGS: Brain: Extra-axial spaces: No abnormal extra-axial fluid collections. Ventricular system: Within normal limits Cerebral parenchyma: Low density with cassidy-white matter loss of differentiation the right middle cran ial fossa compatible with prior CVA. There is also an area near the right lateral ventricle along the combs radiata Melanie acute intraparenchymal hemorrhage or mass effect. The cassidy-white junction is wel l differentiated. Cerebellum: Unremarkable. Mass effect: No evidence of midline shift. Intracranial vasculature: Atherosclerotic calcifications of the intracranial vessels. Soft tissues: Normal. Calvarium/osseous structures: No depressed skull fracture. Paranasal sinuses and mastoid air cells: Mild scattered paranasal sinus disease. Visualized orbits: Bilateral aphakia IMPRESSION: Evolution of right MCA territory infarct seen on 12/26/2022. No evidence of new acute/subacute CVA.
[2023-02-20 14:00] LABS: ALT 13 U/L (4-49); AST 21 U/L (17-59); African American GFR (CKD) 14 (>60 ml/min/1.73 sqM); Albumin 3.9 g/dL (3.5-5.0); Alkaline Phosphatase 69 U/L (38-126); Anion Gap 10 mmol/L; Blood Urea Nitrogen 17 mg/dL (9-20); Calcium 8.9 mg/dL (8.4-10.2); Carbon Dioxide 33 mmol/L (22-30); Chloride 95 mmol/L (98-107); Glucose 106 mg/dL (74-99); Non-African American GFR(CKD) 12 (>60 ml/min/1.73 sqM); Potassium 3.8 mmol/L (3.5-5.1); Sodium 138 mmol/L (137-145); Total Bilirubin 0.7 mg/dL (0.2-1.3)
[2023-02-20 14:09] LABS: Partial Thromboplastin Time 28.9 sec (22.0-30.0); Prothrombin Time 10.9 sec (10.0-12.5)
[2023-02-20 15:40] VITALS: BP 134/86; PULSE 70; RESP 16
== END 2023-02-20 15:46 | disposition home or self-care (01) ==
LOC: EC 12:51
DX: R51.9 Headache, unspecified (principal); I45.10 Unspecified right bundle-branch block; I12.0 Hypertensive chronic kidney disease with stage 5 chronic kidney disease or end stage renal disease; N18.6 End stage renal disease; E78.5 Hyperlipidemia, unspecified; I25.10 Atherosclerotic heart disease of native coronary artery without angina pectoris; E07.9 Disorder of thyroid, unspecified; Z79.890 Hormone replacement therapy; Z95.1 Presence of aortocoronary bypass graft; Z79.899 Other long term (current) drug therapy; Z99.2 Dependence on renal dialysis
CPT/HCPCS: 36415; 70450; 80053; 85025; 85610; 85730; 93005; 99285

== ENCOUNTER → 2024-08-22 | Outpatient (CLI) | payer MEDICARE ==
[2024-08-22 13:43] LABS: Influenza A Not Detected (Not Detectd); Influenza B Not Detected (Not Detectd); RSV Detected (Not Detectd)
== END | disposition home or self-care (01) ==
LOC: LABWHC1 12:42
PROVIDERS: ATTEND Family Medicine
DX: B89 Unspecified parasitic disease (principal)
CPT/HCPCS: 87636

== ENCOUNTER 2024-08-23 11:36 | Emergency (ER) | payer MEDICARE ==
[2024-08-23 12:12] VITALS: TEMP 98.3
[2024-08-23 14:00] LABS: Basophils # (A) 0.05 10*3/uL (0.00-0.10); Basophils % (A) 0.8 %; Eosinophils # (A) 0.02 10*3/uL (0.04-0.35); Eosinophils % (A) 0.3 %; HCT 37.2 % (39.6-50.0); HGB 12.4 g/dL (13.0-17.0); Lymphocytes # (A) 0.33 10*3/uL (0.90-5.00); MCH 33.4 pg (27.0-32.0); MCHC 33.3 g/dL (32.0-37.0); MCV 100.3 fL (80.0-97.0); Mean Platelet Volume 10.3 fL (9.5-12.2); Monocytes # (A) 0.39 10*3/uL (0.20-1.00); Monocytes % (A) 5.9 %; Neutrophils # (A) 5.84 10*3/uL (1.80-7.70); Neutrophils % (A) 87.5 %; Platelet Count 148 10*3/uL (140-440); RBC 3.71 10*6/uL (4.40-5.60); RDW 17.1 % (11.5-14.5); WBC 6.66 10*3/uL (4.50-10.00)
[2024-08-23 14:23] LABS: ALT 11 U/L (4-49); AST 24 U/L (17-59); African American GFR (CKD) 15 (>60 ml/min/1.73 sqM); Albumin 3.8 g/dL (3.5-5.0); Alkaline Phosphatase 76 U/L (38-126); Anion Gap 11 mmol/L; Blood Urea Nitrogen 26 mg/dL (9-20); Calcium 9.9 mg/dL (8.4-10.2); Carbon Dioxide 32 mmol/L (22-30); Chloride 92 mmol/L (98-107); Glucose 109 mg/dL (74-99); Non-African American GFR(CKD) 13 (>60 ml/min/1.73 sqM); Potassium 4.3 mmol/L (3.5-5.1); Sodium 135 mmol/L (137-145); Total Bilirubin 0.8 mg/dL (0.2-1.3); Total Protein 6.9 g/dL (6.3-8.2)
--- NOTE | 2024-08-23 14:33 | XR ---
EXAMINATION TYPE: XR chest 2V DATE OF EXAM: 08/23/2024 2:24 PM COMPARISON: Multiple radiographs, with the most recent on 12/26/2022 TECHNIQUE: XR chest 2V Frontal and lateral views of the chest. CLINICAL INDICATION:Male, 74 years old with history of difficulty breathing; FINDINGS: Lungs/Pleura: No pneumothorax. Trace right pleural effusion. Right basilar patchy airspace opacities. Left mid lung linear atelectasis. Pulmonary vascularity: Unremarkable. Heart/mediastinum: Cardiomediastinal silhouette is enlarged and stable. Post-CABG changes. Left atri al appendage occlusion devices present. Musculoskeletal: No acute osseous pathology. Midline sternotomy wires are noted and stable. IMPRESSION: Trace right pleural effusion with and right basilar airspace opacities concerning for pneumonia. [facility], , 08/23/2024 2:31 PM
--- NOTE | 2024-08-23 14:41 | CT ---
EXAMINATION TYPE: CT brain wo con DATE OF EXAM: 08/23/2024 2:25 PM COMPARISON: 02/20/2023 CLINICAL INDICATION: Male, 74 years old with history of headache, hx hemorrhagic stroke, RENDON since yes terday, hx of hemorrhagic stroke. TECHNIQUE: CT of the brain is performed utilizing 3 mm thick sections through the posterior fossa and 3 mm thick sections through the remaining calvarium. Study is performed within 24 hours of arrival to the hospital. Contrast used: mL of , (none if empty) CT DLP: 1074.4 mGycm, Automated exposure control for dose reduction was used. FINDINGS: No abnormal hyperdensity is present to suggest an acute intracranial hemorrhage. No mass lesion is evident. No acute infarcts are evident. Old right parietal occipital watershed and right parietal infarct pres ent. This extends into the right temporal lobe. This area is larger than the prior 2022. Acute change s are not identified. There is some ex vacuo effect on the right lateral ventricle. Ventricles and sulci are prominent for the patient age. There is an air-fluid level within the right maxillary sinus. Ethmoid air cell mucosal thickening is present. Remaining paranasal sinuses and mastoid air cells are clear. IMPRESSION: 1. No acute intracranial process. Follow up MRI can be performed as clinically indicated. 2. Right parietal with extension into the temporal and occipital lobe infarct appears old but larger than the prior study. 3. Clinical correlation recommended for acute right maxillary sinusitis. [facility], , 08/23/2024 2:38 PM
[2024-08-23 14:55] LABS: NT-Pro-B-Type Natriuretic Pept 71400 pg/mL
--- NOTE | 2024-08-23 15:24 | ED ---
SOB HPI - General Chief Complaint: Shortness of Breath Stated Complaint: Pneumonia Time Seen by Provider: 08/23/24 12:15 Source: patient, family Mode of arrival: ambulatory Limitations: no limitations - History of Present Illness Initial Comments: 74 year old male with hx of renal disease on hd m,w,f who presents to the ED with complaint of headache and shortness of breath. He was seen by his PCP yesterday who diagnosed him with pneumonia. Several rx were called into the pharmacy. Patient presents without having initiated any of the medications yet. States he has a productive cough with green sputum. No fevers. No chest pain. He has not missed any dialysis. Patient had a hemorrhagic intracranial bleed in the past. States mild headache without visual changes. - Related Data Home Medications Medication Instructions Recorded Confirmed Levothyroxine Sodium [Synthroid] 50 mcg PO DAILY 07/03/18 08/23/24 Sacubitril/Valsartan [Entresto 24 1 tab PO BID 12/26/22 08/23/24 mg-26 mg Tablet] hydrALAZINE HCL [Apresoline] 25 mg PO BID 08/23/24 08/23/24 tadalafiL 10 mg PO DAILY 08/23/24 08/23/24 Allergies Allergy/AdvReac Type Severity Reaction Status Date / Time atorvastatin [From Lipitor] AdvReac muscle Verified 08/23/24 13:34 spasms Review of Systems ROS Statement: Those systems with pertinent positive or pertinent negative responses have been documented in the HPI. ROS Other: All systems not noted in ROS Statement are negative. Past Medical History Past Medical History: Coronary Artery Disease (CAD), Dialysis, Hyperlipidemia, Hypertension, Renal Disease, Thyroid Disorder Additional Past Medical History / Comment(s): HEMODIALYSIS MON-MON-MON AT [facility] # [phone]. , kidney failure History of Any Multi-Drug Resistant Organisms: None Reported Past Surgical History: Coronary Bypass/CABG, Heart Catheterization Additional Past Surgical History / Comment(s): HEMODIALYSIS CATHETER RIGHT CHEST. quad. bypass August 2018, Past Anesthesia/Blood Transfusion Reactions: No Reported Reaction Past Psychological History: No Psychological Hx Reported Smoking Status: Never smoker Past Alcohol Use History: Rare Past Drug Use History: None Reported - Past Family History Mother Family Medical History: Coronary Artery Disease (CAD) Additional Family Medical History / Comment(s): Multiple family members on his mother's side with coronary artery disease General Exam Limitations: no limitations General appearance: alert, in no apparent distress Head exam: Present: atraumatic, normocephalic, normal inspection Eye exam: Present: normal appearance, PERRL, EOMI. Absent: scleral icterus, conjunctival injection, periorbital swelling ENT exam: Present: normal exam, mucous membranes moist Neck exam: Present: normal inspection. Absent: tenderness, meningismus, lym phadenopathy Respiratory exam: Present: normal lung sounds bilaterally, decreased breath sounds (right base). Absent: respiratory distress, wheezes, rales, rhonchi, stridor Cardiovascular Exam: Present: regular rate, normal rhythm, normal heart sounds. Absent: systolic murmur, diastolic murmur, rubs, gallop, clicks GI/Abdominal exam: Present: soft, normal bowel sounds. Absent: distended, tenderness, guarding, rebound, rigid Extremities exam: Present: normal inspection, full ROM, normal capillary refill. Absent: tenderness, pedal edema, joint swelling, calf tenderness Back exam: Present: normal inspection Neurological exam: Present: alert, oriented X3, CN II-XII intact Psychiatric exam: Present: normal affect, normal mood Skin exam: Present: warm, dry, intact, normal color. Absent: rash Course Vital Signs 08/23/24 08/23/24 12:08 15:50 Temperature 98.3 F Pulse Rate 90 82 Respiratory 18 16 Rate Blood Pressure 152/82 137/79 O2 Sat by Pulse 92 L 94 L Oximetry Medical Decision Making - Medical Decision Making Was pt. sent in by a medical professional or institution (, PA, MANAGER GALLERY, urgent care, hospital, or custodial...) When possible be specific @ -Patient reports he was sent in by Dr. Fan Did you speak to anyone other than the patient for history (EMS, parent, family, police, friend...)? What history was obtained from this source @ -spoke with for history Did you review nursing and triage notes (agree or disagree)? Why? @ -I reviewed and agree with nursing and triage notes Were old charts reviewed (outside hosp., previous admission, EMS record, old EKG, old radiological studies, urgent care reports/EKG's, custodial records)? Report findings @ -I reviewed viral swab done yesterday through Dr. Harrison office - patient is RSV positive Differential Diagnosis (chest pain, altered mental status, abdominal pain women, abdominal pain men, vaginal bleeding, weakness, fever, dyspnea, syncope, headache, dizziness, GI bleed, back pain, seizure, CVA, palpatations, mental health, musculoskeletal)? @ -pneumonia, covid, flu, rsv EKG interpreted by me (3pts min.). @ -CT head demonstrates sinus rhythm with rate of 80. MO interval 147. QRS 100. QTc of 426. No acute ST segment elevations or depressions X-rays interpreted by me (1pt min.). @ -yes which demonstrates pneumonia CT interpreted by me (1pt min.). @ -yes which demonstrates no acute process U/S interpreted by me (1pt. min.). @ -None done What testing was considered but not performed or refused? (CT, X-rays, U/S, labs)? Why? @ -None What meds were considered but not given or refused? Why? @ -None Did you discuss the management of the patient with other professionals (professionals i.e. , PA, MANAGER GALLERY, lab, RT, psych nurse, social group worker, health and physical education professor, teacher, home school liaison officer, window caser)? Give summary @ -No Was smoking cessation discussed for >3mins.? @ -No Was critical care preformed (if so, how long)? @ -No Were there social determinants of health that impacted care today? How? (Homelessness, low income, unemployed, alcoholism, drug addiction, transpor tation, low edu. Level, literacy, decrease access to med. care, senior care, rehab)? @ -No Was there de-escalation of care discussed even if they declined (Discuss DNR or withdrawal of care, Hospice)? DNR status @ -No What co-morbidities impacted this encounter? (DM, HTN, Smoking, COPD, CAD, Cancer, CVA, ARF, Chemo, Hep., AIDS, mental health diagnosis, sleep apnea, morbid obesity)? @ -esrd on hd Was patient admitted / discharged? Hospital course, mention meds given and route, prescriptions, significant lab abnormalities, going to OR and other pertinent info. @ -Patient seen and evaluated in room 8. I reviewed the outpatient swab and patient was positive for RSV. Labs and chest xray performed. Patient also has pneumonia. Recommended admission - patient wants to go home. Vital and lab work wnl. I called the pharmacy - patient placed on 5 rx for his pneumonia which are all appropriate including antibx and steroids. Patient instructed to take these rx, follow back up with his pcp but needs to return for any new or worsening symptoms. Patient discharged in stable condition. Undiagnosed new problem with uncertain prognosis? @ -No Drug Therapy requiring intensive monitoring for toxicity (Heparin, Nitro, Insulin, Cardizem)? @ -No Were any procedures done? @ -No Diagnosis/symptom? @ -acute cough, acute pneumonia, rsv bronchitis Acute, or Chronic, or Acute on Chronic? @ -acute Uncomplicated (without systemic symptoms) or Complicated (systemic symptoms)? @ -Complicated Side effects of treatment? @ -No Exacerbation, Progression, or Severe Noerbation? @ -No Poses a threat to life or bodily function? How? (Chest pain, USA, [place], pneumonia, PE, COPD, DKA, ARF, appy, cholecystitis, CVA, Diverticulitis, Homicidal, Suicidal, threat to staff... and all critical care pts) @ -No - Lab Data Result diagrams: 08/23/24 13:54 08/23/24 13:54 Lab Results 08/23/24 08/23/24 08/23/24 Range/Units 13:54 13:54 13:54 WBC 6.66 (4.50-10.00) 10*3/uL RBC 3.71 L (4.40-5.60) 10*6/uL Hgb 12.4 L (13.0-17.0) g/dL Hct 37.2 L (39.6-50.0) % MCV 100.3 H (80.0-97.0) fL MCH 33.4 H (27.0-32.0) pg MCHC 33.3 (32.0-37.0) g/dL Plt Count 148 (140-440) 10*3/uL MPV 10.3 (9.5-12.2) fL Immature Gran % (Auto) 0.5 % Neutrophils % 87.5 % Lymphocytes % 5.0 % Monocytes % 5.9 % Eosinophils % 0.3 % Basophils % 0.8 % Immature Gran # 0.03 (0.00-0.04) 10*3/uL Neutrophils # 5.84 (1.80-7.70) 10*3/uL Lymphocytes # 0.33 L (0.90-5.00) 10*3/uL Monocytes # 0.39 (0.20-1.00) 10*3/uL Eosinophils # 0.02 L (0.04-0.35) 10*3/uL Basophils # 0.05 (0.00-0.10) 10*3/uL Sodium 135 L (137-145) mmol/L Potassium 4.3 (3.5-5.1) mmol/L Chloride 92 L (98-107) mmol/L Carbon Dioxide 32 H (22-30) mmol/L Anion Gap 11 mmol/L BUN 26 H (9-20) mg/dL Creatinine 4.29 H (0.66-1.25) mg/dL Est GFR (CKD-EPI)AfAm 15 (>60 ml/min/1.73 sqM) Est GFR (CKD-EPI)NonAf 13 (>60 ml/min/1.73 sqM) Glucose 109 H (74-99) mg/dL Plasma Lactic Acid Constantin 1.3 (0.7-2.0) mmol/L Calcium 9.9 (8.4-10.2) mg/dL Total Bilirubin 0.8 (0.2-1.3) mg/dL AST 24 (17-59) U/L ALT 11 (4-49) U/L Alkaline Phosphatase 76 (38-126) U/L NT-Pro-B Natriuret Pep 80691 pg/mL Total Protein 6.9 (6.3-8.2) g/dL Albumin 3.8 (3.5-5.0) g/dL Disposition Clinical Impression: Cough, Pneumonia, RSV (respiratory syncytial virus infection) Disposition: HOME SELF-CARE Condition: Stable Instructions (If sedation given, give patient instructions): Respiratory Syncytial Virus (ED), Bacterial Pneumonia (ED) Additional Instructions: Take the medications that you were prescribed by Dr. Fan. Follow-up with him for reevaluation and return if you are getting worse Is patient prescribed a controlled substance at d/c from ED?: No Referrals: Padilla Perera MD [Primary Care Provider] - 1-2 days Time of Disposition: 15:24
[2024-08-23 15:52] VITALS: BP 137/79; PULSE 82; RESP 16
== END 2024-08-23 15:51 | disposition home or self-care (01) ==
LOC: EC 11:36
DX: J18.9 Pneumonia, unspecified organism (principal); J20.5 Acute bronchitis due to respiratory syncytial virus; I12.0 Hypertensive chronic kidney disease with stage 5 chronic kidney disease or end stage renal disease; N18.6 End stage renal disease; Z88.8 Allergy status to other drugs, medicaments and biological substances; Z99.2 Dependence on renal dialysis
CPT/HCPCS: 36415; 70450; 71046; 80053; 83605; 83880; 85025; 93005; 99285